=== PATIENT | male | born 1965 | race Hispanic/Latino ===

== ENCOUNTER 2016-11-10 15:26 | Observation (INO) | payer MEDICAID ==
[2016-11-10 15:41] VITALS: BMI 33.6
[2016-11-10] MEDS ORDERED: Albuterol-Ipratrop 3 mg / 0.5 (3 ml) UD IH STA ×2 (15:41→16:48)
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
[2016-11-10 15:52] LABS: URINE BILIRUBIN SMALL (NEGATIVE); URINE BLOOD LARGE (NEGATIVE); URINE GLUCOSE (UA) NEGATIVE (NEGATIVE); URINE KETONE TRACE mg/dL (NEGATIVE); URINE LEUKOCYTE ESTERASE NEGATIVE Leu/uL (NEGATIVE); URINE PROTEIN 100 mg/dL (<30 mg/dL)
[2016-11-10 15:57] LABS: URINE APPEARANCE SL CLOUDY (CLEAR); URINE COLOR LIGHT RED (YELLOW)
[2016-11-10 16:02] LABS: URINE BACTERIA MOD (NEG); URINE EPITHELIAL CELLS 0 - 2 /hpf (0-5); URINE RBC 20 - 25 /hpf (0-2)
[2016-11-10 16:03] LABS: URINE AMORPHOUS SEDIMENT FEW
--- NOTE | 2016-11-10 16:09 | RAD ---
HISTORY: Shortness of breath COMPARISON: 11/04/2016. FINDINGS: LUNGS: The lungs are clear. PLEURA: No significant pleural effusion identified, no pneumothorax apparent. There is chronic left pleural thickening. CARDIOVASCULAR: Normal. OSSEOUS STRUCTURES: No significant abnormalities. VISUALIZED UPPER ABDOMEN: Normal. OTHER FINDINGS: None. IMPRESSION: No active pulmonary disease.
[2016-11-10 16:10] LABS: ADD MANUAL DIFF? NO
[2016-11-10 16:17] LABS: BASO # 0.04 K/mm3 (0.0-2.0); BASO % 0.7 % (0.0-3.0); EOS % 0.3 % (1.5-5.0); GRAN # 3.35 (1.4-6.5); HEMATOCRIT 40.8 % (42.0-52.0); LYMPH # 2.1 (1.2-3.4); LYMPH % 34.3 % (22.0-35.0); MEAN CORPUSCULAR HEMOGLOBIN 34.4 pg (25.0-35.0); MEAN CORPUSCULAR HGB CONC 34.1 g/dl (31.0-37.0); MEAN PLATELET VOLUME 10.4 fl (7.0-11.0); MONO # 0.6 (0.1-0.6); MONO % 9.7 % (1.0-6.0); PLATELET COUNT 61 10^3/uL (120.0-450.0); WHITE BLOOD COUNT 6.1 10^3/ul (4.5-11.0)
[2016-11-10 16:30] LABS: ALKALINE PHOSPHATASE 120 U/L (38-133); ALT/SGPT 140 U/L (7-56); AST/SGOT 120 U/L (15-59); BILIRUBIN,TOTAL 1.7 mg/dL (0.2-1.3); BLOOD UREA NITROGEN 21 mg/dL (7-21); CALCIUM 9.3 mg/dL (8.4-10.5); CARBON DIOXIDE 25 mmol/L (21-33); CHLORIDE 104 mmol/L (98-107); GFR AFRICAN-AMERICAN > 60; GLUCOSE,RANDOM 93 mg/dL (70-110); POTASSIUM 4.4 mmol/L (3.6-5.0); SODIUM 136 mmol/L (132-148); TOTAL PROTEIN 7.2 g/dL (5.8-8.3)
[2016-11-10 16:32] LABS: D DIMER 0.36 mg/L FEU (0-0.50); INR 1.11 (0.93-1.08); PARTIAL THROMBOPLASTIN TIME 28.2 Seconds (23.7-30.8)
[2016-11-10 16:44] LABS: TROPONIN I < 0.01 ng/mL
[2016-11-10] MEDS ORDERED: cefTRIAXone 1 gm 1 GM/100 ML BAG IVPB STA (16:48)
[2016-11-10] MEDS ORDERED: Morphine 2 mg/ml ISec IVP PRN (21:41)
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
[2016-11-10 23:42] VITALS: RESP 22
--- NOTE | 2016-11-11 01:01 | CARD ---
APPROVED REPORT EKG Measurement Heart [id number] <Conclusion> Normal sinus rhythm Normal ECG
[2016-11-11 06:04] VITALS: TEMP 98.6; O2SAT 98
[2016-11-11 06:48] LABS: ADD MANUAL DIFF? NO
[2016-11-11 07:16] LABS: ALKALINE PHOSPHATASE 107 U/L (38-133); ALT/SGPT 121 U/L (7-56); AST/SGOT 83 U/L (15-59); BLOOD UREA NITROGEN 19 mg/dL (7-21); CALCIUM 9.1 mg/dL (8.4-10.5); CARBON DIOXIDE 23 mmol/L (21-33); CHLORIDE 105 mmol/L (98-107); GFR AFRICAN-AMERICAN > 60; GLUCOSE,RANDOM 142 mg/dL (70-110); POTASSIUM 4.4 mmol/L (3.6-5.0); SODIUM 135 mmol/L (132-148); TOTAL PROTEIN 6.6 g/dL (5.8-8.3)
[2016-11-11 07:18] LABS: BASO # 0.01 K/mm3 (0.0-2.0); BASO % 0.2 % (0.0-3.0); GRAN # 3.05 (1.4-6.5); GRAN % 75.5 % (50.0-68.0); HEMATOCRIT 37.8 % (42.0-52.0); LYMPH # 0.9 (1.2-3.4); LYMPH % 22.8 % (22.0-35.0); MEAN CELL VOLUME 99.7 fL (80.0-105.0); MEAN CORPUSCULAR HEMOGLOBIN 33.8 pg (25.0-35.0); MEAN CORPUSCULAR HGB CONC 33.9 g/dl (31.0-37.0); MEAN PLATELET VOLUME 10.6 fl (7.0-11.0); MONO # 0.1 (0.1-0.6); MONO % 1.5 % (1.0-6.0); PLATELET COUNT 57 10^3/uL (120.0-450.0); RED CELL DISTRIBUTION WIDTH 12.9 % (11.5-14.5)
[2016-11-11 07:24] LABS: TROPONIN I < 0.01 ng/mL
--- NOTE | 2016-11-11 07:44 | CON ---
DATE: 11/11/2016 REASON FOR CONSULTATION: Chronic obstructive pulmonary disease. REFERRING PHYSICIAN: Dr. Viktor Lundy The patient is a 51-year-old male with past medical history significant for chronic obstructive pulmonary disease, recurrent bronchitis, extensive smoking history, chronic alcohol abuse, chronic hepatitis C, diabetes mellitus, who presents with a 1-week history of increasing shortness of breath at rest, dyspnea on exertion, cough, and sputum production. The patient does state to chest "tightness" over the past few days. However, he denies chest pain, coughing up of blood or chest pain -- aggravated with deep respirations. There is no history of temperatures, chills or infectious exposure. There is no history of night sweats, weight loss or appetite change prior to the above events. No history of leg or calf pains. No history of syncope or diaphoresis. No history of recent travel or trauma. REVIEW OF SYSTEMS: No history of nausea, vomiting or diarrhea. No acute urinary symptoms. No new neurologic or musculoskeletal complaints. Rest is negative. ALLERGIES: No known allergies. SOCIAL HISTORY: Positive for extensive tobacco usage. Positive for chronic alcohol abuse. Positive for previous cocaine usage. The patient's drug screen was also positive for cannabinoids in the urine. FAMILY HISTORY: No inheritable diseases. HOME MEDICATIONS: Include promethazine, cough syrup, Levaquin and Augmentin. PHYSICAL EXAMINATION: GENERAL: The patient is very comfortable at rest. He is not short of breath. Prior to me waking him up, he was sleeping. VITAL SIGNS: Temperature is 98.6, pulse on the monitor is 71, respirations 18, blood pressure 128/62. Oxygen saturation on nasal cannula is 98%-100%. HEENT: Normocephalic, atraumatic. No JVD. CARDIOVASCULAR: Positive S1, S2. No S3. LUNGS: Minimal rhonchi bilaterally. No wheezing. EXTREMITIES: No clubbing, cyanosis, or edema. Calves are nontender to palpation. GASTROINTESTINAL: Abdomen is soft, nontender, nondistended. Bowel sounds are positive. SKIN: No acute rash. NEUROLOGIC: Limited at the present time. PERTINENT LABORATORY DATA: Chest x-ray was done and reviewed. There is no active pulmonary disease noted. CBC: White count 6.1, hemoglobin 13.9, hematocrit 40.8, platelets of 61,000. D-dimer was done and is negative -- 0.36. Complete metabolic profile: Total bilirubin 1.7, AST 120, ALT 140. Rest of the metabolic profile is within normal limits. IMPRESSION: 1. Acute bronchitis. 2. Chronic obstructive pulmonary disease. 3. Mild anemia. 4. Diabetes mellitus. 5. Chronic alcohol abuse. 6. Chronic hepatitis C. PLAN: The patient presents to [facility] ([facility] with a 1-week history of worsening pulmonary symptoms. I did review the chest x-ray as above. It shows no acute pulmonary disease. On physical exam, only minimal bronchospasm is noted. In addition, there is no significant alveolar-arterial gradient. Oxygen saturation on nasal cannula is 98%-100%. The patient states he feels much better this morning -- compared to the past few days. He is certainly clinically improved. I did discuss the above with Dr. Lundy this morning at length. The patient is for probable discharge(with home medications) later today. Thank you very much for this pulmonary consultation. Musa Soliman MD cc: [id number] TT: 11/11/2016 07:43:39 Confirmation # [id number] Dictation # [id number] en MTDD
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
--- NOTE | 2016-11-11 08:53 | DS ---
He is comfortable, resting in bed. He feels well. He wants to go home. He is feeling better. I sa w him with the bar hostess who said he can go home. He is comfortable. No chest pain or shortness of breath anymore. PHYSICAL EXAMINATION: VITAL SIGNS: 98.6 temp, 62 pulse, 128/62 blood pressure, 22 respiratory rate, 98% O2 sat on room air . HEENT: Head is atraumatic, normocephalic. HEART: Regular rate. LUNGS: Decreased breath sounds but clear to auscultation. ABDOMEN: Soft. EXTREMITIES: No edema. MEDICATIONS: He is going to go home on Symbicort, aspirin, Levaquin, metoprolol, prednisone for 9 da ys. LABORATORY DATA: Labs were good. His liver enzymes were elevated. He will go for an outpatient ult rasound and outpatient lab tests in a week. I am going to see him in a week at home. He will behave ; no smoking, no drinking, no drugs, and I will recheck him in 1 week. I changed him to an observati on status. He was here for chest pain and shortness of breath which improved. Viktor Lundy DO cc: [id number] TT: 11/11/2016 08:53:04 oh
[2016-11-11 09:07] VITALS: BP 108/67; PULSE 60
[2016-11-11] MEDS ORDERED: levoFLOXacin 500 mg in D5W 500 MG/100 ML BAG IVPB SCH (10:00)
== END 2016-11-11 11:10 | disposition home or self-care (01) ==
LOC: ED 15:26 → INTOOBSV 17:10 → ERH 17:10 → 2RNO 21:07
PROVIDERS: ADMIT Family Medicine; ATTEND Family Medicine
DX: J44.0 Chronic obstructive pulmonary disease with (acute) lower respiratory infection (principal); J20.9 Acute bronchitis, unspecified; N39.0 Urinary tract infection, site not specified; B18.2 Chronic viral hepatitis C; D64.9 Anemia, unspecified; E11.9 Type 2 diabetes mellitus without complications; F10.10 Alcohol abuse, uncomplicated; M54.5 Low back pain; G89.29 Other chronic pain; F12.90 Cannabis use, unspecified, uncomplicated; Z87.891 Personal history of nicotine dependence; Y90.0 Blood alcohol level of less than 20 mg/100 ml
CPT/HCPCS: 36415; 71010; 80053; 80320; 80324; 80345; 80346; 80349; 80353; 80358; 80361; 81001; 82550; 83615; 83880; 83992; 84484; 85025; 85378; 85610; 85730; 87040; 87086; 93005; 96365; 96375; 99285; G0378; J0696; J2930

== ENCOUNTER 2017-01-07 19:01 | Inpatient (IN) | payer MEDICAID ==
[2017-01-07] MEDS ORDERED: Albuterol-Ipratrop 3 mg / 0.5 (3 ml) UD IH STA (19:31)
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
[2017-01-07 19:51] LABS: BASO # 0.06 K/mm3 (0.0-2.0); BASO % 1.1 % (0.0-3.0); EOS % 0.5 % (1.5-5.0); GRAN # 2.66 (1.4-6.5); GRAN % 47.7 % (50.0-68.0); HEMOGLOBIN 12.5 gm/dL (14.0-18.0); LYMPH # 2.3 (1.2-3.4); LYMPH % 41.4 % (22.0-35.0); MEAN CELL VOLUME 96.5 fL (80.0-105.0); MEAN CORPUSCULAR HGB CONC 35.2 g/dl (31.0-37.0); MEAN PLATELET VOLUME 10.2 fl (7.0-11.0); MONO # 0.5 (0.1-0.6); MONO % 9.3 % (1.0-6.0); PLATELET COUNT 61 10^3/uL (120.0-450.0); RBC 3.68 10^6/uL (3.5-6.1); RED CELL DISTRIBUTION WIDTH 12.5 % (11.5-14.5); WHITE BLOOD COUNT 5.6 10^3/ul (4.5-11.0)
[2017-01-07 19:59] LABS: ALBUMIN 3.2 g/dL (3.0-4.8); ALT/SGPT 112 U/L (7-56); AST/SGOT 84 U/L (15-59); BLOOD UREA NITROGEN 8 mg/dL (7-21); CALCIUM 8.2 mg/dL (8.4-10.5); GFR AFRICAN-AMERICAN > 60; GFR NON-AFRICAN AMERICAN > 60
[2017-01-07 20:13] LABS: TROPONIN I < 0.01 ng/mL
[2017-01-07] MEDS ORDERED: Iohexol 350 MG/100 ML VIAL ONE (22:21)
[2017-01-08 02:55] VITALS: BMI 27.9
[2017-01-08] MEDS: cefTRIAXone 1 gm 1 GM/100 ML BAG IVPB SCH (10:12)
[2017-01-08] MEDS: Sodium Chloride 0.9% 1,000 ML IV SCH (10:13)
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
[2017-01-08] MEDS: Insulin Reg-HIGH-Coverage SC SCH ×3 (11:39→21:53)
--- NOTE | 2017-01-08 11:43 | RAD ---
HISTORY: cp COMPARISON: Single frontal chest dated 11/10/2016. FINDINGS: LUNGS: Prominent density seen at the expected location of the aortic arch/suprahilar region which it has been shown to represent a left perihilar/mediastinal mass by CT also performed 12/29/2016. Please see separate report. PLEURA: No significant pleural effusion identified, no pneumothorax apparent. CARDIOVASCULAR: Normal. OSSEOUS STRUCTURES: No significant abnormalities. VISUALIZED UPPER ABDOMEN: Normal. OTHER FINDINGS: None. IMPRESSION: Prominent density seen at the left suprahilar/aortic arch region stone as a mass on separate CT chest also performed 12/29/2016. Remainder the examination appears stable.
[2017-01-08] MEDS: Albuterol-Ipratrop 3 mg / 0.5 (3 ml) UD IH SCH ×2 (13:41→19:24)
--- NOTE | 2017-01-08 13:57 | CARD ---
APPROVED REPORT EKG Measurement Heart [id number] <Conclusion> Normal sinus rhythm Normal ECG
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
[2017-01-09] MEDS: Albuterol-Ipratrop 3 mg / 0.5 (3 ml) UD IH SCH ×5 (00:42→20:03)
[2017-01-09] MEDS ORDERED: Pantoprazole 40mg/100ml IVPB 40 MG/100 ML BAG IVPB SCH (06:00)
[2017-01-09] MEDS: Sodium Chloride 0.9% 1,000 ML IV SCH (07:00)
[2017-01-09] MEDS ORDERED: Albuterol-Ipratrop 3 mg / 0.5 (3 ml) UD IH PRN (07:01)
[2017-01-09 07:04] LABS: HEMOGLOBIN 11.7 gm/dL (14.0-18.0); MEAN CELL VOLUME 97.2 fL (80.0-105.0); MEAN CORPUSCULAR HEMOGLOBIN 33.2 pg (25.0-35.0); MEAN CORPUSCULAR HGB CONC 34.2 g/dl (31.0-37.0); MEAN PLATELET VOLUME 10.6 fl (7.0-11.0); RBC 3.52 10^6/uL (3.5-6.1); RED CELL DISTRIBUTION WIDTH 12.8 % (11.5-14.5); WHITE BLOOD COUNT 3.9 10^3/ul (4.5-11.0)
[2017-01-09 07:14] LABS: ALB/GLOB RATIO 0.9 (1.1-1.8); ALBUMIN 2.7 g/dL (3.0-4.8); ALT/SGPT 103 U/L (7-56); AST/SGOT 94 U/L (15-59); BLOOD UREA NITROGEN 10 mg/dL (7-21); CALCIUM 8.2 mg/dL (8.4-10.5); GFR AFRICAN-AMERICAN > 60; GFR NON-AFRICAN AMERICAN > 60
[2017-01-09] MEDS: Budesonide 0.5 mg/2 ml Inhal Susp UD IH SCH ×2 (07:55→20:03)
[2017-01-09] MEDS: Insulin Reg-HIGH-Coverage SC SCH ×4 (07:58→21:41)
--- NOTE | 2017-01-09 08:28 | PN ---
SUBJECTIVE: The patient appears comfortable this morning. He is not short of breath at rest. PHYSICAL EXAMINATION VITAL SIGNS: Temperature 98.4, pulse 70, respirations 18/20, blood pressure 107/57. Oxygen saturation on nasal cannula is 96%. HEENT: Normocephalic, atraumatic. NECK: No JVD. CARDIOVASCULAR: Positive S1 and S2. No S3. LUNGS: Decreased breath sounds at the bases. minimal rhonchi. Minimal wheezing. EXTREMITIES: No clubbing, cyanosis or edema. Calves are nontender to palpation. GASTROINTESTINAL: Abdomen is soft, nontender and nondistended. Bowel sounds are positive. SKIN: No acute rash. NEUROLOGIC: Limited at the present time. IMPRESSION: 1. Left perihilar mass,pulmonary nodules-rule out malignancy. 2. Chronic obstructive pulmonary disease. 3. Mild acute bronchitis. 4. Mild anemia. PLAN: The patient appears comfortable this morning. He is not short of breath at rest. He states he is feeling better overall. On physical exam, there is mild bronchospasm noted. I will continue with the DuoNebs and add low-dose oral steroids this morning. There is no significant alveolar arterial gradient. I did discuss the case with the patient and nurse at length. Apparently, the patient was scheduled to have a CAT scan-guided lung biopsy at [facility]-and then he signed out against medical advice. Dr. Gofdrey Villanueva (interventional radiology) has been called on the case for a CAT scan-guided lung biopsy at our institution. The patient is agreeable to this procedure. The patient does feel better-compared to the initial hospital status. He is clinically improved. I did discuss the above with Dr. Lundy earlier this morning. Musa Soliman MD MTDLily
--- NOTE | 2017-01-09 08:59 | CON ---
DATE: 01/08/2017 HISTORY OF PRESENT ILLNESS: The patient is a 51-year-old male who presents with chest discomfort. His chest symptoms are constant both at rest in the supine position as well as during exertion. He also suffers from chronic shortness of breath secondary to COPD. The patient just stopped smoking recently. In addition, the patient suffers from hepatitis C in which he has not undergone drug therapy. He suffers from chronic alcohol abuse as well as diabetes mellitus. No previous cardiac history is noted. SOCIAL HISTORY: He is an active smoker just recently stopped. REVIEW OF SYSTEMS: A 14-point review of systems was reviewed. His shortness of breath and his constant chest pain are his predominant symptoms. PHYSICAL EXAMINATION: VITAL SIGNS: Blood pressure varies from 100-124 systolic, heart rate in the 70s. NECK: Negative JVD. LUNGS: Without rales. HEART: S1, S2. EXTREMITIES: Without edema. EKG shows no acute changes. LABORATORY DATA: Hemoglobin is 12. Troponin is negative x1. LFTs are elevated. IMPRESSION: 1. Chest pain. 2. Likely due to large lung mass. 3. No evidence for acute coronary syndrome. 4. Chronic obstructive pulmonary disease. 5. Diabetes mellitus. 6. Hepatitis C. 7. Alcohol abuse. PLAN: Given these findings, there is no evidence for acute coronary syndrome. Awaiting pulmonary evaluation for diagnosis and treatment of his of his lung mass. Godfrey Fisher MD cc: DATE: HISTORY OF PRESENT ILLNESS: The patient is a 51-year-old male who presents with chest discomfort. His chest symptoms are constant both at rest in the supine position as well as during exertion. He also suffers from chronic shortness of breath secondary to COPD. The patient just stopped smoking recently. In addition, the patient suffers from hepatitis C, in which he has not undergone drug therapy. He suffers from chronic alcohol abuse as well as diabetes mellitus. No previous cardiac history is noted. SOCIAL HISTORY: He is an active smoker, just recently stopped. REVIEW OF SYSTEMS: A 14 point review of systems was reviewed. His shortness of breath and his constant chest pain are his predominant symptoms. PHYSICAL EXAMINATION: VITAL SIGNS: Blood pressure varies from 100-124 systolic, heart rate in the 70s. NECK: Negative JVD. LUNGS: Without rales. HEART: S1, S2. EXTREMITIES: Without edema. EKG shows no acute changes. LABORATORY DATA: Hemoglobin is 12. Troponin is negative x1. LFTs are elevated. IMPRESSION: 1. Chest pain. 2. Likely due to large lung mass. 3. No evidence for acute coronary syndrome. 4. Chronic obstructive pulmonary disease. 5. Diabetes mellitus. 6. Hepatitis C. 7. Alcohol abuse. PLAN: Given these findings, there is no evidence for acute coronary syndrome. Awaiting pulmonary evaluation for diagnosis and treatment of his lung mass. Godfrey Fisher MD cc:
[2017-01-09] MEDS: cefTRIAXone 1 gm 1 GM/100 ML BAG IVPB SCH (09:32)
[2017-01-09] MEDS ORDERED: Midazolam 2 MG/2 ML VIAL ONE ×2 (09:33→16:32)
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
--- NOTE | 2017-01-09 10:18 | PN ---
DATE: SUBJECTIVE: I saw Trung this morning, resting in bed. He is still short of breath, not feeling that well. He has a lung mass which we need to get a biopsy of it. I called in Dr. Godfrey Villanueva. I made him n.p.o. hopefully they could do it this morning. He had chest pain, we have cardiology on board. He is short of breath, we got pulmonary on board. He is still short of breath despite being on albuterol. Insulin coverage. He is on prednisone, Protonix, Rocephin, IV fluids and Tylenol. PHYSICAL EXAMINATION: VITAL SIGNS: 98.4 temperature, 74 pulse, 107/57 blood pressure, 20 respiratory rate, 96% O2 saturations on 2 L nasal canula. HEENT: Atraumatic and normocephalic. Throat is clear and moist. NECK: Supple. HEART: Regular rate. LUNGS: Decreased breath sounds bilaterally, but clear. ABDOMEN: Soft. EXTREMITIES: No edema. He has been a smoker for a very long time. LABORATORY DATA: He has a 3.9 white count, 11.7 hemoglobin, 34.2 hematocrit with 54 platelets. He has 0.53 D-dimer. CAT scan was ordered. Sodium 127, 4.2 potassium, BUN is 8, creatinine is 0.7, and last blood sugar was 123. Troponin is less than 0.01 x3. AST is 84, ALT is 112. We are waiting for this morning's chemistry to come back. He does have a consult pulmonary, cardiology and interventional radiologist, Dr. Godfrey Villanueva, also oncology. He has had a CAT scan of the chest which showed 10 cm left perihilar mass of mediastinal lymphadenopathy encasing the main left pulmonary artery as well as the left upper lobe main bronchus. No definite pulmonary embolus seen. Multiple satellite nodules are identified, mild mediastinal lymphadenopathy. We will hopefully get the biopsy today. We will get oncology and Dr. Leahy check his labs. Continue with aggressive treatment and care. Viktor Lundy DO JERAMIE
[2017-01-09 10:20] LABS: INR 1.21 (0.93-1.08); PROTHROMBIN TIME 13.1 Seconds (9.9-11.8)
--- NOTE | 2017-01-09 13:03 | PN ---
CARDIOLOGY FOLLOWUP NOTE DATA OF FOLLOWUP: 01/09/2017 SUBJECTIVE: The patient is asymptomatic. PHYSICAL EXAMINATION VITAL SIGNS: Blood pressure is 107/57 and heart rate is in the 70s. NECK: Negative JVD. LUNGS: Without rales. HEART: Reveals S1 and S2. Extremities: Without edema. LABORATORY DATA: Hemoglobin is 11.7. Chemistries; troponins are negative x2. IMPRESSION: 1. Atypical chest pain. 2. No evidence for acute coronary syndrome. 3. Chronic obstructive pulmonary disease. 4. Lung mass. 5. Diabetes mellitus. PLAN: Given these findings, waiting pulmonary decision on what to do with the lung mass. At the present time, there was no further cardiac intervention indicated at this time. We will obtain an echocardiogram for LV function in case more invasive pulmonary procedures are necessary. Otherwise the patient needs to stop smoking and undergo a strict cardiac risk reduction program. Godfrey Fisher MD
--- NOTE | 2017-01-09 19:36 | CT ---
PROCEDURE: CT guided left lung biopsy. HISTORY: Large left upper lobe and mediastinal lung mass. Evaluate for malignancy. PHYSICIAN(S): Godfrey Villanueva MD. TECHNIQUE: The relative risks and indications of the procedure were explained to the patient and consent obtained. The patient was placed supine on the CT scanner and preliminary images through the lungs obtained. Conscious sedation and monitoring were provided throughout the procedure by a nurse. There is a 4.2 x 10.7 cm noncalcified mass in the left upper lobe medially involving the mediastinum and left hilum.. A left anterior approach was selected and the area prepped and draped in the usual sterile fashion. 1% Xylocaine was used to anesthetize the skin and soft tissues. A 19 gauge guiding needle was advanced into the 4.2 x 10.7 cm left lung mass. Its position was confirmed with CT. Using coaxial technique, multiple core biopsies were obtained. The postprocedure images show no evidence of large pneumothorax or significant hemorrhage.. IMPRESSION: 1. CT-guided left lung biopsy as described above.
[2017-01-09] MEDS: Sodium Chloride 0.45% 1,000 ML IV SCH (19:45)
[2017-01-10] MEDS: Albuterol-Ipratrop 3 mg / 0.5 (3 ml) UD IH SCH ×2 (01:20→07:16)
[2017-01-10] MEDS: Sodium Chloride 0.45% 1,000 ML IV SCH (05:32)
[2017-01-10 06:52] VITALS: PULSE 68; TEMP 97.9; O2SAT 97
[2017-01-10] MEDS: Budesonide 0.5 mg/2 ml Inhal Susp UD IH SCH (07:16)
[2017-01-10 07:26] LABS: HEMOGLOBIN 11.4 gm/dL (14.0-18.0); MEAN CORPUSCULAR HEMOGLOBIN 33.2 pg (25.0-35.0); MEAN CORPUSCULAR HGB CONC 33.9 g/dl (31.0-37.0); MEAN PLATELET VOLUME 9.9 fl (7.0-11.0); RBC 3.43 10^6/uL (3.5-6.1); RED CELL DISTRIBUTION WIDTH 12.7 % (11.5-14.5); WHITE BLOOD COUNT 4.4 10^3/ul (4.5-11.0)
[2017-01-10 08:02] LABS: ALBUMIN 2.9 g/dL (3.0-4.8); ALT/SGPT 100 U/L (7-56); AST/SGOT 81 U/L (15-59); BLOOD UREA NITROGEN 14 mg/dL (7-21); CALCIUM 8.3 mg/dL (8.4-10.5); GFR AFRICAN-AMERICAN > 60; GFR NON-AFRICAN AMERICAN > 60
[2017-01-10] MEDS: Insulin Reg-HIGH-Coverage SC SCH (08:06)
[2017-01-10 08:22] VITALS: BP 128/78; RESP 20
--- NOTE | 2017-01-10 09:05 | RAD ---
HISTORY: lt lung bx COMPARISON: 01/07/2017 FINDINGS: LUNGS: Mass in the region of the aortic arch in the left upper lobe. PLEURA: No significant pleural effusion identified, no pneumothorax apparent. CARDIOVASCULAR: Normal. OSSEOUS STRUCTURES: No significant abnormalities. VISUALIZED UPPER ABDOMEN: Normal. OTHER FINDINGS: None. IMPRESSION: No evidence of pneumothorax
[2017-01-10] MEDS: cefTRIAXone 1 gm 1 GM/100 ML BAG IVPB SCH (09:33)
--- NOTE | 2017-01-10 10:01 | CARD ---
APPROVED REPORT EXAM: Two-dimensional and M-mode echocardiogram with Doppler and color Doppler. INDICATION Dyspnea 2D DIMENSIONS Left Atrium (2D)4.4 (1.6-4.0cm)IVSd0.9 (0.7-1.1cm) LVDd4.6 (3.9-5.9cm)PWd0.9 (0.7-1.1cm) LVDs3.2 (2.5-4.0cm)FS (%) 29.8 % LVEF (%)57.0 (>50%) M-Mode DIMENSIONS Aortic Root3.10 (2.2-3.7cm)Aortic Cusp Exc.1.90 (1.5-2.0cm) Aortic Valve AoV Peak Ltsofsik458.0cm/Kerry Peak GR.9mmHg Mitral Valve MV E Nquxazrs27.3cm/sMV A Dsfkjaka61.0cm/sE/A ratio1.2 TDI Lateral E' Peak V14.40cm/sMedial E' Peak V10.90cm/sE/Lateral E'6.5 E/Medial E'8.7 Pulmonary Valve PV Peak Bveqmvpg76.9cm/sPV Peak Grad.3mmHg Tricuspid Valve TR Peak Wvzhdtor318au/sRAP THOLOTOF89ohNeGD Peak Gr.28mmHg DBUO11dxPa LEFT VENTRICLE The left ventricle is normal size. There is normal left ventricular wall thickness. The left ventricular function is normal. The left ventricular ejection fraction is within the normal range. There is normal LV segmental wall motion. The left ventricular diastolic function is normal. RIGHT VENTRICLE The right ventricle is normal size. There is normal right ventricular wall thickness. The right ventricular systolic function is normal. ATRIA The left atrium is borderline dilated. The right atrium size is normal. AORTIC VALVE The aortic valve is not well visualized. No aortic regurgitation is present. MITRAL VALVE The mitral valve is normal in structure. There is no mitral valve regurgitation noted. TRICUSPID VALVE There is mild tricuspid regurgitation. There is mild pulmonary hypertension. GREAT VESSELS The aortic root is normal in size. PERICARDIAL EFFUSION There is no pericardial effusion. <Conclusion> The left ventricle is normal size. There is normal left ventricular wall thickness. The left ventricular function is normal. The left ventricular ejection fraction is within the normal range. There is normal LV segmental wall motion. The left ventricular diastolic function is normal. There is mild tricuspid regurgitation. There is mild pulmonary hypertension.
--- NOTE | 2017-01-10 11:00 | PN ---
DATE: 01/10/2017 SUBJECTIVE: The patient appears very comfortable this morning. He is not short of breath at rest. PHYSICAL EXAMINATION: VITAL SIGNS: Temperature is 97.9, pulse is 68, respirations 16/18, last blood pressure recorded 109/68. Oxygen saturation on room air is 97%. HEENT: Normocephalic, atraumatic. NECK: No JVD. CARDIOVASCULAR: Positive S1 and S2. No S3. LUNGS: Clear this morning. EXTREMITIES: No clubbing, cyanosis or edema. Calves are nontender to palpation. GASTROINTESTINAL: Abdomen is soft, nontender, nondistended. Bowel sounds are positive. SKIN: No acute rash. NEUROLOGIC: Limited at the present time. IMPRESSION: 1. Left perihilar mass, pulmonary nodules--rule out malignancy. 2. Chronic obstructive pulmonary disease. 3. Mild acute bronchitis. 4. Mild anemia. PLAN: The patient appears very comfortable this morning. He is not short of breath at rest. He does state to felling much better overall. I will continue the current nebulizer treatments and oral steroids for now. The patient is status post CAT scan-guided lung biopsy. Results are pending. I did discuss the case with Dr. Valenzuela(pathology) at length yesterday. Clinical status of the patient is certainly improved, compared to the initial presentation. However, the future status/prognosis for this patient remains very guarded. All are aware. I will discuss the above with Dr. Lundy this morning. Musa Soliman MD MTDD
--- NOTE | 2017-01-10 15:29 | DS ---
HISTORY OF PRESENT ILLNESS: I discussed at length with Trung and also Dr. 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 He had his biopsy of the lung yesterday. He is breathing well, feeling well, no complaints, no bleeding. Dr. Soliman wants him on his Advair 250/50 one puff twice a day, prednisone 30 mg for 3 days, 20 mg for 3 days, 10 mg for 3 days and stop. Also, gave him some Duoneb at home. He is comfortable. PHYSICAL EXAMINATION: VITAL SIGNS: Temperature 97.9, pulse 68, blood pressure 109/98, respiratory rate 22, 97% O2 sat on room air. I am concerned about his blood pressure. I will follow him on the outpatient team in the office on Monday. His blood pressure is high, we will start him on time his blood pressure has really been high. He is under lot of stress here. HEENT: Head is atraumatic and normocephalic. HEART: Regular rate. LUNGS: Decreased breath sounds, but clear. ABDOMEN: Soft. EXTREMITIES: No edema. He has multiple problems. He has with lung mass, which was biopsied. He is very short of breath. He had chest pain. Now his blood pressure is a little bit borderline. I will make sure that we check before he goes home and I will add Norvasc 2.5 mg daily, if he does not get better. He understand. He will see me in the office on Monday. Thank you very much. We will follow up on the outpatient with pulmonary and follow up with the biopsy of the lung. Viktor Lundy DO MTDD
== END 2017-01-10 11:46 | disposition home or self-care (01) | DRG 413 ==
LOC: ED 19:01 → ERH 21:00 → 2RSO 01-08 02:16 → OBSVTOIN 01-08 09:36 → 5RNO 01-09 12:44
PROVIDERS: ADMIT Family Medicine; ATTEND Family Medicine
PROC: 0BBG3ZX Excision of Left Upper Lung Lobe, Percutaneous Approach, Diagnostic (ICD-10-PCS; principal; 2017-01-09 09:00)
DX: C7A.8 Other malignant neuroendocrine tumors (principal); J44.0 Chronic obstructive pulmonary disease with (acute) lower respiratory infection; E22.2 Syndrome of inappropriate secretion of antidiuretic hormone; I10 Essential (primary) hypertension; D64.9 Anemia, unspecified; E11.9 Type 2 diabetes mellitus without complications; B18.2 Chronic viral hepatitis C; J20.9 Acute bronchitis, unspecified; F17.210 Nicotine dependence, cigarettes, uncomplicated; I25.10 Atherosclerotic heart disease of native coronary artery without angina pectoris; F10.10 Alcohol abuse, uncomplicated; F12.90 Cannabis use, unspecified, uncomplicated; Z79.51 Long term (current) use of inhaled steroids; Z83.3 Family history of diabetes mellitus; Z82.49 Family history of ischemic heart disease and other diseases of the circulatory system

== ENCOUNTER 2017-05-13 16:57 | Inpatient (IN) | payer MEDICAID ==
[2017-05-13] MEDS ORDERED: Ipratropium 0.02% Inhal Soln (0.5 mg/2.5 ml) UD IH STA (17:24)
[2017-05-13] MEDS ORDERED: Sodium Chloride 0.9% 1,000 ML IV STA (18:22)
[2017-05-13] MEDS ORDERED: Cefepime 1gm in NS 100ml 1 GM/100 ML BAG IVPB ONE (18:24)
[2017-05-13 18:44] LABS: BASO # 0.01 K/mm3 (0.0-2.0); BASO % 0.3 % (0.0-3.0); EOS % 0.9 % (1.5-5.0); GRAN # 2.11 (1.4-6.5); GRAN % 60.4 % (50.0-68.0); HEMATOCRIT 32.7 % (42.0-52.0); LYMPH # 0.9 (1.2-3.4); LYMPH % 26.4 % (22.0-35.0); MEAN CORPUSCULAR HGB CONC 32.1 g/dl (31.0-37.0); MEAN PLATELET VOLUME 11.3 fl (7.0-11.0); MONO # 0.4 (0.1-0.6); RED CELL DISTRIBUTION WIDTH 15.2 % (11.5-14.5); WHITE BLOOD COUNT 3.5 10^3/ul (4.5-11.0)
[2017-05-13 18:53] LABS: VENOUS BLOOD GAS BASE EXCESS 4.2 mmol/L (0.0-2.0); VENOUS BLOOD PH 7.36 (7.32-7.43)
[2017-05-13 18:54] LABS: INR 1.22 (0.93-1.08); PARTIAL THROMBOPLASTIN TIME 32.7 Seconds (25.1-36.5)
[2017-05-13] MEDS: Albuterol-Ipratrop 3 mg / 0.5 (3 ml) UD IH SCH ×3 (19:00→19:10)
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
[2017-05-13 19:15] LABS: ALB/GLOB RATIO 0.9 (1.1-1.8); ALKALINE PHOSPHATASE 133 U/L (38-126); ALT/SGPT 65 U/L (7-56); AST/SGOT 93 U/L (17-59); BILIRUBIN,TOTAL 0.8 mg/dL (0.2-1.3); BLOOD UREA NITROGEN 10 mg/dL (7-21); CALCIUM 8.7 mg/dL (8.4-10.5); CARBON DIOXIDE 29 mmol/L (21-33); CHLORIDE 105 mmol/L (98-107); GFR AFRICAN-AMERICAN > 60; GLUCOSE,RANDOM 123 mg/dL (70-110); POTASSIUM 4.4 mmol/L (3.6-5.0); SODIUM 139 mmol/L (132-148); TOTAL PROTEIN 6.6 g/dL (5.8-8.3)
[2017-05-13 19:22] LABS: TROPONIN I < 0.01 ng/mL
[2017-05-13 19:29] LABS: URINE APPEARANCE CLEAR (CLEAR); URINE BILIRUBIN NEGATIVE (NEGATIVE); URINE BLOOD SMALL (NEGATIVE); URINE COLOR YELLOW (YELLOW); URINE GLUCOSE (UA) NEGATIVE (NEGATIVE); URINE KETONE TRACE mg/dL (NEGATIVE); URINE LEUKOCYTE ESTERASE NEGATIVE Leu/uL (NEGATIVE); URINE PROTEIN NEGATIVE mg/dL (<30 mg/dL); URINE UROBILINOGEN 0.2 E.U./dL (<1 E.U./dL)
[2017-05-13 19:34] LABS: URINE BACTERIA MOD (NEG); URINE EPITHELIAL CELLS 0 - 2 /hpf (0-5)
[2017-05-13 19:36] LABS: URINE AMORPHOUS SEDIMENT FEW
[2017-05-13 23:48] VITALS: BMI 26.6
--- NOTE | 2017-05-14 09:38 | RAD ---
HISTORY: CHEST PAIN , history of small cell lung cancer COMPARISON: Chest x-ray performed 01/09/17. PET CT performed 02/01/17 TECHNIQUE: Chest PA and lateral FINDINGS: LUNGS: Ill-defined patchy opacities within the left upper lobe. Necrotic mass at the left lung apex cannot be excluded. Patchy opacity at the left hilar region may reflect pneumonia. Please note that chest x-ray has limited sensitivity for the detection of pulmonary masses. PLEURA: No significant pleural effusion identified. No definite pneumothorax . CARDIOVASCULAR: Cardiomegaly. OSSEOUS STRUCTURES: Degenerative changes. VISUALIZED UPPER ABDOMEN: Unremarkable. OTHER FINDINGS: None. IMPRESSION: Ill-defined patchy opacities within the left upper lobe. Necrotic mass at the left lung apex cannot be excluded. Patchy opacity at the left hilar region may reflect pneumonia. If indicated, recommend CT chest with IV contrast for further evaluation. Study marked for PA review.
[2017-05-14] MEDS ORDERED: Arformoterol 15 mcg/2 ml Inh Sol IH SCH (10:00)
[2017-05-14] MEDS: Azithromycin 500 MG in Sodium Chloride 0.9% 250 ML IVPB SCH (10:35)
[2017-05-14] MEDS: cefTRIAXone 1 gm in D5W 100ml IVPB SCH (10:35)
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
[2017-05-14] MEDS: MethylPREDNISolone 40 mg Vial IV SCH ×3 (14:00→21:21)
[2017-05-14] MEDS: Albuterol-Ipratrop 3 mg / 0.5 (3 ml) UD IH SCH ×2 (14:04→20:47)
[2017-05-14] MEDS: Budesonide 0.5 mg/2 ml Inhal Susp UD IH SCH ×2 (14:04→20:44)
--- NOTE | 2017-05-14 16:10 | CARD ---
APPROVED REPORT EKG Measurement Heart [id number] <Conclusion> Normal sinus rhythm Normal ECG
[2017-05-14] MEDS ORDERED: Budesonide 0.5 mg/2 ml Inhal Susp UD IH SCH (20:00)
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
[2017-05-15] MEDS: MethylPREDNISolone 40 mg Vial IV SCH (05:20)
[2017-05-15 06:11] LABS: ARTERIAL BLOOD GAS HCO3 26.6 mmol/L (21-28); ARTERIAL BLOOD GAS O2 CAPACITY 12.7 mL/dl (16-24); ARTERIAL BLOOD GAS O2 CONTENT 12.7 ML/dl (15-23); ARTERIAL BLOOD GAS PH 7.42 (7.35-7.45); ARTERIAL BLOOD HGB O2 SAT 96.2 % (95.0-98.0); CARBOXYHEMOGLOBIN 2.8 % (0.5-1.5); HHB 0.3 % (0-5); METHEMOGLOBIN 0.8 % (0.0-3.0)
[2017-05-15 06:24] LABS: HEMATOCRIT 33.2 % (42.0-52.0); MEAN CELL VOLUME 114.1 fl (80.0-105.0); MEAN CORPUSCULAR HEMOGLOBIN 35.7 pg (25.0-35.0); MEAN CORPUSCULAR HGB CONC 31.3 g/dl (31.0-37.0); MEAN PLATELET VOLUME 10.6 fl (7.0-11.0); WHITE BLOOD COUNT 7.6 10^3/ul (4.5-11.0)
[2017-05-15 06:56] LABS: ALB/GLOB RATIO 0.9 (1.1-1.8); ALKALINE PHOSPHATASE 110 U/L (38-126); ALT/SGPT 43 U/L (7-56); AST/SGOT 45 U/L (17-59); BILIRUBIN,TOTAL 0.6 mg/dL (0.2-1.3); BLOOD UREA NITROGEN 14 mg/dL (7-21); CALCIUM 8.7 mg/dL (8.4-10.5); CARBON DIOXIDE 26 mmol/L (21-33); CHLORIDE 109 mmol/L (98-107); GFR AFRICAN-AMERICAN > 60; GLUCOSE,RANDOM 164 mg/dL (70-110); POTASSIUM 4.3 mmol/L (3.6-5.0); SODIUM 141 mmol/L (132-148); TOTAL PROTEIN 5.9 g/dL (5.8-8.3)
[2017-05-15] MEDS: Albuterol-Ipratrop 3 mg / 0.5 (3 ml) UD IH SCH ×3 (07:44→19:30)
[2017-05-15] MEDS: Budesonide 0.5 mg/2 ml Inhal Susp UD IH SCH ×2 (07:44→19:31)
--- NOTE | 2017-05-15 08:09 | PN ---
DATE: 05/15/2017 PULMONARY PROGRESS NOTE SUBJECTIVE: The patient appears comfortable this morning. He is not short of breath at rest. OBJECTIVE: VITAL SIGNS: Temperature is 98.3, pulse is 74, respirations are 18/20, blood pressure is 117/74, and oxygen saturation on nasal cannula is 98%. HEENT: Normocephalic, atraumatic. NECK: No JVD. CARDIOVASCULAR: Positive S1 and S2. No S3 gallop. LUNGS: Decreased breath sounds at the bases. Minimal rhonchi. Minimal wheezing. EXTREMITIES: No clubbing, cyanosis or edema. Calves are nontender to palpation. GASTROINTESTINAL: Abdomen is soft, nontender, and nondistended. Bowel sounds are positive. SKIN: No acute rash. NEUROLOGIC: Limited at the present time. IMPRESSION: 1. Recurrent bronchitis. 2. Chronic obstructive pulmonary disease. 3. 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 4. Chronic anemia. PLAN: The patient appears comfortable this morning. He is not short of breath at rest. He does state to feeling better overall. On physical exam, mild bronchospasm is noted. In addition, there is no significant alveolar-arterial gradient. Oxygen saturation on nasal cannula is 98%. I will continue the current nebulizer treatments, and decrease the intravenous steroids this morning. The patient remains on antibiotic therapy. There are no temperatures noted. There is no leukocytosis. I will also order a procalcitonin level - to help better define the patient's clinical condition. The patient's clinical status has certainly improved - compared to the initial presentation. However, given his history of advanced lung cancer, his future status/prognosis remains very guarded. I did discuss the above with Dr. Lundy. Musa Soliman MD [facility]
[2017-05-15] MEDS: MethylPREDNISolone 40 mg Vial IVP SCH ×2 (09:07→21:14)
[2017-05-15] MEDS: cefTRIAXone 1 gm in D5W 100ml IVPB SCH (09:08)
--- NOTE | 2017-05-15 09:41 | CON ---
DATE: 05/14/2017 PULMONARY CONSULTATION HISTORY OF PRESENT ILLNESS: Mr. Seo is a 51-year-old gentleman with a history of alcoholism and cigarette smoking. The patient had metastatic lung cancer and being followed by Dr. Pinedo in [place]. He came to the Emergency Room yesterday with complaints of shortness of breath and inability to breathe. He has a history of 6 weeks of radiotherapy and chemotherapy. The patient has no further history about his illness other than his expectoration, shortness of breath and 30-pound weight loss. I am unable to contact the patient's doctor in [place] this Monday morning. There is no answer. Perhaps the wrong number? Perhaps no service? This will need to be a preliminary evaluation as the patient knows nothing significant about his history. Cell type? Stage? Chemotherapeutic agents? Radiation dose? PAST MEDICAL HISTORY: Past history as described above for whatever is available. Type 2 diabetes, hepatitis C, questionable side effect from chemo?, anxiety disorder. ALLERGIES: NONE. FAMILY HISTORY: HTN, CAD HOME MEDICATION: Albuterol and Advair. SOCIAL HISTORY: The patient is a past smoker. 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 He has no travel history. There were no pets at home. REVIEW OF SYSTEMS: Dypsnea, minimal cough. No chest pains, hemoptysis or pleruisy. No abdominal pains, no vomiting, no urinary frequency, no memory loss , no rashes. All other systems negative. PHYSICAL EXAMINATION: VITAL SIGNS: Stable, afebrile, heart rate 90, respiratory rate 20, blood pressure 122/75, pulse ox 98%. HEENT: Normocephalic, atraumatic. Pupils PERRLA. EOMs full. Mouth moist. NECK: Supple. No JVD. RESPIRATORY: Chest, scattered wheezes throughout both lung hadley. No rales appreciated. Respiratory distress. Not using accessory muscles. CARDIOVASCULAR: Regular rhythm. S1, S2 without murmur, gallop or rub. ABDOMEN: Soft. Bowel sounds normoactive without mass, guarding or rebound. EXTREMITIES: Reveal no clubbing, cyanosis or edema. NEUROLOGIC: No focal findings, but mental status is normal. SKIN: Warm and dry. PSYCHIATRIC: Alert, oriented, but a past history of psychiatric illness. LABORATORY DATA: Laboratory studies available, white count of 3500, hemoglobin 10, hematocrit 22. Sodium 139, potassium 4.4, chloride 105, CO2 of 29, BUN 10, creatinine 0.6, sugar 123. No further studies are noted except for the chest x-ray, which shows scarring and multiple areas of abnormality in several areas of the chest. The patient will require a CAT scan for better identification, probably will need old films for our review. IMPRESSION: 1. Acute bronchitis/pneumonitis. 2. Lung cancer. 3. Questionable metastasis. 4. Chronic obstructive pulmonary disease. 5. Further treatment required for this chronic obstructive pulmonary disease and shortness of breath. 6. Acute bronchospasm. 7. Abnormal chest x-ray. PLAN: Vigorous bronchodilators, corticosteroids, antibiotics, etc. Follow up CT of the chest. Suggest oncologic evaluation here while the patient is [facility]. There is no connection with this patient to [facility] that I do not understand why the patient who is followed at [facility] where all his physicians are located would come to [facility] for an acute exacerbation of an illness that his doctors know more about in his home hospital, but we will surely take care of him to the best of our abilities. Hopefully, in the morning, we will be able to get through to the patient's doctor for further information. I would discuss this case at length with Dr. Soliman. He is covering the hospital tomorrow for our group and we will make sure that things improve. Close observation is essential. Leandro Alcala MD [facility]
--- NOTE | 2017-05-15 09:54 | PN ---
DATE: SUBJECTIVE: I saw Trung resting comfortably in bed. He is a little bit better than the day before. I think the steroids are making a big difference on the IV antibiotics. He is a little bit less short of breath. Many questions for me today for the outpatient when he goes home with things he needs before he goes home, he has a list. I discussed them with him. He will call my office. We will get that arranged, to get all these things that he needs at home. Less cough, more yellow, mucus coming out, improving. He does not feel sick. PHYSICAL EXAMINATION: VITAL SIGNS: He has 98.3 temperature, 74 pulse, 117/74 blood pressure, 20 respiratory rate, 98% O2 sat on 2 liters nasal cannula. HEENT: Head is atraumatic and normocephalic. Throat is moist. NECK: Supple. HEART: Regular rate. LUNGS: Decreased breath sounds. Congestion bilaterally, less than the day before, decreased breath sounds at his baseline. MEDICATIONS: He is currently on azithromycin, Brovana, DuoNeb, Pulmicort, Rocephin, and Solu-Medrol, which is dropped to 40 q. 12 h. by the juice standardizer. LABORATORY DATA: He has a 141 sodium, potassium 4.3, BUN 40, creatinine 0.6, GFR is greater than 60, sugar is 164, calcium is 8.7, total bilirubin is 0.6, AST is 45, ALT is 43, alkaline phosphatase is 110, total protein is 5.9. BNP went up to 617, globulin is 3.2. White count 7.6, hemoglobin 10.4, hematocrit 33.2, platelets are 84. He is being seen by Pulmonary. I called in his Hematology/Oncology, I talked him today about the changes in the CAT scan of his chest. It shows soft tissue mass within the left mediastinal measurement 1.6 to 5.7 cm, decreased in extent prior to the CT on 01/05/2017. Subcentimeter mediastinal adenopathy and stranding, patchy nodular opacities in the left upper lobe, could be pneumonia versus malignancy. 12 mm with pleural thickening, left lung apex. Additional patchy nodular opacities along the level of the lingula. Minimal patchy ground-glass opacities in the right medial upper lung, ground-glass airspace opacities involving the superior left lobe, suspicious for pneumonia. PLAN: Continue with aggressive treatment and care. Discussed with Pulmonary, hopefully Oncology will come in for further plans for his lung cancer. He is here for shortness of breath, COPD, pneumonia, lung cancer. Viktor Lundy DO [facility]
[2017-05-15] MEDS: Azithromycin 500 MG in Sodium Chloride 0.9% 250 ML IVPB SCH (10:33)
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
[2017-05-16] MEDS: Albuterol-Ipratrop 3 mg / 0.5 (3 ml) UD IH SCH ×4 (01:20→20:15)
[2017-05-16 06:30] LABS: RETIC% 3.22 % (0.5-1.5)
[2017-05-16 06:34] LABS: HEMATOCRIT 33.6 % (42.0-52.0); MEAN CELL VOLUME 113.9 fl (80.0-105.0); MEAN CORPUSCULAR HEMOGLOBIN 35.9 pg (25.0-35.0); MEAN CORPUSCULAR HGB CONC 31.5 g/dl (31.0-37.0); MEAN PLATELET VOLUME 10.7 fl (7.0-11.0); RED CELL DISTRIBUTION WIDTH 15.3 % (11.5-14.5); WHITE BLOOD COUNT 7.6 10^3/ul (4.5-11.0)
[2017-05-16 07:10] LABS: ALB/GLOB RATIO 0.8 (1.1-1.8); ALKALINE PHOSPHATASE 124 U/L (38-126); ALT/SGPT 64 U/L (7-56); AST/SGOT 59 U/L (17-59); BILIRUBIN,TOTAL 0.3 mg/dL (0.2-1.3); BLOOD UREA NITROGEN 18 mg/dL (7-21); CALCIUM 8.5 mg/dL (8.4-10.5); CARBON DIOXIDE 29 mmol/L (21-33); CHLORIDE 109 mmol/L (98-107); GFR AFRICAN-AMERICAN > 60; GLUCOSE,RANDOM 134 mg/dL (70-110); POTASSIUM 4.1 mmol/L (3.6-5.0); SODIUM 140 mmol/L (132-148)
--- NOTE | 2017-05-16 08:01 | PN ---
DATE: 05/16/2017 SUBJECTIVE: The patient appears comfortable this morning. He is not short of breath at rest. PHYSICAL EXAMINATION: VITAL SIGNS: Temperature is 97.6, pulse is 62, respirations are 18, and blood pressure is 120/84. Oxygen saturation on nasal cannula is 97%. HEENT: Normocephalic and atraumatic. NECK: No JVD. CARDIOVASCULAR: Positive S1 and S2. No S3, gallop. LUNGS: Better breath sounds at the bases. Much less rhonchi. No wheezing this morning. EXTREMITIES: No clubbing, cyanosis or edema. Calves are nontender to palpation. GASTROINTESTINAL: Abdomen is soft, nontender and nondistended. Bowel sounds are positive. SKIN: No acute rash. NEUROLOGIC: Exam is limited at the present time. IMPRESSION 1. Recurrent bronchitis. 2. Chronic obstructive pulmonary disease. 3. Advanced small cell cancer of the lung. 4. Chronic anemia. PLAN: The patient appears comfortable this morning. He is not short of breath at rest. He does state to feeling much better overall. On physical exam, his bronchospasm continues to slowly resolve. In addition, there is no significant alveolar-arterial gradient. I will continue the current nebulizer treatments and decrease the intravenous steroids this morning. I did review the laboratory data from yesterday. The procalcitonin is negative. Thus, we can probably taper down the antibiotic course at this point in time. Input by Oncology is also noted. Clinical status of the patient is definitely improved - compared to given the initial presentation. However, again, his future status/prognosis does remain very guarded. I will discuss the above with Dr. Lundy. Musa Soliman MD [facility]
[2017-05-16] MEDS: Budesonide 0.5 mg/2 ml Inhal Susp UD IH SCH ×2 (08:27→20:15)
[2017-05-16] MEDS: MethylPREDNISolone 40 mg Vial IVP SCH ×2 (09:11→21:28)
[2017-05-16] MEDS: cefTRIAXone 1 gm in D5W 100ml IVPB SCH (09:11)
[2017-05-16] MEDS: Azithromycin 500 MG in Sodium Chloride 0.9% 250 ML IVPB SCH (10:59)
--- NOTE | 2017-05-16 11:56 | PN ---
DATE: SUBJECTIVE: I saw Trung Seo resting comfortably in bed. He is breathing better. He is comfortable. He saw the oncologist, Dr. Valentine. He is currently on azithromycin, Brovana, DuoNebs, Pulmicort, Rocephin, and Solu-Medrol, which is down to 30 IV q.12h. I discussed that with Pulmonary that we can get him out tomorrow pulmonary sorto. PHYSICAL EXAMINATION: VITAL SIGNS: He has a 97.6 temp, 62 pulse, 120/84 blood pressure, 18 respiratory rate, and 97% O2 sat on room air. GENERAL: He is comfortable. Breathing better, eating better, gets out of bed to chair and walks a little bit better. Even though he feels short of breath with walking, he is doing better. They are going to walk him on physical therapy and see if his oxygen saturation drops while he is walking. He is asking for oxygen at home. I do not know if we can get that. We will find out. But overall, he is improving. HEENT: Head is atraumatic and normocephalic. Throat is moist. NECK: Supple. HEART: Regular rate. LUNGS: Decreased breath sounds bilaterally, poor inspiration, a little congestion, but better. ABDOMEN: Soft. EXTREMITIES: No edema. LABORATORY DATA: He has 7.6 white count, 10.6 hemoglobin, 32.6 hematocrit, 85 platelets. INR is 1.22. He has a 140 sodium, potassium 4.1, BUN is 18, creatinine is 0.6, GFR is greater than 60, sugar is 134, calcium is 8.5, total bilirubin is 0.3. AST is 69, ALT is 64, alkaline phosphatase 124, total protein 6, albumin is 2.7, globulin is 3.2. Urine is moderate. Micro, no growth. ASSESSMENT AND PLAN: He was seen by Dr. Valentine yesterday the oncologist/contracting engineer for his lung cancer. He has small cell lung carcinoma. He will get a final chemotherapy when he leaves the hospital by Hematology/Oncology. We will decrease the Solu-Medrol to 30 q.12h. We will discharge him tomorrow. See if his oxygen saturation requires him to have O2. I discussed that with the nurse and we will continue aggressive treatment and care on Trung Seo. Viktor Lundy DO [facility] # [id number]
[2017-05-16 13:28] LABS: FOLATE 9.4 ng/mL
[2017-05-16 20:36] VITALS: RESP 20
[2017-05-17] MEDS: Albuterol-Ipratrop 3 mg / 0.5 (3 ml) UD IH SCH ×2 (03:00→08:11)
[2017-05-17 06:37] LABS: HEMATOCRIT 34.5 % (42.0-52.0); MEAN CELL VOLUME 113.1 fl (80.0-105.0); MEAN CORPUSCULAR HEMOGLOBIN 35.7 pg (25.0-35.0); MEAN CORPUSCULAR HGB CONC 31.6 g/dl (31.0-37.0); RED CELL DISTRIBUTION WIDTH 14.8 % (11.5-14.5); WHITE BLOOD COUNT 5.5 10^3/ul (4.5-11.0)
[2017-05-17 06:54] LABS: ALB/GLOB RATIO 0.9 (1.1-1.8); ALKALINE PHOSPHATASE 113 U/L (38-126); ALT/SGPT 78 U/L (7-56); AST/SGOT 78 U/L (17-59); BILIRUBIN,TOTAL 0.5 mg/dL (0.2-1.3); BLOOD UREA NITROGEN 14 mg/dL (7-21); CALCIUM 8.5 mg/dL (8.4-10.5); CARBON DIOXIDE 25 mmol/L (21-33); CHLORIDE 107 mmol/L (98-107); GFR AFRICAN-AMERICAN > 60; GLUCOSE,RANDOM 248 mg/dL (70-110); POTASSIUM 4.1 mmol/L (3.6-5.0); SODIUM 138 mmol/L (132-148); TOTAL PROTEIN 5.7 g/dL (5.8-8.3)
[2017-05-17 07:26] VITALS: TEMP 98.3
[2017-05-17 07:32] VITALS: BP 105/70; PULSE 60; O2SAT 98
[2017-05-17] MEDS: Budesonide 0.5 mg/2 ml Inhal Susp UD IH SCH (08:11)
--- NOTE | 2017-05-17 08:40 | PN ---
DATE: 05/17/2017 PULMONARY NOTE SUBJECTIVE: The patient appears very comfortable this morning. He is not short of breath at rest. PHYSICAL EXAMINATION: VITAL SIGNS: Temperature is 98.3, pulse 60, respirations 18/20, blood pressure 105/70. Oxygen saturation on room air is 98%. HEENT: Normocephalic, atraumatic. NECK: No JVD. CARDIOVASCULAR: Positive S1, S2. No S3 gallop. LUNGS: Very minimal/less rhonchi. No wheezing. EXTREMITIES: No clubbing, cyanosis or edema. Calves are nontender to palpation. GI: Abdomen is soft, nontender and nondistended. Bowel sounds are positive. SKIN: No acute rash. NEUROLOGIC: Exam limited at the present time. IMPRESSION: 1. Recurrent bronchitis. 2. Chronic obstructive pulmonary disease. 3. Advanced small cell cancer of the lung. 4. Chronic anemia. PLAN: The patient appears very comfortable this morning. He is not short of breath at rest. He does state to feeling much, much better overall. He is asking to go home. On physical exam, his bronchospasm continues to resolve. In addition, the oxygen saturation on room air is now 98%. Clinical status of the patient is significantly improved - compared to the initial presentation. The patient is for probable discharge later today. He will be discharged home on a steroid taper and antibiotic therapy. Again, in spite of his significant clinical improvement, his overall status/prognosis remains very guarded. I did discuss the above with the attending physician at length. Musa Soliman MD MTDD
--- NOTE | 2017-05-18 03:53 | DS ---
HOSPITAL COURSE: Mr. Nino was in bed this morning. He is doing much better. He is breathing much better. He is getting weaned off the Solu-Medrol. I discussed with the family preservation worker, Dr. Soliman at length. He will be out to be discharged today. He is improved from his pneumonia and COPD. He still has a lung cancer, and he needs one more chemo. He will get that in the outpatient with Dr. Valentine, his oncologist. PHYSICAL EXAMINATION: VITAL SIGNS: He has 98.2 temperature, 70 pulse, 113/74 blood pressure, 20 respiratory rate, and 96% O2 saturation. HEENT: His head is atraumatic and normocephalic. HEART: Regular rate. LUNGS: Decreased breath sounds, but clear of congestion. No shortness of breath. ABDOMEN: Soft, nontender. Positive bowel sounds. EXTREMITIES: Have no edema. MEDICATIONS: He was on Brovana, DuoNeb, Pulmicort, Rocephin, Solu-Medrol, and Zithromax. He is going to go home on Brovana, DuoNeb, Pulmicort, doxycycline, prednisone 10 mg tablets 4 for 3 days, 3 for 3 days, 2 for 3 days, 1 for 3 days and stop. He will be followed up with Dr. Valentine and myself, Dr. Lundy. LABORATORY DATA: He had a 5.5 white count, 10.9 hemoglobin, 34.5 hematocrit with 78 platelets. He has 138 sodium, potassium 4.1, BUN is 14, creatinine 0.6. GFR is greater than 60, sugar is 134 and 248 steroids. AST is 78, ALT is 78, alk phos 113, total protein is 5.7. ASSESSMENT AND PLAN: He will be seen in the office in the next 5 days, also oncologist. He will be discharged today. He improved. He is breathing better. He is able to walk fairly well. We will be treating with aggressive treatment and care on Trung Seo, who has got left lung cancer, chronic obstructive pulmonary disease, pneumonia. Viktor Lundy DO [facility]
== END 2017-05-17 10:32 | disposition home or self-care (01) | DRG 89 ==
LOC: ED 16:57 → ERH 20:17 → 3RNO 23:26
PROVIDERS: ADMIT Family Medicine; ATTEND Family Medicine
DX: J18.9 Pneumonia, unspecified organism (principal); J44.1 Chronic obstructive pulmonary disease with (acute) exacerbation; D69.6 Thrombocytopenia, unspecified; C34.92 Malignant neoplasm of unspecified part of left bronchus or lung; J44.0 Chronic obstructive pulmonary disease with (acute) lower respiratory infection; B19.20 Unspecified viral hepatitis C without hepatic coma; D64.9 Anemia, unspecified; Z87.891 Personal history of nicotine dependence

== ENCOUNTER 2017-07-19 08:11 | Emergency (ER) | payer MEDICAID ==
[2017-07-19 08:24] VITALS: RESP 18; BMI 26.4
[2017-07-19 08:54] VITALS: BP 126/87; PULSE 79; TEMP 98.2; O2SAT 98
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
--- NOTE | 2017-07-19 09:53 | RAD ---
HISTORY: sob COMPARISON: 05/13/2017 FINDINGS: LUNGS: There is volume loss in the left lung. There is an increased infiltrate in the left upper lobe. PLEURA: No significant pleural effusion identified, no pneumothorax apparent. CARDIOVASCULAR: Normal. OSSEOUS STRUCTURES: No significant abnormalities. VISUALIZED UPPER ABDOMEN: Normal. OTHER FINDINGS: None. IMPRESSION: There is volume loss in the left lung. There is an increased infiltrate in the left upper lobe.
--- NOTE | 2017-07-19 16:00 | CARD ---
APPROVED REPORT EKG Measurement Heart [id number] <Conclusion> Sinus rhythm with premature supraventricular complexes Otherwise normal ECG
== END 2017-07-19 09:44 | disposition home or self-care (01) ==
LOC: ED 08:11
DX: F41.9 Anxiety disorder, unspecified (principal); R91.8 Other nonspecific abnormal finding of lung field; I10 Essential (primary) hypertension; Z87.891 Personal history of nicotine dependence

== ENCOUNTER 2017-09-20 12:38 | Inpatient (IN) | payer MEDICAID ==
[2017-09-20 12:48] VITALS: BMI 27.2
[2017-09-20] MEDS ORDERED: Cefepime IV 2 gm in NS 2 GM/100 ML BAG IVPB STA (13:32)
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
[2017-09-20] MEDS: Albuterol-Ipratrop 3 mg / 0.5 (3 ml) UD IH SCH ×3 (13:36→14:06)
--- NOTE | 2017-09-20 13:38 | RAD ---
HISTORY: sob COMPARISON: 07/19/2017 FINDINGS: LUNGS: There is chronic volume loss in the left lung. There is pleural thickening and parenchymal scarring. The right lung is clear PLEURA: No significant pleural effusion identified, no pneumothorax apparent. CARDIOVASCULAR: Normal. OSSEOUS STRUCTURES: No significant abnormalities. VISUALIZED UPPER ABDOMEN: Normal. OTHER FINDINGS: None. IMPRESSION: There is chronic volume loss in the left lung. There is pleural thickening and parenchymal scarring. The right lung is clear
[2017-09-20 13:50] LABS: VENOUS BLOOD GAS BASE EXCESS 11.5 mmol/L (0.0-2.0); VENOUS BLOOD GAS PO2 32 mm/Hg (30-55); VENOUS BLOOD PH 7.39 (7.32-7.43)
[2017-09-20 13:51] LABS: BASO # 0.01 K/mm3 (0.0-2.0); BASO % 0.1 % (0.0-3.0); GRAN # 6.62 (1.4-6.5); GRAN % 94.3 % (50.0-68.0); HEMOGLOBIN 13.8 g/dL (14.0-18.0); LYMPH # 0.3 (1.2-3.4); MEAN CELL VOLUME 100.2 fl (80.0-105.0); MEAN CORPUSCULAR HEMOGLOBIN 33.9 pg (25.0-35.0); MEAN CORPUSCULAR HGB CONC 33.8 g/dl (31.0-37.0); MEAN PLATELET VOLUME 10.3 fl (7.0-11.0); MONO # 0.1 (0.1-0.6); MONO % 1.6 % (1.0-6.0); PLATELET COUNT 47 10^3/uL (120.0-450.0); RBC 4.07 10^6/uL (3.5-6.1); RED CELL DISTRIBUTION WIDTH 14.6 % (11.5-14.5)
[2017-09-20 14:02] LABS: ALB/GLOB RATIO 1.1 (1.1-1.8); ALT/SGPT 160 U/L (7-56); AST/SGOT 71 U/L (17-59); BLOOD UREA NITROGEN 33 mg/dL (7-21); CALCIUM 9.5 mg/dL (8.4-10.5); GFR AFRICAN-AMERICAN > 60; GFR NON-AFRICAN AMERICAN > 60
[2017-09-20 14:07] LABS: INR 0.95 (0.93-1.08); PARTIAL THROMBOPLASTIN TIME 26.2 Seconds (25.1-36.5); PROTHROMBIN TIME 10.8 SECONDS (9.4-12.5)
[2017-09-20 14:12] LABS: B-TYPE NATRIURETIC PEPTIDE 1390 pg/mL (0-450); TROPONIN I < 0.01 ng/mL
[2017-09-20 14:33] LABS: BAND 5 % (0-2); LYMPHOCYTE 6 % (22.0-35.0); MONOCYTE 1 % (1.0-6.0); NEUTROPHIL 88 % (50.0-70.0)
--- NOTE | 2017-09-20 14:35 | CARD ---
APPROVED REPORT EKG Measurement Heart [id number] <Conclusion> RSR PWNL Baseline artifact present
[2017-09-20 16:10] LABS: URINE BILIRUBIN NEGATIVE (NEGATIVE); URINE BLOOD NEGATIVE (NEGATIVE); URINE GLUCOSE (UA) NEGATIVE (NEGATIVE); URINE LEUKOCYTE ESTERASE NEGATIVE Leu/uL (NEGATIVE); URINE PROTEIN TRACE mg/dL (<30 mg/dL)
[2017-09-20 16:15] LABS: URINE APPEARANCE CLEAR (CLEAR); URINE COLOR YELLOW (YELLOW)
[2017-09-20 16:26] LABS: URINE RBC NEGATIVE /hpf (0-2)
[2017-09-20 16:27] LABS: URINE BACTERIA MOD (NEG)
[2017-09-20] MEDS ORDERED: MethylPREDNISolone 40 mg Vial IVP SCH (19:15)
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
[2017-09-20] MEDS: Arformoterol 15 mcg/2 ml Inh Sol IH SCH (21:00)
[2017-09-20] MEDS: Budesonide 0.5 mg/2 ml Inhal Susp UD IH SCH (21:00)
[2017-09-20] MEDS ORDERED: Cefepime 1gm in NS 100ml 1 GM/100 ML BAG IVPB SCH (22:00)
[2017-09-20] MEDS ORDERED: Pneumococcal 23-Valent Vaccine IM ONE (22:18)
[2017-09-21] MEDS: Albuterol-Ipratrop 3 mg / 0.5 (3 ml) UD IH SCH ×4 (01:22→20:28)
[2017-09-21] MEDS ORDERED: MethylPREDNISolone 40 mg Vial IVP SCH (06:00)
[2017-09-21 06:40] LABS: HEMOGLOBIN 11.9 g/dL (14.0-18.0); MEAN CELL VOLUME 98.6 fl (80.0-105.0); MEAN CORPUSCULAR HEMOGLOBIN 33.1 pg (25.0-35.0); MEAN CORPUSCULAR HGB CONC 33.5 g/dl (31.0-37.0); MEAN PLATELET VOLUME 10.8 fl (7.0-11.0); RBC 3.6 10^6/uL (3.5-6.1); RED CELL DISTRIBUTION WIDTH 14.7 % (11.5-14.5); WHITE BLOOD COUNT 3.7 10^3/ul (4.5-11.0)
[2017-09-21 07:00] LABS: ALBUMIN 2.5 g/dL (3.0-4.8); ALT/SGPT 119 U/L (7-56); AST/SGOT 50 U/L (17-59); BLOOD UREA NITROGEN 29 mg/dL (7-21); CALCIUM 8.7 mg/dL (8.4-10.5); GFR AFRICAN-AMERICAN > 60; GFR NON-AFRICAN AMERICAN > 60
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
[2017-09-21] MEDS: Arformoterol 15 mcg/2 ml Inh Sol IH SCH ×2 (07:55→20:28)
[2017-09-21] MEDS: Budesonide 0.5 mg/2 ml Inhal Susp UD IH SCH ×2 (07:56→20:28)
[2017-09-21] MEDS: Pantoprazole 40 mg EC Tab PO SCH (08:09)
[2017-09-21] MEDS: Benzocaine/Menthol (Cepacol) Lozenge MT PRN (08:10)
--- NOTE | 2017-09-21 08:39 | CON ---
DATE: 09/21/2017 PULMONARY CONSULTATION REFERRING PHYSICIAN: Viktor Lundy DO. REASON FOR CONSULTATION: Shortness of breath. HISTORY OF PRESENT ILLNESS: The patient is a 52-year-old male, with past medical history significant for advanced lung cancer (with brain metastases), advanced chronic obstructive pulmonary disease, previous alcohol abuse, chronic hepatitis C, diabetes mellitus, who presents to [facility] with increasing shortness of breath at rest, dyspnea on exertion, cough, and yellowish sputum production for the past 3 days. The patient does state to feeling some chest "tightness" when he coughs. However, there is no history of chest pain, coughing up of blood, or chest pain-made worse with deep respirations. There is no history of temperatures, chills or infectious exposure. There is no history of night sweats. The patient has lost some weight with decreased appetite over the past year. No history of calf pains. No history of syncope or diaphoresis. No history of recent travel or trauma. REVIEW OF SYSTEMS: No history of nausea, vomiting or diarrhea. No acute urinary symptoms. No new musculoskeletal complaints. Rest of the review of systems is negative. ALLERGIES: NO KNOWN ALLERGIES. SOCIAL HISTORY: Positive for extensive tobacco usage, also positive for alcohol abuse. FAMILY HISTORY: No inheritable diseases. HOME MEDICATIONS: Include Librium, Ambien, omeprazole, Advair, Pulmicort, Brovana, Xanax and DuoNebs. PHYSICAL EXAMINATION: GENERAL: Patient appears comfortable at rest. He is not short of breath. VITAL SIGNS: Temperature is 98.5, pulse is 73, respirations 18/20, blood pressure 109/78. Oxygen saturation on nasal cannula is 95%-96%. HEENT: Normocephalic, atraumatic. NECK: No JVD. CARDIOVASCULAR: Positive S1, S2. No S3 gallop. LUNGS: Decreased breath sounds at the bases. Mild rhonchi and mild wheezing bilaterally. EXTREMITIES: Positive for edema. No cyanosis or clubbing. Calves are nontender to palpation. GI: Abdomen is soft, nontender, nondistended. Bowel sounds are positive. SKIN: No acute rash. NEUROLOGIC: Exam limited at the present time. PERTINENT LABORATORY DATA: Chest x-ray was done and reviewed. There is no significant change from the previous film. CBC: White count 3.7, hemoglobin 11.9, hematocrit 35.5, platelets of 42,000. Complete metabolic profile: BUN 29, creatinine 0.7, glucose 208, ALT 119, total protein 5.0, albumin 2.5. Rest of the metabolic profiles within normal limits. IMPRESSION: 1. Acute bronchitis. 2. Advanced chronic obstructive pulmonary disease. 3. Advanced lung cancer with brain metastasis. 4. Chronic anemia. 5. Thrombocytopenia. PLAN: The patient presents to [facility] with a 3-day history of worsening pulmonary symptoms. I did discuss the case with the night nurse at length. I have also discussed the case with the patient at length and reviewed the chart at length. I have also reviewed the chest x-ray. The chest x-ray is not significantly changed from the previous film. On physical exam, there is mild bronchospasm appreciated. In addition, there is no significant alveolar-arterial gradient. I will continue with the current nebulizer treatments and decrease the intravenous steroids this morning. The patient is currently on intravenous cefepime. There is no history of temperatures. There is no leukocytosis. I will change the antibiotics to Levaquin-for border coverage. Cardiology and Oncology evaluations have been ordered. The patient does feel better this morning and is clinically improved. However, his overall status/prognosis remains very poor. I will discuss the above with Dr. Lundy this morning. Thank you very much for this pulmonary consultation. Musa Soliman MD [facility]
[2017-09-21] MEDS ORDERED: Non Formulary Medication (Omeprazole [Omeprazole] 1 CAP) PO SCH (10:00)
[2017-09-21] MEDS ORDERED: Arformoterol 15 mcg/2 ml Inh Sol IH SCH (10:00)
[2017-09-21] MEDS ORDERED: Fluticasone-Salmeterol 250-50mcg Diskus IH SCH (10:00)
[2017-09-21] MEDS: levoFLOXacin 500 MG TAB PO SCH (10:46)
[2017-09-21] MEDS: MethylPREDNISolone 40 mg Vial IVP SCH ×2 (10:47→22:16)
--- NOTE | 2017-09-21 11:05 | PN ---
DATE: SUBJECTIVE: I saw him resting comfortably in bed. He slept fairly well yesterday. He is breathing better. He is just having very bad sore throat. I added Cepacol also, he is still very swollen. I increased the Lasix 20 to Lasix 40. He is on Ambien, Brovana, Cepacol lozenges, DuoNebs, Lasix increased to 40 mg IV, Levaquin p.o., Librium is 25 t.i.d., Protonix, Pulmicort, Solu-Medrol is down to 40 IV every 12 hours and Xanax. OBJECTIVE Vital signs: He has a 98.5 temperature, 73 pulse, 109/78 blood pressure, 20 respiratory rate, 95% O2 saturation on 3 liters of nasal cannula. He is very short of breath when he came. He had chemotherapy and radiation therapy, I think what is that made him sick. He has 133 sodium, potassium 4.3, BUN 29, creatinine 0.7. GFR is greater than 60. Sugar is 208. I put him on insulin coverage, 8.7 calcium steroids, total bili is 1, AST is 50, ALT is 119, alkaline phosphatase 103, total protein is 5. His white count is 3.7, hemoglobin is 11.9, hematocrit 35.5, platelets were 47 yesterday, now it is down to 42. I called in Hematology/Oncology, GI for his elevated liver enzymes, Cardio for chest tightness and elevated BNP and Pulmonary for his lung cancer. We will continue with aggressive treatment and care. Check his labs tomorrow. I asked him if he could get out of bed to chair, do not lie in bed, although he is very weak and tired and I have asked him to at least try and sit out of bed for a little while before his meals, he understood, and I will continue with aggressive treatment and I will discuss this with the other consults and he has got history of lung CA with metastases to the brain and now, he is very short of breath. Viktor Lundy DO [facility]
--- NOTE | 2017-09-21 11:34 | CON ---
DATE: 09/21/2017 CARDIOLOGY CONSULTATION HISTORY: The patient is a 52-year-old male with severe COPD as well as documented lung CA with metastasis to the brain. The patient has had radiation of left lung as well as has been receiving chemotherapy. After chemotherapeutic dose, the patient became short of breath. He denies smoking now. No previous cardiac history. His echocardiogram performed last year revealed an ejection fraction of 57% with mild pulmonary hypertension. His chest pain was pleuritic in nature and was associated with deep inspiration and work of breathing. REVIEW OF SYSTEMS: A 14-point review of systems is reviewed in detail. Other than his dyspnea, his chest pain is now resolved. Negative edema in THE lower extremities. No previous myocardial infarction. PHYSICAL EXAMINATION: NECK: Negative JVD. LUNGS: Bilateral rhonchi. HEART: Reveals S1, S2. EXTREMITIES: Without edema. VITAL SIGNS: Blood pressure 109/78, the heart rates in the 70s. LABORATORY DATA: EKG shows normal sinus rhythm with no acute changes. BUN and creatinine are unremarkable. Troponin is negative x1. ProBNP is 1390. The hemoglobin is 11.9 with a platelet count of 42,000. IMPRESSION: 1. Exacerbation of chronic obstructive pulmonary disease. 2. Lung cancer. 3. Metastases to the brain. 4. Thrombocytopenia. 5. Good left ventricular function. 6. Anemia. PLAN: Given these findings, the patient's dyspnea is primarily due to his COPD and history of lung CA. No evidence for CHF. The mildly elevated ProBNP is likely due to right heart strain from his pulmonary hypertension. Given these findings, treatment needs to be directed at his COPD. We will need to monitor his thrombocytopenia carefully. Godfrey Fisher MD
[2017-09-21 12:31] LABS: HEPATITIS B SURFACE AG Negative (NEGATIVE)
[2017-09-21] MEDS: Insulin Reg-MEDIUM-Coverage SC SCH ×3 (12:37→22:17)
[2017-09-21 12:39] LABS: HEPATITIS B CORE AB NEGATIVE (NEGATIVE)
[2017-09-21 13:40] LABS: HEPATITIS A IGM NEGATIVE (NEGATIVE)
[2017-09-21 14:24] LABS: HEPATITIS C ANTIBODY REACTIVE (NEGATIVE)
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
[2017-09-22] MEDS: Albuterol-Ipratrop 3 mg / 0.5 (3 ml) UD IH SCH ×2 (01:16→08:15)
[2017-09-22] MEDS ORDERED: diltiaZEM IVPB 100mg in NS 100 ML IV PRN (04:28)
--- NOTE | 2017-09-22 05:32 | CP.PCM.PN ---
Subjective - Date & Time of Evaluation Date of Evaluation: 09/22/17 Time of Evaluation: 05:30 - Subjective Subjective: draft atrial fibrillation with rate upto 170/min, mostly in 140's for about 20 minutes, broke without any intervention before cardizem can be given he has no c/o no knowledge of history of atrial fibrillation, or any cardiac arrhythmia. if recurs,will treat with cardizem, will order cmp, mag, phos, trop for this am. Objective - Vital Signs/Intake and Output Vital Signs (last 24 hours): Temp Pulse Resp BP Pulse Ox 98.6 F 83 19 137/70 93 L 09/22/17 00:01 09/22/17 02:00 09/22/17 00:01 09/22/17 00:01 09/22/17 00:01 Intake and Output: 09/21/17 09/22/17 18:59 06:59 Intake Total 420 200 Output Total 1120 900 Balance -700 -700 - Medications Medications: Current Medications Albuterol/Ipratropium (Duoneb 3 Mg/0.5 Mg (3 Ml) Ud) 3 ml IH Q6 [facility] Last Admin: 09/21/17 20:28 Dose: 3 ml Alprazolam (Xanax) 1 mg PO TID [facility] PRN Reason: Protocol Last Admin: 09/21/17 18:39 Dose: 1 mg Arformoterol Tartrate (Brovana) 15 mcg IH [id number] [facility] Last Admin: 09/21/17 20:28 Dose: 15 mcg Benzocaine/Menthol (Cepacol Sore Throat) 1 marlene MT Q2H PRN PRN Reason: Sore Throat Last Admin: 09/21/17 08:10 Dose: 1 marlene Budesonide (Pulmicort Respules) 0.5 mg IH [id number] [facility] Last Admin: 09/21/17 20:28 Dose: 0.5 mg Chlordiazepoxide (Librium) 25 mg PO TID [facility] PRN Reason: Protocol Last Admin: 09/21/17 18:39 Dose: 25 mg Furosemide (Lasix) 40 mg IVP DAILY [facility] Last Admin: 09/21/17 10:45 Dose: 40 mg diltiaZEM IVPB 100mg in NS (Cardizem 100mg In Ns) 100 mls @ 5 mls/hr IV .Q20H PRN; Protocol; 5 MG/HR PRN Reason: TITRATE PER MD ORDER Insulin Human Regular (Humulin R Med) 0 units SC ACHS [facility] PRN Reason: Protocol Last Admin: 09/21/17 22:17 Dose: Not Given Levofloxacin (Levaquin) 500 mg PO DAILY [facility] PRN Reason: Protocol Last Admin: 09/21/17 10:46 Dose: 500 mg Methylprednisolone (Solu-Medrol) 40 mg IVP Q12 [facility] Last Admin: 09/21/17 22:16 Dose: 40 mg Pantoprazole Sodium (Protonix Ec Tab) 40 mg PO ACB [facility] Last Admin: 09/21/17 08:09 Dose: 40 mg Zolpidem Tartrate (Ambien) 10 mg PO HS [facility] PRN Reason: Protocol Last Admin: 09/21/17 22:16 Dose: 10 mg - Labs Labs: 09/21/17 05:30 09/21/17 05:30 PT 10.8 SECONDS (9.4-12.5) 09/20/17 13:23 INR 0.95 (0.93-1.08) 09/20/17 13:23 APTT 26.2 Seconds (25.1-36.5) 09/20/17 13:23
[2017-09-22 06:27] LABS: HEMOGLOBIN 11.6 g/dL (14.0-18.0); MEAN CELL VOLUME 100.3 fl (80.0-105.0); MEAN PLATELET VOLUME 9.8 fl (7.0-11.0); RBC 3.51 10^6/uL (3.5-6.1); RED CELL DISTRIBUTION WIDTH 14.6 % (11.5-14.5); WHITE BLOOD COUNT 3.3 10^3/ul (4.5-11.0)
[2017-09-22 06:57] LABS: ALBUMIN 2.5 g/dL (3.0-4.8); ALT/SGPT 109 U/L (7-56); AST/SGOT 48 U/L (17-59); BLOOD UREA NITROGEN 31 mg/dL (7-21); CALCIUM 8.5 mg/dL (8.4-10.5); GFR AFRICAN-AMERICAN > 60; GFR NON-AFRICAN AMERICAN > 60
--- NOTE | 2017-09-22 07:33 | PN ---
DATE: 09/22/2017 PULMONARY NOTE SUBJECTIVE: The patient appears comfortable this morning. He is not short of breath at rest. He does appear very weak. OBJECTIVE: VITALS: Temperature is 98.6, pulse 77, respirations 18/20, blood pressure 110/71. Oxygen saturation on nasal cannula is 97%. HEENT: Normocephalic, atraumatic. No JVD. CARDIOVASCULAR: Positive S1, S2. No S3 gallop. LUNGS: Decreased breath sounds at the bases. Less rhonchi. Still with mild wheezing bilaterally. EXTREMITIES: Positive for edema. No cyanosis, no clubbing. Calves are nontender to palpation. GI: Abdomen is soft, nontender, nondistended. Bowel sounds are positive. SKIN: No acute rash. NEUROLOGIC: Limited at the present time. IMPRESSION: 1. Acute bronchitis. 2. Advanced chronic obstructive pulmonary disease. 3. Advanced lung cancer with brain metastasis. 4. Chronic anemia. 5. Thrombocytopenia. PLAN: The patient appears comfortable this morning. He is not short of breath at rest. He does appear very weak. On physical exam, there is slightly less bronchospasm noted. In addition, the alveolar-arterial gradient is also less. I will continue the current nebulizer treatments and intravenous steroids (decreased yesterday) for now. The patient also remains on oral Levaquin. There are no temperatures noted. There is no leukocytosis. Repeat a.m. labs are pending. Inputs from Cardiology and Oncology are noted. The clinical status of the patient does appear improved - compared to yesterday. However, unfortunately, the overall status/prognosis for this patient remains poor. I will discuss the above with Dr. Lundy. Musa Soliman MD [facility]
[2017-09-22 07:38] LABS: TROPONIN I < 0.01 ng/mL
[2017-09-22] MEDS: Pantoprazole 40 mg EC Tab PO SCH (07:55)
[2017-09-22] MEDS: Insulin Reg-MEDIUM-Coverage SC SCH ×4 (07:56→22:15)
[2017-09-22] MEDS: Budesonide 0.5 mg/2 ml Inhal Susp UD IH SCH ×2 (08:15→19:35)
[2017-09-22] MEDS: Arformoterol 15 mcg/2 ml Inh Sol IH SCH ×2 (08:15→19:35)
[2017-09-22] MEDS: levoFLOXacin 500 MG TAB PO SCH (09:55)
[2017-09-22] MEDS: MethylPREDNISolone 40 mg Vial IVP SCH ×2 (09:57→22:14)
[2017-09-22] MEDS: Benzocaine/Menthol (Cepacol) Lozenge MT PRN (10:06)
--- NOTE | 2017-09-22 10:54 | PN ---
DATE: 09/22/2017 CARDIOLOGY FOLLOWUP SUBJECTIVE: The patient is resting comfortably in bed. There was a transient episode of SVT, not atrial fibrillation noted on telemetry. PHYSICAL EXAMINATION: VITAL SIGNS: Blood pressure is 110/71, heart rates in the 70s. LUNGS: Positive rhonchi. HEART: Reveals S1, S2. EXTREMITIES: Without edema. LABORATORY DATA: Hemoglobin is 11.6, platelets of 38,000. Chemistries: BUN and creatinine are 31 and 0.7. IMPRESSION: 1. Chronic obstructive pulmonary disease. 2. Lung cancer. 3. Transient nonsustained supraventricular tachycardia. 4. Anemia. 5. Thrombocytopenia. PLAN: Given these findings, the patient's SVT is likely due to his bronchodilators. The patient is stable from a cardiac perspective. We will discontinue telemetry today. Godfrey Fisher MD
--- NOTE | 2017-09-22 13:19 | PN ---
DATE: SUBJECTIVE: I saw him resting comfortably in bed this morning. He slept a little bit better last night, and is still is in his bed. He walked a little bit yesterday. It is still not great yet, still has a little bit of shortness of breath. Less swollen, he tells me with the IV Lasix, and he is still not great. He is on many meds. He is on Ambien, Brovana, Cepacol, DuoNeb's, Granix by Oncology/Hematology, insulin coverage, Lasix IV, Levaquin, Librium, Protonix, Pulmicort, Solu-Medrol 40 every 12 hours and Xanax. PHYSICAL EXAMINATION: VITAL SIGNS: He has a 98.6 temperature, 77 pulse, the pulse was as high as 160 last night, and I understand that he went into [facility] doctor came to visit him, he had a 110/71 blood pressure, 20 respiratory rate, 97% O2 sat on oxygen. His vitals are improving. HEENT: His head is atraumatic, normocephalic. HEART: Regular rate. LUNGS: Decreased breath sounds, but clear. ABDOMEN: Soft. EXTREMITIES: No edema. LABORATORY DATA: He has a 135 sodium, potassium 4.3, BUN 31, creatinine 0.7, GFR is greater than 60. Blood sugar was 244, then it was 199, from the steroids. Calcium is 8.5, magnesium 2.1. Total bilirubin is 0.7, AST is 48, ALT is 109, alkaline phosphatase is 137. Troponin I is less than 0.01. White count is 3.3, it is dropping, I added Granix; hemoglobin went to 11.6, hematocrit 35.2, platelets of 38. ASSESSMENT AND PLAN: He is being seen by Pulmonary, Cardiology, Oncology/Hematology, and GI for the elevated liver enzymes. He has stage IV small cell lung cancer with metastases to the brain; hepatitis C, thrombocytopenia, elevated liver function tests and blood sugars, urinary tract infection. We will continue with aggressive treatment and care. I will discuss this with the other consults, and hopefully, we can still wean him off the Solu-Medrol, and possibly get him out in the next day or two. Hoping that his pulse stays well. Viktor Lundy DO [facility]
[2017-09-22] MEDS: Phenol Topical 1.4% Throat Spray (180 ml) MT PRN (17:21)
--- NOTE | 2017-09-22 21:52 | CP.PCM.PN ---
Subjective - Date & Time of Evaluation Date of Evaluation: 09/22/17 Time of Evaluation: 18:30 - Subjective Subjective: Feeling better. Objective - Vital Signs/Intake and Output Vital Signs (last 24 hours): Temp Pulse Resp BP Pulse Ox 98.6 F 75 18 100/76 97 09/22/17 17:16 09/22/17 17:16 09/22/17 17:16 09/22/17 17:16 09/22/17 06:00 - Medications Medications: Current Medications Alprazolam (Xanax) 1 mg PO TID [facility] PRN Reason: Protocol Last Admin: 09/22/17 17:21 Dose: 1 mg Arformoterol Tartrate (Brovana) 15 mcg IH [id number] [facility] Last Admin: 09/22/17 19:35 Dose: 15 mcg Budesonide (Pulmicort Respules) 0.5 mg IH [id number] [facility] Last Admin: 09/22/17 19:35 Dose: 0.5 mg Chlordiazepoxide (Librium) 25 mg PO TID [facility] PRN Reason: Protocol Last Admin: 09/22/17 17:20 Dose: 25 mg Furosemide (Lasix) 40 mg IVP DAILY [facility] Last Admin: 09/22/17 09:57 Dose: 40 mg Insulin Human Regular (Humulin R Med) 0 units SC ACHS [facility] PRN Reason: Protocol Last Admin: 09/22/17 17:19 Dose: 1 units Levofloxacin (Levaquin) 500 mg PO DAILY [facility] PRN Reason: Protocol Last Admin: 09/22/17 09:55 Dose: 500 mg Methylprednisolone (Solu-Medrol) 40 mg IVP Q12 [facility] Last Admin: 09/22/17 09:57 Dose: 40 mg Pantoprazole Sodium (Protonix Ec Tab) 40 mg PO ACB [facility] Last Admin: 09/22/17 07:55 Dose: 40 mg Phenol/Menthol (Phenaseptic 1.4% Throat [place]) 0 ml MT Q4 PRN PRN Reason: Sore Throat Last Admin: 09/22/17 17:21 Dose: 2 spr Zolpidem Tartrate (Ambien) 10 mg PO HS [facility] PRN Reason: Protocol Last Admin: 09/21/17 22:16 Dose: 10 mg - Labs Labs: 09/22/17 05:30 09/22/17 05:30 PT 10.8 SECONDS (9.4-12.5) 09/20/17 13:23 INR 0.95 (0.93-1.08) 09/20/17 13:23 APTT 26.2 Seconds (25.1-36.5) 09/20/17 13:23 - Head Exam Head Exam: ATRAUMATIC - Eye Exam Eye Exam: Normal appearance - ENT Exam ENT Exam: Mucous Membranes Dry - Respiratory Exam Respiratory Exam: Decreased Breath Sounds - Cardiovascular Exam Cardiovascular Exam: +S1, +S2 - GI/Abdominal Exam GI & Abdominal Exam: Normal Bowel Sounds - Extremities Exam Extremities Exam: Pedal Edema Assessment and Plan (1) Pancytopenia Assessment & Plan: secondary to chemotherapy baseline low platelets from hep c s/p Granix today for low WBC, redose today Status: Acute (2) Small cell lung cancer Assessment & Plan: stage IV recurrent disease s/p whole brain radiotherapy for brain mets outpatient chemotherapy. Status: Acute
[2017-09-23 07:12] LABS: GRAN # 1.71 (1.4-6.5); GRAN % 78.8 % (50.0-68.0); HEMOGLOBIN 12.1 g/dL (14.0-18.0); LYMPH # 0.2 (1.2-3.4); LYMPH % 9.2 % (22.0-35.0); MEAN CELL VOLUME 100.6 fl (80.0-105.0); MEAN CORPUSCULAR HEMOGLOBIN 33.4 pg (25.0-35.0); MEAN CORPUSCULAR HGB CONC 33.2 g/dl (31.0-37.0); MEAN PLATELET VOLUME 10.5 fl (7.0-11.0); MONO # 0.3 (0.1-0.6); RBC 3.62 10^6/uL (3.5-6.1); RED CELL DISTRIBUTION WIDTH 14.1 % (11.5-14.5)
[2017-09-23] MEDS: Budesonide 0.5 mg/2 ml Inhal Susp UD IH SCH ×2 (07:21→22:31)
[2017-09-23] MEDS: Arformoterol 15 mcg/2 ml Inh Sol IH SCH ×2 (07:21→22:30)
[2017-09-23 07:38] LABS: WHITE BLOOD COUNT 2.2 10^3/ul (4.5-11.0)
[2017-09-23 07:41] LABS: ALB/GLOB RATIO 0.9 (1.1-1.8); ALBUMIN 2.6 g/dL (3.0-4.8); ALT/SGPT 111 U/L (7-56); AST/SGOT 58 U/L (17-59); BLOOD UREA NITROGEN 25 mg/dL (7-21); CALCIUM 8.5 mg/dL (8.4-10.5); GFR AFRICAN-AMERICAN > 60; GFR NON-AFRICAN AMERICAN > 60
[2017-09-23] MEDS: Insulin Reg-MEDIUM-Coverage SC SCH ×4 (08:08→21:02)
[2017-09-23] MEDS: Pantoprazole 40 mg EC Tab PO SCH (08:08)
[2017-09-23] MEDS: MethylPREDNISolone 40 mg Vial IVP SCH ×2 (09:09→21:06)
[2017-09-23] MEDS: levoFLOXacin 500 MG TAB PO SCH (09:09)
--- NOTE | 2017-09-23 13:57 | PN ---
DATE: SUBJECTIVE: I saw him sitting up in bed, eating his breakfast. He is feeling much better. He tells me he is breathing better. His throat is not as bad. He is on Ambien, Brovana, Lasix, Levaquin, Librium, throat spray, Protonix, Pulmicort, Solu-Medrol 40 IV every 12 and Xanax. PHYSICAL EXAMINATION: VITAL SIGNS: 98.8 temp, 81 pulse, 121/87 blood pressure, 19 respiratory rate, 92% O2 sat on 2 L nasal cannula. HEENT: His head is atraumatic, normocephalic. The throat is clear. Less red. HEART: Regular rate. LUNGS: Decreased breath sounds, but clear. Less congestion. ABDOMEN: Soft. EXTREMITIES: No edema. MEDICATIONS: He is currently on Ambien, Brovana, insulin, Lasix 40 IV, Levaquin, Librium, throat spray, Protonix, Pulmicort, Solu-Medrol 40 IV every 12 and Xanax. LABORATORY DATA: He has a 2.2 white count, 12.1 hemoglobin, 36.4 hematocrit with 37 platelets. He has a 135 sodium, potassium 4.4, BUN 25, creatinine 0.6, GFR is greater than 60, sugar is 232 from the steroids, calcium is 8.5, total bili is 0.8, AST is 58, ALT is 111, alk phos 179, total protein is 5.4. Urine was moderate. ASSESSMENT AND PLAN: He is on antibiotics for urinary tract infection. Hepatitis C is reactive. He does have hepatitis C. He is being seen by Hematology/Oncology, cardiology, Pulmonology. Pulmonology wants him on the high-dose steroids. He has chronic obstructive pulmonary disease, lung cancer with brain metastasis, transient supraventricular tachycardia, anemia and thrombocytopenia. Dr. Valentine, groover and turner and watch him closely. Check his labs tomorrow. Trung Seo is slowly improving with the symptoms. Viktor Lundy DO [facility]
[2017-09-23] MEDS: Phenol Topical 1.4% Throat Spray (180 ml) MT PRN (15:05)
--- NOTE | 2017-09-24 03:09 | CP.PCM.PN ---
Subjective - Date & Time of Evaluation Date of Evaluation: 09/23/17 Time of Evaluation: 18:15 - Subjective Subjective: Feeling better. Objective - Vital Signs/Intake and Output Vital Signs (last 24 hours): Temp Pulse Resp BP Pulse Ox 98.8 F 81 19 132/85 93 L 09/23/17 00:01 09/23/17 00:01 09/23/17 00:01 09/23/17 09:09 09/23/17 00:01 Intake and Output: 09/23/17 09/24/17 18:59 06:59 Intake Total 840 Output Total 675 Balance 165 - Medications Medications: Current Medications Alprazolam (Xanax) 1 mg PO TID [facility] PRN Reason: Protocol Last Admin: 09/23/17 18:13 Dose: 1 mg Arformoterol Tartrate (Brovana) 15 mcg IH [id number] [facility] Last Admin: 09/23/17 22:30 Dose: 15 mcg Budesonide (Pulmicort Respules) 0.5 mg IH [id number] [facility] Last Admin: 09/23/17 22:31 Dose: 0.5 mg Chlordiazepoxide (Librium) 25 mg PO TID [facility] PRN Reason: Protocol Last Admin: 09/23/17 18:13 Dose: 25 mg Furosemide (Lasix) 40 mg IVP DAILY [facility] Last Admin: 09/23/17 09:09 Dose: 40 mg Insulin Human Regular (Humulin R Med) 0 units SC ACHS [facility] PRN Reason: Protocol Last Admin: 09/23/17 21:02 Dose: Not Given Levofloxacin (Levaquin) 500 mg PO DAILY [facility] PRN Reason: Protocol Last Admin: 09/23/17 09:09 Dose: 500 mg Methylprednisolone (Solu-Medrol) 40 mg IVP Q12 [facility] Last Admin: 09/23/17 21:06 Dose: 40 mg Pantoprazole Sodium (Protonix Ec Tab) 40 mg PO ACB [facility] Last Admin: 09/23/17 08:08 Dose: 40 mg Phenol/Menthol (Phenaseptic 1.4% Throat [place]) 0 ml MT Q4 PRN PRN Reason: Sore Throat Last Admin: 09/23/17 15:05 Dose: 3 spr Zolpidem Tartrate (Ambien) 10 mg PO HS [facility] PRN Reason: Protocol Last Admin: 09/23/17 21:06 Dose: 10 mg - Labs Labs: 09/23/17 06:15 09/23/17 06:15 PT 10.8 SECONDS (9.4-12.5) 09/20/17 13:23 INR 0.95 (0.93-1.08) 09/20/17 13:23 APTT 26.2 Seconds (25.1-36.5) 09/20/17 13:23 - Head Exam Head Exam: ATRAUMATIC - Eye Exam Eye Exam: Normal appearance - ENT Exam ENT Exam: Mucous Membranes Dry - Respiratory Exam Respiratory Exam: NORMAL BREATHING PATTERN - Cardiovascular Exam Cardiovascular Exam: +S1, +S2 - GI/Abdominal Exam GI & Abdominal Exam: Normal Bowel Sounds - Extremities Exam Extremities Exam: Pedal Edema Assessment and Plan (1) Pancytopenia Assessment & Plan: secondary to chemotherapy on Granix growth factor support for low WBC chronic thrombocytopenia from hep C Status: Acute (2) Small cell lung cancer Assessment & Plan: stage IV outpatient chemotherapy Status: Acute
[2017-09-24 07:07] LABS: HEMOGLOBIN 12.9 g/dL (14.0-18.0); MEAN CELL VOLUME 100.8 fl (80.0-105.0); MEAN CORPUSCULAR HEMOGLOBIN 33.4 pg (25.0-35.0); MEAN CORPUSCULAR HGB CONC 33.2 g/dl (31.0-37.0); MEAN PLATELET VOLUME 11.4 fl (7.0-11.0); RBC 3.86 10^6/uL (3.5-6.1)
[2017-09-24 07:22] LABS: PLATELET COUNT 26 10^3/uL (120.0-450.0); WHITE BLOOD COUNT 2.7 10^3/ul (4.5-11.0)
[2017-09-24 07:23] LABS: ALB/GLOB RATIO 1.1 (1.1-1.8); ALBUMIN 2.8 g/dL (3.0-4.8); ALT/SGPT 126 U/L (7-56); AST/SGOT 56 U/L (17-59); BLOOD UREA NITROGEN 32 mg/dL (7-21); CALCIUM 8.7 mg/dL (8.4-10.5); GFR AFRICAN-AMERICAN > 60; GFR NON-AFRICAN AMERICAN > 60
[2017-09-24 07:53] LABS: PLATELET ESTIMATE LOW (NORMAL)
[2017-09-24] MEDS: Pantoprazole 40 mg EC Tab PO SCH (08:10)
[2017-09-24] MEDS: Insulin Reg-MEDIUM-Coverage SC SCH ×4 (08:10→21:34)
[2017-09-24] MEDS: Arformoterol 15 mcg/2 ml Inh Sol IH SCH ×2 (08:21→22:00)
[2017-09-24] MEDS: Budesonide 0.5 mg/2 ml Inhal Susp UD IH SCH ×2 (08:21→22:00)
[2017-09-24] MEDS: MethylPREDNISolone 40 mg Vial IVP SCH (10:13)
[2017-09-24] MEDS: levoFLOXacin 500 MG TAB PO SCH (10:13)
--- NOTE | 2017-09-24 15:08 | PN ---
DATE: SUBJECTIVE: I saw him resting comfortably in bed. He is feeling better. He is breathing well. Not short of breath. He is walking a little bit in the room and he is eating okay. PHYSICAL EXAMINATION: VITAL SIGNS: 98.8 temp, 81 pulse, 120/68 blood pressure, 93% O2 sat on nasal cannula. HEENT: His head is atraumatic, normocephalic. HEART: Regular rate. LUNGS: Decreased breath sounds bilaterally. ABDOMEN: Soft. EXTREMITIES: No edema. MEDICATIONS: He is currently on Ambien, Brovana, insulin coverage, Lasix IV, Levaquin, Librium, throat spray, Protonix, Pulmicort. I decreased the Solu-Medrol to 30 mg b.i.d. from 40, Xanax. LABORATORY DATA: He has a 2.7 white count, he did get 2.2 to 2.7. His hemoglobin is up to 12.9, hematocrit 38.9, platelets are down to 26. He has a 136 sodium, potassium 4.4, BUN 32, creatinine 0.7, GFR is greater than 60, sugar is 275, calcium is 8.7, total bili is 0.9, AST is 56, ALT is 126, alk phos 183, total protein is 5.3. ASSESSMENT AND PLAN: He is being seen by Oncology, Hematology and Cardiology. Waiting for Pulmonary. I decreased the Solu-Medrol to 30 b.i.d. I am hoping if he does well, we could discharge him tomorrow. He has got lung cancer, metastatic brain cancer, on chemotherapy and radiation. He has chronic obstructive pulmonary disease, transient nonsustained supraventricular tachycardia, anemia, thrombocytopenia. Hopefully, we could discharge him tomorrow if everything is okay. Viktor Lundy DO cc: MTDD
[2017-09-24 21:53] VITALS: BP 124/94; PULSE 70; RESP 22; TEMP 97.9; O2SAT 97
[2017-09-24] MEDS ORDERED: MethylPREDNISolone 40 mg Vial IVP SCH (22:00)
[2017-09-25 06:50] LABS: HEMOGLOBIN 13.6 g/dL (14.0-18.0); MEAN CELL VOLUME 99.8 fl (80.0-105.0); MEAN CORPUSCULAR HEMOGLOBIN 33.7 pg (25.0-35.0); MEAN CORPUSCULAR HGB CONC 33.8 g/dl (31.0-37.0); RBC 4.03 10^6/uL (3.5-6.1); RED CELL DISTRIBUTION WIDTH 13.9 % (11.5-14.5); WHITE BLOOD COUNT 5.7 10^3/ul (4.5-11.0)
[2017-09-25 07:24] LABS: ALB/GLOB RATIO 1.1 (1.1-1.8); ALBUMIN 2.8 g/dL (3.0-4.8); ALT/SGPT 134 U/L (7-56); AST/SGOT 58 U/L (17-59); BLOOD UREA NITROGEN 30 mg/dL (7-21); CALCIUM 8.8 mg/dL (8.4-10.5); GFR AFRICAN-AMERICAN > 60; GFR NON-AFRICAN AMERICAN > 60
[2017-09-25] MEDS: Budesonide 0.5 mg/2 ml Inhal Susp UD IH SCH (07:32)
[2017-09-25] MEDS: Arformoterol 15 mcg/2 ml Inh Sol IH SCH (07:32)
[2017-09-25 07:39] LABS: PLATELET COUNT 20 10^3/uL (120.0-450.0)
--- NOTE | 2017-09-25 09:33 | PN ---
DATE: 09/23/2017 PULMONARY PROGRESS NOTE SUBJECTIVE: The patient was seen and examined at the bedside. He is not in acute distress. His breathing is comfortable. He is very weak. PHYSICAL EXAMINATION: VITAL SIGNS: His temperature is 98, pulse is 74, respirations 20, blood pressure is 110/70, oxygen saturation on nasal cannula is 97%. HEENT: Examination of head, ear, nose and throat is within normal limits. NECK: Supple. There is no jugular vein distentions. CHEST: Symmetrical. HEART: S1 and S2. No S3. Regular. LUNGS: Diminished breath sounds at both bases. Few rhonchi and few expiratory wheezes. EXTREMITIES: Positive for edema. No cyanosis. No clubbing. GI: Soft, nontender. No organomegaly. SKIN: No acute skin rash. NEUROLOGIC: No focal deficits. ASSESSMENT: 1. Acute bronchitis, improving. 2. Bronchospasm, resolving. 3. Advanced chronic obstructive pulmonary disease. 4. Advanced lung cancer with brain metastasis. 5. Chronic anemia. 6. Thrombocytopenia. PLAN: The patient is more comfortable. He has less rhonchi and less wheezes. He has acute bronchitis, is resolving. He is status post radiation therapy to the brain. He is very fatigued and thrombocytopenic. I would continue with oral Levaquin as well as steroids and nebulizer treatment as prescribed. We will follow closely. Arnaud Rowell MD
[2017-09-25] MEDS: Insulin Reg-MEDIUM-Coverage SC SCH (09:41)
[2017-09-25] MEDS: Pantoprazole 40 mg EC Tab PO SCH (09:42)
[2017-09-25] MEDS: levoFLOXacin 500 MG TAB PO SCH (09:43)
--- NOTE | 2017-09-25 10:09 | PN ---
DATE: PULMONARY NOTE SUBJECTIVE: The patient appears very comfortable this morning. He is not short of breath at rest. PHYSICAL EXAMINATION: VITAL SIGNS: (Last noted in the computer): Temperature is 97.9, pulse is 70, respirations this morning 18, last blood pressure recorded 124/94. Oxygen saturation on nasal cannula is 97%. HEENT: Normocephalic, atraumatic. No JVD. CARDIOVASCULAR: Positive S1 and S2. No S3 gallop. LUNGS: Improved breath sounds at the bases. Very minimal/less rhonchi. No wheezing. EXTREMITIES: Positive for edema. No cyanosis, no clubbing. Calves are nontender to palpation. GASTROINTESTINAL: Abdomen is soft, nontender and nondistended. Bowel sounds are positive. SKIN: No acute rash. NEUROLOGIC: Exam limited at the present time. IMPRESSION: 1. Acute bronchitis. 2. Advanced chronic obstructive pulmonary disease. 3. Advanced lung cancer with brain metastasis. 4. Chronic anemia. 5. Thrombocytopenia. PLAN: The patient appears very comfortable this morning. He is not short of breath at rest. He is much less weak. He is also much less dyspneic on exertion. He does state to feeling much, much better overall. He did state that he ambulated around the floor yesterday without any problems. On physical exam, his bronchospasm is significantly less. In addition, the oxygen saturation on nasal cannula is 97%. I will continue the current nebulizer treatments and change to oral steroids this morning. The patient also remains on oral antibiotic therapy. The clinical status of this patient is significantly improved overall. However, unfortunately, his future status/prognosis does remain poor. I will discuss the above with Dr. Lundy. Musa Soliman MD [facility]
--- NOTE | 2017-09-26 07:11 | DS ---
HISTORY OF PRESENT ILLNESS: He did well the past 24 to 48 hours. He is now on p.o. prednisone. I spoke to Pulmonology and they said he is good enough to go home. So, he is going to go home on Ambien; Brovana; Lasix; Levaquin 500 daily for 5 more days; Librium; prednisone 40 mg for 2 days, 30 mg for 2 days, 20 mg for 2 days, 10 mg for 2 days and stop; Protonix, Pulmicort and Xanax. I will add the Levaquin and the prednisone to him. I am also going to continue a little bit of Lasix 20 mg daily. PHYSICAL EXAMINATION: VITAL SIGNS: 97.9 temperature, 70 pulse, 124/94 blood pressure, 22 respiratory rate and 94% O2 sat on 2 liters nasal cannula. HEENT: His head is atraumatic, normocephalic. GENERAL: He is alert. He is eating. Breathing better. No complaints this morning and throat is better. HEART: Regular rate. LUNGS: Decreased breath sounds, but clear. No wheezes, rhonchi or rales. ABDOMEN: Soft. EXTREMITIES: No edema. LABORATORY DATA: He has a 5.7 white count, 13.6 hemoglobin, 40.2 hematocrit with 20 platelets. 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 He was given Granix help with the platelets. 134 sodium, potassium is 4.4, BUN is 30, creatinine is 0.7. GFR is greater than 60. Sugar is 273 from the steroids, calcium is 8.8, total bili is 0.8. AST is 58, ALT is 134, alk phos is 136, total protein is 5.3. He was seen by Hematology, Cardiology, Pulmonology while he was here and he could follow up the treatment on the outpatient. He is feeling better. He had pancytopenia secondary to chemotherapy. He was on Granix, stage 4 cancer of the lungs to the brain, congestive heart failure and chronic obstructive pulmonary disease. I will see him in the office this week. Viktor Lundy DO [facility]
== END 2017-09-25 10:46 | disposition home or self-care (01) | DRG 541 ==
LOC: ED 12:38 → ERH 14:41 → 2RNO 19:01 → 5RNO 09-23 04:04 → ERH 09-23 04:14 → 5RNO 09-23 04:50
PROVIDERS: ADMIT Family Medicine; ATTEND Family Medicine
PROC: 3E0F7GC Introduction of Other Therapeutic Substance into Respiratory Tract, Via Natural or Artificial Opening (ICD-10-PCS; principal; 2017-09-21)
DX: J44.1 Chronic obstructive pulmonary disease with (acute) exacerbation (principal); D61.810 Antineoplastic chemotherapy induced pancytopenia; C34.92 Malignant neoplasm of unspecified part of left bronchus or lung; C79.31 Secondary malignant neoplasm of brain; N39.0 Urinary tract infection, site not specified; B18.2 Chronic viral hepatitis C; J20.9 Acute bronchitis, unspecified; T45.1X5A Adverse effect of antineoplastic and immunosuppressive drugs, initial encounter; F41.9 Anxiety disorder, unspecified; F32.9 Major depressive disorder, single episode, unspecified; E11.9 Type 2 diabetes mellitus without complications; I27.20 Pulmonary hypertension, unspecified; I47.1 Supraventricular tachycardia; J44.0 Chronic obstructive pulmonary disease with (acute) lower respiratory infection; F10.10 Alcohol abuse, uncomplicated; F12.90 Cannabis use, unspecified, uncomplicated; Z87.891 Personal history of nicotine dependence; Z91.5 Personal history of self-harm

== ENCOUNTER 2017-10-18 10:18 | Emergency (ER) | payer MEDICAID ==
[2017-10-18 10:20] VITALS: BMI 25.1
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
[2017-10-18 11:18] LABS: EOS % 0.3 % (1.5-5.0); GRAN # 3.17 (1.4-6.5); LYMPH # 0.7 (1.2-3.4); LYMPH % 18.7 % (22.0-35.0); MEAN CELL VOLUME 99.4 fl (80.0-105.0); MEAN CORPUSCULAR HEMOGLOBIN 33.4 pg (25.0-35.0); MEAN CORPUSCULAR HGB CONC 33.6 g/dl (31.0-37.0); MEAN PLATELET VOLUME 11.3 fl (7.0-11.0); RBC 3.29 10^6/uL (3.5-6.1); RED CELL DISTRIBUTION WIDTH 15.1 % (11.5-14.5)
[2017-10-18 11:24] LABS: PLATELET COUNT 25 10^3/uL (120.0-450.0)
--- NOTE | 2017-10-18 11:31 | RAD ---
HISTORY: dyspnea COMPARISON: 09/20/2017 single-view chest. 05/14/2017 CT thorax FINDINGS: LUNGS: Able findings left nemesio thorax including consolidative changes left upper lobe. AllNo active pulmonary disease. PLEURA: No significant pleural effusion identified, no pneumothorax apparent. CARDIOVASCULAR: Normal. OSSEOUS STRUCTURES: No significant abnormalities. VISUALIZED UPPER ABDOMEN: Normal. OTHER FINDINGS: None. IMPRESSION: Stable infiltrates/volume loss left nemesio thorax -left lung. No new/ suspicious findings are identified.
[2017-10-18 11:33] LABS: ALB/GLOB RATIO 1.1 (1.1-1.8); ALBUMIN 2.8 g/dL (3.0-4.8); ALT/SGPT 247 U/L (7-56); AST/SGOT 119 U/L (17-59); BLOOD UREA NITROGEN 26 mg/dL (7-21); CALCIUM 8.5 mg/dL (8.4-10.5); GFR AFRICAN-AMERICAN > 60; GFR NON-AFRICAN AMERICAN > 60
[2017-10-18 11:40] LABS: TROPONIN I < 0.01 ng/mL
[2017-10-18] MEDS: Albuterol-Ipratrop 3 mg / 0.5 (3 ml) UD IH SCH ×3 (11:59→12:33)
[2017-10-18 12:11] LABS: PLATELET ESTIMATE LOW (NORMAL)
[2017-10-18 13:26] VITALS: BP 116/99; PULSE 105; RESP 17; TEMP 98.7
[2017-10-18 13:29] VITALS: O2SAT 96
--- NOTE | 2017-10-18 15:34 | CARD ---
APPROVED REPORT EKG Measurement Heart [id number] <Conclusion> Normal sinus rhythm Normal ECG
== END 2017-10-18 13:29 | disposition home or self-care (01) ==
LOC: ED 10:18
DX: R06.02 Shortness of breath (principal); Z85.118 Personal history of other malignant neoplasm of bronchus and lung; Z87.891 Personal history of nicotine dependence
CPT/HCPCS: 71045; 80053; 82550; 84484; 85025; 93005; 96374; 96375; 99283; J1940; J2930

== ENCOUNTER 2017-10-24 18:42 | Inpatient (IN) | payer MEDICAID ==
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
[2017-10-24 20:23] LABS: VENOUS BLOOD GAS BASE EXCESS 6.9 mmol/L (0.0-2.0); VENOUS BLOOD GAS PO2 38 mm/Hg (30-55); VENOUS BLOOD PH 7.37 (7.32-7.43)
[2017-10-24 20:41] LABS: GRAN # 0.4 (1.4-6.5); GRAN % 21.6 % (50.0-68.0); HEMOGLOBIN 11.4 g/dL (14.0-18.0); LYMPH # 1.1 (1.2-3.4); LYMPH % 58.9 % (22.0-35.0); MEAN CELL VOLUME 99.7 fl (80.0-105.0); MEAN CORPUSCULAR HEMOGLOBIN 33.7 pg (25.0-35.0); MEAN CORPUSCULAR HGB CONC 33.8 g/dl (31.0-37.0); MEAN PLATELET VOLUME 8.9 fl (7.0-11.0); MONO # 0.4 (0.1-0.6); MONO % 19.5 % (1.0-6.0); RBC 3.38 10^6/uL (3.5-6.1); RED CELL DISTRIBUTION WIDTH 16.5 % (11.5-14.5)
[2017-10-24 20:45] LABS: WHITE BLOOD COUNT 1.9 10^3/ul (4.5-11.0)
[2017-10-24 20:53] LABS: INR 1.02 (0.93-1.08); PARTIAL THROMBOPLASTIN TIME 25.3 Seconds (25.1-36.5); PROTHROMBIN TIME 11.6 SECONDS (9.4-12.5)
[2017-10-24 20:54] LABS: B-TYPE NATRIURETIC PEPTIDE 328 pg/mL (0-450); TROPONIN I < 0.01 ng/mL
[2017-10-24 20:55] LABS: ALB/GLOB RATIO 1.1 (1.1-1.8); ALBUMIN 3.1 g/dL (3.0-4.8); ALT/SGPT 176 U/L (7-56); AST/SGOT 102 U/L (17-59); BLOOD UREA NITROGEN 15 mg/dL (7-21); CALCIUM 8.6 mg/dL (8.4-10.5); GFR AFRICAN-AMERICAN > 60; GFR NON-AFRICAN AMERICAN > 60
[2017-10-24] MEDS ORDERED: Morphine 4 mg/ml ISec IVP STA (21:04)
[2017-10-24] MEDS ORDERED: Magnesium Sulfate 1 gm in D5W 1 GM/100 ML BAG IVPB ONE (21:04)
[2017-10-24] MEDS ORDERED: Sodium Chloride 0.9% 1,000 ML IV SCH (21:15)
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
[2017-10-24 22:50] LABS: PH,URINE 6.5 (4.7-8.0); URINE BILIRUBIN NEGATIVE (NEGATIVE); URINE BLOOD NEGATIVE (NEGATIVE); URINE GLUCOSE (UA) NEGATIVE (NEGATIVE); URINE LEUKOCYTE ESTERASE NEGATIVE Leu/uL (NEGATIVE); URINE PROTEIN NEGATIVE mg/dL (<30 mg/dL)
--- NOTE | 2017-10-24 22:51 | CT ---
EXAM: CT Lumbar Spine Without Intravenous Contrast EXAM DATE/TIME: 10/24/2017 7:47 PM CLINICAL HISTORY: 52 years old, male; Pain; Low back pain; Additional info: 52yom, with lung ca with lumbar back pain TECHNIQUE: Axial computed tomography images of the lumbar spine without intravenous contrast. All CT scans at this facility use one or more dose reduction techniques, viz.: automated exposure control; ma/kV adjustment per patient size (including targeted exams where dose is matched to indication; i.e. head); or iterative reconstruction technique. Coronal and sagittal reformatted images were created and reviewed. COMPARISON: Prior images are not available for review. FINDINGS: Vertebrae: T11, T12 and 5 lumbar vertebral bodies are normal in height. Posterior elements are intact at all levels. Degenerative endplate changes are greatest in L3-L4, L4-L5 and L5-S1. There is retrolisthesis of L3 on her period there is disc bulging L3-L4. There is mild disc bulging L4-L5. There is severe disc space narrowing L5-S1 with vacuum phenomenon and mild disc bulging. Facet joints align anatomically. There is degenerative facet disease greatest at lower levels. Visualized portions of sacroiliac joints are symmetric. There is minimal irregularity to the architecture of the left ilium. Discs/spinal canal/neural foramina: See above. Soft tissues: Psoas and paraspinous muscles are symmetric. There are vascular calcifications IMPRESSION: Degenerative change, no fracture No definite lytic or blastic lesions in the lumbar spine.
[2017-10-24 22:52] LABS: URINE APPEARANCE CLEAR (CLEAR); URINE COLOR YELLOW (YELLOW)
[2017-10-25] MEDS ORDERED: Budesonide 0.5 mg/2 ml Inhal Susp UD IH SCH (08:00)
[2017-10-25] MEDS ORDERED: Morphine 2 mg/ml ISec IVP PRN (08:01)
[2017-10-25] MEDS ORDERED: Sodium Chloride 0.9% 1,000 ML IV SCH (08:14)
[2017-10-25] MEDS: Albuterol-Ipratrop 3 mg / 0.5 (3 ml) UD IH SCH ×3 (08:36→19:42)
[2017-10-25] MEDS: Arformoterol 15 mcg/2 ml Inh Sol IH SCH ×2 (09:00→19:42)
[2017-10-25 09:20] LABS: ALBUMIN 2.4 g/dL (3.0-4.8); ALT/SGPT 135 U/L (7-56); AST/SGOT 78 U/L (17-59); BLOOD UREA NITROGEN 11 mg/dL (7-21); CALCIUM 7.7 mg/dL (8.4-10.5); GFR AFRICAN-AMERICAN > 60; GFR NON-AFRICAN AMERICAN > 60
--- NOTE | 2017-10-25 09:22 | PN ---
DATE: 10/25/2017 SUBJECTIVE: I saw him in the emergency room yesterday last night and now here in the morning. He is still short of breath a little bit. The legs, he can move a little bit more. The morphine is helping the pain. I called an orthopedist for his low back and leg pain and I called Pulmonary for his worsening lung cancer plus the oncologist. I think he had chemo and that is why he got worse last week. He is a little bit better though this morning, I made him an inpatient. I am rechecking his white count, it came down to 1.9 white count. He is on isolation right now. PHYSICAL EXAMINATION: VITAL SIGNS: He has 98.6 temp, 94 pulse, 118/72 blood pressure, 20 respiratory rate, 99% O2 sat on nasal cannula 2 L. GENERAL: He is definitely concerned, worried. HEENT: His head is atraumatic, normocephalic. Throat is moist. NECK: Supple. HEART: Regular rate. LUNGS: Decreased breath sounds bilaterally, but fairly clear. ABDOMEN: Soft. EXTREMITIES: No edema. He can move them better than yesterday. MEDICATIONS: He is currently on Brovana, DuoNebs, morphine, Protonix, Pulmicort, IV fluids, Xanax. He is going to be put on Solu-Medrol. I discussed that with Pulmonary. He is on 30 IV every 12 hours. He does not need antibiotics at this time or see if we can get him through the post-chemotherapy pain, lethargy and shortness of breath and weakness and get physical therapy involved, Orthopedics, see what the oncologist has to say and we will slowly wean him off the Solu-Medrol. Check his labs. Watch his white count. He is in isolation right now. Viktor Lundy DO
--- NOTE | 2017-10-25 09:47 | CON ---
DATE: 10/25/2017 PULMONARY CONSULTATION REASON FOR CONSULTATION Lung cancer. The patient is a 52-year-old male, with past medical history significant for advanced lung cancer (with brain metastases), status post recent chemotherapy, advanced chronic obstructive pulmonary disease, chronic hepatitis C, diabetes mellitus, who presents to [facility] with main complaints of increasing back pain and bilateral lower leg pain for the past five days. The pain got to the point where the patient was no longer walking well at home. He was thus admitted for additional evaluation. The patient is not short of breath at rest. He does have chronic mild dyspnea on exertion. He also has a chronic occasional cough with occasional sputum production - unchanged. There is no history of chest pain, coughing up of blood, or chest pain - made worse with deep respirations. There is no history of temperatures, chills or infectious exposure. There is no history of night sweats. The patient has lost weight with decreased appetite over the past year. No history of calf pains. No history of syncope or diaphoresis. No history of recent travel or trauma. REVIEW OF SYSTEMS: No history of nausea, vomiting or diarrhea. No acute urinary symptoms. Rest of the review of systems is negative. ALLERGIES: NO KNOWN ALLERGIES. SOCIAL HISTORY: Positive for extensive tobacco usage. Also, positive for previous alcohol abuse. FAMILY HISTORY: No inheritable diseases. HOME MEDICATIONS: Include Xanax, Librium, Ambien, omeprazole, Lasix, Advair, Pulmicort, Brovana and DuoNebs. PHYSICAL EXAMINATION: GENERAL: The patient appears comfortable this morning. He is not short of breath at rest. VITAL SIGNS: Temperature is 98.6, pulse 94, respirations 18/20, blood pressure 118/72. Oxygen saturation on nasal cannula is 99%. HEENT: Normocephalic, atraumatic. No JVD. CARDIOVASCULAR: Positive S1, S2. No S3 gallop. LUNGS: Decreased breath sounds at the bases. Mild bilateral rhonchi. No wheezing. EXTREMITIES: Positive for edema. No cyanosis, no clubbing. Calves are nontender to palpation. GASTROINTESTINAL: Abdomen is soft, nontender and nondistended. Bowel sounds are positive. SKIN: No acute rash. NEUROLOGIC: Exam limited at the present time. PERTINENT LABORATORY DATA: CT scan of the chest was done yesterday and reviewed. The trachea and main bronchi are patent. There is distortion of the left hilum with elevation of the left main bronchus due to mass effect. There are multiple left upper lobe pulmonary nodules suspicious for malignancy. There is an overall decrease in the size of the left upper lobe mass. However, there is an increase in the size of the left lower lobe mass. There is left hilar adenopathy with infiltrative changes in the mediastinum. The right lung is hyperinflated with minimal scarring at the right lung base. CBC: White count 1.9, hemoglobin 11.4, hematocrit 33.7, platelets of 33,000. Complete metabolic profile: Glucose 122, magnesium 1.6, bilirubin 1.8, AST 102, ALT 176, alkaline phosphatase 197. Rest of the metabolic profile is within normal limits. IMPRESSION: 1. Increasing back pain. 2. Advanced lung cancer with brain metastasis. 3. Advanced chronic obstructive pulmonary disease. 4. Pancytopenia. 5. Diabetes mellitus. PLAN: The patient presents to [facility] with a five-day history of worsening lower back pain and bilateral lower leg pain. As above, it got to the point where the patient was no longer ambulating well at home. He was thus admitted for additional evaluation. I did review the CT scan of the chest - noted above. While it does appear that the left upper lobe mass has decreased somewhat in size, there is an enlarging left lower lobe mass now present. There is also extensive hilar and mediastinal involvement. On physical exam, there is mild bronchospasm noted. However, there is no significant alveolar-arterial gradient. Oxygen saturation on nasal cannula is 99%. I will continue with the current nebulizer treatments, inhaled steroids, and add low dose IV steroids. I have also reviewed the laboratory data. Pancytopenia is noted. Oncology evaluation with Dr. Valentine has been ordered. Physical therapy evaluation has also been ordered. The patient does feel better this morning. However, unfortunately, his future status/prognosis remains very poor. All are aware. I did discuss the above with Dr. Lundy. Thank you very much for this pulmonary consultation. Musa Soliman MD JERAMIE
[2017-10-25] MEDS ORDERED: Fluticasone-Salmeterol 250-50mcg Diskus IH SCH (10:00)
--- NOTE | 2017-10-25 11:08 | RAD ---
PROCEDURE: Right Ankle Radiographs. HISTORY: pain COMPARISON: None FINDINGS: BONES: No evidence acute displaced fracture nor dislocation. The osseous structures appear intact. No cortical destructive changes are identified JOINTS: Ankle mortise maintained. Talar dome intact. Tiny osteophytes seen arising from the inferior tip medial malleolus SOFT TISSUES: Soft tissues appear unremarkable. OTHER FINDINGS: None. IMPRESSION: No evidence of acute displaced fracture nor dislocation. Tiny osteophytes seen arising from the inferior tip of the medial malleolus.
--- NOTE | 2017-10-25 11:10 | RAD ---
PROCEDURE: Left Ankle Radiographs. HISTORY: painrt . lt COMPARISON: None FINDINGS: BONES: No evidence of acute displaced fracture nor dislocation. Osseous structures appear intact. No obvious cortical destructive changes. JOINTS: Normal. No osteoarthritis. Ankle mortise maintained. Talar dome intact none very tiny osteophyte seen arising from the inferomedial tip of the medial malleolus SOFT TISSUES: Normal. OTHER FINDINGS: None. IMPRESSION: No evidence acute displaced fracture nor dislocation. Very tiny osteophyte seen arising from the inferomedial tip medial malleolus
--- NOTE | 2017-10-25 11:11 | RAD ---
PROCEDURE: Radiographs of the pelvis. HISTORY: pain COMPARISON: None. FINDINGS: BONES: Pelvic Bones: Unremarkable. Hips: Grossly unremarkable. JOINTS: Sacroiliac Joints: Unremarkable. Pubic Symphysis: Unremarkable. OTHER FINDINGS: None. IMPRESSION: Unremarkable radiographs of the pelvis.
--- NOTE | 2017-10-25 11:14 | RAD ---
PROCEDURE: Bilateral Knee Radiographs. HISTORY: pain COMPARISON: None. FINDINGS: BONES: Right Knee: Normal. No fracture. Left Knee: Normal. No fracture. JOINTS: Right Knee: Hypertrophic degenerative changes are seen in the proximal fibula these could be the result of a previous fracture Left knee: Normal. No osteoarthritis. SOFT TISSUES: Right Knee: Normal. Left Knee: Normal. JOINT EFFUSION: Right Knee: None. Left Knee: None. OTHER FINDINGS: None. IMPRESSION: Right knee. Hypertrophic degenerative changes are seen in the proximal fibula these could be the result of a previous fracture
--- NOTE | 2017-10-25 11:17 | CON ---
DATE: 10/25/2017 ORTHOPEDIC CONSULT The patient has past history of recently having lung cancer stage IV with pain in his lower extremities, mainly the ankles, knees and somewhat the hips. Back x-ray showed just osteoarthritis, no evidence of metastasis or fracture. We are going to just x-ray his ankles, knees and hips to make sure there is no impending fracture. If everything is negative, we will get him up out of bed and in therapy. He has no effusions of the knees and he does not need a cortisone shot, but I have to check to see if he has any metastatic lesions to the knees, ankles or pelvis. I will follow along with you and order therapy if everything shows no metastatic lesions. Patric Grove DO
[2017-10-25] MEDS: Pantoprazole 40 mg EC Tab PO SCH (12:03)
[2017-10-25] MEDS: MethylPREDNISolone 40 mg Vial IVP SCH ×2 (12:03→21:22)
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
--- NOTE | 2017-10-25 21:59 | CARD ---
APPROVED REPORT EKG Measurement Heart [id number] <Conclusion> Normal sinus rhythm Septal infarct, age undetermined Abnormal ECG
[2017-10-26] MEDS: Albuterol-Ipratrop 3 mg / 0.5 (3 ml) UD IH SCH ×4 (01:09→19:42)
[2017-10-26 07:06] LABS: MEAN CORPUSCULAR HGB CONC 32.1 g/dl (31.0-37.0); MEAN PLATELET VOLUME 10.6 fl (7.0-11.0); RBC 3.03 10^6/uL (3.5-6.1); RED CELL DISTRIBUTION WIDTH 16.7 % (11.5-14.5)
--- NOTE | 2017-10-26 07:27 | PN ---
DATE: 10/26/2017 PULMONARY NOTE SUBJECTIVE: The patient appears comfortable this morning. He is not short of breath at rest. OBJECTIVE: VITAL SIGNS (last noted in the computer): Temperature is 98.2, pulse is 92, respirations 18, blood pressure 99/62. Oxygen saturation on nasal cannula is 96%-99%. HEENT: Normocephalic, atraumatic. No JVD. CARDIOVASCULAR: Positive S1, S2. No S3 gallop. LUNGS: Decreased breath sounds at the bases. Much less rhonchi. No wheezing. EXTREMITIES: Positive for edema. No cyanosis, no clubbing. Calves are nontender to palpation. GASTROINTESTINAL: Abdomen is soft, nontender and nondistended. Bowel sounds are positive. SKIN: No acute rash. NEUROLOGIC: Exam limited at the present time. IMPRESSION: 1. Increasing back pain. 2. Advanced lung cancer with brain metastasis. 3. Advanced chronic obstructive pulmonary disease. 4. Pancytopenia. 5. Diabetes mellitus. PLAN: The patient appears comfortable this morning. He is not short of breath at rest. He has less back pain. He does state to feeling much better overall. I did discuss the case with the night nurse at length. The night nurse stated that the patient had a good night. On physical exam, his bronchospasm is less. In addition, the alveolar-arterial gradient is also less. I will continue with the current nebulizer treatments and decrease the intravenous steroids this morning. Oncology evaluation with Dr. Valentine is also noted. The clinical status of the patient is certainly improved - compared to the initial presentation. However, again, unfortunately, the future status/prognosis for this patient does remain poor. All are aware. I will discuss the above with Dr. Lundy this morning. Musa Soliman MD JERAMIE
[2017-10-26 07:51] LABS: ALB/GLOB RATIO 1.1 (1.1-1.8); ALBUMIN 2.7 g/dL (3.0-4.8); ALT/SGPT 127 U/L (7-56); AST/SGOT 47 U/L (17-59); BLOOD UREA NITROGEN 15 mg/dL (7-21); CALCIUM 8.5 mg/dL (8.4-10.5); GFR AFRICAN-AMERICAN > 60; GFR NON-AFRICAN AMERICAN > 60
[2017-10-26] MEDS: Arformoterol 15 mcg/2 ml Inh Sol IH SCH ×2 (08:00→19:42)
[2017-10-26] MEDS: Insulin Reg-LOW-Coverage SC SCH ×4 (09:15→22:21)
[2017-10-26] MEDS: Pantoprazole 40 mg EC Tab PO SCH (09:16)
[2017-10-26] MEDS: MethylPREDNISolone 40 mg Vial IVP SCH ×2 (09:20→21:32)
[2017-10-26] MEDS ORDERED: Sodium Chloride 0.9% 1,000 ML IV SCH (11:02)
[2017-10-26] MEDS ORDERED: Insulin Reg-LOW-Coverage SC SCH (11:30)
--- NOTE | 2017-10-26 14:13 | CT ---
PROCEDURE: CT HEAD WITHOUT CONTRAST. HISTORY: dizziness additional history learned is that the patient has had a prior MRI of the brain 08/18/2017 that exam the patient was shown to have bilateral brain metastases that exam is compared with the current CT exam as well as a prior CT exam from 02/01/2017. COMPARISON: As above TECHNIQUE: Axial computed tomography images were obtained through the head/brain without intravenous contrast. Radiation dose: Total exam DLP = mGy-cm. This CT exam was performed using one or more of the following dose reduction techniques: Automated exposure control, adjustment of the mA and/or kV according to patient size, and/or use of iterative reconstruction technique. FINDINGS: HEMORRHAGE: . The high aright frontal convexity/cortical T2 hyperintensity on the August 2017 MR exam corresponds to a 6 to 7 mm hyper density on the CT exam that is not appreciated as such on the earlier CT head exam of 02/01/2017. The appearance is consistent with a hyperdense sub cm metastatic lesion here or a small hemorrhagic focus in an area of prior metastases. Close follow-up is advised. These findings were directly discussed with the nurse taking care the patient Lu Phillips on [address] [place] [address] 10/26/2017 at approximate 2 o BRAIN: As above the prior the cerebral atrophy changes are renoted. Previously a cyst much more pathology was suggested on the prior MR exam which is less apparent on this exam. VENTRICLES: Unremarkable. No hydrocephalus. CALVARIUM: Unremarkable. PARANASAL SINUSES: Is small air-fluid level in the right maxillary sinus is noted. MASTOID AIR CELLS: Unremarkable as visualized. No inflammatory changes. OTHER FINDINGS: None. IMPRESSION: Compared to 02/01/2017 study, there is a sub cm hyperdensity in the right frontal cortex region -previously the MRI brain exam of 08/18/2017 at did show some hyper intensity here and the patient was interpreted as having multiple brain metastases. An interval hyperdense metastases and/or interval small hemorrhagic focus in a metastatic lesion is the compare oval CT exam of 02/01/2017 is compatible with this. Continued follow-up is recommended consider follow-up CT head imaging within 24 hours to reassess. No gross mass effect or other gross significant appearing extra-axial collections are now appreciated. Close follow-up is advised. These findings were directly discussed with the nurse taking care the patient Lu Phillips on [address] [place] [address] 10/26/2017 at approximate 2 o
--- NOTE | 2017-10-26 14:37 | PN ---
DATE: 10/26/2017 SUBJECTIVE: I saw him resting comfortably in bed. The pain in his legs are much better. He moves his legs in the bed better. He is on IV Solu-Medrol. I am hoping that Physical Therapy can get him up and walk him today, get him out of bed to chair. I am hoping that he could improve enough to possibly get him home. He was seen by the oncologist. He had an ankle x-ray, which showed no evidence of acute displaced fracture dislocation. He has pancytopenia and small cell lung cancer with metastasis to the brain and lymph nodes and he is getting outpatient salvage chemotherapy. Hopefully, by tomorrow, he can be improved enough so that we could discharge him, hopefully will improve, get him out of bed to see if he is walking. MEDICATIONS: He is currently on Brovana, DuoNeb, insulin, morphine, Protonix, Pulmicort, IV fluid, Solu-Medrol at 20 IV every 12 and Xanax, it was decreased. LABORATORY DATA: He has a 142 sodium, potassium 4.9, BUN 15, creatinine 0.6, GFR is greater than 60, sugar is 281, calcium is 8.5, total bilirubin is 1, AST is 47, ALT is 127, alkaline phosphatase 155, total protein is 5.3. White count is 5, it is much better isolation. Hemoglobin 10, hematocrit 31.2, platelets of 41, also better. We will continue with aggressive treatment and care. We will try and discharge him tomorrow if we can. Hopefully, he could walk today. Viktor Lundy DO MTDLily
--- NOTE | 2017-10-26 23:30 | CP.PCM.PN ---
Subjective - Date & Time of Evaluation Date of Evaluation: 10/26/17 Time of Evaluation: 13:00 - Subjective Subjective: Feeling better, less lower extremity pain. Objective - Vital Signs/Intake and Output Vital Signs (last 24 hours): Temp Pulse Resp BP Pulse Ox 97.9 F 68 16 121/85 98 10/26/17 17:31 18 17:31 10/26/17 17:31 10/26/17 17:31 10/26/17 17:31 - Medications Medications: Current Medications Albuterol/Ipratropium (Duoneb 3 Mg/0.5 Mg (3 Ml) Ud) 3 ml IH [id number] [facility] Last Admin: 10/26/17 19:42 Dose: 3 ml Alprazolam (Xanax) 0.5 mg PO TID [facility] PRN Reason: Protocol Last Admin: 10/26/17 17:26 Dose: 0.5 mg Arformoterol Tartrate (Brovana) 15 mcg IH 0800,2000 [facility] Last Admin: 10/26/17 19:42 Dose: 15 mcg Budesonide (Pulmicort Respules) 1 mg IH [id number] [facility] Sodium Chloride (Sodium Chloride 0.9%) 1,000 mls @ 80 mls/hr IV .[id number] [facility] Insulin Human Regular (Humulin R Low) 0 units SC ACHS [facility] PRN Reason: Protocol Last Admin: 10/26/17 22:21 Dose: Not Given Methylprednisolone (Solu-Medrol) 20 mg IVP Q12 [facility] Last Admin: 10/26/17 21:32 Dose: 20 mg Morphine Sulfate (Morphine) 2 mg IVP Q4H PRN PRN Reason: Pain, moderate (4-7) Pantoprazole Sodium (Protonix Ec Tab) 40 mg PO DAILY [facility] Last Admin: 10/26/17 09:16 Dose: 40 mg - Labs Labs: 10/26/17 07:00 10/26/17 06:00 PT 11.6 SECONDS (9.4-12.5) 10/24/17 19:50 INR 1.02 (0.93-1.08) 10/24/17 19:50 APTT 25.3 Seconds (25.1-36.5) 10/24/17 19:50 - Head Exam Head Exam: ATRAUMATIC - Eye Exam Eye Exam: Normal appearance - ENT Exam ENT Exam: Mucous Membranes Dry - Respiratory Exam Respiratory Exam: Decreased Breath Sounds - Cardiovascular Exam Cardiovascular Exam: +S1, +S2 - GI/Abdominal Exam GI & Abdominal Exam: Normal Bowel Sounds - Extremities Exam Extremities Exam: Pedal Edema Assessment and Plan (1) Pancytopenia Assessment & Plan: counts improving no longer neutropenic s/p GCSF Status: Acute (2) Small cell lung cancer Assessment & Plan: stage IV outpatient treatment Status: Acute
[2017-10-27] MEDS: Albuterol-Ipratrop 3 mg / 0.5 (3 ml) UD IH SCH ×3 (02:42→13:55)
[2017-10-27 06:48] LABS: HEMOGLOBIN 9.8 g/dL (14.0-18.0); MEAN CELL VOLUME 103.5 fl (80.0-105.0); MEAN CORPUSCULAR HGB CONC 32.9 g/dl (31.0-37.0); MEAN PLATELET VOLUME 10.8 fl (7.0-11.0); RBC 2.88 10^6/uL (3.5-6.1); WHITE BLOOD COUNT 4.8 10^3/ul (4.5-11.0)
[2017-10-27] MEDS: Arformoterol 15 mcg/2 ml Inh Sol IH SCH (07:12)
[2017-10-27 07:41] LABS: ALB/GLOB RATIO 1.1 (1.1-1.8); ALBUMIN 2.7 g/dL (3.0-4.8); ALT/SGPT 109 U/L (7-56); AST/SGOT 39 U/L (17-59); BLOOD UREA NITROGEN 15 mg/dL (7-21); CALCIUM 8.6 mg/dL (8.4-10.5); GFR AFRICAN-AMERICAN > 60; GFR NON-AFRICAN AMERICAN > 60
--- NOTE | 2017-10-27 08:06 | PN ---
DATE: 10/27/2017 PULMONARY NOTE SUBJECTIVE: The patient appears very comfortable this morning. He is not short of breath at rest. OBJECTIVE: VITAL SIGNS (last noted in the computer): Temperature is 97.9, pulse 68, respirations 16, blood pressure 121/85. Oxygen saturation on nasal cannula is 98%. HEENT: Normocephalic, atraumatic. No JVD. CARDIOVASCULAR: Positive S1, S2. No S3 gallop. LUNGS: Improved breath sounds at the bases. Very minimal/less rhonchi. No wheezing. EXTREMITIES: Positive for mild edema. No cyanosis or clubbing. Calves are nontender to palpation. GASTROINTESTINAL: Abdomen is soft, nontender and nondistended. Bowel sounds are positive. SKIN: No acute rash. NEUROLOGIC: Exam limited at the present time. IMPRESSION: 1. Increasing back pain - resolving. 2. Advanced lung cancer with brain metastasis. 3. Advanced chronic obstructive pulmonary disease. 4. Pancytopenia. 5. Diabetes mellitus. PLAN: The patient appears very comfortable this morning. He is not short of breath at rest. He has much less back pain. He does state to feeling much, much better overall. On physical exam, his bronchospasm continues to resolve. In addition, the alveolar arterial gradient also continues to resolve. I will continue with the current nebulizer treatments and change to oral steroids this morning. Input by Oncology (Dr. Valentine) is also noted. The clinical status of the patient is certainly improved - compared to the initial presentation. However, again, unfortunately, his future status/prognosis does remain poor. All are aware. I will discuss the above with Dr. Lundy. Musa Soliman MD JERAMIE
[2017-10-27] MEDS: Insulin Reg-LOW-Coverage SC SCH ×3 (09:06→18:21)
[2017-10-27] MEDS: Pantoprazole 40 mg EC Tab PO SCH (09:15)
[2017-10-27 09:52] VITALS: BP 94/67; PULSE 65; RESP 18; TEMP 98.1; O2SAT 99
--- NOTE | 2017-10-27 14:49 | DS ---
HISTORY OF PRESENT ILLNESS: He is hoping to go to [facility] for physical therapy before he went home. He had a very less time here; he came in after chemotherapy, not feeling well about the pain in the legs, could not walk, could not stand, also breathing poorly. He is on Brovana, DuoNebs, insulin, morphine, prednisone, Protonix, Pulmicort, IV fluid and Xanax. He is now finally doing better. He has severe lung cancer with brain metastasis. He is kind of weak and was walking very poorly, could not even stand up, now he is a little bit better. The recommendation is to go to [facility] for subacute rehab and he is agreeing to go; he wants to go. PHYSICAL EXAMINATION: VITAL SIGNS: He has 97.9 temperature, 68 pulse, 121/85 blood pressure, 16 respiratory rate and 98% O2 sat on 3 L nasal cannula. HEENT: His head is atraumatic, normocephalic. HEART: Regular rate. LUNGS: Clear to auscultation. ABDOMEN: Soft, nontender. EXTREMITIES: No edema. LABORATORY DATA: He has 4.8 white count and better; when he came in was 1.9; 29.8 hematocrit, and his platelets are now up to 49. INR is 1.02. He has 141 sodium, potassium 4.8, BUN 16, creatinine 0.6, GFR is greater than 60. Sugars have all been under 200s; his last one was 265. Calcium is 8.6, total bilirubin is 0.5. AST is 39, ALT is 109, alkaline phosphatase 1.2, total protein is 5.1. ASSESSMENT AND PLAN: I am so hoping he can go to subacute rehab at [facility], I think it is a good place for him. He was seen by Oncology, Pulmonology and hope he goes to subacute rehab. Viktor Lundy DO
== END 2017-10-27 20:29 | DRG 82 ==
LOC: ED 18:42 → ERH 23:19 → 2RSO 10-25 01:34 → OBSVTOIN 10-25 08:01 → 3RNO 10-26 23:16
PROVIDERS: ADMIT Family Medicine; ATTEND Family Medicine
DX: C34.90 Malignant neoplasm of unspecified part of unspecified bronchus or lung (principal); C79.31 Secondary malignant neoplasm of brain; J44.9 Chronic obstructive pulmonary disease, unspecified; I50.9 Heart failure, unspecified; K74.60 Unspecified cirrhosis of liver; D61.818 Other pancytopenia; B18.2 Chronic viral hepatitis C; C79.51 Secondary malignant neoplasm of bone; C77.9 Secondary and unspecified malignant neoplasm of lymph node, unspecified; F14.90 Cocaine use, unspecified, uncomplicated; F12.90 Cannabis use, unspecified, uncomplicated; E11.9 Type 2 diabetes mellitus without complications; M47.9 Spondylosis, unspecified; M79.662 Pain in left lower leg; M79.661 Pain in right lower leg; F41.9 Anxiety disorder, unspecified; F32.9 Major depressive disorder, single episode, unspecified; R53.1 Weakness; Z79.4 Long term (current) use of insulin; Z87.891 Personal history of nicotine dependence; Z87.01 Personal history of pneumonia (recurrent)

== ENCOUNTER 2017-11-14 22:38 | Observation (INO) | payer MEDICAID ==
[2017-11-14] MEDS ORDERED: Promethazine/Cod 6.25mg-10mg/5ml Syr UD PO STA (23:08)
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
[2017-11-14] MEDS: Albuterol-Ipratrop 3 mg / 0.5 (3 ml) UD IH SCH ×2 (23:15→23:33)
[2017-11-14 23:56] LABS: BASO # 0.01 K/mm3 (0.0-2.0); BASO % 0.1 % (0.0-3.0); EOS # 0.1 (0.0-0.7); EOS % 0.8 % (1.5-5.0); GRAN # 7.09 (1.4-6.5); GRAN % 78.8 % (50.0-68.0); HEMOGLOBIN 12.9 g/dL (14.0-18.0); LYMPH # 0.9 (1.2-3.4); LYMPH % 9.4 % (22.0-35.0); MEAN CELL VOLUME 103.6 fl (80.0-105.0); MEAN CORPUSCULAR HEMOGLOBIN 33.3 pg (25.0-35.0); MEAN CORPUSCULAR HGB CONC 32.2 g/dl (31.0-37.0); MEAN PLATELET VOLUME 11.6 fl (7.0-11.0); MONO % 10.9 % (1.0-6.0); RBC 3.87 10^6/uL (3.5-6.1); RED CELL DISTRIBUTION WIDTH 16.4 % (11.5-14.5)
[2017-11-14 23:59] LABS: INR 1.24 (0.93-1.08); PARTIAL THROMBOPLASTIN TIME 24.4 Seconds (25.1-36.5); PROTHROMBIN TIME 14.2 SECONDS (9.4-12.5)
[2017-11-15 00:01] LABS: ALBUMIN 3.1 g/dL (3.0-4.8); ALT/SGPT 83 U/L (7-56); AST/SGOT 69 U/L (17-59); BLOOD UREA NITROGEN 23 mg/dL (7-21); CALCIUM 8.7 mg/dL (8.4-10.5); GFR AFRICAN-AMERICAN > 60; GFR NON-AFRICAN AMERICAN > 60
[2017-11-15 00:10] LABS: B-TYPE NATRIURETIC PEPTIDE 368 pg/mL (0-450); TROPONIN I < 0.01 ng/mL
[2017-11-15] MEDS ORDERED: Piperacillin/Tazobact 3.375 gm 100 ML IVPB STA (03:33)
[2017-11-15] MEDS ORDERED: Vancomycin 1gm in NS 250ml 1 GM/250 ML BAG IVPB STA (03:33)
[2017-11-15] MEDS ORDERED: Albuterol-Ipratrop 3 mg / 0.5 (3 ml) UD IH PRN (04:05)
--- NOTE | 2017-11-15 08:51 | RAD ---
HISTORY: sob COMPARISON: Portable chest 10/18/2017. FINDINGS: LUNGS: Patient rotated toward the right somewhat. Chronic fibrotic changes are identify at the superior and mid left lung zones resulting in volume loss of the left lung once again. Underlying infiltrate not felt to be present with the right lung clear. PLEURA: No significant pleural effusion identified, no pneumothorax apparent. CARDIOVASCULAR: Normal. OSSEOUS STRUCTURES: No significant abnormalities. VISUALIZED UPPER ABDOMEN: Normal. OTHER FINDINGS: None. IMPRESSION: No acute infiltrate felt to present bilaterally. Chronic fibrotic changes and volume loss left lung again evident.
[2017-11-15] MEDS: Piperacillin/Tazobact 2.25gm 2.25 GM/100 ML BAG IVPB SCH ×2 (09:41→16:05)
[2017-11-15] MEDS: MethylPREDNISolone 40 mg Vial IVP SCH ×3 (09:47→23:53)
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
[2017-11-15] MEDS: Insulin Reg-MEDIUM-Coverage SC SCH ×3 (12:15→21:43)
--- NOTE | 2017-11-15 12:57 | CARD ---
APPROVED REPORT EKG Measurement Heart [id number] VT 122P80 [id number] <Conclusion> Normal sinus rhythm STTW changes c/w ischemia
[2017-11-15] MEDS: Albuterol-Ipratrop 3 mg / 0.5 (3 ml) UD IH SCH ×3 (13:15→21:08)
[2017-11-15] MEDS: Arformoterol 15 mcg/2 ml Inh Sol IH SCH ×2 (13:15→21:07)
[2017-11-16] MEDS: Albuterol-Ipratrop 3 mg / 0.5 (3 ml) UD IH SCH ×7 (00:34→23:51)
[2017-11-16 06:51] LABS: MEAN CELL VOLUME 102.5 fl (80.0-105.0); MEAN CORPUSCULAR HEMOGLOBIN 32.3 pg (25.0-35.0); MEAN CORPUSCULAR HGB CONC 31.5 g/dl (31.0-37.0); MEAN PLATELET VOLUME 11.9 fl (7.0-11.0); RBC 3.22 10^6/uL (3.5-6.1); RED CELL DISTRIBUTION WIDTH 15.5 % (11.5-14.5); WHITE BLOOD COUNT 7.9 10^3/ul (4.5-11.0)
[2017-11-16 07:09] LABS: BLOOD UREA NITROGEN 20 mg/dL (7-21); GFR AFRICAN-AMERICAN > 60; GFR NON-AFRICAN AMERICAN > 60
[2017-11-16 07:10] LABS: ALB/GLOB RATIO 0.9 (1.1-1.8); ALBUMIN 2.5 g/dL (3.0-4.8); ALT/SGPT 68 U/L (7-56); AST/SGOT 32 U/L (17-59); CALCIUM 8.4 mg/dL (8.4-10.5)
[2017-11-16 07:14] LABS: HEMOGLOBIN 10.4 g/dL (14.0-18.0)
[2017-11-16] MEDS: Arformoterol 15 mcg/2 ml Inh Sol IH SCH ×2 (07:41→20:44)
[2017-11-16] MEDS: MethylPREDNISolone 40 mg Vial IVP SCH ×3 (08:40→17:03)
[2017-11-16] MEDS: Insulin Reg-MEDIUM-Coverage SC SCH ×4 (08:41→22:09)
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
--- NOTE | 2017-11-16 13:33 | PN ---
DATE: 11/16/2017 SUBJECTIVE: I saw Trung resting comfortably in bed. He is doing a bit better, not 100%. He does not feel ready yet. still a little bit of short of breath. PHYSICAL EXAMINATION: VITAL SIGNS: He has 97.8 temperature, 99 pulse, 107/66 blood pressure, 20 respiratory rate, 97% O2 sat on room air. HEENT: Head is atraumatic, normocephalic. HEART: Regular rate. LUNGS: Decreased breath sounds bilaterally. No wheezes, rhonchi, or rales. ABDOMEN: Soft. EXTREMITIES: No edema. MEDICATIONS: He is currently on Brovana, DuoNeb [id number], Glucophage, insulin, Protonix, Solu-Medrol, Tylenol, and Xanax. We will decrease his Solu-Medrol to 20. LABORATORY DATA: He has 141 sodium, potassium 3.9, BUN 20, creatinine 0.7, GFR is greater than 60, sugar is 283. Calcium is 8.4. Total bilirubin is 0.6, AST is 32, ALT is 68, alkaline phosphatase 102, total protein is 5.3. White count 7.9, hemoglobin 10.4, hematocrit 33, platelets 256. There is a consult for Dr. Valentine who is his oncologist. I will decrease his Solu-Medrol to 20 today. The plan is to discharge him tomorrow, but he will stay on observation level of care. He has acute exacerbation of COPD, lung cancer, and shortness of breath. He will be discharged tomorrow physical therapy to walk him and the plan is home with services. Viktor Lundy DO MTDLily
[2017-11-16] MEDS ORDERED: Promethazine DM 6.25 mg-15 mg/5 ml Syrup PO PRN (18:01)
[2017-11-16] MEDS ORDERED: Benzocaine/Menthol (Cepacol) Lozenge MT STA (21:35)
[2017-11-17] MEDS: MethylPREDNISolone 40 mg Vial IVP SCH (01:00)
[2017-11-17] MEDS: Albuterol-Ipratrop 3 mg / 0.5 (3 ml) UD IH SCH ×3 (04:53→10:57)
[2017-11-17 07:03] LABS: HEMOGLOBIN 10.6 g/dL (14.0-18.0); MEAN CELL VOLUME 103.4 fl (80.0-105.0); MEAN CORPUSCULAR HEMOGLOBIN 32.5 pg (25.0-35.0); MEAN CORPUSCULAR HGB CONC 31.5 g/dl (31.0-37.0); MEAN PLATELET VOLUME 10.4 fl (7.0-11.0); RBC 3.26 10^6/uL (3.5-6.1); RED CELL DISTRIBUTION WIDTH 15.3 % (11.5-14.5); WHITE BLOOD COUNT 14.5 10^3/ul (4.5-11.0)
[2017-11-17] MEDS: Arformoterol 15 mcg/2 ml Inh Sol IH SCH (07:28)
[2017-11-17] MEDS ORDERED: Pantoprazole 40 mg EC Tab PO SCH (07:30)
[2017-11-17 07:42] LABS: ALBUMIN 2.7 g/dL (3.0-4.8); ALT/SGPT 77 U/L (7-56); AST/SGOT 52 U/L (17-59); BLOOD UREA NITROGEN 22 mg/dL (7-21); CALCIUM 8.9 mg/dL (8.4-10.5); GFR AFRICAN-AMERICAN > 60; GFR NON-AFRICAN AMERICAN > 60
[2017-11-17 07:50] VITALS: BP 90/59; PULSE 91; RESP 18; TEMP 97.4; O2SAT 96
[2017-11-17] MEDS: Insulin Reg-MEDIUM-Coverage SC SCH (08:29)
--- NOTE | 2017-11-17 12:17 | CP.PCM.PN ---
Subjective - Date & Time of Evaluation Date of Evaluation: 11/16/17 Time of Evaluation: 20:00 - Subjective Subjective: Feeling much better, breathing improved. Objective - Vital Signs/Intake and Output Vital Signs (last 24 hours): Temp Pulse Resp BP Pulse Ox 97.4 F L 91 H 18 90/59 L 96 11/17/17 06:00 11/17/17 06:00 11/17/17 06:00 11/17/17 06:00 11/17/17 06:00 Intake and Output: 11/17/17 11/17/17 06:59 18:59 Intake Total 960 Balance 960 - Medications Medications: Current Medications Acetaminophen (Tylenol 325mg Tab) 650 mg PO Q4H PRN PRN Reason: Pain, Mild (1-3) Albuterol/Ipratropium (Duoneb 3 Mg/0.5 Mg (3 Ml) Ud) 3 ml IH Q4H PRN PRN Reason: Shortness of Breath Albuterol/Ipratropium (Duoneb 3 Mg/0.5 Mg (3 Ml) Ud) 3 ml IH [id number] [facility] Last Admin: 11/17/17 10:57 Dose: 3 ml Alprazolam (Xanax) 0.5 mg PO TID [facility] PRN Reason: Protocol Last Admin: 11/17/17 10:39 Dose: 0.5 mg Arformoterol Tartrate (Brovana) 15 mcg IH 799,1999 [facility] Last Admin: 11/17/17 07:28 Dose: 15 mcg Chlordiazepoxide (Librium) 25 mg PO Q8H [facility] PRN Reason: Protocol Last Admin: 11/17/17 10:38 Dose: 25 mg Insulin Human Regular (Humulin R Med) 0 units SC ACHS [facility] PRN Reason: Protocol Last Admin: 11/17/17 08:29 Dose: 5 units Metformin HCl (Glucophage) 500 mg PO BID [facility] Last Admin: 11/17/17 10:39 Dose: 500 mg Methylprednisolone (Solu-Medrol) 20 mg IVP Q8H [facility] Last Admin: 11/17/17 01:00 Dose: 20 mg Pantoprazole Sodium (Protonix Ec Tab) 40 mg PO ACB [facility] Last Admin: 11/17/17 08:37 Dose: 40 mg Promethazine HCl/Dextromethorphan (Phenergan Dm Syrup) 5 ml PO Q8H PRN PRN Reason: Cough Stop: 11/30/17 18:02 Last Admin: 11/16/17 18:21 Dose: 5 ml - Labs Labs: 11/17/17 06:15 11/17/17 06:15 PT 14.2 SECONDS (9.4-12.5) H 11/14/17 23:35 INR 1.24 (0.93-1.08) H 11/14/17 23:35 APTT 24.4 Seconds (25.1-36.5) L 11/14/17 23:35 - Head Exam Head Exam: ATRAUMATIC - Eye Exam Eye Exam: Normal appearance - ENT Exam ENT Exam: Mucous Membranes Dry - Respiratory Exam Respiratory Exam: Decreased Breath Sounds - Cardiovascular Exam Cardiovascular Exam: +S1, +S2 - GI/Abdominal Exam GI & Abdominal Exam: Normal Bowel Sounds - Extremities Exam Extremities Exam: Pedal Edema Assessment and Plan (1) Small cell lung cancer Assessment & Plan: stage IV brain metastasis s/p whole brain radiotherapy given improving clinical status, will hold off on CT chest outpatient treatment Status: Acute (2) Thrombocytopenia Assessment & Plan: liver disease, hepatitis C, and chemotherapy effect Status: Acute (3) Anemia Assessment & Plan: chronic disease and malignancy Status: Acute
--- NOTE | 2017-11-17 16:10 | DS ---
HISTORY OF PRESENT ILLNESS: He is being discharged home today. He is going to go home on Brovana, Cepacol, DuoNebs, Glucophage, Librium, Phenergan, Protonix, prednisone, Tylenol, Xanax, tramadol and Levaquin. He is going to have the pharmacy call me, when he gets home his medications. He was here for acute shortness of breath, COPD on top of lung cancer picture. I will see him in the office next week. PHYSICAL EXAMINATION: VITAL SIGNS: He has a 97.9 temp, 116 pulse, 102/70 blood pressure, 20 respiratory rate, 95% O2 sat on room air and pulse dropped to 88. HEENT: His head is atraumatic, normocephalic. HEART: Regular rate. LUNGS: Decreased breath sounds, but clear. ABDOMEN: Soft. EXTREMITIES: No edema. LABORATORY DATA: He has a 14.5 white count, he is on steroids; 10.6 hemoglobin; 33.7 hematocrit with 53 platelets. He has a 141 sodium, potassium 3.9, BUN 0.7, GFR is greater than 60, sugar is 256. He is on lots of steroids. Calcium is 8.4, total bili is 0.6, AST is 32, ALT is 68, alk phos 102. ASSESSMENT AND PLAN: He is going to follow up with Dr. Lundy and Dr. Valentine, the oncologist, so he can continue with his chemotherapy on the outpatient. He was a former smoker. He has got stage IV lung cancer with brain metastasis, status post chemotherapy and radiation of the brain as per Oncology. He will be discharged today. Viktor Lundy DO MTDD
== END 2017-11-17 12:43 | disposition home or self-care (01) ==
LOC: ED 22:38 → ERH 11-15 03:34 → 5RNO 11-15 05:57
PROVIDERS: ADMIT Family Medicine; ATTEND Family Medicine
DX: J44.1 Chronic obstructive pulmonary disease with (acute) exacerbation (principal); C34.90 Malignant neoplasm of unspecified part of unspecified bronchus or lung; C79.31 Secondary malignant neoplasm of brain; B19.20 Unspecified viral hepatitis C without hepatic coma; D64.9 Anemia, unspecified; D69.6 Thrombocytopenia, unspecified; K74.60 Unspecified cirrhosis of liver; T45.1X5A Adverse effect of antineoplastic and immunosuppressive drugs, initial encounter; Z86.73 Personal history of transient ischemic attack (TIA), and cerebral infarction without residual deficits; Z87.01 Personal history of pneumonia (recurrent); Z87.891 Personal history of nicotine dependence; Z91.5 Personal history of self-harm; Z92.3 Personal history of irradiation; Z83.3 Family history of diabetes mellitus; Z82.49 Family history of ischemic heart disease and other diseases of the circulatory system; M51.36 Other intervertebral disc degeneration, lumbar region; R29.6 Repeated falls; F19.10 Other psychoactive substance abuse, uncomplicated; R40.2412 Glasgow coma scale score 13-15, at arrival to emergency department
CPT/HCPCS: 36415; 71045; 80053; 82550; 82948; 83615; 83735; 83880; 84484; 85025; 85027; 85610; 85730; 87040; 93005; 94640; 96374; 97161; 97530; 99285; C9113; G0378; G8978; G8979; J2543; J2920; J2930

== ENCOUNTER 2017-11-21 17:09 | Inpatient (IN) | payer MEDICAID ==
[2017-11-21] MEDS: Albuterol-Ipratrop 3 mg / 0.5 (3 ml) UD IH SCH ×4 (18:17→20:15)
[2017-11-21 18:24] LABS: VENOUS BLOOD GAS BASE EXCESS 2.6 mmol/L (0.0-2.0); VENOUS BLOOD GAS PO2 105 mm/Hg (30-55); VENOUS BLOOD PH 7.43 (7.32-7.43)
[2017-11-21 18:25] LABS: BASO # 0.01 K/mm3 (0.0-2.0); BASO % 0.1 % (0.0-3.0); EOS # 0.1 (0.0-0.7); EOS % 0.7 % (1.5-5.0); GRAN # 10.62 (1.4-6.5); GRAN % 92.9 % (50.0-68.0); HEMOGLOBIN 12.1 g/dL (14.0-18.0); LYMPH # 0.4 (1.2-3.4); LYMPH % 3.1 % (22.0-35.0); MEAN CELL VOLUME 101.9 fl (80.0-105.0); MEAN CORPUSCULAR HEMOGLOBIN 32.3 pg (25.0-35.0); MEAN CORPUSCULAR HGB CONC 31.7 g/dl (31.0-37.0); MONO # 0.4 (0.1-0.6); MONO % 3.2 % (1.0-6.0); PLATELET COUNT 62 10^3/uL (120.0-450.0); RBC 3.75 10^6/uL (3.5-6.1); RED CELL DISTRIBUTION WIDTH 15.7 % (11.5-14.5); WHITE BLOOD COUNT 11.4 10^3/ul (4.5-11.0)
[2017-11-21 18:37] LABS: ALT/SGPT 96 U/L (7-56); AST/SGOT 67 U/L (17-59); BLOOD UREA NITROGEN 19 mg/dL (7-21); CALCIUM 8.5 mg/dL (8.4-10.5); GFR AFRICAN-AMERICAN > 60; GFR NON-AFRICAN AMERICAN > 60
[2017-11-21] MEDS ORDERED: cefTRIAXone 2 GM IN NS 2 GM/100 ML BAG IVPB STA (18:42)
[2017-11-21] MEDS ORDERED: Azithromycin 500MG/NS 250ml 500 MG/250 ML BAG IVPB STA (18:42)
[2017-11-21 18:46] LABS: B-TYPE NATRIURETIC PEPTIDE 466 pg/mL (0-450); TROPONIN I < 0.01 ng/mL
[2017-11-21 18:47] LABS: LYMPHOCYTE 5 % (22.0-35.0); MONOCYTE 5 % (1.0-6.0); NEUTROPHIL 90 % (50.0-70.0)
[2017-11-21] MEDS ORDERED: Magnesium Sulfate 2 gm/50 ml 2 GM/50 ML BAG IVPB ONE (18:47)
[2017-11-21 18:48] LABS: ANISOCYTOSIS 1+; PLATELET ESTIMATE LOW (NORMAL); SCHISTOCYTES SLIGHT
[2017-11-21] MEDS ORDERED: Magnesium 2 gm/50 ml NS 2 GM/50 ML BAG IVPB ONE (18:55)
[2017-11-21] MEDS ORDERED: Heparin25000 units/250ml 1/2NS 25,000 UNITS/250 ML BAG IV PRN (19:39)
[2017-11-21] MEDS: Sodium Chloride 0.45% 1,000 ML IV SCH (20:11)
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
[2017-11-21] MEDS: MethylPREDNISolone 40 mg Vial IVP SCH (20:15)
[2017-11-21] MEDS ORDERED: Iohexol 350 MG/100 ML VIAL ONE (20:21)
--- NOTE | 2017-11-21 20:26 | CARD ---
APPROVED REPORT EKG Measurement Heart [id number] AL [id number] <Conclusion> Sinus tachycardia Possible Left atrial enlargement Septal infarct, age undetermined Abnormal ECG
--- NOTE | 2017-11-21 21:41 | US ---
HISTORY: Leg pain and swelling. Evaluate for DVT PHYSICIAN(S): Godfrey Villanueva MD. TECHNIQUE: Duplex sonography and color-flow Doppler with graded compression were used to evaluate the deep venous systems of both lower extremities. FINDINGS: There is adherent non occlusive thrombus in the right CFV. The right FV and poplliteal vein is normal and compressible There is occlusive thrombus in the left common femoral vein. The left femoral vein and popliteal vein is normal and compressible. IMPRESSION: Bilateral isolated common femoral vein as described above.
[2017-11-21] MEDS: Insulin Reg-MEDIUM-Coverage SC SCH (22:30)
--- NOTE | 2017-11-21 22:42 | CT ---
EXAM: CT Head Without Intravenous Contrast EXAM DATE/TIME: 11/21/2017 7:38 PM CLINICAL HISTORY: The patient age is 52 years old and is male; Signs and symptoms; Dizziness; Additional info: R/O bleed Facility exam id and description: Ct heads head w/o contrast TECHNIQUE: Axial computed tomography images of the head/brain without intravenous contrast. All CT scans at this facility use one or more dose reduction techniques, viz.: automated exposure control; ma/kV adjustment per patient size (including targeted exams where dose is matched to indication; i.e. head); or iterative reconstruction technique. Coronal and sagittal reformatted images were created and reviewed. COMPARISON: CT - HEAD W/O CONTRAST 2017-10-26 13:35 FINDINGS: Brain: There are periventricular foci of hypodensity, suggestive of small vessel ischemic disease in a patient this age. Demyelination is within the differential. The previously described hyperdense lesion within the right frontal cortical/subcortical region has decreased in size on the current study and is now punctate in size. This is visualized on series 2 image 12. The acuity of the white matter disease is indeterminate. The white-walker differentiation is preserved demonstrating no acute territorial type infarct. No acute intracranial hemorrhage is seen. Midline shift: There is no midline shift. Ventricles: There is mild to moderate prominence of the ventricles and sulci, compatible with atrophy. Bones/joints: The calvarium demonstrates no evidence for a depressed fracture. Soft tissues: No acute abnormality. Sinuses: Unremarkable as visualized. No acute sinusitis. Mastoid air cells: No mastoid effusion. IMPRESSION: 1. No acute intracranial hemorrhage or acute territorial type infarct. 2. There are periventricular foci of hypodensity, suggestive of small vessel ischemic disease in a patient this age. Demyelination is within the differential. 3. The previously described hyperdense lesion within the right frontal cortical/subcortical region has decreased in size on the current study and is now punctate in size. This is visualized on series 2 image 12. 4. Mild to moderate atrophy. 5. If further evaluation is clinically indicated, an MRI of the brain with/without contrast is recommended.
[2017-11-21] MEDS ORDERED: Insulin Regular 1 UNITS/0.01 ML ML ONE (22:56)
--- NOTE | 2017-11-21 22:57 | CT ---
EXAM: CT Angiography Chest With Intravenous Contrast EXAM DATE/TIME: 11/21/2017 7:39 PM CLINICAL HISTORY: The patient age is 52 years old and is male; Condition or disease; Other: +dvt; Additional info: Dvt postive, R/O pe Facility exam id and description: [facility] protocol TECHNIQUE: Axial computed tomographic angiography images of the chest with intravenous contrast using pulmonary embolism protocol. All CT scans at this facility use one or more dose reduction techniques, viz.: automated exposure control; ma/kV adjustment per patient size (including targeted exams where dose is matched to indication; i.e. head); or iterative reconstruction technique. MIP reconstructed images were created and reviewed. Coronal and sagittal reformatted images were created and reviewed. CONTRAST: 100 mL of OMNI 350 administered intravenously. COMPARISON: CT - ANGIO CHEST PE PROTOCOL 2017-01-07 22:25 FINDINGS: Pulmonary arteries: There is decreased mass effect on the left main pulmonary artery. There is decreased pulmonary arterial vascularity within the left upper lobe of the lung, but this is a chronic finding compared to the prior study. The main pulmonary trunk, right/left main pulmonary arteries, and the proximal right lobar branches demonstrate no definite intraluminal filling defect to suggest pulmonary embolism. Artifact significantly limits evaluation of the peripheral pulmonary arteries within the right lower lobe. Aorta: There is no aneurysm or dissection of the aorta. Lungs: A mass is visualized involving the left upper lobe and superior segment of the left lower lobe. This extends from the pleural surface to the hilum measuring approximately 3.6 x 6.7 x 5.6 cm. This is a progression compared to the prior study and suspicious for malignancy. Multiple nodules are identified in the left upper lobe, and malignancy is suggested. One of these nodules measures 1.8 cm. There is a progression in the number of left upper lobe nodules compared to the prior study. Within the left lower lobe on series 3 image 62, there is a 4 mm nodule, which is new. Left apical bullae are visualized. Patchy nonspecific groundglass density is visualized within the right lung. There is volume loss of the left lung. Pleural space: There is a small left pleural effusion. No pneumothorax. Heart: No cardiomegaly. No significant pericardial effusion. No evidence of RV dysfunction. Mediastinum: There is significantly decreased mass effect within the mediastinum. Adjacent to the aortic arch, there is an area of abnormal density measuring 6.1 x 1.5 cm. Bones/joints: Hypertrophic degenerative changes are noted within the spine. Old fractures are identified of the left fourth and fifth ribs. Lymph nodes: There is decreased mass effect involving the left hilum. Mildly enlarged right hilar lymph node is visualized. A few small subcarinal lymph nodes are identified. Spleen: The spleen measures 14.0 cm in length, consistent with mild splenomegaly. There is hypodense fat infiltration of the liver. Kidneys and ureters: Perinephric stranding is seen bilaterally. IMPRESSION: 1. There is decreased mass effect on the left main pulmonary artery. There is decreased pulmonary arterial vascularity within the left upper lobe of the lung, but this is a chronic finding compared to the prior study. 2. The main pulmonary trunk, right/left main pulmonary arteries, and the proximal right lobar branches demonstrate no definite intraluminal filling defect to suggest pulmonary embolism. Artifact significantly limits evaluation of the peripheral pulmonary arteries within the right lower lobe. 3. A mass is visualized involving the left upper lobe and superior segment of the left lower lobe. This extends from the pleural surface to the hilum measuring approximately 3.6 x 6.7 x 5.6 cm. This is a progression compared to the prior study and suspicious for malignancy. 4. Multiple nodules are identified in the left upper lobe, and malignancy is suggested. One of these nodules measures 1.8 cm. There is a progression in the number of left upper lobe nodules compared to the prior study. This can be further evaluated with PET/CT. 5. Within the left lower lobe on series 3 image 62, there is a 4 mm nodule, which is new. 6. There is significantly decreased mass effect within the mediastinum. Adjacent to the aortic arch, there is an area of abnormal density measuring 6.1 x 1.5 cm. 7. Mild splenomegaly. There is hypodense fat infiltration of the liver. 8. There is a small left pleural effusion. 9. Additional findings described above.
[2017-11-21] MEDS: Heparin 25,000units in 1/2NS /250 ML BAG IV PRN (23:30)
[2017-11-22 01:26] LABS: INR 1.49 (0.93-1.08); PROTHROMBIN TIME 17.1 SECONDS (9.4-12.5)
[2017-11-22] MEDS: Albuterol-Ipratrop 3 mg / 0.5 (3 ml) UD IH SCH ×4 (02:50→19:47)
[2017-11-22 03:22] LABS: PARTIAL THROMBOPLASTIN TIME 205.2 Seconds (25.1-36.5)
[2017-11-22 03:26] VITALS: BMI 23.5
[2017-11-22] MEDS: MethylPREDNISolone 40 mg Vial IVP SCH ×3 (04:50→21:59)
[2017-11-22] MEDS ORDERED: Albuterol-Ipratrop 3 mg / 0.5 (3 ml) UD IH PRN (06:49)
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
[2017-11-22 07:12] LABS: HEMOGLOBIN 10.8 g/dL (14.0-18.0); MEAN CELL VOLUME 99.7 fl (80.0-105.0); MEAN CORPUSCULAR HEMOGLOBIN 31.7 pg (25.0-35.0); MEAN CORPUSCULAR HGB CONC 31.8 g/dl (31.0-37.0); MEAN PLATELET VOLUME 10.3 fl (7.0-11.0); RBC 3.41 10^6/uL (3.5-6.1); RED CELL DISTRIBUTION WIDTH 15.2 % (11.5-14.5)
[2017-11-22 07:41] LABS: PLATELET COUNT 49 10^3/uL (120.0-450.0); WHITE BLOOD COUNT 2.5 10^3/ul (4.5-11.0)
[2017-11-22 07:46] LABS: ALBUMIN 2.8 g/dL (3.0-4.8); ALT/SGPT 93 U/L (7-56); AST/SGOT 52 U/L (17-59); BLOOD UREA NITROGEN 20 mg/dL (7-21); GFR AFRICAN-AMERICAN > 60; GFR NON-AFRICAN AMERICAN > 60
[2017-11-22] MEDS: Insulin Reg-MEDIUM-Coverage SC SCH ×4 (08:12→21:51)
[2017-11-22] MEDS: Budesonide 0.5 mg/2 ml Inhal Susp UD IH SCH ×2 (08:16→19:47)
[2017-11-22] MEDS: Pantoprazole 40 mg EC Tab PO SCH (10:01)
--- NOTE | 2017-11-22 10:08 | CON ---
DATE: 11/22/2017 PULMONARY CONSULTATION REASON FOR CONSULTATION: Chronic obstructive pulmonary disease. REFERRING PHYSICIAN: Viktor Lundy DO HISTORY OF PRESENT ILLNESS: History is obtained via extensive discussion with the night nurse. I have also reviewed the chart at length, and discussed the case with the patient at length. The patient is a 52-year-old male, with past medical history significant for extensive/advanced lung cancer (with metastatic disease to the brain), advanced chronic obstructive pulmonary disease, diabetes mellitus, chronic hepatitis C, who presents to [facility] with a 2-day history of worsening shortness of breath at rest, dyspnea on exertion, cough, and minimal sputum production. There is no history of chest pain, coughing up of blood, or chest pain - made worse with deep respirations. There is no history of temperatures, chills or infectious exposure. There is no history of night sweats. There is a history of weight loss with decreased appetite. No history of calf pains. No history of syncope or diaphoresis. No history of recent travel or trauma. REVIEW OF SYSTEMS: No nausea, vomiting or diarrhea. No acute urinary symptoms. Rest of the review of systems is negative. ALLERGIES: NO KNOWN ALLERGIES. SOCIAL HISTORY: Positive for extensive tobacco usage. Positive for previous polysubstance abuse. Positive for former alcohol usage. FAMILY HISTORY: No inheritable diseases. HOME MEDICATIONS: Include Ultram, prednisone, chlordiazepoxide, Protonix, Humulin, Lasix, Decadron, Pulmicort, Brovana, Xanax, DuoNeb. PHYSICAL EXAMINATION GENERAL: The patient is not short of breath at the present time. He is not using accessory muscles for breathing. He does appear very, very weak. VITAL SIGNS: Temperature is 98.2, pulse is 79, respirations 18/20, blood pressure 98/70. Oxygen saturation on nasal cannula is 96%-98%. HEENT: Normocephalic, atraumatic. No JVD. CARDIOVASCULAR: Positive S1, S2. No S3 gallop. LUNGS: Decreased breath sounds at the bases. Mild rhonchi bilaterally. Few wheezes are also appreciated. EXTREMITIES: The right lower extremity appears slightly increased in size compared to the left lower extremity. There is no significant edema in either extremity. The right calf is slightly tender to palpation. The left calf is nontender to palpation. GI: Abdomen is soft, nontender and nondistended. Bowel sounds are positive. SKIN: No acute rash. NEUROLOGIC: Limited at the present time. PERTINENT LABORATORY DATA: CAT scan of the chest was done as an angiogram protocol. There is no pulmonary embolism seen. However, there is an enlarging mass involving the left upper lobe and superior segment of the left lower lobe. This is certainly a progression compared to the previous CAT scans. Multiple lung nodules are also noted in the left lung. One of the nodules in the left lung is new. Extremity ultrasound was also done. There is bilateral isolated common femoral vein deep venous thrombosis. CBC: White count 11.4, hemoglobin 12.1, hematocrit 38.2, platelets of 62,000. IMPRESSION: 1. Recurrent bronchitis. 2. Advanced chronic obstructive pulmonary disease. 3. Advanced lung cancer with brain metastasis. 4. Bilateral deep venous thrombosis. 5. Anemia. PLAN: Again, I did discuss the case with the night nurse at length. I have also reviewed the chart at length, and discussed the case with the patient at length. The patient presents to [facility] with a 2-day history of worsening pulmonary symptoms. I did review the CAT scan - noted above. There is certainly progression of the left-sided mass and disease - compared to previous films. Oncology evaluation with Dr. Valentine has been ordered. On physical exam, the patient is in [id number] bronchospasm. I will continue with the DuoNeb treatments and add inhaled Pulmicort. I will also try decreasing the intravenous steroids this morning. I have also reviewed the emergency room chart at length. There is certainly a question of whether the patient is compliant with his home medications. I did discuss this issue with him. Unfortunately, the future status/prognosis for this patient remains very poor as he continues to slowly deteriorate. I would consider hospice evaluation at this point in time. I will discuss the above with Dr. Lundy in the next few moments. Thank you very much for this pulmonary consultation. Musa Soliman MD [facility]
--- NOTE | 2017-11-22 10:41 | RAD ---
PROCEDURE: CHEST RADIOGRAPH, 1 VIEW HISTORY: short of breath, wet breath sounds COMPARISON: 11/14/2017 chest x-ray FINDINGS: LUNGS: Interval increased [place] and mass with spiculation left hilar/perihilar with increasing volume loss here suggested. Findings compatible with underlying malignancy. PLEURA: No pneumothorax or pleural fluid seen. CARDIOVASCULAR: Normal. OSSEOUS STRUCTURES: Left posterior mid lung zone rib deformity is similar. Partially visualized is extensive mandibular hardware VISUALIZED UPPER ABDOMEN: Normal. OTHER FINDINGS: None. IMPRESSION: Interval increased density masslike with spiculation compatible with progressive malignancy -left hilar perihilar location.
--- NOTE | 2017-11-22 12:09 | PN ---
DATE: 11/22/2017 SUBJECTIVE: I saw him resting comfortably this morning in bed. He slept fairly well. I think he is doing a little bit better than yesterday, but he is still gravely ill with severe stage IV lung cancer with an enlarging mass with brain metastases status post radiation and supposed to be getting chemotherapy. He was much more short of breath yesterday, doing better. He is on DuoNeb, heparin drip. He has bilateral DVTs. He was not doing anything for the time he has been out of the hospital but sitting. He is on insulin coverage, Protonix, Pulmicort, IV fluids, Solu-Medrol. Pulmonary dropped him down. He is on Ultram and Xanax. PHYSICAL EXAMINATION: VITAL SIGNS: He has a 98.2 temperature, 79 pulse, 20 respiratory rate, 96% O2 saturation in 2 liters. HEENT: Head is atraumatic, normocephalic. HEART: Regular rate. LUNGS: Decreased breath sounds bilaterally, fairly clear. ABDOMEN: Soft. EXTREMITIES: No edema. He is in dire straits. LABORATORY DATA: His white count down to 2.5 but was 11.4, his hemoglobin is 10.8, hematocrit 34, platelets of 49. He has a 135 sodium, potassium 4.3, BUN 20, creatinine 0.8, GFR is greater than 60, sugars are 357 and 329, he is on Solu-Medrol. The total bilirubin is 0.6, AST is 52, ALT is 90, alkaline phosphatase 110, total protein is 5.6. Insulin coverage for his blood sugars right now, I will make that tighter, I will make it a tighter coverage on his blood sugars. He has consults with Palliative Care, Pulmonology, Oncology and is here for COPD, rule out pneumonia, stage IV lung disease with brain metastasis, now with bilateral DVTs, on heparin. putting him on Eliquis tomorrow. Get him out of bed to chair and physical therapy. Viktor Lundy DO [facility]
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
[2017-11-22] MEDS: Heparin 25,000units in 1/2NS /250 ML BAG IV PRN (23:23)
[2017-11-22] MEDS: Sodium Chloride 0.45% 1,000 ML IV SCH ×2 (23:37)
[2017-11-23] MEDS: Albuterol-Ipratrop 3 mg / 0.5 (3 ml) UD IH SCH ×4 (01:19→20:57)
[2017-11-23 07:04] LABS: HEMOGLOBIN 10.1 g/dL (14.0-18.0); MEAN CELL VOLUME 97.5 fl (80.0-105.0); MEAN CORPUSCULAR HEMOGLOBIN 32.2 pg (25.0-35.0); MEAN PLATELET VOLUME 11.7 fl (7.0-11.0); RBC 3.14 10^6/uL (3.5-6.1); RED CELL DISTRIBUTION WIDTH 14.7 % (11.5-14.5)
[2017-11-23 07:22] LABS: ALBUMIN 2.8 g/dL (3.0-4.8); ALT/SGPT 85 U/L (7-56); AST/SGOT 49 U/L (17-59); BLOOD UREA NITROGEN 22 mg/dL (7-21); CALCIUM 8.2 mg/dL (8.4-10.5); GFR AFRICAN-AMERICAN > 60; GFR NON-AFRICAN AMERICAN > 60
--- NOTE | 2017-11-23 07:30 | PN ---
DATE: 11/23/2017 PULMONARY NOTE SUBJECTIVE: The patient appears comfortable this morning. He is not short of breath at rest. PHYSICAL EXAMINATION: VITAL SIGNS: Temperature is 97.5, pulse 94, respirations 18/20, blood pressure 107/76. Oxygen saturation on nasal cannula is 97%. HEENT: Normocephalic, atraumatic. No JVD. CARDIOVASCULAR: Positive S1, S2. No S3 gallop. LUNGS: Decreased breath sounds at the bases. Less rhonchi. Less wheezing. EXTREMITIES: The right lower extremity is now decreased in size-and comparable to the left lower extremity. There is no significant edema in either extremity. Both calves are nontender to palpation this morning. GI: Abdomen is soft, nontender, nondistended. Bowel sounds are positive. SKIN: No acute rash. NEUROLOGIC: Limited at the present time. IMPRESSION: 1. Recurrent bronchitis. 2. Advanced chronic obstructive pulmonary disease. 3. Advanced lung cancer with brain metastasis. 4. Bilateral deep venous thrombosis. 5. Anemia. PLAN: The patient appears more comfortable this morning. He is not short of breath at rest. He does state to feeling better overall. I did discuss the case with the night nurse at length. The night nurse stated that the patient had a good night. On physical exam, his bronchospasm is certainly less. In addition, the alveolar-arterial gradient is also less. I will continue the current nebulizer treatments and low-dose intravenous steroids (decreased yesterday) for now. The patient remains on the heparin protocol-for the bilateral deep venous thrombosis. His right leg-- in particular-- does appear improved this morning. Input by Dr. Valentine (Oncology) is also noted. Clinical status of the patient is improved-compared to the initial presentation. However, unfortunately, his future status/prognosis does remain poor. I will discuss the above with Dr. Lundy this morning. Musa Soliman MD [facility]
[2017-11-23] MEDS: Budesonide 0.5 mg/2 ml Inhal Susp UD IH SCH ×2 (07:57→20:58)
--- NOTE | 2017-11-23 09:03 | PN ---
DATE: 11/23/2017 SUBJECTIVE: I had a long discussion with Trung, his son and Oncology and we will plan to go for hospice at home, on [facility] hosp[facility]. He is currently on IV fluids; DuoNebs; heparin, I will change that to Eliquis; magnesium replacement; pantoprazole; Pulmicort; prednisone, Solu-Medrol, I will decrease that too. He will eventually be on prednisone, Ultram, Xanax and Zithromax. He understands the plan to go home on hospice. He will get comfort care and to talk to him today. Majo Higgins, Palliative Care will help arrange for tomorrow's discharge home hospital bed in oxygen. OBJECTIVE: VITAL SIGNS: He has 97.5 temperature, 94 pulse, 107/76 blood pressure, 21 respiratory rate, 97% O2 saturation on nasal cannula. HEENT: Head is atraumatic, normocephalic. HEART: Regular rate. LUNGS: Decreased breath sounds bilaterally. ABDOMEN: Soft. EXTREMITIES: No edema. He has got bilateral DVTs in the lower extremities. He has got anxiety, stage IV lung cancer, brain metastases, COPD, pneumonia. The plan would be discharged home on hospice tomorrow. Viktor Lundy DO [facility]
[2017-11-23] MEDS: Pantoprazole 40 mg EC Tab PO SCH (09:12)
[2017-11-23] MEDS: Insulin Reg-MEDIUM-Coverage SC SCH ×4 (09:12→23:40)
[2017-11-23] MEDS: MethylPREDNISolone 40 mg Vial IVP SCH ×2 (09:13→23:41)
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
--- NOTE | 2017-11-23 18:07 | CP.PCM.PN ---
Subjective - Date & Time of Evaluation Date of Evaluation: 11/23/17 Time of Evaluation: 12:00 - Subjective Subjective: Feeling better Family at bedside. Objective - Vital Signs/Intake and Output Vital Signs (last 24 hours): Temp Pulse Resp BP Pulse Ox 98.4 F 97 H 20 102/75 97 11/23/17 17:42 11/23/17 17:42 11/23/17 17:42 11/23/17 17:42 11/23/17 05:45 Intake and Output: 11/23/17 11/23/17 06:59 18:59 Intake Total 1026 420 Output Total 900 1150 Balance 126 -730 - Medications Medications: Current Medications Albuterol/Ipratropium (Duoneb 3 Mg/0.5 Mg (3 Ml) Ud) 3 ml IH [id number] [facility] Last Admin: 11/23/17 13:56 Dose: 3 ml Albuterol/Ipratropium (Duoneb 3 Mg/0.5 Mg (3 Ml) Ud) 3 ml IH Q2H PRN PRN Reason: Shortness of Breath Last Admin: 11/23/17 00:00 Dose: 3 ml Alprazolam (Xanax) 0.5 mg PO TID [facility] PRN Reason: Protocol Last Admin: 11/23/17 14:58 Dose: 0.5 mg Apixaban (Eliquis) 5 mg PO BID [facility] PRN Reason: Protocol Last Admin: 11/23/17 17:34 Dose: 5 mg Budesonide (Pulmicort Respules) 0.5 mg IH [id number] [facility] Last Admin: 11/23/17 07:57 Dose: 0.5 mg Sodium Chloride (Sodium Chloride 0.45%) 1,000 mls @ 40 mls/hr IV .Q24H [facility] Last Admin: 11/22/17 23:37 Dose: 40 mls/hr Heparin Sodium/Sodium Chloride (Heparin 42247 Units/250ml 1/2 Normal Saline) 25 ,000 units in 250 mls @ 13.41 mls/hr IV .[id number] PRN; Protocol; 18 UNITS/KG/HR PRN Reason: ADJUST RATE PER PROTOCOL Last Admin: 11/22/17 23:23 Dose: 12 units/kg/hr, 8.94 mls/hr Insulin Human Regular (Humulin R Med) 0 units SC ACHS [facility] PRN Reason: Protocol Last Admin: 11/23/17 17:35 Dose: 3 units Methylprednisolone (Solu-Medrol) 30 mg IVP Q12 [facility] Last Admin: 11/23/17 09:13 Dose: 30 mg Pantoprazole Sodium (Protonix Ec Tab) 40 mg PO DAILY [facility] Last Admin: 11/23/17 09:12 Dose: 40 mg Tramadol HCl (Ultram) 50 mg PO Q8H [facility] Last Admin: 11/23/17 17:34 Dose: 50 mg - Labs Labs: 11/23/17 06:30 11/23/17 06:30 PT 17.1 SECONDS (9.4-12.5) H 11/21/17 23:59 INR 1.49 (0.93-1.08) H 11/21/17 23:59 APTT 64.5 Seconds (25.1-36.5) H 11/23/17 06:30 - Head Exam Head Exam: ATRAUMATIC - Eye Exam Eye Exam: Normal appearance - ENT Exam ENT Exam: Mucous Membranes Dry - Respiratory Exam Respiratory Exam: Decreased Breath Sounds - Cardiovascular Exam Cardiovascular Exam: +S1, +S2 - GI/Abdominal Exam GI & Abdominal Exam: Normal Bowel Sounds - Extremities Exam Extremities Exam: Pedal Edema Assessment and Plan (1) Failure to thrive Assessment & Plan: secondary to malignancy pt agreeable to home hospice Status: Acute (2) DVT (deep venous thrombosis) Assessment & Plan: provoked from immobility and malignancy on Eliquis Status: Acute (3) Pancytopenia Assessment & Plan: Hep C and cirrhosis Status: Acute (4) Small cell lung cancer Assessment & Plan: stage IV for home hospice DNR/DNI Status: Acute
[2017-11-23] MEDS: Sodium Chloride 0.45% 1,000 ML IV SCH (23:41)
[2017-11-24] MEDS: Albuterol-Ipratrop 3 mg / 0.5 (3 ml) UD IH SCH ×2 (01:48→07:29)
[2017-11-24] MEDS: Heparin 25,000units in 1/2NS /250 ML BAG IV PRN (04:56)
[2017-11-24] MEDS: Budesonide 0.5 mg/2 ml Inhal Susp UD IH SCH (07:28)
--- NOTE | 2017-11-24 07:32 | PN ---
DATE: 11/24/2017 PULMONARY NOTE SUBJECTIVE: The patient appears comfortable this morning. He is not short of breath at rest. He remains very weak. PHYSICAL EXAMINATION: VITAL SIGNS: The temperature is 97.6, pulse on the monitor is 103, respiratory rate 18-20, blood pressure 98/64. Oxygen saturation on nasal cannula is 100%. HEENT: Normocephalic, atraumatic. No JVD. CARDIOVASCULAR: Positive S1, S2. No S3 gallop. LUNGS: Decreased breath sounds at the bases. Still with mild rhonchi bilaterally. Less wheezing. EXTREMITIES: The right lower extremity continues to decrease in size and is almost the same size as the left lower extremity. There is no significant edema in either extremity. Both calves are nontender to palpation. GASTROINTESTINAL: Abdomen is soft, nontender, and nondistended. Bowel sounds are positive. SKIN: No acute rash. NEUROLOGIC: Limited at the present time. IMPRESSION: 1. Recurrent bronchitis. 2. Advanced chronic obstructive pulmonary disease. 3. Advanced lung cancer with brain metastasis. 4. Bilateral deep venous thrombosis. 5. Anemia. PLAN: The patient appears comfortable this morning. He is not short of breath at rest. He does state to feeling better overall. He remains very weak. On physical exam, his bronchospasm continues to slowly resolve. In addition, the alveolar-arterial gradient also continues to resolve. I will continue with the current nebulizer treatments and low-dose intravenous steroids (decreased yesterday) for now. The patient also remains on the heparin protocol. Eliquis has also been added. His lower extremities - particularly his right lower extremity - appear improved. I did discuss the case with the night nurse at length. I have also reviewed the chart at length. The patient is for probable home hospice transfer. However, the patient did not mention any of this to me this morning. He stated that he wants to stay in the hospital a few more days. I will speak with Dr. Lundy this morning and clarify the situation. Unfortunately, the overall status/prognosis for this patient remains very poor. All are aware. Musa Soliman MD [facility]
[2017-11-24] MEDS: Insulin Reg-MEDIUM-Coverage SC SCH ×3 (07:44→16:53)
[2017-11-24] MEDS ORDERED: Levalbuterol 1.25 MG/3 ML Inhal Soln UD IH PRN (08:31)
[2017-11-24] MEDS: Pantoprazole 40 mg EC Tab PO SCH (09:57)
[2017-11-24 11:52] VITALS: RESP 18
[2017-11-24 15:15] VITALS: O2SAT 98
[2017-11-24 15:23] VITALS: PULSE 66
[2017-11-24 17:50] VITALS: BP 104/63; TEMP 97.8
--- NOTE | 2017-11-24 20:36 | CON ---
DATE: 11/24/2017 CARDIOLOGY CONSULTATION HISTORY OF PRESENT ILLNESS: The patient is a 52-year-old male who is in atrial fibrillation and is now converted back to normal sinus rhythm. PAST MEDICAL HISTORY: Includes advanced lung CA with brain metastasis. He has advanced COPD and has documented bilateral DVTs. He presents with recurrent bronchitis. His heart rate went atrial fibrillation after receiving bronchodilators and is now back to normal sinus rhythm with a change of bronchodilators. PHYSICAL EXAMINATION GENERAL: The patient is sedated and is lethargic but is in no acute distress. VITAL SIGNS: Blood pressure is 98 systolic, heart rate is 100. NECK: Negative JVD. LUNGS: Without rales. HEART: Reveals S1 and S2. EXTREMITIES: Without edema. EKG shows atrial fibrillation. LABORATORY DATA: Hemoglobin is 10.1. Chemistries: BUN and creatinine is 22 and 0.8. Glucose is 261. IMPRESSION: 1. Paroxysmal atrial fibrillation, likely exacerbated by bronchodilators. 2. Chronic obstructive pulmonary disease. 3. Advanced lung cancer. 4. Diabetes mellitus. PLAN: Given these findings, the patient is a DNR home on hospice. We will add low dose of sotalol in the hopes of keeping the patient in normal sinus rhythm. Godfrey Fisher MD
--- NOTE | 2017-11-24 21:29 | CARD ---
APPROVED REPORT EKG Measurement Heart [id number] <Conclusion> Atrial fibrillation with rapid ventricular response Nonspecific ST abnormality, probably digitalis effect Abnormal ECG
--- NOTE | 2017-11-25 06:38 | DS ---
HISTORY OF PRESENT ILLNESS: He is having a rough time. He is going to be going home on hospice with [facility] care. He has got stage IV lung cancer with brain metastasis, status post chemo and radiation. After discussion with Trung, his son, Dr. Valentine the oncologist, we feel that any more of chemotherapy would be more harmful than helpful. He will be going home today on multiple medications after Dr. Fisher sees him. He had a little bit of AFib. I will change the albuterol DuoNeb to Xopenex which I think will help. He is on Eliquis already. He might need some metoprolol. He has Xopenex and Vantin for 5 days, Eliquis, Protonix, Pulmicort inhaler, prednisone 30 mg daily for the time being, we will slowly try and decrease it, tramadol for pain and Xanax for anxiety. He might need some metoprolol if the heart rate does not drop after stopping the DuoNeb. He understands the situation. His son understands the situation. The plan will be to discharge this afternoon on [facility] hospice at home. I will see him on house calls. PHYSICAL EXAMINATION: VITAL SIGNS: A 97.6 temperature, 118 pulse, 98/64 blood pressure, 20 respiratory rate, 100% O2 sat on nasal cannula. HEENT: Head is atraumatic, normocephalic. HEART: Regular rate. LUNGS: Decreased breath sounds, but clear. ABDOMEN: Soft. EXTREMITIES: No edema. He had last labs the other day and he will be going home on hospice. Viktor Lundy DO
== END 2017-11-24 21:16 | disposition hospice, home (50) | DRG 541 ==
LOC: ED 17:09 → ERH 18:44 → 2RSO 11-22 00:12
PROVIDERS: ADMIT Family Medicine; ATTEND Family Medicine
PROC: 3E0F7GC Introduction of Other Therapeutic Substance into Respiratory Tract, Via Natural or Artificial Opening (ICD-10-PCS; principal; 2017-11-22)
DX: J44.1 Chronic obstructive pulmonary disease with (acute) exacerbation (principal); I82.413 Acute embolism and thrombosis of femoral vein, bilateral; B18.2 Chronic viral hepatitis C; C79.31 Secondary malignant neoplasm of brain; K74.60 Unspecified cirrhosis of liver; F14.10 Cocaine abuse, uncomplicated; C34.90 Malignant neoplasm of unspecified part of unspecified bronchus or lung; D61.818 Other pancytopenia; R62.7 Adult failure to thrive; Z51.5 Encounter for palliative care; Z66 Do not resuscitate; I48.0 Paroxysmal atrial fibrillation; F41.9 Anxiety disorder, unspecified; E11.9 Type 2 diabetes mellitus without complications; Z91.19 Patient's noncompliance with other medical treatment and regimen; Z86.73 Personal history of transient ischemic attack (TIA), and cerebral infarction without residual deficits; Z92.3 Personal history of irradiation; Z92.21 Personal history of antineoplastic chemotherapy; Z87.891 Personal history of nicotine dependence

== ENCOUNTER 2017-12-02 06:38 | Inpatient (IN) | payer MEDICAID ==
[2017-12-02 06:41] VITALS: BMI 24.1
[2017-12-02] MEDS ORDERED: Albuterol-Ipratrop 3 mg / 0.5 (3 ml) UD IH STA ×2 (07:13→08:13)
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
[2017-12-02 07:23] LABS: HEMOGLOBIN 11.7 g/dL (14.0-18.0); MEAN CELL VOLUME 97.3 fl (80.0-105.0); MEAN CORPUSCULAR HEMOGLOBIN 31.4 pg (25.0-35.0); MEAN CORPUSCULAR HGB CONC 32.2 g/dl (31.0-37.0); MEAN PLATELET VOLUME 10.6 fl (7.0-11.0); RBC 3.73 10^6/uL (3.5-6.1); RED CELL DISTRIBUTION WIDTH 15.6 % (11.5-14.5); WHITE BLOOD COUNT 7.8 10^3/ul (4.5-11.0)
[2017-12-02 07:31] LABS: ALB/GLOB RATIO 1.1 (1.1-1.8); ALBUMIN 3.4 g/dL (3.0-4.8); ALT/SGPT 130 U/L (7-56); AST/SGOT 97 U/L (17-59); BLOOD UREA NITROGEN 23 mg/dL (7-21); CALCIUM 9.2 mg/dL (8.4-10.5); GFR AFRICAN-AMERICAN > 60; GFR NON-AFRICAN AMERICAN > 60
[2017-12-02 07:41] LABS: TROPONIN I < 0.01 ng/mL
--- NOTE | 2017-12-02 10:24 | RAD ---
HISTORY: SOB COMPARISON: Comparison made with prior chest radiograph and CTA chest 11/21/2017. FINDINGS: LUNGS: Left suprahilar and left upper lobe mass density with apical pleural thickening less well seen on this study as compared to high-resolution CTA chest. Persistent elevation left hemidiaphragm. Right lung is clear. PLEURA: No significant pleural effusion identified, no pneumothorax apparent. CARDIOVASCULAR: Heart appears mildly enlarged OSSEOUS STRUCTURES: No significant abnormalities. VISUALIZED UPPER ABDOMEN: Normal. OTHER FINDINGS: None. IMPRESSION: Left suprahilar and left upper lobe mass density with apical pleural thickening less well seen on this study as compared to high-resolution CTA chest. Persistent elevation left hemidiaphragm. Right lung is clear.
--- NOTE | 2017-12-02 11:50 | CARD ---
APPROVED REPORT EKG Measurement Heart [id number] <Conclusion> Normal sinus rhythm Nonspecific ST abnormality Abnormal ECG
[2017-12-02] MEDS ORDERED: Pneumococcal 23-Valent Vaccine IM ONE (14:55)
[2017-12-02] MEDS: MethylPREDNISolone 40 mg Vial IVP SCH ×2 (15:19→23:48)
[2017-12-02] MEDS: Sodium Chloride 0.45% 1,000 ML IV SCH (15:20)
[2017-12-02] MEDS: Insulin Reg-MEDIUM-Coverage SC SCH ×2 (16:41→23:49)
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
[2017-12-03 06:47] LABS: HEMOGLOBIN 9.1 g/dL (14.0-18.0); MEAN CELL VOLUME 97.9 fl (80.0-105.0); MEAN CORPUSCULAR HEMOGLOBIN 31.2 pg (25.0-35.0); MEAN CORPUSCULAR HGB CONC 31.8 g/dl (31.0-37.0); MEAN PLATELET VOLUME 9.6 fl (7.0-11.0); RBC 2.92 10^6/uL (3.5-6.1); RED CELL DISTRIBUTION WIDTH 15.4 % (11.5-14.5); WHITE BLOOD COUNT 4.1 10^3/ul (4.5-11.0)
[2017-12-03 06:56] LABS: ALB/GLOB RATIO 0.9 (1.1-1.8); ALBUMIN 2.4 g/dL (3.0-4.8); ALT/SGPT 111 U/L (7-56); AST/SGOT 71 U/L (17-59); BLOOD UREA NITROGEN 19 mg/dL (7-21); CALCIUM 8.4 mg/dL (8.4-10.5); GFR AFRICAN-AMERICAN > 60; GFR NON-AFRICAN AMERICAN > 60
[2017-12-03 07:17] VITALS: TEMP 97.4; O2SAT 100
[2017-12-03] MEDS: Albuterol-Ipratrop 3 mg / 0.5 (3 ml) UD IH SCH ×2 (08:13→13:55)
[2017-12-03] MEDS: Insulin Reg-MEDIUM-Coverage SC SCH ×3 (08:31→16:54)
[2017-12-03] MEDS: MethylPREDNISolone 40 mg Vial IVP SCH ×2 (09:42→16:54)
[2017-12-03] MEDS ORDERED: Pantoprazole 40 mg EC Tab PO SCH (10:00)
--- NOTE | 2017-12-03 11:20 | PN ---
DATE: 12/03/2017 SUBJECTIVE: He was very short of breath yesterday when he came in. He is doing a little bit better. Oxygen is helping. He is more alert. He is here on IV fluids, Betapace, DuoNeb [id number], Eliquis, Lasix, Protonix, Solu-Medrol, Ultram, and Xanax. He has a bad case of COPD on top of his stage IV lung cancer and his brain metastasis. He understands that I will decrease his Solu-Medrol today. He does well, we will discharge him home tomorrow, hopefully back on hospice with the son. We tried to reorient him to that fact he is kind of confused secondary to the brain metastasis, but he is comfortable in the hospital. PHYSICAL EXAMINATION: VITAL SIGNS: He has a 97.4 temperature, 56 pulse, 103/72 blood pressure, 18 respiratory rate. He is 100% O2 sat now. HEAD: Atraumatic, normocephalic. HEART: Regular rate. LUNGS: Decreased breath sounds bilaterally, poor inspiration, wheezes and rhonchi, changes with cough, all secondary to his lung cancer. ABDOMEN: Soft. EXTREMITIES: No edema. LABORATORY DATA: He has a 138 sodium, potassium 4.3, BUN 90, creatinine 0.6, GFR is greater than 60, sugar is 233 from the steroids, I will decrease it to 20 every 8 hours, tomorrow probably discharge him on prednisone 40 daily. AST is 71, ALT is 111, alkaline phosphatase 153, total protein is 5. White count is 4.1, hemoglobin 9.1, hematocrit 28.6, platelets are 60,000. ASSESSMENT AND PLAN: My plan is to discharge him home tomorrow as we wean him off multiple steroids and see how well he does with his breathing. Ordered to be out of bed to chair. He is here for acute exacerbation of chronic obstructive pulmonary disease, lung cancer, brain metastasis, anxiety, confusion and hopefully tomorrow we will get discharged him home back to his son's house. Viktor Lundy DO
[2017-12-03 14:38] VITALS: BP 127/90; PULSE 77; RESP 20
[2017-12-03] MEDS: Sodium Chloride 0.45% 1,000 ML IV SCH (16:55)
== END 2017-12-03 18:55 | disposition left against medical advice (07) | DRG 88 ==
LOC: ED 06:38 → ERH 11:11 → 5RSO 12:56
PROVIDERS: ADMIT Family Medicine; ATTEND Family Medicine
DX: J44.1 Chronic obstructive pulmonary disease with (acute) exacerbation (principal); C34.90 Malignant neoplasm of unspecified part of unspecified bronchus or lung; C79.31 Secondary malignant neoplasm of brain; K74.60 Unspecified cirrhosis of liver; E11.9 Type 2 diabetes mellitus without complications; F17.200 Nicotine dependence, unspecified, uncomplicated; F41.9 Anxiety disorder, unspecified; Z79.01 Long term (current) use of anticoagulants; Z86.73 Personal history of transient ischemic attack (TIA), and cerebral infarction without residual deficits

== ENCOUNTER 2017-12-13 21:18 | Observation (INO) | payer MEDICAID ==
[2017-12-13 21:22] VITALS: BMI 23.4
[2017-12-13 21:55] LABS: EOS % 0.2 % (1.5-5.0); GRAN # 4.33 (1.4-6.5); GRAN % 82.9 % (50.0-68.0); LYMPH # 0.5 (1.2-3.4); LYMPH % 9.6 % (22.0-35.0); MEAN CELL VOLUME 96.3 fl (80.0-105.0); MEAN CORPUSCULAR HEMOGLOBIN 31.1 pg (25.0-35.0); MEAN CORPUSCULAR HGB CONC 32.3 g/dl (31.0-37.0); MEAN PLATELET VOLUME 9.4 fl (7.0-11.0); MONO # 0.4 (0.1-0.6); MONO % 7.3 % (1.0-6.0); RBC 3.54 10^6/uL (3.5-6.1); RED CELL DISTRIBUTION WIDTH 16.2 % (11.5-14.5); WHITE BLOOD COUNT 5.2 10^3/ul (4.5-11.0)
[2017-12-13 21:57] LABS: VENOUS BLOOD GAS BASE EXCESS -1.7 mmol/L (0.0-2.0); VENOUS BLOOD GAS PO2 54 mm/Hg (30-55); VENOUS BLOOD PH 7.39 (7.32-7.43)
[2017-12-13 22:04] LABS: INR 1.27 (0.93-1.08); PARTIAL THROMBOPLASTIN TIME 28.3 Seconds (25.1-36.5); PROTHROMBIN TIME 14.5 SECONDS (9.4-12.5)
[2017-12-13 22:07] LABS: ALBUMIN 2.7 g/dL (3.0-4.8); ALT/SGPT 115 U/L (7-56); AST/SGOT 80 U/L (17-59); BLOOD UREA NITROGEN 11 mg/dL (7-21); CALCIUM 8.1 mg/dL (8.4-10.5); GFR AFRICAN-AMERICAN > 60; GFR NON-AFRICAN AMERICAN > 60
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
[2017-12-13 22:16] LABS: B-TYPE NATRIURETIC PEPTIDE 1060 pg/mL (0-450); TROPONIN I < 0.01 ng/mL
[2017-12-14] MEDS ORDERED: Vancomycin 1gm in NS 250ml 1 GM/250 ML BAG IVPB STA (01:38)
[2017-12-14] MEDS ORDERED: Aztreonam 1 Gm in NS 100mL 100 ML IVPB STA (01:39)
[2017-12-14] MEDS ORDERED: Albuterol-Ipratrop 3 mg / 0.5 (3 ml) UD IH PRN ×2 (01:39→06:41)
[2017-12-14] MEDS ORDERED: Sodium Chloride 0.9% 1,000 ML IV STA ×2 (01:39→08:41)
[2017-12-14] MEDS ORDERED: Magnesium Oxide 400 mg Tab UD PO STA (02:23)
[2017-12-14] MEDS ORDERED: Magnesium 2 gm/50 ml NS 2 GM/50 ML BAG IVPB ONE (03:09)
--- NOTE | 2017-12-14 07:26 | RAD ---
HISTORY: sob COMPARISON: Portable chest 12/02/2017. FINDINGS: LUNGS: Right change persists in the left pleural and parenchymal spaces rim with volume loss is stable at the left lung once again. Elevation left hemidiaphragm is again seen resulting. Compensatory expansion of the right lung is stable as well. Limited patchy density is question at the inferior left lung zone. PLEURA: As above. CARDIOVASCULAR: Normal. OSSEOUS STRUCTURES: No significant abnormalities. VISUALIZED UPPER ABDOMEN: Normal. OTHER FINDINGS: None. IMPRESSION: Stable volume loss left lung with fibrosis reiterated primarily at the left apex and mid lung zone. Left hilar mass better seen in prior chest CT 10/24/2017. Limited atelectasis or infiltrate is questioned developing at the left base .
--- NOTE | 2017-12-14 07:45 | CON ---
DATE: 12/14/2017 PULMONARY CONSULTATION REFERRING PHYSICIAN: Viktor Lundy DO REASON FOR CONSULTATION: Chronic obstructive pulmonary disease. HISTORY OF PRESENT ILLNESS: The patient is a chronically ill 52-year-old male, with past medical history significant for advanced/metastatic lung cancer (with brain metastases), advanced chronic obstructive pulmonary disease, on home oxygen; chronic anemia, recent bilateral deep venous thrombosis, who presents to [facility] with a 2-day history of worsening shortness of breath at rest, dyspnea on exertion, cough, and sputum production. The patient denies chest pain, coughing up of blood, or chest pain - made worse with deep respirations. The patient did present with temperatures. No chills or infectious exposure. There is no history of night sweats. There is a history of weight loss with decreased appetite over the past 6 months. No history of calf pains. No history of syncope or diaphoresis. No history of recent travel or trauma. REVIEW OF SYSTEMS: No history of nausea, vomiting or diarrhea. No acute urinary symptoms. No new musculoskeletal complaints. Rest of the review of systems is negative. ALLERGIES: NO KNOWN ALLERGIES. SOCIAL HISTORY: Positive for extensive tobacco usage, also positive for former alcohol usage, also positive for previous polysubstance abuse. FAMILY HISTORY: No inheritable diseases. HOME MEDICATIONS: Listed in the chart: Ambien, Xanax, Ultram. PHYSICAL EXAMINATION GENERAL: The patient is not short of breath at rest. He is not using accessory muscles for breathing. VITAL SIGNS: Temperature is 97.6, pulse 65, respirations 18, blood pressure 102/72. Oxygen saturation on nasal cannula is 99%. T-max over the past 24 hours - 105.4. HEENT: Normocephalic, atraumatic. No JVD. CARDIOVASCULAR: Positive S1, S2. No S3 gallop. LUNGS: Decreased breath sounds at the bases. Minimal rhonchi. Minimal wheezing. EXTREMITIES: Mild edema in both lower extremities is noted. There is no cyanosis or clubbing. Calves are nontender to palpation. GI: Abdomen is soft, nontender and nondistended. Bowel sounds are positive. SKIN: No acute rash. NEUROLOGIC: Limited at the present time. PERTINENT LABORATORY DATA: Chest x-ray was done late last night and reviewed. The chest x-ray done last night is not significantly changed from the film of 12/02/2017. CBC: White count 5.2K, hemoglobin of 11.0, hematocrit 34.1, platelets of 60,000. Complete metabolic profile: Glucose 130, calcium 8.1, magnesium 1.1, AST 80, ALT 115, alkaline phosphatase 146. B-type natriuretic peptide 1060. Total protein 5.3, albumin 2.7. Rest of the metabolic profile is within normal limits. IMPRESSION: 1. Recurrent bronchitis. 2. Advanced chronic obstructive pulmonary disease - on home oxygen. 3. Sepsis syndrome. 4. Advanced metastatic lung cancer with brain metastasis. 5. Chronic anemia. PLAN: The patient presents to [facility] with a 2-day history of worsening pulmonary symptoms. Again, I did review the chest x-ray done late last night(official results pending). The chest x-ray done late last night is not significantly changed from the previous film. In addition to the above, the patient did present with high fevers. I will ask Dr. Long (Infectious Disease) to consult on this case. On physical exam, the patient is in [id number] bronchospasm. However, there is no significant alveolar-arterial gradient. Oxygen saturation on nasal cannula is 99%. I will start the patient on frequent DuoNeb treatments and moderate dose intravenous steroids. The patient does state to feeling much better this morning - compared to yesterday. He is clinically improved for the time being. However, his future status and overall prognosis remains very, very poor. Palliative care consult has been placed. I will discuss the above with Dr. Lundy. Thank you very much for this pulmonary consultation. Musa Soliman MD JERAMIE
[2017-12-14] MEDS: Budesonide 0.5 mg/2 ml Inhal Susp UD IH SCH ×2 (07:52→20:37)
[2017-12-14] MEDS: Albuterol-Ipratrop 3 mg / 0.5 (3 ml) UD IH SCH ×3 (07:52→20:37)
[2017-12-14] MEDS ORDERED: Insulin Reg-LOW-Coverage SC SCH (08:00)
[2017-12-14] MEDS: MethylPREDNISolone 40 mg Vial IVP SCH ×2 (09:41→21:42)
[2017-12-14] MEDS: Insulin Reg-MEDIUM-Coverage SC SCH ×3 (12:31→21:44)
--- NOTE | 2017-12-14 12:54 | CARD ---
APPROVED REPORT EKG Measurement Heart [id number] MD [id number] <Conclusion> Sinus tachycardia NSSTW changes
[2017-12-14] MEDS ORDERED: Aztreonam 1 Gm in NS 100mL 100 ML IVPB SCH (14:00)
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
[2017-12-14] MEDS: Meropenem IV 1 gm in NS 50 ML IVPB SCH ×2 (17:59→21:43)
[2017-12-14] MEDS: Vancomycin 1gm in NS 250ml 1 GM/250 ML BAG IVPB SCH (20:13)
--- NOTE | 2017-12-14 22:21 | CON ---
DATE: 12/14/2017 LOCATION: The patient is seen earlier today in 260. CHIEF COMPLAINT: The patient had initially a temperature of 105 x1 day. 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 Admitted with diagnosis of pneumonia and COPD. Infectious Disease consultation requested because of temperature of 105. REVIEW OF SYSTEMS: Reveals the patient is weak, did have fevers, occasional chills, mild shortness of breath, mild cough. No abdominal pain. No dysuria. 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 PAST SURGICAL HISTORY: Significant for colon resection. ALLERGIES: THE PATIENT HAS NO KNOWN ALLERGIES. MEDICATIONS AT HOME: Reviewed. PHYSICAL EXAMINATION: VITAL SIGNS: On exam, the patient's temperature is 96, it was 105; heart rate of 99; respiratory rate of 20; blood pressure is 93/60. HEENT: Examination of HEENT is unremarkable. NECK: Supple. LUNGS: Have decreased breath sounds. HEART: Normal S1 and S2. ABDOMEN: Soft, nontender. LABORATORY DATA: Laboratory examination reveals a white count of 5.2, hemoglobin of 11, platelets of 60. Coagulation is noted. The chemistries reveals a BUN of 11, creatinine of 0.7. The BNP is 1060. Microbiology is pending. Chest x-ray is negative. Dr. Viktor Lundy's history and physical examination is reviewed. Dr. Soliman's consultation is appreciated. 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 Presenting with a fever, tachycardia. #1 is systemic inflammatory response syndrome and must rule out healthcare associated pneumonia versus gastrointestinal versus genitourinary. We will order blood cultures, urine cultures, urinalysis and sputum cultures, procalcitonin. Start the patient on vancomycin, meropenem. We will make further recommendations upon availability of initial results and also order an human immunodeficiency virus test because of his age of 52. Should have abdominal ultrasound, rule out gastrointestinal pathology. We will follow closely with you. Toby Long MD
[2017-12-15] MEDS: Albuterol-Ipratrop 3 mg / 0.5 (3 ml) UD IH SCH ×4 (01:36→19:24)
[2017-12-15] MEDS: Meropenem IV 1 gm in NS 50 ML IVPB SCH ×3 (05:30→22:06)
[2017-12-15] MEDS: Vancomycin 1gm in NS 250ml 1 GM/250 ML BAG IVPB SCH ×2 (06:14→17:33)
[2017-12-15 06:39] LABS: HEMOGLOBIN 9.3 g/dL (14.0-18.0); MEAN CORPUSCULAR HEMOGLOBIN 30.8 pg (25.0-35.0); MEAN CORPUSCULAR HGB CONC 31.7 g/dl (31.0-37.0); MEAN PLATELET VOLUME 10.4 fl (7.0-11.0); RBC 3.02 10^6/uL (3.5-6.1); WHITE BLOOD COUNT 5.2 10^3/ul (4.5-11.0)
[2017-12-15 07:08] LABS: ALBUMIN 2.5 g/dL (3.0-4.8); ALT/SGPT 85 U/L (7-56); AST/SGOT 37 U/L (17-59); BLOOD UREA NITROGEN 14 mg/dL (7-21); CALCIUM 8.2 mg/dL (8.4-10.5); GFR AFRICAN-AMERICAN > 60; GFR NON-AFRICAN AMERICAN > 60
--- NOTE | 2017-12-15 07:32 | PN ---
DATE: 12/15/2017 PULMONARY NOTE SUBJECTIVE: The patient appears comfortable this morning. He is not short of breath at rest. He does appear very weak. OBJECTIVE: VITAL SIGNS: Temperature is 97.5, pulse 72, respirations 18/20, blood pressure 111/76. Oxygen saturation on nasal cannula is 98-100%. HEENT: Normocephalic, atraumatic. No JVD. CARDIOVASCULAR: Positive S1, S2. No S3 gallop. LUNGS: Decreased breath sounds at the bases. Less rhonchi. No wheezing. EXTREMITIES: Mild edema in both lower extremities is noted. There is no cyanosis or clubbing. Calves are nontender to palpation. GI: Abdomen is soft, nontender and nondistended. Bowel sounds are positive. SKIN: No acute rash. NEUROLOGIC: Exam limited at the present time. IMPRESSION: 1. Recurrent bronchitis. 2. Advanced chronic obstructive pulmonary disease - on home oxygen. 3. Sepsis syndrome. 4. Advanced metastatic lung cancer with brain metastasis. 5. Chronic anemia. PLAN: The patient appears comfortable this morning. He is not short of breath at rest. He does appear very weak. He does state to feeling a little better overall. On physical exam, his bronchospasm is certainly less. In addition, the oxygen saturation on nasal cannula is now 98% to 100%. I will continue with the current nebulizer treatments and decrease the intravenous steroids this morning. The patient also remains on antibiotic therapy as per Infectious Disease. Input by Dr. Long is noted. The temperatures have now fully resolved. Clinical status of the patient is certainly improved - compared to his initial presentation. However, again, unfortunately, the overall status/prognosis for this patient remains very, very poor. All are aware. I will discuss the above with Dr. Lundy. Musa Soliman MD [facility]
[2017-12-15] MEDS: Insulin Reg-MEDIUM-Coverage SC SCH ×4 (08:23→22:00)
[2017-12-15] MEDS: Budesonide 0.5 mg/2 ml Inhal Susp UD IH SCH ×2 (08:42→19:24)
[2017-12-15] MEDS: MethylPREDNISolone 40 mg Vial IVP SCH ×2 (10:26→22:06)
--- NOTE | 2017-12-15 12:01 | US ---
HISTORY: inc LFT COMPARISON: None. TECHNIQUE: Sonographic evaluation of the abdomen. FINDINGS: LIVER: Measures cm. Normal echogenicity of the liver parenchyma. No mass. No intrahepatic bile duct dilatation. GALLBLADDER: Contracted gallbladder. COMMON BILE DUCT: Measures mm. No stones. No dilatation. PANCREAS: No well-visualized. RIGHT KIDNEY: Measures cm. Normal echogenicity. No calculus, mass, or hydronephrosis. LEFT KIDNEY: Measures cm. Normal echogenicity. No calculus, mass, or hydronephrosis. SPLEEN: Normal in size and contour. No mass. AORTA: No aneurysmal dilatation. IVC: Unremarkable. OTHER FINDINGS: None. IMPRESSION: Pancreas not well-visualized. Contracted gallbladder.
--- NOTE | 2017-12-15 15:16 | PN ---
DATE: 12/15/2017 SUBJECTIVE: I saw him resting comfortably in bed this morning. He is coming back from ultrasound of the abdomen, I do not have the results yet. He is being seen by Pulmonary and Infectious Disease. He has end-stage lung disease stage IV with brain metastasis, status post chemo and radiation and has no plan for anymore treatment. He has been out of it mentally, presently is stable; at this time, he is alert. He is eating. He walks a little bit. OBJECTIVE: VITAL SIGNS: He has 97.5 temperature which is improved 105, 72 pulse, 111/76 blood pressure, 20 respiratory rate, 98% O2 sat on nasal cannula 2 liters. HEENT: Head is atraumatic, normocephalic. Throat is dry. NECK: Supple. HEART: Regular rate. LUNGS: Decreased breath sounds bilaterally. ABDOMEN: Soft. EXTREMITIES: No edema. He has HIV, which is nonreactive. White count 5.2, 9.3 hemoglobin, 29.3 hematocrit with 72 platelets. Sodium 141, potassium 4.3, BUN 14, creatinine 0.5. GFR is greater than 60. Sugar is 201, calcium is 8.2, total bili is 0.4, AST is 37, ALT is 85, alkaline phosphatase 127, total protein is 5.1. Procalcitonin is still high at 1.01. We will continue with aggressive treatment and care. Continue with antibiotics as per Infectious Disease. Pulmonary toilet as best as we can by Dr. Soliman, the investigative assistant. Still on Solu-Medrol 30 mg IV every 12 hours, IV antibiotics. Hopefully next day or two, we will have to get him off the steroids IV, change it to p.o. prednisone eventually. Continue with aggressive treatment and care, get him out of bed to chair, follow his meals. Hopefully, he will continue to improve. He has a questionable pneumonia plus lung cancer stage IV with brain metastases. Viktor Lundy DO [facility]
--- NOTE | 2017-12-15 23:39 | PN ---
DATE: 12/15/2017 SUBJECTIVE: The patient is in bed in no acute distress, nontoxic. PHYSICAL EXAMINATION: VITAL SIGNS: On exam temperature is 98, blood pressure is 98/50, respiratory rate of 18. HEENT: Unremarkable. NECK: Supple. LUNGS: Have decreased breath sounds. HEART: Normal S1 and S2. ABDOMEN: Soft, nontender. LABORATORY DATA: Reveal a white count of 5.2, hemoglobin of 9. Platelets are noted to be 72,000. Chemistries noted to BUN of 14, creatinine of 0.5, procalcitonin is 1.01. Serology, HIV is negative. Microbiology reveals the blood cultures, there are no growth. REVIEW OF ORDERS: Reveals the patient to be on meropenem, vancomycin, tramadol, Solu-Medrol. ASSESSMENT AND PLAN: This is a 52-year-old male stage IV lung cancer, central nervous system metastasis status post chemotherapy, chronic obstructive lung disease, cerebrovascular accident, diabetes, low platelets, hepatitis C presenting with tachycardia and presenting with systemic inflammatory response syndrome, was ruled out health-care associated pneumonia versus GI pathology. Cultures are negative as the patient does have elevated procalcitonin and will follow closely with you on day #2 of vancomycin, meropenem and Solu-Medrol. Toby Long MD
[2017-12-16] MEDS: Albuterol-Ipratrop 3 mg / 0.5 (3 ml) UD IH SCH ×4 (01:46→20:06)
[2017-12-16] MEDS: Vancomycin 1gm in NS 250ml 1 GM/250 ML BAG IVPB SCH ×2 (06:09→17:22)
[2017-12-16] MEDS: Meropenem IV 1 gm in NS 50 ML IVPB SCH ×3 (06:09→22:00)
[2017-12-16 07:09] LABS: HEMOGLOBIN 9.3 g/dL (14.0-18.0); MEAN CELL VOLUME 99.7 fl (80.0-105.0); MEAN CORPUSCULAR HEMOGLOBIN 30.8 pg (25.0-35.0); MEAN CORPUSCULAR HGB CONC 30.9 g/dl (31.0-37.0); MEAN PLATELET VOLUME 9.7 fl (7.0-11.0); RBC 3.02 10^6/uL (3.5-6.1); WHITE BLOOD COUNT 7.5 10^3/ul (4.5-11.0)
[2017-12-16 07:33] LABS: ALB/GLOB RATIO 0.9 (1.1-1.8); ALBUMIN 2.4 g/dL (3.0-4.8); ALT/SGPT 100 U/L (7-56); AST/SGOT 68 U/L (17-59); BLOOD UREA NITROGEN 16 mg/dL (7-21); CALCIUM 8.6 mg/dL (8.4-10.5); GFR AFRICAN-AMERICAN > 60; GFR NON-AFRICAN AMERICAN > 60
[2017-12-16] MEDS: Insulin Reg-MEDIUM-Coverage SC SCH ×2 (07:37→11:39)
[2017-12-16] MEDS: Budesonide 0.5 mg/2 ml Inhal Susp UD IH SCH ×2 (07:42→20:06)
--- NOTE | 2017-12-16 08:43 | PN ---
DATE: 12/16/2017 PULMONARY PROGRESS NOTE SUBJECTIVE: The patient was seen and examined at the bedside. He does not appear to be in respiratory distress. He is receiving currently inhalation treatments with DuoNeb and added Budesonide and he is on a low-dose intravenous steroids as well as intravenous antibiotics. PHYSICAL EXAMINATION: VITAL SIGNS: His temperature is 98.4, respirations 20, pulse 72, blood pressure is 112/76, his saturation on nasal cannula is 98%. HEENT: Examination of head, ear, nose and throat is normocephalic and atraumatic. NECK: Supple with no JVDs. CARDIOVASCULAR: Positive S1, S2. No S3. PULMONARY: Diminished breath sounds at both bases. Few rhonchi. Few expiratory wheezes. GASTROINTESTINAL: Soft, nontender. No organomegaly. EXTREMITIES: Mild edema in both lower extremities. No cyanosis. SKIN: No acute skin rashes. NEUROLOGIC: No focal deficits. ASSESSMENT: 1. Exacerbation of chronic obstructive pulmonary disease. 2. Recurrent bronchitis. 3. Oxygen dependency. 4. Sepsis syndrome. 5. Advanced metastatic lung cancer with brain metastasis. PLAN: The patient appears comfortable. He is not wheezing and not short of breath at rest. His oxygen saturation is acceptable on nasal cannula. We will continue with current low-dose intravenous steroids as well as nebulizer treatments. Arnaud Rowell MD
[2017-12-16] MEDS: MethylPREDNISolone 40 mg Vial IVP SCH ×2 (09:07→22:00)
--- NOTE | 2017-12-16 09:49 | PN ---
DATE: 12/16/2017 SUBJECTIVE: The patient is in bed, in no acute distress, is seen early this morning in 260, bed 1. Temperature is down. PHYSICAL EXAMINATION: VITAL SIGNS: On exam, temperature is 97, blood pressure is 100/40, respiratory rate of 20. HEENT: Unremarkable. NECK: Supple. LUNGS: Have decreased breath sounds. HEART: Normal S1 and S2. ABDOMEN: Soft, nontender. LABORATORY DATA: Laboratory examination reveals a white count of 7.5, hemoglobin of 9, platelets of 74. Chemistries reveals a BUN of 16, creatinine of 0.4. LFTs are elevated and HIV is nonreactive. Microbiology, the blood cultures are negative. The patient's procalcitonin is 1.01. Review of orders reveals the patient to be on meropenem, Solu-Medrol, vancomycin. Dr. Viktor Lundy's note is reviewed from yesterday. Dr. Musa Soliman's note is also reviewed from yesterday. ASSESSMENT AND PLAN: A 52-year-old male with stage IV lung cancer, central nervous system metastases, status post chemotherapy, chronic obstructive lung disease, cerebrovascular accident, diabetes, thrombocytopenia, hepatitis C, presenting with systemic inflammatory response syndrome, must rule out healthcare-associated pneumonia. The patient with an elevated procalcitonin, negative cultures. On day #3 of vancomycin, meropenem and we will order a vancomycin trough level. The patient receives vancomycin on 5.30 in the morning and 5.30 at night. We will order a vancomycin trough at 4.30 today, an hour before the 5.30 dose. Overall prognosis quite poor. This patient who is end stage malignancy with metastases should consider hospice setting. Toby Long MD
--- NOTE | 2017-12-16 13:25 | PN ---
DATE: 12/16/2017 SUBJECTIVE: I saw him resting comfortably in bed. He is still short of breath. He is still weak. He can walk a few steps, but he has got not much energy and he is breathing poorly, he tells me. He is on oxygen. He is on Ambien, albuterol round the clock. I think to increase his insulin from medium to high because of his blood sugar is over 400 from the steroids. He is on Lyrica, Merrem IV antibiotics, Pulmicort, IV fluids, Solu-Medrol 30, he is down to 30 IV every 12 from Pulmonary, Tylenol, tramadol for pain, vancomycin IV and Xanax for his anxiety. PHYSICAL EXAMINATION: VITAL SIGNS: He has a 97.7 temperature, 85 pulse, 101/67 blood pressure, 20 respiratory rate, 100% O2 sat on 2 liters nasal cannula. HEENT: Head is atraumatic, normocephalic. Throat is moist. NECK: Supple. HEART: Regular rate. LUNGS: Decreased breath sounds, occasional wheeze and congestion, very poor inspiration and he has got severe stage IV lung cancer and superimposed COPD and pneumonia involved. ABDOMEN: Soft, obese, nontender. EXTREMITIES: No edema. LABORATORY DATA: He has a white count of 7.5, hemoglobin 9.3, hematocrit 30.1, platelets are 74. He has 141 sodium, potassium 4.6, BUN 16, creatinine 0.7, GFR is greater than 60. Blood sugars were 200, now it is 469, calcium is 8.6, total bili is 0.4, AST is 60, ALT is 100, alkaline phosphatase 192, total protein is 5. His HIV was nonreactive. He is being seen by Pulmonary and Infectious Disease. He has got pneumonia, COPD, lung cancer stage IV with mets to the brain. Sometimes, he is in and out of it mentally and he is also having elevated blood sugars. He is on vanco and Merrem as per Infectious Disease. Poor prognosis and the family made him a full code and took him off the hospice and DNR. Viktor Lundy DO [facility] # [id number]
[2017-12-16 14:07] LABS: URINE BILIRUBIN NEGATIVE (NEGATIVE); URINE BLOOD NEGATIVE (NEGATIVE); URINE GLUCOSE (UA) 500 mg/dL (NEGATIVE); URINE LEUKOCYTE ESTERASE NEGATIVE Leu/uL (NEGATIVE); URINE PROTEIN NEGATIVE mg/dL (<30 mg/dL)
[2017-12-16 14:08] LABS: URINE APPEARANCE CLEAR (CLEAR); URINE COLOR DARK YELLOW (YELLOW)
[2017-12-16] MEDS: Insulin Reg-HIGH-Coverage SC SCH (16:59)
[2017-12-17] MEDS: Insulin Reg-HIGH-Coverage SC SCH ×5 (00:21→21:31)
[2017-12-17] MEDS: Meropenem IV 1 gm in NS 50 ML IVPB SCH ×3 (06:03→21:32)
[2017-12-17] MEDS: Vancomycin 1gm in NS 250ml 1 GM/250 ML BAG IVPB SCH ×2 (06:05→18:35)
[2017-12-17 06:39] LABS: HEMOGLOBIN 9.2 g/dL (14.0-18.0); MEAN CELL VOLUME 98.7 fl (80.0-105.0); MEAN CORPUSCULAR HEMOGLOBIN 30.6 pg (25.0-35.0); MEAN PLATELET VOLUME 9.7 fl (7.0-11.0); RBC 3.01 10^6/uL (3.5-6.1); WHITE BLOOD COUNT 5.5 10^3/ul (4.5-11.0)
[2017-12-17 07:12] LABS: ALBUMIN 2.4 g/dL (3.0-4.8); ALT/SGPT 102 U/L (7-56); AST/SGOT 72 U/L (17-59); BLOOD UREA NITROGEN 16 mg/dL (7-21); CALCIUM 8.8 mg/dL (8.4-10.5); GFR AFRICAN-AMERICAN > 60; GFR NON-AFRICAN AMERICAN > 60
[2017-12-17] MEDS: Albuterol-Ipratrop 3 mg / 0.5 (3 ml) UD IH SCH ×3 (08:10→20:12)
[2017-12-17] MEDS: Budesonide 0.5 mg/2 ml Inhal Susp UD IH SCH ×2 (08:11→20:12)
--- NOTE | 2017-12-17 09:32 | PN ---
DATE: 12/17/2017 SUBJECTIVE: I saw him in bed this morning. He is a little bit better, also a little bit confused. He had received some of his medicines this morning, then asked for his medicine when I got there. He is a little bit hungry. He is walking in the room a little bit. He does not need any place to go and Physical Therapy recommended home with services. MEDICATIONS: He is currently on Ambien, albuterol, insulin coverage, Lyrica. He is on Merrem IV; Pulmicort; Solu-Medrol 30, I dropped him down to 20 today; Tylenol; tramadol; vancomycin and Xanax. PHYSICAL EXAMINATION: VITAL SIGNS: He has a 97.8 temp, 60 pulse, 89/59 blood pressure, 106/74 blood pressure, 18 respiratory rate, 95% O2 sat on nasal cannula 2 L. HEENT: His head is atraumatic, normocephalic. HEART: Regular rate. LUNGS: Decreased breath sounds bilaterally. Occasional wheezes or rhonchi, but changes with cough. ABDOMEN: Soft, obese. EXTREMITIES: No edema. LABORATORY DATA: He has a white count of 5.5, hemoglobin of 9.2, hematocrit 29.7, platelets of 65. 143 sodium, potassium 4.9, BUN 16, creatinine 0.4, GFR is greater than 60, sugar is 185, calcium is 8.8, total bili is 0.3, AST is 72, ALT is 102, alk phos is 166, total protein is 5.7. ASSESSMENT AND PLAN: He is being seen by Infectious Disease, Pulmonary. He has stage IV lung cancer with brain metastasis, status post chemotherapy and radiation. He was on hospice He has hepatitis C, cerebrovascular accident, chronic obstructive pulmonary disease, diabetes, thrombocytopenia. He has systemic inflammatory response syndrome and pneumonia. Continue antibiotics as per Infectious Disease. We will check his labs tomorrow. I want him to get out of bed to chair. He will get his Ambien at nighttime to sleep and he will take his Xanax when he gets anxious. Continue with treatment and care. Viktor Lundy DO [facility] # [id number] MTDD
[2017-12-17] MEDS: MethylPREDNISolone 40 mg Vial IVP SCH ×2 (10:40→21:30)
[2017-12-18] MEDS: Albuterol-Ipratrop 3 mg / 0.5 (3 ml) UD IH SCH ×2 (01:35→08:18)
[2017-12-18] MEDS: Meropenem IV 1 gm in NS 50 ML IVPB SCH (05:21)
[2017-12-18] MEDS: Vancomycin 1gm in NS 250ml 1 GM/250 ML BAG IVPB SCH (06:14)
[2017-12-18 06:35] LABS: HEMOGLOBIN 9.5 g/dL (14.0-18.0); MEAN CELL VOLUME 98.1 fl (80.0-105.0); MEAN CORPUSCULAR HEMOGLOBIN 30.8 pg (25.0-35.0); MEAN CORPUSCULAR HGB CONC 31.5 g/dl (31.0-37.0); MEAN PLATELET VOLUME 9.7 fl (7.0-11.0); RBC 3.08 10^6/uL (3.5-6.1); RED CELL DISTRIBUTION WIDTH 15.8 % (11.5-14.5); WHITE BLOOD COUNT 4.4 10^3/ul (4.5-11.0)
--- NOTE | 2017-12-18 06:40 | PN ---
DATE: 12/17/2017 SUBJECTIVE: Patient is in bed, in no acute distress. When seen earlier today, he is comfortable. PHYSICAL EXAMINATION: Vital signs: Temperature is 98, blood pressure is 89/50, respiratory rate of 18, heart rate of 60. HEENT: Unremarkable. NECK: Supple. LUNGS: Have decreased breath sounds. HEART: Normal S1, S2. ABDOMEN: Soft, nontender. LABORATORY EXAMINATION: Reveals a white count of 5.5, hemoglobin of 9, platelets of 65. Chemistries reveal a BUN of 16, creatinine of 0.4. LFTs are noted. Urinalysis is noted and vanco trough yesterday was 12. Serology reveals HIV is negative. Microbiology reveals the blood cultures have no growth at 24 hours. Review of orders reveals the patient to be on meropenem, Solu-Medrol, IV vancomycin. Dr. Viktor Lundy's note is reviewed from this morning. Dr. Arnaud Rowell's progress note is reviewed from yesterday. 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 Currently on day #4 of vancomycin and meropenem with vancomycin trough level of 12. Overall, the patient is much improved with negative blood cultures with 4 to 7 days of antibiotics, today is day #4, would complete anywhere from between 4 to 7 days and we will order repeat procalcitonin to guide us with the duration of days. Overall, prognosis is quite poor for this patient who is end stage. He is to repeat procalcitonin. If it is within normal limits, we will discontinue the antibacterial antibiotics. Toby Long MD
[2017-12-18 06:43] VITALS: BP 113/72; PULSE 64; RESP 20; TEMP 98.1; O2SAT 98
[2017-12-18 07:02] LABS: ALBUMIN 2.4 g/dL (3.0-4.8); ALT/SGPT 127 U/L (7-56); AST/SGOT 84 U/L (17-59); BLOOD UREA NITROGEN 18 mg/dL (7-21); CALCIUM 8.9 mg/dL (8.4-10.5); GFR AFRICAN-AMERICAN > 60; GFR NON-AFRICAN AMERICAN > 60
[2017-12-18] MEDS: Budesonide 0.5 mg/2 ml Inhal Susp UD IH SCH (08:18)
[2017-12-18] MEDS: Insulin Reg-HIGH-Coverage SC SCH (08:32)
--- NOTE | 2017-12-18 08:41 | PN ---
DATE: 12/17/2017 PULMONARY PROGRESS NOTE SUBJECTIVE: The patient was seen and examined at bedside. He is lethargic, he is receiving currently inhalation treatment with DuoNeb and added budesonide and he is on low dose intravenous steroids. PHYSICAL EXAMINATION: VITAL SIGNS: His temperature is 97.8, pulse 60, respirations 20, pulse oximetry is 95 on nasal cannula, blood pressure is 90/60. NECK: Supple with no jugular vein distention. CARDIOVASCULAR: S1, S2. No S3, regular. PULMONARY: Diminished breath sounds bilaterally with a few rhonchi. No wheezing. GI: Soft, nontender. No organomegaly. EXTREMITIES: 1+ pedal edema. SKIN: No acute skin rash. NEUROLOGIC: Limited at present time. LABORATORY DATA: Reviewed. WBC is 5.5, hemoglobin of 9.2. Sodium 142, chloride 108. Liver function tests are elevated. ASSESSMENT: 1. The patient with end-stage chronic obstructive pulmonary disease. 2. Stage IV metastatic lung cancer to brain. 3. Postobstructive pneumonitis. PLAN: We will continue with current administration of antibiotics, aerosol supplemental oxygen; however, his prognosis is poor and Hospice is being evaluated. Arnaud Rowell MD
--- NOTE | 2017-12-18 08:58 | PN ---
DATE: 12/18/2017 SUBJECTIVE: In discussion with the patient this morning, he states that he is being discharged today. The nurse corroborates, but does not know about his disposition as he is bedridden. The discharge order has already been written. The patient remains comfortable. He is awake and alert, better than he has been in quite some time. He is still taking inhalation therapy and remains on corticosteroids. PHYSICAL EXAMINATION: VITAL SIGNS: Stable. He is afebrile. Respiratory rate 16, O2 sat 98%. HEENT: Normocephalic, atraumatic. NECK: Supple. No JVD. No lymphadenopathy. No bruit. CARDIOVASCULAR: Regular rhythm. S1, S2 without gallop. LUNGS: Global decrease in breath sounds. Minimal rhonchi. No wheezes appreciated. ABDOMEN: Soft. Bowel sounds normoactive without mass, guarding, rebound or organomegaly. EXTREMITIES: Reveal trace edema. No cyanosis appreciated. SKIN: No rash or excoriation. NEUROLOGIC: No focality. CLINICAL ASSESSMENT: 1. Status post exacerbation of chronic obstructive pulmonary disease. 2. Recurrent bronchitis. 3. Oxygen dependency. 4. Status post sepsis syndrome. 5. Advanced lung cancer, metastatic with brain metastases. This has been a much long illness for this poor gentleman. He is stable at this time but as per history in the past, he has come back to the hospital on multiple occasions. Correct placement is essential prior to discharge. Hospice care should be considered. We will discuss with Dr. Lundy and nursing staff. Continue vigorous bronchodilators and low-dose corticosteroids orally. We will be available for any further intervention as required. Please feel free to contact us if we can be of any further help with his care. Leandro Alcala MD
--- NOTE | 2017-12-18 10:00 | DS ---
He is resting comfortably in bed. He slept through the night last night. Overall, he is doing well. He is on Ambien; DuoNebs; insulin; Lyrica; Merrem IV; Pulmicort; Solu-Medrol, we will change it to prednisone; Tylenol; Ultram; vancomycin IV and Xanax. He is breathing much better. He had severe COPD. He has got lung cancer stage IV with brain metastases and possible pneumonia. PHYSICAL EXAMINATION: VITAL SIGNS: He has a 98.1 temperature, 64 pulse, 113/72 blood pressure, 20 respiratory rate, 98% O2 sat on room air. HEENT: Head is atraumatic, normocephalic. HEART: Regular rate. LUNGS: Decreased breath sounds bilaterally, but clear. No wheezes, rhonchi or rales. ABDOMEN: Soft. EXTREMITIES: No edema. DATA: He has a 4.4 white count, 9.5 hemoglobin, 30.2 hematocrit with 65 platelets. He has 141 sodium, potassium 4.3, BUN 18, creatinine 0.7. GFR is greater than 60. Sugar is 191, calcium is 8.9, total bili is 0.4, AST is 84, ALT is 127, alkaline phosphatase 166, total protein is 4.8. He is being seen by Infectious Disease. We are hoping that he could be discharged on p.o. medications and prednisone p.o. I will discuss with Infectious Disease what antibiotics to put him on, I will put him on prednisone and hopefully, he will do well on the outpatient. I will see him in the office and he does not want hospice anymore and will be discharged this afternoon. I will discuss this with Infectious Disease and go over his medications with the patient. Viktor Lundy DO
--- NOTE | 2017-12-18 15:24 | CP.PCM.PN ---
Subjective - Date & Time of Evaluation Date of Evaluation: 12/18/17 Time of Evaluation: 09:45 - Subjective Subjective: No fevers, not in distress, cough is improved, no vomiting, no diarrhea, breathing better. Objective - Vital Signs/Intake and Output Vital Signs (last 24 hours): Temp Pulse Resp BP Pulse Ox 98.1 F 64 20 113/72 98 12/18/17 08:42 12/18/17 08:42 12/18/17 08:42 12/18/17 08:42 12/18/17 08:42 Intake and Output: 12/18/17 12/18/17 06:59 18:59 Intake Total 650 350 Output Total 2300 1100 Balance -1650 -750 - Labs Labs: 12/18/17 06:00 12/18/17 06:00 PT 14.5 SECONDS (9.4-12.5) H 12/13/17 21:45 INR 1.27 (0.93-1.08) H 12/13/17 21:45 APTT 28.3 Seconds (25.1-36.5) 12/13/17 21:45 - Constitutional Appears: Non-toxic, Chronically Ill - Head Exam Head Exam: NORMAL INSPECTION - Respiratory Exam Respiratory Exam: Decreased Breath Sounds - Cardiovascular Exam Cardiovascular Exam: +S1, +S2 - GI/Abdominal Exam GI & Abdominal Exam: Soft. absent: Tenderness Assessment and Plan - Assessment and Plan (Free Text) Plan: Assessment systemic inflammatory response syndrome, R/O HCAP R/O acute bronchitis stage 4 lung cancer with [employer] metastases, was on chemotherapy COPD CVA history of thrombocytopenia hepatitis C Plan on Vancomycin and Merrem (day 5) - PCT has now normalized to 0.32 - can switch to PO Doxycycline and PO Vantin for another [address] Lundy overall prognosis is poor
== END 2017-12-18 13:05 | disposition home or self-care (01) ==
LOC: ED 21:18 → ERH 12-14 01:31 → INTOOBSV 12-14 01:31 → ERH 12-14 02:06 → 2RNO 12-14 02:53 → 3RSO 12-16 18:41
PROVIDERS: ADMIT Family Medicine; ATTEND Family Medicine
DX: J44.1 Chronic obstructive pulmonary disease with (acute) exacerbation (principal); C34.90 Malignant neoplasm of unspecified part of unspecified bronchus or lung; C79.31 Secondary malignant neoplasm of brain; D69.6 Thrombocytopenia, unspecified; E11.9 Type 2 diabetes mellitus without complications; D64.9 Anemia, unspecified; B19.20 Unspecified viral hepatitis C without hepatic coma; F41.9 Anxiety disorder, unspecified; F32.9 Major depressive disorder, single episode, unspecified; Z99.81 Dependence on supplemental oxygen; F17.200 Nicotine dependence, unspecified, uncomplicated; Z86.73 Personal history of transient ischemic attack (TIA), and cerebral infarction without residual deficits; Z92.21 Personal history of antineoplastic chemotherapy; Z92.3 Personal history of irradiation; Z91.5 Personal history of self-harm
CPT/HCPCS: 36415; 71045; 76700; 80053; 80202; 81003; 82550; 82803; 82948; 83615; 83735; 83880; 84145; 84484; 85025; 85027; 85610; 85730; 87040; 87389; 93005; 94640; 94760; 96365; 96375; 97116; 97162; 99285; G0378; G8978; G8979; J2185; J2920; J2930; J3475; J7030

== ENCOUNTER 2018-05-21 21:25 | Emergency (ER) | payer MEDICAID ==
[2018-05-21 21:53] VITALS: BMI 27.8
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
[2018-05-22] MEDS ORDERED: Sodium Chloride 0.9% 1,000 ML IV STA (00:40)
[2018-05-22 01:10] VITALS: TEMP 99.1
[2018-05-22 01:16] LABS: GRAN % 89.6 % (50.0-68.0); LYMPH # 0.5 (1.2-3.4); LYMPH % 9.5 % (22.0-35.0); MEAN CELL VOLUME 100.3 fl (80.0-105.0); MEAN CORPUSCULAR HEMOGLOBIN 33.4 pg (25.0-35.0); MEAN CORPUSCULAR HGB CONC 33.3 g/dl (31.0-37.0); MEAN PLATELET VOLUME 9.8 fl (7.0-11.0); MONO # 0.1 (0.1-0.6); MONO % 0.9 % (1.0-6.0); RBC 3.53 10^6/uL (3.5-6.1); RED CELL DISTRIBUTION WIDTH 13.2 % (11.5-14.5); WHITE BLOOD COUNT 5.6 10^3/uL (4.5-11.0)
[2018-05-22 01:24] LABS: ALB/GLOB RATIO 1.2 (1.1-1.8); ALBUMIN 3.6 g/dL (3.0-4.8); ALT/SGPT 89 U/L (7-56); AST/SGOT 63 U/L (17-59); BLOOD UREA NITROGEN 16 mg/dL (7-21); CALCIUM 9.3 mg/dL (8.4-10.5); GFR NON-AFRICAN AMERICAN > 60
[2018-05-22 01:41] LABS: HEMOGLOBIN 11.8 g/dL (14.0-18.0)
[2018-05-22 03:08] LABS: URINE BILIRUBIN NEGATIVE (NEGATIVE); URINE BLOOD NEGATIVE (NEGATIVE); URINE GLUCOSE (UA) NEGATIVE (NEGATIVE); URINE LEUKOCYTE ESTERASE NEGATIVE Leu/uL (NEGATIVE); URINE PROTEIN NEGATIVE mg/dL (<30 mg/dL); URINE UROBILINOGEN 0.2 E.U./dL (<1 E.U./dL)
[2018-05-22 03:12] LABS: URINE APPEARANCE CLEAR (CLEAR); URINE COLOR YELLOW (YELLOW)
[2018-05-22 07:43] VITALS: BP 105/62; PULSE 77; RESP 16; O2SAT 96
--- NOTE | 2018-05-22 08:48 | CT ---
Date of service: 05/21/2018 PROCEDURE: CT HEAD WITHOUT CONTRAST. HISTORY: fall w/ L eye ecchymoses COMPARISON: 11/21/2017 CT head. 05/17/2018 MRI brain TECHNIQUE: Axial computed tomography images were obtained through the head/brain without intravenous contrast. Supplemental Coronal and Sagittal projections created and reviewed. Radiation dose: Total exam DLP = <inf_radiation_dlp> mGy-cm. This CT exam was performed using one or more of the following dose reduction techniques: Automated exposure control, adjustment of the mA and/or kV according to patient size, and/or use of iterative reconstruction technique. FINDINGS: HEMORRHAGE: Vasogenic edema associate with multiple masses in the right hemisphere and cerebellum. These findings were in varying degrees appearance of prior cross-sectional studies of the brain/head. BRAIN: No mass effect or edema. No atrophy or chronic microvascular ischemic changes. VENTRICLES: Unremarkable. No hydrocephalus. CALVARIUM: Unremarkable. PARANASAL SINUSES: Unremarkable as visualized. No significant inflammatory changes. MASTOID AIR CELLS: Unremarkable as visualized. No inflammatory changes. OTHER FINDINGS: None. IMPRESSION: No acute intracranial findings. Vasogenic edema associate with multiples supratentorial and cerebellar masses findings consistent with metastatic disease, better delineated on recent MRI of the head
--- NOTE | 2018-05-22 08:54 | CT ---
Date of service: 05/21/2018 PROCEDURE: CT Cervical Spine without contrast HISTORY: fall COMPARISON: None available. TECHNIQUE: Axial computed tomography images were obtained of the cervical spine without the use of intravenous contrast. Coronal and sagittal reformatted images were created and reviewed. Radiation dose: Total exam DLP = 602.72 mGy-cm. This CT exam was performed using one or more of the following dose reduction techniques: Automated exposure control, adjustment of the mA and/or kV according to patient size, and/or use of iterative reconstruction technique. FINDINGS: VERTEBRAE: No fracture. Normal alignment. No destructive bony lesion. DISCS/SPINAL CANAL/NEURAL FORAMINA: No significant central canal or neural foraminal stenosis. Degenerative changes most severe at C5-6 and C6-7. Osteophyte formation extends into the left neural foramen and right neural foramen at C6-7. Similar less pronounced changes at C5-6. PARASPINAL SOFT TISSUES: Unremarkable. OTHER FINDINGS: Consolidative changes and left pleural effusion incompletely visualized. However, these findings were seen prior chest radiographs including 12/14/2017. IMPRESSION: No acute findings related to/ accounting for the clinical presentation. Cervical spondylotic change lower cervical spine described in greater detail above. Concordant results (preliminary interpretation) provided by [email or web address]. Procedure Completed: 23:00. Preliminary Report: Dictated and Authenticated: 00:17. Final Interpretation: 08:50 May 22, 2018.
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
== END 2018-05-22 08:26 | disposition home or self-care (01) ==
LOC: ED 21:25
DX: F10.129 Alcohol abuse with intoxication, unspecified (principal); Y90.2 Blood alcohol level of 40-59 mg/100 ml; I20.9 Angina pectoris, unspecified; J44.9 Chronic obstructive pulmonary disease, unspecified; Z86.73 Personal history of transient ischemic attack (TIA), and cerebral infarction without residual deficits; Z87.891 Personal history of nicotine dependence
CPT/HCPCS: 70450; 71045; 72125; 80053; 80320; 80329; 81003; 82550; 85025; 96360; 99284; J7030

== ENCOUNTER 2018-05-27 17:29 | Emergency (ER) | payer MEDICAID ==
[2018-05-27 17:30] VITALS: BMI 23.4
[2018-05-27 17:44] VITALS: BP 116/82; PULSE 89; RESP 18; TEMP 98.2; O2SAT 96
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
== END 2018-05-27 19:07 | disposition home or self-care (01) ==
LOC: ED 17:29
DX: F10.129 Alcohol abuse with intoxication, unspecified (principal); E11.9 Type 2 diabetes mellitus without complications; Z87.891 Personal history of nicotine dependence

== ENCOUNTER 2018-06-12 09:02 | Emergency (ER) | payer MEDICAID ==
[2018-06-12 09:04] VITALS: BMI 26.6
[2018-06-12 09:14] VITALS: RESP 18; TEMP 97.6; O2SAT 99
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
[2018-06-12 10:27] LABS: BASO # 0.01 K/mm3 (0.0-2.0); BASO % 0.3 % (0.0-3.0); EOS % 1.4 % (1.5-5.0); GRAN # 1.81 (1.4-6.5); GRAN % 61.6 % (50.0-68.0); HEMOGLOBIN 11.3 g/dL (14.0-18.0); LYMPH # 0.9 (1.2-3.4); LYMPH % 28.9 % (22.0-35.0); MEAN CELL VOLUME 101.2 fl (80.0-105.0); MEAN CORPUSCULAR HEMOGLOBIN 32.8 pg (25.0-35.0); MEAN CORPUSCULAR HGB CONC 32.4 g/dl (31.0-37.0); MEAN PLATELET VOLUME 9.4 fl (7.0-11.0); MONO # 0.2 (0.1-0.6); MONO % 7.8 % (1.0-6.0); RBC 3.45 10^6/uL (3.5-6.1); WHITE BLOOD COUNT 2.9 10^3/uL (4.5-11.0)
[2018-06-12 10:38] LABS: ALB/GLOB RATIO 1.2 (1.1-1.8); ALBUMIN 3.3 g/dL (3.0-4.8); ALT/SGPT 63 U/L (7-56); AST/SGOT 50 U/L (17-59); BLOOD UREA NITROGEN 24 mg/dL (7-21); CALCIUM 8.9 mg/dL (8.4-10.5); GFR NON-AFRICAN AMERICAN > 60
[2018-06-12 10:41] LABS: INR 1.05; PARTIAL THROMBOPLASTIN TIME 30.6 Seconds (25.1-36.5); PROTHROMBIN TIME 12.1 SECONDS (9.4-12.5)
--- NOTE | 2018-06-12 10:41 | CT ---
Date of service: 06/12/2018 PROCEDURE: CT HEAD WITHOUT CONTRAST. HISTORY: trauma, hx brain cancer ?mets COMPARISON: None available. TECHNIQUE: Axial computed tomography images were obtained through the head/brain without intravenous contrast. Radiation dose: Total exam DLP = 917.89 mGy-cm. This CT exam was performed using one or more of the following dose reduction techniques: Automated exposure control, adjustment of the mA and/or kV according to patient size, and/or use of iterative reconstruction technique. FINDINGS: HEMORRHAGE: No intracranial hemorrhage. BRAIN: Stable appearance of diffuse vasogenic edema. Increased size of right temporoparietal region mass now measuring 1.7 cm. Atrophy. Chronic microvascular ischemic changes. VENTRICLES: Prominent. No hydrocephalus. CALVARIUM: Unremarkable. PARANASAL SINUSES: Unremarkable as visualized. No significant inflammatory changes. MASTOID AIR CELLS: Unremarkable as visualized. No inflammatory changes. OTHER FINDINGS: None. IMPRESSION: Increased size of right temporoparietal region mass now measuring 1.7 cm. Stable appearance of diffuse vasogenic edema.
[2018-06-12 10:46] LABS: TROPONIN I < 0.01 ng/mL
--- NOTE | 2018-06-12 10:51 | RAD ---
Date of service: 06/12/2018 HISTORY: dyspnea COMPARISON: Chest radiograph dated 05/22/2018. TECHNIQUE: Chest PA and lateral FINDINGS: LUNGS: Stable appearance of confluent left upper lobe mass. Stable left hemithoracic volume loss with mediastinal shift to the left and tenting of the left hemidiaphragm. PLEURA: No significant pleural effusion identified. No pneumothorax apparent. CARDIOVASCULAR: Aortic atherosclerotic calcifications. Upper left mediastinal silhouette cannot be adequately evaluated. Cardiac silhouette within normal limits. OSSEOUS STRUCTURES: Unchanged. VISUALIZED UPPER ABDOMEN: Normal. OTHER FINDINGS: None. IMPRESSION: Stable appearance of confluent left upper lung mass with volume loss.
[2018-06-12 10:54] VITALS: BP 138/72; PULSE 71
--- NOTE | 2018-06-12 14:21 | CARD ---
APPROVED REPORT Date of service: 06/12/2018 EKG Measurement Heart [id number] <Conclusion> Normal sinus rhythm Normal ECG
== END 2018-06-12 11:21 | disposition left against medical advice (07) ==
LOC: ED 09:02
DX: J18.9 Pneumonia, unspecified organism (principal); D49.6 Neoplasm of unspecified behavior of brain; S09.90XA Unspecified injury of head, initial encounter; W19.XXXA Unspecified fall, initial encounter

== ENCOUNTER 2018-06-15 11:16 | Outpatient (CLI) | payer MEDICAID | END 2018-06-15 11:17 | disposition home or self-care (01) | LOC: RAD 11:16 ==

== ENCOUNTER 2018-07-05 12:15 | Emergency (ER) | payer MEDICAID ==
[2018-07-05 12:18] VITALS: O2SAT 97; BMI 27.2
[2018-07-05] MEDS: Albuterol-Ipratrop 3 mg / 0.5 (3 ml) UD IH SCH ×3 (13:15→13:40)
[2018-07-05 13:56] LABS: BASO # 0.01 K/mm3 (0.0-2.0); BASO % 0.1 % (0.0-3.0); EOS % 0.4 % (1.5-5.0); GRAN # 7.2 (1.4-6.5); LYMPH # 0.9 (1.2-3.4); LYMPH % 10.5 % (22.0-35.0); MEAN CELL VOLUME 103.3 fl (80.0-105.0); MEAN CORPUSCULAR HEMOGLOBIN 33.2 pg (25.0-35.0); MEAN CORPUSCULAR HGB CONC 32.1 g/dl (31.0-37.0); MONO # 0.3 (0.1-0.6); RBC 3.92 10^6/uL (3.5-6.1); RED CELL DISTRIBUTION WIDTH 15.6 % (11.5-14.5); WHITE BLOOD COUNT 8.4 10^3/uL (4.5-11.0)
[2018-07-05 14:12] LABS: ALB/GLOB RATIO 1.1 (1.1-1.8); ALBUMIN 3.1 g/dL (3.0-4.8); ALT/SGPT 156 U/L (7-56); AST/SGOT 51 U/L (17-59); BLOOD UREA NITROGEN 30 mg/dL (7-21); CALCIUM 8.7 mg/dL (8.4-10.5); GFR NON-AFRICAN AMERICAN > 60
[2018-07-05 14:14] LABS: B-TYPE NATRIURETIC PEPTIDE 679 pg/mL (0-450); TROPONIN I < 0.01 ng/mL
--- NOTE | 2018-07-05 15:03 | CT ---
Date of service: 07/05/2018 PROCEDURE: CT Chest with contrast HISTORY: SOB with facial swelling - r/o SVC syndrome COMPARISON: Comparison is made to the previous CT of the chest dated 11/21/2017 and prior PET-CT dated 08/23/2017 TECHNIQUE: Contiguous axial images were obtained through the chest with intravenous contrast enhancement. Sagittal and coronal reconstructions were performed. IV contrast: 150 cc of Omnipaque 350 intravenously. Radiation dose: Total exam DLP = 787.94 mGy-cm. This CT exam was performed using one or more of the following dose reduction techniques: Automated exposure control, adjustment of the mA and/or kV according to patient size, and/or use of iterative reconstruction technique. FINDINGS: LUNGS: Again noted is large consolidation at the left lung which has increased in size compared to the previous CT and PET-CT the left lung is small in size. The main bronchus and trachea are patent. No evidence of acute pathology in the right lung. MEDIASTINUM: Unremarkable thoracic aorta. No aneurysm or dissection. Normal sized heart. Main pulmonary artery is upper normal limit in size measures 3 centimeter. No lymphadenopathy. No significant aortic atherosclerotic calcification or mural plaque present. PLEURA: No pleural fluid. No pneumothorax. BONES: No fracture. No destructive lesion. UPPER ABDOMEN: Grossly unremarkable. OTHER FINDINGS: None. IMPRESSION: No evidence of mass lesion in the right mediastinum or SVC syndrome. Mild interval increased in the size of left lung consolidation since the prior CT. Otherwise no significant interval changes.
--- NOTE | 2018-07-05 15:17 | RAD ---
Date of service: 07/05/2018 HISTORY: SOB COMPARISON: CT 07/05/2018 FINDINGS: LUNGS: There is dense consolidation and volume loss in the left upper lobe. PLEURA: No significant pleural effusion identified, no pneumothorax apparent. CARDIOVASCULAR: No aortic atherosclerotic calcification present. Normal cardiac size. No pulmonary vascular congestion. OSSEOUS STRUCTURES: No significant abnormalities. VISUALIZED UPPER ABDOMEN: Normal. OTHER FINDINGS: None. IMPRESSION: There is dense consolidation and volume loss in the left upper lobe.
--- NOTE | 2018-07-05 15:37 | CT ---
Date of service: 07/05/2018 PROCEDURE: CT NECK WITH CONTRAST HISTORY: facial swelling/redness - r/o SVC syndrome COMPARISON: None available. TECHNIQUE: CT of the neck with intravenous contrast. Coronal and sagittal reformats generated. Intravenous contrast dose: 150 cc of Omni 350 Radiation dose: Total exam DLP = 634.62 mGy-cm. This CT exam was performed using one or more of the following dose reduction techniques: Automated exposure control, adjustment of the mA and/or kV according to patient size, and/or use of iterative reconstruction technique. FINDINGS: NASOPHARYNX: Unremarkable. SUPRAHYOID NECK: Unremarkable oropharynx, oral cavity, parapharyngeal space and retropharyngeal space. INFRAHYOID NECK: Unremarkable larynx, hypopharynx, and supraglottic space. Vocal cords intact. MASS: None. GLANDS: Parotid and submandibular glands unremarkable. Normal size thyroid gland, without nodule. LYMPH NODES: Normal. No lymphadenopathy. CERVICAL SPINE: No fracture or focal lesion. VASCULAR STRUCTURES: Unremarkable. OTHER FINDINGS: There is a 12 mm enhancing lesion in the right temporal lobe with surrounding vasogenic edema. This was evaluated recently on MRI IMPRESSION: Unremarkable contrast enhanced CT of the neck. No evidence of SVC occlusion or stenosis
[2018-07-05 16:00] VITALS: BP 122/80; PULSE 92; RESP 20; TEMP 98.7
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
--- NOTE | 2018-07-06 00:36 | CARD ---
APPROVED REPORT Date of service: 07/05/2018 EKG Measurement Heart [id number] <Conclusion> Normal sinus rhythm Normal ECG
== END 2018-07-05 16:00 | disposition home or self-care (01) ==
LOC: ED 12:15
DX: R91.8 Other nonspecific abnormal finding of lung field (principal); E11.9 Type 2 diabetes mellitus without complications; Z87.891 Personal history of nicotine dependence
CPT/HCPCS: 70491; 71045; 71260; 80053; 82550; 83615; 83735; 83880; 84484; 85025; 87804; 93005; 99283; Q9967

== ENCOUNTER 2018-07-17 16:38 | Emergency (ER) | payer MEDICAID ==
[2018-07-17 16:58] VITALS: PULSE 71; TEMP 98.1
[2018-07-17 17:07] VITALS: BMI 25.7
[2018-07-17] MEDS ORDERED: Albuterol-Ipratrop 3 mg / 0.5 (3 ml) UD IH STA (17:24)
[2018-07-17 17:56] LABS: BASO # 0.02 K/mm3 (0.0-2.0); BASO % 0.3 % (0.0-3.0); EOS % 0.1 % (1.5-5.0); HEMOGLOBIN 14.6 g/dL (14.0-18.0); LYMPH # 0.7 (1.2-3.4); LYMPH % 9.6 % (22.0-35.0); MEAN CELL VOLUME 100.9 fl (80.0-105.0); MEAN CORPUSCULAR HEMOGLOBIN 33.5 pg (25.0-35.0); MEAN CORPUSCULAR HGB CONC 33.2 g/dl (31.0-37.0); MEAN PLATELET VOLUME 10.2 fl (7.0-11.0); MONO # 0.9 (0.1-0.6); MONO % 12.7 % (1.0-6.0); RBC 4.36 10^6/uL (3.5-6.1); RED CELL DISTRIBUTION WIDTH 13.9 % (11.5-14.5); WHITE BLOOD COUNT 6.8 10^3/uL (4.5-11.0)
[2018-07-17 18:04] LABS: INR 1.02; PARTIAL THROMBOPLASTIN TIME 23.3 Seconds (26.9-38.3); PROTHROMBIN TIME 11.3 SECONDS (9.4-12.5)
[2018-07-17 18:05] LABS: D DIMER < 200 ng/mlDDU (0-243)
--- NOTE | 2018-07-17 18:06 | RAD ---
Date of service: 07/17/2018 HISTORY: SOB COMPARISON: 07/05/2018 FINDINGS: LUNGS: The right lung is clear. There is redemonstration of dense consolidation in the left upper lobe. There is low lung volume on the left and linear scarring in the left lower lobe with tenting of the hemidiaphragm. PLEURA: Suspect small effusions. No pneumothorax CARDIOVASCULAR: The heart is normal in size. No aortic atherosclerotic calcifications present. OSSEOUS STRUCTURES: Within normal limits for the patient's age. VISUALIZED UPPER ABDOMEN: Normal. OTHER FINDINGS: None. IMPRESSION: Persistent dense consolidation in the left upper lobe. Underlying mass cannot be excluded. Suspect small effusions.
[2018-07-17 18:07] LABS: VENOUS BLOOD GAS BASE EXCESS 7.4 mmol/L (0.0-2.0); VENOUS BLOOD GAS PO2 34 mm/Hg (30-55); VENOUS BLOOD PH 7.36 (7.32-7.43)
[2018-07-17 18:14] LABS: ALB/GLOB RATIO 1.2 (1.1-1.8); ALBUMIN 3.3 g/dL (3.0-4.8); ALT/SGPT 124 U/L (7-56); AST/SGOT 56 U/L (17-59); BLOOD UREA NITROGEN 34 mg/dL (7-21); CALCIUM 9.2 mg/dL (8.4-10.5); GFR NON-AFRICAN AMERICAN > 60
[2018-07-17 18:26] LABS: B-TYPE NATRIURETIC PEPTIDE 272 pg/mL (0-450); TROPONIN I < 0.01 ng/mL
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
[2018-07-17 19:54] VITALS: BP 128/70; RESP 19; O2SAT 96
--- NOTE | 2018-07-18 09:57 | CARD ---
APPROVED REPORT Date of service: 07/17/2018 EKG Measurement Heart [id number] <Conclusion> Normal sinus rhythm Normal ECG
== END 2018-07-17 19:52 | disposition home or self-care (01) ==
LOC: ED 16:38
DX: R06.02 Shortness of breath (principal); R91.8 Other nonspecific abnormal finding of lung field; E11.9 Type 2 diabetes mellitus without complications; Z87.891 Personal history of nicotine dependence; Z86.73 Personal history of transient ischemic attack (TIA), and cerebral infarction without residual deficits; Z85.118 Personal history of other malignant neoplasm of bronchus and lung
CPT/HCPCS: 71045; 80053; 82550; 82803; 83615; 83735; 83880; 84145; 84484; 85025; 85378; 85610; 85730; 87040; 87804; 93005; 96374; 99281; J2930

== ENCOUNTER 2018-07-25 20:01 | Inpatient (IN) | payer MEDICAID ==
[2018-07-25 20:06] VITALS: BMI 25.2
[2018-07-25] MEDS ORDERED: Albuterol-Ipratrop 3 mg / 0.5 (3 ml) UD ONE (20:14)
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
[2018-07-25 20:40] LABS: BASO # 0.03 K/mm3 (0.0-2.0); BASO % 0.4 % (0.0-3.0); EOS % 0.1 % (1.5-5.0); HEMOGLOBIN 15.7 g/dL (14.0-18.0); LYMPH # 0.6 (1.2-3.4); LYMPH % 7.9 % (22.0-35.0); MEAN CELL VOLUME 98.7 fl (80.0-105.0); MEAN CORPUSCULAR HEMOGLOBIN 33.5 pg (25.0-35.0); MEAN PLATELET VOLUME 10.6 fl (7.0-11.0); MONO # 0.4 (0.1-0.6); MONO % 4.8 % (1.0-6.0); RBC 4.68 10^6/uL (3.5-6.1); RED CELL DISTRIBUTION WIDTH 14.2 % (11.5-14.5); WHITE BLOOD COUNT 7.2 10^3/uL (4.5-11.0)
[2018-07-25 20:44] LABS: PLATELET COUNT 41 10^3/uL (120.0-450.0)
[2018-07-25 20:46] LABS: INR 1.05; PARTIAL THROMBOPLASTIN TIME 28.1 Seconds (26.9-38.3); PROTHROMBIN TIME 11.6 SECONDS (9.4-12.5)
[2018-07-25] MEDS: Albuterol-Ipratrop 3 mg / 0.5 (3 ml) UD IH SCH ×2 (20:48→22:25)
[2018-07-25 20:52] LABS: ALB/GLOB RATIO 1.1 (1.1-1.8); ALBUMIN 3.5 g/dL (3.0-4.8); ALT/SGPT 174 U/L (7-56); AST/SGOT 70 U/L (17-59); BLOOD UREA NITROGEN 22 mg/dL (7-21); CALCIUM 9.3 mg/dL (8.4-10.5); GFR NON-AFRICAN AMERICAN > 60
[2018-07-25 20:58] LABS: B-TYPE NATRIURETIC PEPTIDE 131 pg/mL (0-450)
[2018-07-25 21:17] LABS: TROPONIN I < 0.01 ng/mL
[2018-07-25 21:18] LABS: BAND 1 % (0-2); EOSINOPHIL 1 % (0.0-3.0); LYMPHOCYTE 11 % (22.0-35.0); METAMYELOCYTE 2 %; MONOCYTE 8 % (1.0-6.0); NEUTROPHIL 77 % (50.0-70.0); NUCLEATED RED BLOOD CELL 2 %; PLATELET ESTIMATE LOW (NORMAL)
[2018-07-25] MEDS ORDERED: Piperacillin/Tazobact 3.375 gm 100 ML IVPB STA (21:56)
[2018-07-25] MEDS: MethylPREDNISolone 40 mg Vial IVP SCH (22:05)
[2018-07-25] MEDS: Insulin Reg-MEDIUM-Coverage SC SCH (22:22)
[2018-07-25] MEDS ORDERED: Sodium Chloride 0.9% 1,000 ML IV SCH (23:15)
[2018-07-25] MEDS ORDERED: Enoxaparin 80 mg Syringe SC STA (23:18)
[2018-07-25] MEDS: diltiaZEM IVPB 100mg in NS 100 ML IV SCH (23:39)
[2018-07-26] MEDS ORDERED: Silver Sulfadiazine 1% Cream (25 gm) TP STA (02:22)
--- NOTE | 2018-07-26 02:45 | HP ---
DATE OF EXAM: 07/25/2018 HISTORY OF PRESENT ILLNESS: I know Trung Seo very well for the past few years. He is dealing with lung cancer with brain metastasis, he is getting radiation therapy. He is a 52-year-old man who presents with complete shortness of breath for the past few days. He has been on prednisone at home. He has been getting radiation therapy to his brain. He is a 51-year-old man with past medical history of his angina, COPD, CVA, type 2 diabetes, stage IV lung cancer with brain metastasis, DVT, colon resection, substance abuse, he had shortness of breath, he has had thrombocytopenia in the past. He was getting chemotherapy Monday, Monday and Monday. Cirrhosis and hepatitis C. He has had lower extremity skin discoloration, multiple tattoos clear. He has got musculoskeletal disorders, back pain, he had falls, he had jaw metal plate from trauma. Unstable gait, uses a cane. He had suicide attempt 10 years ago. He has got anxiety and depression, cocaine use not any more, no IV drug use, he quit. He still does marijuana and cocaine though. PAST SURGICAL HISTORY: Unable to obtain surgical history except for what I told you above. Colon resection, tonsillectomy, and metal plate in the jaw. FAMILY HISTORY: Unknown. SOCIAL HISTORY: Former smoker, former drug abuse, IV drug abuse, marijuana, cocaine. ALLERGIES: NO KNOWN DRUG ALLERGIES. MEDICATIONS: On Xanax, Ambien, multiple other medications, he has been on steroids, prednisone on a regular basis. REVIEW OF SYSTEMS: No vision or hearing changes. He is short of breath. No chest pain or palpitations. No abdominal pain, nausea, or vomiting. No problems urinating. No back pain or neck pain at this time. Skin; no rashes. No headache, no dizziness. He is alert but short of breath and anxious. PHYSICAL EXAMINATION: VITAL SIGNS: No vital signs are taken at this time. HEENT: Head is atraumatic and normocephalic. Pupils equal and reactive to light and accommodation. Extraocular muscles are intact. Throat is moist. NECK: Supple. Thyroid midline. No palpable appreciable lymphadenopathy. HEART: Regular rate. Normal S1 and S2. LUNGS: Decreased breath sounds bilaterally, poor inspiration. Just very short of breath with poor air motion. No wheezes, rhonchi or rales heard. ABDOMEN: Soft and nontender. Positive bowel sounds. EXTREMITIES: Lower extremities with no edema. NEUROLOGIC: GCS is 15. Cranial nerves II through XII grossly intact. Alert and oriented x3. SKIN: Warm and dry. LABORATORY DATA: White count 7.2, hemoglobin 15.7, hematocrit 46.2 and platelets 41. INR is 1.05. Sodium 134, potassium 4, BUN 22, creatinine 0.7, GFR greater than 60, sugar is 186, calcium 9.3, magnesium 1.8, total bili is 1.8, AST is 70, ALT is 174, alk phos 135, and lactate dehydrogenase 561. Troponin I is pending. BNP is pending. Total protein 6.8. Chest x-ray is pending. IMPRESSION AND PLAN: Acute shortness of breath, lung cancer, and history of brain metastasis. He will have consults with Pulmonology and Oncology. He will be on Solu-Medrol, Xanax, Ambien, he will have some insulin coverage and Lovenox. We will follow tomorrow. Viktor Lundy DO
[2018-07-26] MEDS ORDERED: Promethazine DM 6.25 mg-15 mg/5 ml Syrup PO PRN (03:52)
[2018-07-26] MEDS: MethylPREDNISolone 40 mg Vial IVP SCH ×3 (06:17→23:31)
[2018-07-26 07:01] LABS: HEMOGLOBIN 12.4 g/dL (14.0-18.0); MEAN CELL VOLUME 99.5 fl (80.0-105.0); MEAN CORPUSCULAR HEMOGLOBIN 33.3 pg (25.0-35.0); MEAN CORPUSCULAR HGB CONC 33.5 g/dl (31.0-37.0); MEAN PLATELET VOLUME 9.3 fl (7.0-11.0); RBC 3.72 10^6/uL (3.5-6.1); WHITE BLOOD COUNT 4.3 10^3/uL (4.5-11.0)
[2018-07-26 07:21] LABS: PLATELET COUNT 36 10^3/uL (120.0-450.0)
[2018-07-26 07:28] LABS: ALBUMIN 2.6 g/dL (3.0-4.8); ALT/SGPT 129 U/L (7-56); AST/SGOT 43 U/L (17-59); BLOOD UREA NITROGEN 23 mg/dL (7-21); CALCIUM 8.2 mg/dL (8.4-10.5); GFR NON-AFRICAN AMERICAN > 60
--- NOTE | 2018-07-26 08:21 | RAD ---
Date of service: 07/25/2018 HISTORY: sob COMPARISON: Portable chest 07/17/2018. FINDINGS: LUNGS: Prominent left apical density reiterated with inferior spiculated changes suspicious for potential underlying mass. Left hemidiaphragm is retracted cephalad once again. This may be inflammatory. Clinically correlate further. Trace likely atelectasis noted right base laterally. PLEURA: No pneumothorax bilaterally. No definite left basilar pleural effusion. Loculated left apical pleural effusion is not excluded with none otherwise suggested at the left chest. Trace right pleural effusion present. CARDIOVASCULAR: No aortic atherosclerotic calcification present. Normal cardiac size. No pulmonary vascular congestion. OSSEOUS STRUCTURES: No significant abnormalities. VISUALIZED UPPER ABDOMEN: Normal. OTHER FINDINGS: None. IMPRESSION: Trace right pleural effusion is question with left apical opacity unchanged including retraction of left hemidiaphragm cephalad. Underlying left apical lesion remains difficult to exclude. Trace atelectasis right base.
[2018-07-26] MEDS: Enoxaparin 40 mg Syringe SC SCH (09:42)
[2018-07-26] MEDS ORDERED: Albuterol-Ipratrop 3 mg / 0.5 (3 ml) UD IH SCH (10:00)
[2018-07-26] MEDS ORDERED: Benzocaine/Menthol (Cepacol) Lozenge MT PRN (10:01)
[2018-07-26] MEDS ORDERED: Insulin Regular 1 UNITS/0.01 ML ML ONE ×2 (10:18→18:14)
[2018-07-26] MEDS: Insulin Reg-MEDIUM-Coverage SC SCH ×3 (10:29→18:13)
--- NOTE | 2018-07-26 12:50 | RAD ---
Date of service: 07/26/2018 PROCEDURE: Radiographs of the Lumbar Spine. HISTORY: pain COMPARISON: No prior. FINDINGS: BONES: Normal alignment. No listhesis. No fracture. DISC SPACES: Mild disc degeneration at L3-4 and L5-S1 OTHER FINDINGS: None. IMPRESSION: Mild disc degeneration at L3-4 and L5-S1
--- NOTE | 2018-07-26 13:07 | PN ---
DATE: 07/26/2018 SUBJECTIVE: I saw him this morning, came in last night. I saw him last night in the emergency room. He is _ prolems, he is very short of breath. He is on DuoNebs IV antibiotics and Solu-Medrol. There is also a rapid AFib on Cardizem drip now. Dr. Fisher is on the case. He is also having low back pain and foot drop right now. I called in Orthopedics and LS spine x-ray to be heavy metastasis to the lower spine. We will find out. He is looking for cough meds, Cepacol lozenges. He has some physical therapy also. He is going to seen by his oncologist, Cardiology, Orthopedics, and Pulmonology. MEDICATIONS: He is on Ambien, Cardizem drip, Cepacol lozenges, DuoNebs, insulin coverage, Januvia, Lovenox, promethazine, Silvadene cream, IV fluids, Solu-Medrol 40, Toradol, Xanax, and Zosyn. OBJECTIVE: VITAL SIGNS: He has a 97.4 temperature, 78 pulse, 107/80 blood pressure, 23 respiratory rate, 98% O2 sat on nasal cannula. HEENT: Head is atraumatic, normocephalic. HEART: Tachycardic. LUNGS: Decreased breath sounds, occasional wheeze and congestion. Poor inspiration. ABDOMEN: Soft. EXTREMITIES: No edema, possible foot drop. I will see what orthopedics wants to do about that, he might need an MRI of his LS-spine. LABORATORY DATA: He has 135 sodium, potassium 4.3, BUN 23, creatinine 0.7, GFR is greater than 60, blood sugar is 467 and 466. He is on Solu-Medrol, I will put on Januvia Calcium is 8.2, total bili is 0.6, AST is 43, ALT is 129, alk phos is 47. Total protein is 5.3. He has a 4.3 white count, 12.4 hemoglobin, 37 hematocrit with a 36 platelets. He is in deep trouble. He has got severe lung cancer to brain metastasis possible bone metastasis, really struggling. He wants to still be a full code at this time. We will see what progresses in the next 24 hours. Viktor Lundy DO [facility] # [id number] JER[place]
--- NOTE | 2018-07-26 13:16 | CON ---
DATE: 07/26/2018 PULMONARY CONSULT NOTE REFERRING PHYSICIAN: Dr. Viktor Lundy. REASON FOR CONSULT: Shortness of breath, cough, COPD and lung cancer. HISTORY OF PRESENT ILLNESS: This is a 52-year-old male with past medical history significant for lung cancer with brain metastasis, receiving radiation therapy to his brain. The patient reports that he came to the emergency room due to increasing shortness of breath over the past couple of days. States he was also trying to go upstairs at his home when he got dizzy and fell while going upstairs. Today, the patient reports that his shortness of breath has improved, but he still has cough with sputum production, sore throat and runny nose. He reports pain to spinal area. PAST MEDICAL HISTORY: Angina, COPD, CVA, type 2 diabetes, stage IV lung cancer with brain metastases, DVT, colon resection, substance abuse, thrombocytopenia, cirrhosis of the liver, hepatitis C, back pain, history of falls, suicide attempt 10 years ago, anxiety, depression and unstable gait. FAMILY HISTORY: No cardiopulmonary disease reported. SOCIAL HISTORY: Former smoker. No EtOH abuse reported. The patient uses marijuana and cocaine. Denies IV drug use. ALLERGIES: NO KNOWN ALLERGIES. MEDICATIONS: DuoNeb 3 mL every 6 hours, Xanax 0.5 mg three times a day, Cepacol throat lozenges every 2 hours p.r.n, Cardizem 100 mg IV 5 mg per hour, Lovenox 40 mg daily, Humulin R sliding scale before meals and at bedtime, Toradol 30 mg every 6 hours p.r.n., Solu-Medrol 40 mg every 8 hours, Phenergan DM 5 mL every 6 hours p.r.n., Januvia 100 mg daily, sodium chloride 0.9% a 1000 mL at 100 mL per hour and Ambien 10 mg at bedtime. REVIEW OF SYSTEMS: The patient reports shortness of breath has improved. He does have cough with sputum production. Reports sore throat, runny nose, and back pain. No headache, chest pain, abdominal pain, nausea, vomiting, diarrhea, leg pain, or leg swelling reported. PHYSICAL EXAMINATION: GENERAL: No acute distress. VITAL SIGNS: Blood pressure 170/80, pulse 78, temperature 98.1, and oxygen saturation 98% on nasal cannula. HEENT: Moist mucous membrane. Mallampati score of 4. NECK: Supple. No JVD. RESPIRATORY: Rhonchi and wheezing bilaterally. CARDIOVASCULAR: S1 and S2. ABDOMEN: Soft and nontender. No distention. No organomegaly. EXTREMITIES: No bilateral lower extremity edema. NEUROLOGIC: Awake, alert, and verbal. Follows commands. LABORATORY DATA: Reviewed. WBC 4.3, RBC 3.72, hemoglobin 12.4, hematocrit 37.0, and platelets 36. PT 11.6, INR 1.05, and aPTT 28.1. Sodium 135, potassium 4.3, chloride 106, carbon dioxide 22, anion gap 11, BUN 23, creatinine 0.7, GFR greater than 60, POC glucose 466, random glucose 467, calcium 8.2, total bilirubin 0.6, AST 43, ALT 129, alkaline phosphatase 147, total protein 5.3, albumin 2.6, globulin 2.7, and albumin-globulin ratio 1.0. Chest x-ray shows trace right pleural effusion questioned with left apical opacity unchanged including retraction of left hemidiaphragm cephalad, underlying left apical lesion remains difficult to exclude, and trace atelectasis right base. Electrocardiogram report pending. IMPRESSION AND PLAN: Stage IV lung cancer with brain metastases, chronic obstructive pulmonary disease, history of cerebrovascular accident, type 2 diabetes mellitus, thrombocytopenia, history of drug use, anxiety, and depression. The patient presenting with upper respiratory infection symptoms, rule out viral syndrome. We will get nasal swab influenza A and B respiratory syncytial virus. We will order procalcitonin level to be done. We will start the patient on doxycycline 100 mg twice a day. We will add Pulmicort and Mucomyst nebulizer treatments. We will add Protonix for gastric prophylaxis. Continue Lovenox for deep venous thrombosis prophylaxis. Continue IV steroids. This patient was seen and examined with Dr. Kramer. Discussed assessment and plan as described above. This patient was seen and examined with Matt Sue, nurse practitioner. Discussed assessment and plan as described above. Thank you for this consult. We will follow with you. KAM MahmoodN Sandro Kramer MD
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
--- NOTE | 2018-07-26 15:21 | CARD ---
APPROVED REPORT Date of service: 07/25/2018 EKG Measurement Heart [id number] <Conclusion> Atrial fibrillation with rapid ventricular response with premature ventricular or aberrantly conducted complexes ST & T wave abnormality, consider inferolateral ischemia or digitalis effect Abnormal ECG
--- NOTE | 2018-07-26 15:23 | CARD ---
APPROVED REPORT Date of service: 07/25/2018 EKG Measurement Heart [id number] <Conclusion> Normal sinus rhythm Normal ECG
[2018-07-26] MEDS ORDERED: Influenza Vaccine 60 mcg/0.5 mL SYR (4YR UP) IM ONE (15:43)
[2018-07-26 15:46] LABS: INFLUENZA A B NEGATIVE FOR FLU A/B (NEGATIVE)
--- NOTE | 2018-07-26 16:08 | CON ---
DATE: 07/26/2018 CARDIOLOGY CONSULTATION HISTORY: The patient is a 52-year-old male who presents with shortness of breath. The patient has severe COPD as well as history of lung cancer, which is stage IV. He is receiving ongoing treatment. PAST MEDICAL HISTORY: The patient's past medical history also includes history of diabetes mellitus, COPD, and thrombocytopenia. In the emergency room, he was found to have a short period of atrial fibrillation, which is now back to normal sinus rhythm. His latest cardiac evaluation was in 2016 where an echocardiogram revealed an ejection fraction of 57% with mild pulmonary hypertension. Currently, the patient is coughing and dyspneic. He denies angina. PHYSICAL EXAMINATION: VITAL SIGNS: Blood pressure is 107/80, heart rates in the 70s. NECK: Negative JVD. LUNGS: Bilateral rhonchi. HEART: Reveals S1, S2. EXTREMITIES: Without edema. LABORATORY DATA: Platelet count is 36,000, hemoglobin is 12.7. Chemistries reveal a troponin that is 0.01. The proBNP was not done. The glucose is 467. IMPRESSION: 1. Chronic obstructive pulmonary disease exacerbation. 2. History of lung cancer. 3. Diabetes mellitus. 4. Transient atrial fibrillation. 5. Thrombocytopenia. Given these findings, we will repeat an echocardiogram to evaluate LV function; however, I do not feel his dyspnea is from CHF. We will obtain a proBNP. Godfrey Fisher MD
[2018-07-26] MEDS: diltiaZEM IVPB 100mg in NS 100 ML IV SCH (18:15)
[2018-07-26] MEDS: Sodium Chloride 0.9% 1,000 ML IV SCH (18:15)
[2018-07-26] MEDS: Promethazine DM 6.25 mg-15 mg/5 ml Syrup PO PRN (21:27)
[2018-07-26] MEDS: Pantoprazole 40 mg EC Tab PO SCH (23:31)
[2018-07-27] MEDS: MethylPREDNISolone 40 mg Vial IVP SCH ×4 (06:30→22:58)
[2018-07-27] MEDS: Sodium Chloride 0.9% 1,000 ML IV SCH ×3 (06:31→22:57)
[2018-07-27 07:04] LABS: HEMOGLOBIN 12.2 g/dL (14.0-18.0); MEAN CELL VOLUME 98.6 fl (80.0-105.0); MEAN CORPUSCULAR HGB CONC 33.4 g/dl (31.0-37.0); RED CELL DISTRIBUTION WIDTH 13.8 % (11.5-14.5); WHITE BLOOD COUNT 9.6 10^3/uL (4.5-11.0)
[2018-07-27 07:21] LABS: PLATELET COUNT 45 10^3/uL (120.0-450.0)
[2018-07-27 07:30] LABS: ALB/GLOB RATIO 1.1 (1.1-1.8); ALBUMIN 2.8 g/dL (3.0-4.8); ALT/SGPT 109 U/L (7-56); AST/SGOT 35 U/L (17-59); BLOOD UREA NITROGEN 27 mg/dL (7-21); CALCIUM 8.6 mg/dL (8.4-10.5); GFR NON-AFRICAN AMERICAN > 60
[2018-07-27] MEDS: Acetylcysteine 20% Inhal Soln (4ml) IH SCH ×2 (08:47→20:28)
[2018-07-27] MEDS: Budesonide 0.5 mg/2 ml Inhal Susp UD IH SCH ×2 (09:49→20:28)
[2018-07-27] MEDS: Insulin Reg-MEDIUM-Coverage SC SCH ×4 (11:32→22:04)
[2018-07-27] MEDS: Enoxaparin 40 mg Syringe SC SCH (11:34)
--- NOTE | 2018-07-27 14:15 | PN ---
DATE: 07/27/2018 SUBJECTIVE: I saw him on the stretcher, getting down, ready to go for a 2-D echo. He is currently in AFib. He has a history of lung cancer with bone metastasis. He has low back pain. He came in with a footdrop. He tells me his foot is a little bit better today. He is on acetylcysteine, Ambien, Brovana, Cardizem drip IV, Cepacol, Doryx, insulin, Januvia, Lovenox,, Protonix, Pulmicort, IV fluids, Solu-Medrol 40 mg IV every 8 hours, Toradol and Xanax. PHYSICAL EXAMINATION: VITAL SIGNS: He has 98 temp, 69 pulse, 115/80 blood pressure, 20 respiratory rate, 97% O2 sat on room air. HEAD: Atraumatic, normocephalic. GENERAL: He is more alert. Cheeks are red. Throat is moist. HEART: Irregular rate. No tachy. LUNGS: Decreased breath sounds bilaterally. Poor inspiration, he has had severe lung cancer. ABDOMEN: Soft, obese, nontender. EXTREMITIES: No edema. Can move his feet better today. LABORATORY DATA: White count 9.6, 12.2 hemoglobin, 36.5 hematocrit with 45 platelets, INR is 1.05. He has 136 sodium, potassium 3.9, BUN 27, creatinine 0.6, GFR is greater than 60, sugar is 266, on steroids. Calcium 8.6, total bili is 0.5, AST is 35, ALT is 109, alk phos 120, total protein is 5.6. Negative flu. 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 Also, he has an orthopedic consult for the footdrop and the low back pain. I felt maybe there was some metastasis. He has mild disk degeneration in L3-L4 and L4-S1. Oncology states pancytopenia, hepatitis C, portal hypertension, he had radiation causing bone marrow suppression, history of deep venous thrombosis. He is on deep venous thrombosis prophylaxis, used to be on Eliquis. Stage IV lung cancer metastasis. We will continue with aggressive treatment and care. Poor prognosis overall. I will decrease his Solu-Medrol to 30. He is on Lovenox. Viktor Lundy DO [facility] # [id number] JERAMIE
[2018-07-27] MEDS: diltiaZEM 180 mg/24 Hours CD Cap PO SCH (14:37)
--- NOTE | 2018-07-27 15:40 | CARD ---
APPROVED REPORT Date of service: 07/27/2018 EXAM: Two-dimensional and M-mode echocardiogram with Doppler and color Doppler. INDICATION Dyspnea 2D DIMENSIONS Left Atrium (2D)3.9 (1.6-4.0cm)IVSd1.6 (0.7-1.1cm) LVDd4.0 (3.9-5.9cm)PWd1.4 (0.7-1.1cm) LVDs2.9 (2.5-4.0cm)FS (%) 26.7 % LVEF (%)52.7 (>50%) M-Mode DIMENSIONS Aortic Root2.20 (2.2-3.7cm)Aortic Cusp Exc.1.40 (1.5-2.0cm) Aortic Valve AoV Peak Ejkufzfg990.0cm/Kerry Peak GR.5mmHg Mitral Valve MV E Bwuynfkt69.8cm/sMV A Lodpsmff18.4cm/sE/A ratio1.2 TDI E/Lateral E'0.0E/Medial E'0.0 Tricuspid Valve TR Peak [id number]/sRAP [id number] Peak Gr.15mmHg [id number] LEFT VENTRICLE The left ventricle is normal size. There is normal left ventricular wall thickness. The left ventricular function is normal. The left ventricular ejection fraction is within the normal range. There is normal LV segmental wall motion. The left ventricular diastolic function is normal. RIGHT VENTRICLE The right ventricle is normal size. There is normal right ventricular wall thickness. The right ventricular systolic function is normal. ATRIA The left atrium size is normal. The right atrium size is normal. AORTIC VALVE The aortic valve is not well visualized. There is trace aortic regurgitation. There is no aortic valvular stenosis. MITRAL VALVE The mitral valve is not well visualized. There is no mitral valve regurgitation noted. There is no mitral valve stenosis. TRICUSPID VALVE There is no tricuspid valve regurgitation noted. PULMONIC VALVE There is no pulmonic valvular regurgitation. GREAT VESSELS The aortic root is normal in size. The IVC is normal in size and collapses >50% with inspiration. PERICARDIAL EFFUSION There is a small pericardial effusion. <Conclusion> The left ventricle is normal size. There is normal left ventricular wall thickness. The left ventricular function is normal. The left ventricular ejection fraction is within the normal range. There is normal LV segmental wall motion. The left ventricular diastolic function is normal.
--- NOTE | 2018-07-27 16:54 | PN ---
DATE: 07/27/2018 PULMONARY PROGRESS NOTE REFERRING PHYSICIAN: Viktor Lundy DO. SUBJECTIVE: The patient is lying in bed, head of bed elevated. Reports feeling better today. No shortness of breath at this time. No coughing reported. No headache, rhinitis, chest pain, abdominal pain, nausea, vomiting, diarrhea, leg pain or leg swelling reported. OBJECTIVE: VITAL SIGNS: Blood pressure 115/80, pulse 69, temperature 98, oxygen saturation 97%. GENERAL: No acute distress. HEENT: Moist mucous membranes. Mallampati score of 4. Crowded airway. NECK: Supple. No JVD. RESPIRATORY: Rhonchi bilaterally. CARDIOPULMONARY: S1 and S2. ABDOMEN: Soft, nontender, no distension, no organomegaly. EXTREMITIES: No bilateral lower extremity edema. NEUROLOGIC: Awake, alert, verbal, follows commands. MEDICATIONS: Reviewed. Mucomyst 4 mL inhalation twice a day, Xanax 0.5 mg three times a day, Brovana 15 mcg every 12 hours, Cepacol lozenges every 2 hours as needed, Pulmicort 0.5 mg inhalation every 12 hours, Cardizem 100 mg every 20 hours, doxycycline 100 mg every 12 hours, Lovenox 40 mg daily, Humulin R sliding scale a.c. and at bedtime, Toradol 30 mg IV push every 6 hours p.r.n., Solu-Medrol 30 mg every 8 hours, Protonix 40 mg at bedtime, Phenergan DM 5 ml every 6 hours p.r.n, Januvia 100 mg daily, sodium chloride 0.9% in 1000 mL at 100 mL per hour, Ambien 10 mg at bedtime. LABORATORY DATA: Reviewed, WBC 9.6, RBC 3.7, hemoglobin 12.2, platelets 45. Sodium 136, potassium 3.9, Coreg 108, carbon dioxide 23, anion gap 8, BUN 27, creatinine 0.6. GFR greater than 60. POC glucose 266, random glucose 257, calcium 8.6, total bilirubin 0.5, AST 35, ALT 109, alkaline phosphatase 120, total protein 5.6, albumin 2.9, globulin 2.7, albumin globulin ratio 1.1. Procalcitonin 0.05. Influenza type A and B negative. RFB negative. Blood cultures preliminary no growth after 24 hours. Lumbar spine x-rays shows mild disk degeneration at L3-4 and L5-S1. Echocardiogram report pending. IMPRESSION AND PLAN: Stage 4 lung cancer with brain metastasis, chronic obstructive pulmonary disease exacerbation, history of cerebrovascular accident, type 2 diabetes mellitus, thrombocytopenia, history of drug use, anxiety, depression, suspected sleep apnea syndrome. Procalcitonin negative, suggesting patient does not have bacterial pneumonia. Continue antibiotic therapy, continue inhaled bronchodilator, gastric prophylaxis, deep venous thrombosis prophylaxis. Agree with decreasing steroids at this time. This patient was seen and examined with Dr. Kramer. Discussed assessment and plan as described above. This patient was seen and examined by Linette Gutierrez, nurse practitioner. Discussed assessment and plan as described above. Thank you for this consult, we will follow with you. Matt Sue APN Sandro Kramer MD JERAMIE
--- NOTE | 2018-07-27 18:46 | CON ---
DATE: 07/27/2018 HISTORY OF PRESENT ILLNESS: The patient was admitted to our hospital on 05/24/2019 for multiple medical issues, requiring pulmonary, cardiac, and Neurology evaluations and he was asked to be seen for weakness of his left foot, what appears to be early footdrop, but he does have ability to do active motion with extremity weak dorsi flexes of his foot probably 4/5 and he is not interested on wearing a brace at this time, which would drop foot but he is eligible for physical therapy to increase strength of his lower extremity as he does have hemiparesis of the left upper extremity and lower extremity. All I can offer him right now is physical therapy to strengthen the muscles as much as possible from his neurologic problems. Eventually, he may want to wear a drop foot brace, . FINAL DIAGNOSES: Left hemiparesis with drop lt foot and upper extremity weakness also. Patric Grove DO [facility]
[2018-07-27] MEDS: Arformoterol 15 mcg/2 ml Inh Sol IH SCH (20:28)
[2018-07-27] MEDS: Pantoprazole 40 mg EC Tab PO SCH (22:58)
[2018-07-28] MEDS: Budesonide 0.5 mg/2 ml Inhal Susp UD IH SCH ×2 (07:09→21:30)
[2018-07-28] MEDS: Arformoterol 15 mcg/2 ml Inh Sol IH SCH ×2 (07:09→21:30)
[2018-07-28] MEDS: Acetylcysteine 20% Inhal Soln (4ml) IH SCH ×2 (07:10→21:30)
[2018-07-28] MEDS: Insulin Reg-MEDIUM-Coverage SC SCH ×2 (07:51→11:38)
[2018-07-28] MEDS ORDERED: Insulin Regular 1 UNITS/0.01 ML ML SC ONE (08:17)
[2018-07-28] MEDS: Sodium Chloride 0.9% 1,000 ML IV SCH ×3 (08:37→18:43)
[2018-07-28 08:39] LABS: HEMOGLOBIN 11.4 g/dL (14.0-18.0); MEAN CELL VOLUME 99.7 fl (80.0-105.0); MEAN CORPUSCULAR HEMOGLOBIN 32.7 pg (25.0-35.0); MEAN CORPUSCULAR HGB CONC 32.8 g/dl (31.0-37.0); MEAN PLATELET VOLUME 10.5 fl (7.0-11.0); RBC 3.49 10^6/uL (3.5-6.1); RED CELL DISTRIBUTION WIDTH 13.9 % (11.5-14.5)
[2018-07-28 08:58] LABS: ALBUMIN 2.6 g/dL (3.0-4.8); ALT/SGPT 95 U/L (7-56); AST/SGOT 38 U/L (17-59); CALCIUM 8.4 mg/dL (8.4-10.5); GFR NON-AFRICAN AMERICAN > 60
[2018-07-28 08:59] LABS: BLOOD UREA NITROGEN 26 mg/dL (7-21)
[2018-07-28] MEDS: Enoxaparin 40 mg Syringe SC SCH (09:22)
[2018-07-28] MEDS: MethylPREDNISolone 40 mg Vial IVP SCH ×4 (09:22→23:10)
[2018-07-28] MEDS: diltiaZEM 180 mg/24 Hours CD Cap PO SCH (09:23)
--- NOTE | 2018-07-28 14:48 | PN ---
DATE: 07/28/2018 SUBJECTIVE: The patient reverted back in atrial fibrillation today with a heart rate of 128 despite being on p.o. Cardizem. PHYSICAL EXAMINATION: VITAL SIGNS: Blood pressure is 120/60 with a heart rate 120. NECK: Negative JVD. LUNGS: Without rales. HEART: S1, S2. EXTREMITIES: Without edema. LABORATORY DATA: BUN and creatinine 26 and 0.7, glucose 348, hemoglobin is 11.1 with a platelet count of 52. The echocardiogram reveals good LV function. IMPRESSION: 1. Lung carcinoma with metastases to the brain. The patient is started on radiation and chemotherapy at [facility]. 2. Chronic obstructive pulmonary disease. 3. Atrial fibrillation. 4. Good left ventricular function. 5. Anemia. PLAN: Given these findings, we will add beta-blockers to his regimen, Lopressor 25 b.i.d. We will not fully anticoagulate the patient at this time given his metastases and recent treatment to the brain. Godfrey Fisher MD
--- NOTE | 2018-07-28 17:18 | PN ---
DATE: 07/28/2018 SUBJECTIVE: I saw him in bed. He is resting comfortably. His blood sugars have been elevated, greater than 400, greater than 500. I have been increasing his insulin. He is on before meals and at bedtime coverage. He is also on Januvia. I added glyburide and I decreased his Solu-Medrol which I am hoping will help also. He is comfortable, breathing better. No chest pain or shortness of breath. He can move his ankles and legs better. Overall improving. PHYSICAL EXAMINATION: VITAL SIGNS: He has 98.2 temperature, 81 pulse, 100/66 blood pressure, 20 respiratory rate, 98% O2 sat. HEAD: Atraumatic, normocephalic. HEART: Regular rate. LUNGS: Decreased breath sounds, but clear. No wheezing or rhonchi now. ABDOMEN: Soft, obese. EXTREMITIES: No edema. Can move his ankles well. No more footdrop that he had earlier. LABORATORY DATA: He has 139 sodium, potassium 4. Blood sugars were 421, 348, and 500, on steroids. BUN is 26, creatinine 0.7, calcium is 8.4. Total bilirubin is 0.3, AST is 38, ALT 95, alkaline phosphatase 157, total protein is 5.1. White count 11.4, hemoglobin 34.8, hematocrit 52, platelets is getting better. ASSESSMENT AND PLAN: He is being seen by Pulmonary, Orthopedics, and Oncology. I put him on glyburide three times a day, adding to Januvia, decrease in the Solu-Medrol. Hopefully, that will make a difference in his blood sugars and I gave him extra insulin today. Discussed with the nurse his multiple issues. He was very short of breath, atrial fibrillation, history of lung cancer, brain metastasis. He is on p.o. Cardizem now. IV fluids. I am going to decrease his IV Solu-Medrol. Viktor Lundy DO
[2018-07-28] MEDS: Insulin Lispro 1 UNITS/0.01 ML SC SCH (17:28)
[2018-07-28] MEDS: Insulin Lispro (humaLOG) LOW Coverage SC SCH ×2 (17:29→22:54)
[2018-07-28] MEDS: Insulin Regular 1 UNITS/0.01 ML ML SC SCH ×2 (17:30→23:10)
[2018-07-28] MEDS: Promethazine DM 6.25 mg-15 mg/5 ml Syrup PO PRN (18:42)
--- NOTE | 2018-07-28 19:24 | PN ---
DATE: 07/28/2018 SUBJECTIVE: He is lying in the bed. Nursing staff at bedside. Night was unremarkable. Still has some cough and shortness breath. No chest pain, nausea, vomiting, or diarrhea. No significant leg swelling. OBJECTIVE: GENERAL: In no acute distress. VITAL SIGNS: Temperature is 98, heart rate 82, respiratory rate is 20, blood pressure 109/77, pulse of 95% on nasal cannula. HEENT: Moist mucous membrane. Crowded airway. Mallampati score is 4. NECK: Supple. No JVD. LUNGS: Scattered rhonchi and few wheezing. HEART: S1 and S2. ABDOMEN: Soft, nontender, no organomegaly. EXTREMITIES: Not much edema. NEUROLOGIC: Awake and follows simple command. MEDICATIONS: He is on Mucomyst inhaled twice a day, Ambien 10 mg at bedtime, Brovana inhaled twice a day, diltiazem 180 mg daily, Cepacol lozenges every 2 hours p.r.n., doxycycline 100 mg twice a day, insulin coverage, Januvia 100 mg daily, Levemir 30 units subcu at bedtime, metoprolol tartrate is 25 mg twice a day, Lovenox 40 mg daily, Glyburide 2.5 mg three times a day, Phenergan DM every 6 hours p.r.n., Protonix 40 mg daily, Pulmicort inhaled twice a day, Solu-Medrol 20 mg every 8 hours, Toradol 30 mg every 6 hours p.r.n., Xanax 0.5 mg three times a day. LABORATORY DATA: Shows hemoglobin 11.4, hematocrit 34.8, WBC 8, platelet count is 52. Sodium 139, potassium 4, chloride 110, bicarbonate 23, BUN 26, creatinine 0.7, glucose of 378, calcium is 8.4, total bili 0.3. AST 38, ALT 95, alk phos is 157, total protein 5.1. Albumin 2.6, globulin 2.6. Microbiology, blood culture, there is no growth. IMPRESSION AND PLAN: Metastatic lung cancer, metastasis to the brain, chronic obstructive lung disease with exacerbation, history of cerebrovascular accident, diabetes, thrombocytopenia, history of drug abuse in the past, anxiety disorder/depression, suspected sleep apnea syndrome. Pulmonary point of view, doing okay. We will continue bronchodilator. Keep head at 45 degrees. Gastric prophylaxis, deep venous thrombosis prophylaxis. We will continue decreased steroids. Thank you and we will follow with you. Sandro Kramer MD
--- NOTE | 2018-07-28 19:30 | CP.PCM.PN ---
Subjective - Date & Time of Evaluation Date of Evaluation: 07/27/18 Time of Evaluation: 19:00 - Subjective Subjective: Has some shortness of breath. Objective - Vital Signs/Intake and Output Vital Signs (last 24 hours): Temp Pulse Resp BP Pulse Ox 97.3 F L 72 20 100/74 95 07/28/18 18:00 07/28/18 18:00 07/28/18 18:00 07/28/18 18:00 07/28/18 12:00 Intake and Output: 07/28/18 07/29/18 18:59 06:59 Intake Total 1700 Output Total 100 Balance 1600 - Medications Medications: Current Medications Acetylcysteine (Acetylcysteine 20%) 4 ml IH BIDRESP [facility] Last Admin: 07/28/18 07:10 Dose: 4 ml Alprazolam (Xanax) 0.5 mg PO TID [facility]; Protocol Last Admin: 07/28/18 18:27 Dose: Not Given Arformoterol Tartrate (Brovana) 15 mcg IH [id number] [facility] Last Admin: 07/28/18 07:09 Dose: 15 mcg Benzocaine/Menthol (Cepacol Sore Throat) 1 marlene MT Q2H PRN PRN Reason: Sore Throat Budesonide (Pulmicort Respules) 0.5 mg IH [id number] [facility] Last Admin: 07/28/18 07:09 Dose: 0.5 mg Diltiazem HCl (Cardizem Cd) 180 mg PO DAILY [facility] Last Admin: 07/28/18 09:23 Dose: 180 mg Doxycycline Hyclate (Doryx) 100 mg PO Q12 [facility]; Protocol Last Admin: 07/28/18 09:34 Dose: 100 mg Enoxaparin Sodium (Lovenox) 40 mg SC DAILY [facility]; Protocol Last Admin: 07/28/18 09:22 Dose: 40 mg Glyburide (Micronase) 2.5 mg PO 0800,1200,1700 [facility] Last Admin: 07/28/18 17:29 Dose: 2.5 mg Sodium Chloride (Sodium Chloride 0.9%) 1,000 mls @ 100 mls/hr IV .Q10H [facility] Last Admin: 07/28/18 18:43 Dose: 100 mls/hr Insulin Detemir (Levemir) 30 unit SC [facility] Insulin Human Lispro (Humalog Low) 0 units SC ACHS [facility]; Protocol Last Admin: 07/28/18 17:29 Dose: 2 units Insulin Human Lispro (Humalog) 14 units SC AC [facility] Last Admin: 07/28/18 17:28 Dose: 14 units Insulin Human Regular (Humulin R) 5 units SC Q8 [facility] Last Admin: 07/28/18 17:30 Dose: Not Given Ketorolac Tromethamine (Toradol) 30 mg IVP Q6H PRN PRN Reason: Pain, moderate (4-7) Methylprednisolone (Solu-Medrol) 20 mg IVP Q8H [facility] Last Admin: 07/28/18 11:43 Dose: Not Given Metoprolol Tartrate (Lopressor) 25 mg PO BID [facility] Last Admin: 07/28/18 17:29 Dose: 25 mg Pantoprazole Sodium (Protonix Ec Tab) 40 mg PO HS [facility] Last Admin: 07/27/18 22:58 Dose: 40 mg Promethazine HCl/Dextromethorphan (Phenergan Dm Syrup) 5 ml PO Q6H PRN PRN Reason: Cough Last Admin: 07/28/18 18:42 Dose: 5 ml Sitagliptin Phosphate (Januvia) 100 mg PO DAILY [facility] Last Admin: 07/28/18 09:28 Dose: 100 mg Zolpidem Tartrate (Ambien) 10 mg PO HS [facility]; Protocol Last Admin: 07/27/18 22:58 Dose: 10 mg - Labs Labs: 07/28/18 08:26 07/28/18 08:26 PT 11.6 SECONDS (9.4-12.5) 07/25/18 20:20 INR 1.05 07/25/18 20:20 APTT 28.1 Seconds (26.9-38.3) 07/25/18 20:20 - Head Exam Head Exam: ATRAUMATIC - Eye Exam Eye Exam: Normal appearance - ENT Exam ENT Exam: Mucous Membranes Dry - Respiratory Exam Respiratory Exam: Decreased Breath Sounds - Cardiovascular Exam Cardiovascular Exam: +S1, +S2 - GI/Abdominal Exam GI & Abdominal Exam: Normal Bowel Sounds Assessment and Plan (1) Pancytopenia Assessment & Plan: hepatitis C likely thrombopoietin dysregulation from liver disease splenic sequestration from portal HTN recent radiation causing bone marrow suppression no current growth factor/transfusion requirement Status: Acute (2) History of DVT (deep vein thrombosis) Assessment & Plan: was on prior Eliquis recent falls and brain metastasis places the patient at a high risk for h emorrhagic complications with therapeutic anticoagulation on DVT prophylaxis Status: Acute (3) Small cell lung cancer Assessment & Plan: stage IV s/p re irradiation for progressive brain metastasis outpatient immunotherapy Status: Acute
--- NOTE | 2018-07-28 19:32 | CP.PCM.PN ---
Subjective - Date & Time of Evaluation Date of Evaluation: 07/28/18 Time of Evaluation: 18:00 - Subjective Subjective: Feeling better, breathing better. Objective - Vital Signs/Intake and Output Vital Signs (last 24 hours): Temp Pulse Resp BP Pulse Ox 97.3 F L 72 20 100/74 95 07/28/18 18:00 07/28/18 18:00 07/28/18 18:00 07/28/18 18:00 07/28/18 12:00 Intake and Output: 07/28/18 07/29/18 18:59 06:59 Intake Total 1700 Output Total 100 Balance 1600 - Medications Medications: Current Medications Acetylcysteine (Acetylcysteine 20%) 4 ml IH BIDRESP [facility] Last Admin: 07/28/18 07:10 Dose: 4 ml Alprazolam (Xanax) 0.5 mg PO TID [facility]; Protocol Last Admin: 07/28/18 18:27 Dose: Not Given Arformoterol Tartrate (Brovana) 15 mcg IH [id number] [facility] Last Admin: 07/28/18 07:09 Dose: 15 mcg Benzocaine/Menthol (Cepacol Sore Throat) 1 marlene MT Q2H PRN PRN Reason: Sore Throat Budesonide (Pulmicort Respules) 0.5 mg IH [id number] [facility] Last Admin: 07/28/18 07:09 Dose: 0.5 mg Diltiazem HCl (Cardizem Cd) 180 mg PO DAILY [facility] Last Admin: 07/28/18 09:23 Dose: 180 mg Doxycycline Hyclate (Doryx) 100 mg PO Q12 [facility]; Protocol Last Admin: 07/28/18 09:34 Dose: 100 mg Enoxaparin Sodium (Lovenox) 40 mg SC DAILY [facility]; Protocol Last Admin: 07/28/18 09:22 Dose: 40 mg Glyburide (Micronase) 2.5 mg PO 0800,1200,1700 [facility] Last Admin: 07/28/18 17:29 Dose: 2.5 mg Sodium Chloride (Sodium Chloride 0.9%) 1,000 mls @ 100 mls/hr IV .Q10H [facility] Last Admin: 07/28/18 18:43 Dose: 100 mls/hr Insulin Detemir (Levemir) 30 unit SC [facility] Insulin Human Lispro (Humalog Low) 0 units SC [facility]; Protocol Last Admin: 07/28/18 17:29 Dose: 2 units Insulin Human Lispro (Humalog) 14 units SC AC [facility] Last Admin: 07/28/18 17:28 Dose: 14 units Insulin Human Regular (Humulin R) 5 units SC Q8 [facility] Last Admin: 07/28/18 17:30 Dose: Not Given Ketorolac Tromethamine (Toradol) 30 mg IVP Q6H PRN PRN Reason: Pain, moderate (4-7) Methylprednisolone (Solu-Medrol) 20 mg IVP Q8H [facility] Last Admin: 07/28/18 11:43 Dose: Not Given Metoprolol Tartrate (Lopressor) 25 mg PO BID [facility] Last Admin: 07/28/18 17:29 Dose: 25 mg Pantoprazole Sodium (Protonix Ec Tab) 40 mg PO HS [facility] Last Admin: 07/27/18 22:58 Dose: 40 mg Promethazine HCl/Dextromethorphan (Phenergan Dm Syrup) 5 ml PO Q6H PRN PRN Reason: Cough Last Admin: 07/28/18 18:42 Dose: 5 ml Sitagliptin Phosphate (Januvia) 100 mg PO DAILY [facility] Last Admin: 07/28/18 09:28 Dose: 100 mg Zolpidem Tartrate (Ambien) 10 mg PO HS [facility]; Protocol Last Admin: 07/27/18 22:58 Dose: 10 mg - Labs Labs: 07/28/18 08:26 07/28/18 08:26 PT 11.6 SECONDS (9.4-12.5) 07/25/18 20:20 INR 1.05 07/25/18 20:20 APTT 28.1 Seconds (26.9-38.3) 07/25/18 20:20 - Head Exam Head Exam: ATRAUMATIC - Eye Exam Eye Exam: Normal appearance - ENT Exam ENT Exam: Mucous Membranes Dry - Respiratory Exam Respiratory Exam: Decreased Breath Sounds - Cardiovascular Exam Cardiovascular Exam: +S1, +S2 - GI/Abdominal Exam GI & Abdominal Exam: Normal Bowel Sounds Assessment and Plan (1) Pancytopenia Assessment & Plan: hepatitis C likely thrombopoietin dysregulation from liver disease splenic sequestration from portal HTN recent radiation causing bone marrow suppression no current growth factor/transfusion requirement Status: Acute (2) History of DVT (deep vein thrombosis) Assessment & Plan: was on prior Eliquis recent falls and brain metastasis places the patient at a high risk for hemorrhagic complications with therapeutic anticoagulation agree with DVT prophylaxis Status: Acute (3) Small cell lung cancer Assessment & Plan: stage IV s/p re irradiation for progressive brain metastasis ? metastasis contributing to lower extremity weakness; for orthopedic evaluation outpatient immunotherapy Status: Acute
[2018-07-28] MEDS ORDERED: Insulin Detemir 100 units/ml Vial (Levemir) SC SCH (22:00)
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
[2018-07-28] MEDS: Pantoprazole 40 mg EC Tab PO SCH (23:11)
[2018-07-29] MEDS: Sodium Chloride 0.9% 1,000 ML IV SCH ×3 (03:00→11:47)
[2018-07-29] MEDS: Insulin Regular 1 UNITS/0.01 ML ML SC SCH (06:08)
[2018-07-29] MEDS: MethylPREDNISolone 40 mg Vial IVP SCH ×3 (06:08→18:40)
[2018-07-29] MEDS: Arformoterol 15 mcg/2 ml Inh Sol IH SCH ×2 (07:33→20:18)
[2018-07-29] MEDS: Budesonide 0.5 mg/2 ml Inhal Susp UD IH SCH ×2 (07:33→20:18)
[2018-07-29 07:34] LABS: HEMOGLOBIN 11.6 g/dL (14.0-18.0); MEAN CORPUSCULAR HEMOGLOBIN 32.6 pg (25.0-35.0); MEAN CORPUSCULAR HGB CONC 32.6 g/dl (31.0-37.0); MEAN PLATELET VOLUME 9.6 fl (7.0-11.0); RBC 3.56 10^6/uL (3.5-6.1); RED CELL DISTRIBUTION WIDTH 13.8 % (11.5-14.5); WHITE BLOOD COUNT 9.1 10^3/uL (4.5-11.0)
[2018-07-29] MEDS: Acetylcysteine 20% Inhal Soln (4ml) IH SCH ×2 (07:34→20:18)
[2018-07-29 07:48] LABS: ALBUMIN 2.7 g/dL (3.0-4.8); ALT/SGPT 94 U/L (7-56); AST/SGOT 47 U/L (17-59); BLOOD UREA NITROGEN 26 mg/dL (7-21); CALCIUM 8.7 mg/dL (8.4-10.5); GFR NON-AFRICAN AMERICAN > 60; HDL CHOLESTEROL 38 mg/dL (29-60)
[2018-07-29 07:54] LABS: LDL CHOLESTEROL 102 mg/dL (0-129)
[2018-07-29] MEDS: Insulin Lispro 1 UNITS/0.01 ML SC SCH ×4 (08:51→16:52)
[2018-07-29] MEDS: Insulin Lispro (humaLOG) LOW Coverage SC SCH ×5 (08:51→21:52)
[2018-07-29] MEDS: Enoxaparin 40 mg Syringe SC SCH (09:00)
[2018-07-29] MEDS: diltiaZEM 180 mg/24 Hours CD Cap PO SCH (09:00)
--- NOTE | 2018-07-29 10:43 | PN ---
DATE: 07/29/2018 SUBJECTIVE: I saw him resting comfortably in bed. He slept very well last night. He is breathing better. He is moving his legs better. His feet issues when he came in are better. His blood sugars have also improved. He is being seen by Hematology/Oncology, Pulmonary Endocrinology, and Cardiology. PHYSICAL EXAMINATION: VITAL SIGNS: He has a 97.9 temperature, 62 pulse, 139/78 blood pressure, 19 respiratory rate, 97% O2 sat on nasal cannula. HEENT: Head is atraumatic, normocephalic, very swollen. HEART: Regular rate. LUNGS: Decreased breath sounds bilaterally. Does have lung cancer with metastasis to the brain. ABDOMEN: Soft, obese, nontender. EXTREMITIES: No edema. LABORATORY DATA: He has a white count is 9.1, hemoglobin 11.6, hematocrit 35.6, platelets of 61, they are getting better. 141 sodium, potassium 3.5, I gave him a K rider. BUN is 26, creatinine 0.6, GFR is greater than 60, sugar is 57, calcium is 8.7, magnesium 1.9, total bili is 0.6. AST is 47, ALT is 94, alk phos 102, total protein is 5.4. TSH was low at 0.18, I will repeat that tomorrow. ASSESSMENT AND PLAN: I will discuss that with Endocrinology. He is not on any Synthroid or levothyroxine at this time. I will repeat the labs tomorrow. If he does well and we are down to just 20 mg of IV Solu-Medrol every 8 hours, I could possibly change him to prednisone tomorrow, my goal is if he does well over the next 24 hours of discharge. The patient came in acutely short of breath with a footdrop which resolved. He had lung cancer with brain mets and atrial fibrillation. Viktor Lundy DO
--- NOTE | 2018-07-29 12:57 | PN ---
DATE: 07/29/2018 SUBJECTIVE: This is a 52-year-old male with acute exacerbation of COPD and supervening pneumonitis, now being followed closely for metabolic management. He is currently still on IV steroid therapy with Solu-Medrol given as 20 mg IV every 8 hours as given. His glucose levels were low normal overnight and glucose values have ranged from 65-172 and 378 at bedtime last night. His TSH is 0.18 which is slightly suppressed indicative of the intercurrent IV steroid therapy as given, which can cause transient TSH suppression thereof. His chemistry showed a BUN of 26, sodium 141, potassium 3.5, chloride 112, CO2 of 27, glucose 57 and creatinine 0.6. So at this time, we will modify once again his basal and bolus insulin regimen and lower the Humalog to 6 units three times a day before meals to start today as ordered. We will also lower the basal insulin with Levemir given as 16 units subcu at bedtime daily to start tonight as ordered. We will obtain serial chemistries and supplement accordingly as needed. We will also continue the oral hypoglycemic therapy with Januvia given as 100 mg daily and Micronase given as 2.5 mg three times a day as ordered. We will obtain serial chemistries and supplement accordingly needed. We will followup. Jes Li MD
--- NOTE | 2018-07-29 14:51 | CP.PCM.PN ---
Subjective - Date & Time of Evaluation Date of Evaluation: 07/29/18 Time of Evaluation: 14:51 - Subjective Subjective: PGY-3 [facility] Doc resident for Dr Lundy CC: Code triana Mr Rayray, 52M with lung ca with brain mets, Hx DVT, colon resection, substance abuse, getting radiation treatment. admitted on 07/25 for dyspnea started solumedrol. Found to have Afib RVR on cardizem NO anticoagulation, prior eliquis but per Dr Valentine, stopped eliquis due to high risk of hemorrhagic complication. Pt wanted to leave the hospital today Confused Gait unstable Code triana - high fall risk. window bed - ativan and geodon x 1 Objective - Vital Signs/Intake and Output Vital Signs (last 24 hours): Temp Pulse Resp BP Pulse Ox 98 F 66 20 104/71 97 07/29/18 12:00 07/29/18 12:00 07/29/18 12:00 07/29/18 12:00 07/29/18 06:00 Intake and Output: 07/29/18 07/29/18 06:59 18:59 Intake Total 120 2200 Output Total 300 Balance -180 2200 - Medications Medications: Current Medications Acetylcysteine (Acetylcysteine 20%) 4 ml IH BIDRESP [facility] Last Admin: 07/29/18 07:34 Dose: 4 ml Alprazolam (Xanax) 0.5 mg PO TID [facility]; Protocol Last Admin: 07/29/18 13:24 Dose: Not Given Arformoterol Tartrate (Brovana) 15 mcg IH [id number] [facility] Last Admin: 07/29/18 07:33 Dose: 15 mcg Benzocaine/Menthol (Cepacol Sore Throat) 1 marlene MT Q2H PRN PRN Reason: Sore Throat Budesonide (Pulmicort Respules) 0.5 mg IH [id number] [facility] Last Admin: 07/29/18 07:33 Dose: 0.5 mg Diltiazem HCl (Cardizem Cd) 180 mg PO DAILY [facility] Last Admin: 07/29/18 09:00 Dose: 180 mg Doxycycline Hyclate (Doryx) 100 mg PO Q12 [facility]; Protocol Last Admin: 07/29/18 09:01 Dose: 100 mg Enoxaparin Sodium (Lovenox) 40 mg SC DAILY [facility]; Protocol Last Admin: 07/29/18 09:00 Dose: 40 mg Glyburide (Micronase) 2.5 mg PO 0800,1200,1700 [facility] Last Admin: 07/29/18 12:43 Dose: 2.5 mg Sodium Chloride (Sodium Chloride 0.9%) 1,000 mls @ 40 mls/hr IV .Q24H [facility] Last Admin: 07/29/18 11:47 Dose: 40 mls/hr Insulin Detemir (Levemir) 16 unit SC [facility] Insulin Human Lispro (Humalog Low) 0 units SC [facility]; Protocol Last Admin: 07/29/18 12:34 Dose: Not Given Insulin Human Lispro (Humalog) 6 units SC [facility] Last Admin: 07/29/18 12:51 Dose: 6 units Ketorolac Tromethamine (Toradol) 30 mg IVP Q6H PRN PRN Reason: Pain, moderate (4-7) Methylprednisolone (Solu-Medrol) 20 mg IVP Q8H [facility] Last Admin: 07/29/18 11:35 Dose: 20 mg Metoprolol Tartrate (Lopressor) 25 mg PO BID [facility] Last Admin: 07/29/18 09:01 Dose: 25 mg Pantoprazole Sodium (Protonix Ec Tab) 40 mg PO [facility] Last Admin: 07/28/18 23:11 Dose: 40 mg Promethazine HCl/Dextromethorphan (Phenergan Dm Syrup) 5 ml PO Q6H PRN PRN Reason: Cough Last Admin: 07/28/18 18:42 Dose: 5 ml Sitagliptin Phosphate (Januvia) 100 mg PO DAILY [facility] Last Admin: 07/29/18 09:01 Dose: 100 mg Zolpidem Tartrate (Ambien) 10 mg PO [facility]; Protocol Last Admin: 07/28/18 23:14 Dose: 10 mg - Labs Labs: 07/29/18 06:50 07/29/18 06:50 PT 11.6 SECONDS (9.4-12.5) 07/25/18 20:20 INR 1.05 07/25/18 20:20 APTT 28.1 Seconds (26.9-38.3) 07/25/18 20:20
--- NOTE | 2018-07-29 18:12 | PN ---
DATE: 07/29/2018 SUBJECTIVE: He is lying in the bed, comfortable. Feels much better. Decreased cough, degree shortness breath. No chest pain. No nausea. No vomiting. No diarrhea. No leg pain, no leg swelling. OBJECTIVE: VITAL SIGNS: Temperature is 98, heart rate 66, respiratory rate is 20, blood pressure 104/71, pulse ox 97% on nasal cannula. HEENT: Moist mucous membrane. Crowded airway. Mallampati score is 4. NECK: Supple. No JVD. LUNGS: Have scattered rhonchi. HEART: S1, S2. ABDOMEN: Soft, nontender, no organomegaly. EXTREMITIES: There is no significant edema. NEUROLOGIC: Awake and alert and follows simple command. MEDICATIONS: He is on Mucomyst 4 mL inhaled twice a day, Ambien 10 mg at bedtime p.r.n., Brovana inhaled twice a day, Cardizem 180 mg daily, Cepacol lozenges every 4 hours p.r.n., doxycycline 100 mg twice a day, Januvia 100 mg daily, Levemir 60 units subcu at bedtime, metoprolol tartrate 25 mg twice a day, Lovenox 40 mg subcu daily, Glyburide 2.5 mg three times a day, Protonix 40 mg daily, Phenergan DM every 6 hours p.r.n., Pulmicort inhaled twice a day, IV fluid normal saline 40 mL/hour, Solu-Medrol 30 mg every 8 hours, Toradol 30 mg every 6 hours p.r.n., Xanax 0.5 mg three times a day p.r.n. basis. LABORATORY DATA: Shows hemoglobin 11.6, hematocrit 35.6, WBC 9.1, platelet count is 61. Sodium 141, potassium 3.5, chloride 112, bicarbonate 27, BUN 26, creatinine 0.6, glucose noontime 172. Hemoglobin A1c 8.7. Calcium 8.7, magnesium 1.9. AST 47, ALT 94, alk phos is 102. Albumin is 2.7. TSH 0.18. Microbiology, blood culture, there is no growth. IMPRESSION AND PLAN: Metastatic lung cancer, metastasis to the brain, chronic obstructive lung disease with exacerbation, history of cerebrovascular accident, diabetes, thrombocytopenia, history of for drug abuse in the past, anxiety disorder, depression, suspected sleep apnea syndrome. Pulmonary point of view, doing okay. Continue taper down Solu-Medrol, inhaled bronchodilator, gastric prophylaxis, deep venous thrombosis prophylaxis. Sleep apnea precaution. Careful with sedation. We will recommend outpatient sleep study and pulmonary function test. Thank you and we will follow with you. Sandro Kramer MD
[2018-07-29] MEDS: Insulin Detemir 100 units/ml Vial (Levemir) SC SCH (21:56)
[2018-07-29] MEDS: Pantoprazole 40 mg EC Tab PO SCH (21:58)
[2018-07-30] MEDS: MethylPREDNISolone 40 mg Vial IVP SCH ×3 (03:18→22:47)
--- NOTE | 2018-07-30 06:17 | CP.PCM.PN ---
Subjective - Date & Time of Evaluation Date of Evaluation: 07/30/18 Time of Evaluation: 06:12 - Subjective Subjective: TBD. Ativan order by resident physician.-1mg iv patient seen confused/agitated. Hx of lung cancer with brain mets. Objective - Vital Signs/Intake and Output Vital Signs (last 24 hours): Temp Pulse Resp BP Pulse Ox 98.2 F 64 19 117/61 98 07/30/18 00:01 07/30/18 00:01 07/30/18 00:01 07/30/18 00:01 07/30/18 00:01 Intake and Output: 07/29/18 07/30/18 18:59 06:59 Intake Total 3400 240 Output Total 950 600 Balance 2450 -360 - Medications Medications: Current Medications Acetylcysteine (Acetylcysteine 20%) 4 ml IH BIDRESP [facility] Last Admin: 07/29/18 20:18 Dose: 4 ml Alprazolam (Xanax) 0.5 mg PO TID [facility]; Protocol Last Admin: 07/29/18 18:27 Dose: 0.5 mg Arformoterol Tartrate (Brovana) 15 mcg IH [id number] [facility] Last Admin: 07/29/18 20:18 Dose: 15 mcg Benzocaine/Menthol (Cepacol Sore Throat) 1 marlene MT Q2H PRN PRN Reason: Sore Throat Budesonide (Pulmicort Respules) 0.5 mg IH [id number] [facility] Last Admin: 07/29/18 20:18 Dose: 0.5 mg Diltiazem HCl (Cardizem Cd) 180 mg PO DAILY [facility] Last Admin: 07/29/18 09:00 Dose: 180 mg Enoxaparin Sodium (Lovenox) 40 mg SC DAILY [facility]; Protocol Last Admin: 07/29/18 09:00 Dose: 40 mg Glyburide (Micronase) 2.5 mg PO 0800,1200,1700 [facility] Last Admin: 07/29/18 18:23 Dose: 2.5 mg Sodium Chloride (Sodium Chloride 0.9%) 1,000 mls @ 40 mls/hr IV .Q24H [facility] Last Admin: 07/29/18 11:47 Dose: 40 mls/hr Insulin Detemir (Levemir) 16 unit SC HS [facility] Last Admin: 07/29/18 21:56 Dose: 16 unit Insulin Human Lispro (Humalog Low) 0 units SC ACHS [facility]; Protocol Last Admin: 07/29/18 21:52 Dose: Not Given Insulin Human Lispro (Humalog) 6 units SC AC [facility] Last Admin: 07/29/18 16:52 Dose: 6 units Ketorolac Tromethamine (Toradol) 30 mg IVP Q6H PRN PRN Reason: Pain, moderate (4-7) Methylprednisolone (Solu-Medrol) 20 mg IVP Q8H [facility] Last Admin: 07/30/18 03:18 Dose: 20 mg Metoprolol Tartrate (Lopressor) 25 mg PO BID [facility] Last Admin: 07/29/18 18:23 Dose: 25 mg Pantoprazole Sodium (Protonix Ec Tab) 40 mg PO HS [facility] Last Admin: 07/29/18 21:58 Dose: 40 mg Promethazine HCl/Dextromethorphan (Phenergan Dm Syrup) 5 ml PO Q6H PRN PRN Reason: Cough Last Admin: 07/28/18 18:42 Dose: 5 ml Sitagliptin Phosphate (Januvia) 100 mg PO DAILY [facility] Last Admin: 07/29/18 09:01 Dose: 100 mg Zolpidem Tartrate (Ambien) 10 mg PO HS [facility]; Protocol Last Admin: 07/29/18 21:57 Dose: 10 mg - Labs Labs: 07/29/18 06:50 07/29/18 06:50 PT 11.6 SECONDS (9.4-12.5) 07/25/18 20:20 INR 1.05 07/25/18 20:20 APTT 28.1 Seconds (26.9-38.3) 07/25/18 20:20
[2018-07-30 06:43] LABS: HEMOGLOBIN 12.4 g/dL (14.0-18.0); MEAN CELL VOLUME 99.2 fl (80.0-105.0); MEAN CORPUSCULAR HEMOGLOBIN 32.8 pg (25.0-35.0); MEAN CORPUSCULAR HGB CONC 33.1 g/dl (31.0-37.0); MEAN PLATELET VOLUME 10.3 fl (7.0-11.0); RBC 3.78 10^6/uL (3.5-6.1); RED CELL DISTRIBUTION WIDTH 13.8 % (11.5-14.5); WHITE BLOOD COUNT 6.7 10^3/uL (4.5-11.0)
[2018-07-30 06:44] LABS: ALBUMIN 2.8 g/dL (3.0-4.8); ALT/SGPT 97 U/L (7-56); AST/SGOT 47 U/L (17-59); BLOOD UREA NITROGEN 22 mg/dL (7-21); CALCIUM 8.9 mg/dL (8.4-10.5); GFR NON-AFRICAN AMERICAN > 60
--- NOTE | 2018-07-30 07:27 | CP.PCM.PN ---
Subjective - Date & Time of Evaluation Date of Evaluation: 07/30/18 Time of Evaluation: 07:10 - Subjective Subjective: Endocrine Service Progress Note for Dr. Guillermo Valiente DO, IM PGY-3 Patient seen and examined at bedside. Yesterday afternoon and again overnight, patient became confused and agitated, requiring Ativan (last dose at 0419 today). Sleeping and unarousable on exam today, likely 2/2 recent ativan. Labs and vitals reviewed, blood glucose range over 24 hrs 57-172. Blood glucoses yesterday AM were low at 57 and 65, since improved with altered insulin regimen. Objective - Vital Signs/Intake and Output Vital Signs (last 24 hours): Temp Pulse Resp BP Pulse Ox 97.7 F 63 19 134/97 H 95 07/30/18 06:00 07/30/18 06:00 07/30/18 06:00 07/30/18 06:00 07/30/18 06:00 Intake and Output: 07/30/18 07/30/18 06:59 18:59 Intake Total 240 Output Total 600 Balance -360 - Medications Medications: Current Medications Acetylcysteine (Acetylcysteine 20%) 4 ml IH BIDRESP [facility] Last Admin: 07/29/18 20:18 Dose: 4 ml Alprazolam (Xanax) 0.5 mg PO TID [facility]; Protocol Last Admin: 07/29/18 18:27 Dose: 0.5 mg Arformoterol Tartrate (Brovana) 15 mcg IH [id number] [facility] Last Admin: 07/29/18 20:18 Dose: 15 mcg Benzocaine/Menthol (Cepacol Sore Throat) 1 marlene MT Q2H PRN PRN Reason: Sore Throat Budesonide (Pulmicort Respules) 0.5 mg IH [id number] [facility] Last Admin: 07/29/18 20:18 Dose: 0.5 mg Diltiazem HCl (Cardizem Cd) 180 mg PO DAILY [facility] Last Admin: 07/29/18 09:00 Dose: 180 mg Enoxaparin Sodium (Lovenox) 40 mg SC DAILY [facility]; Protocol Last Admin: 07/29/18 09:00 Dose: 40 mg Glyburide (Micronase) 2.5 mg PO 0800,1200,1700 [facility] Last Admin: 07/29/18 18:23 Dose: 2.5 mg Sodium Chloride (Sodium Chloride 0.9%) 1,000 mls @ 40 mls/hr IV .Q24H [facility] Last Admin: 07/29/18 11:47 Dose: 40 mls/hr Insulin Detemir (Levemir) 16 unit SC HS [facility] Last Admin: 07/29/18 21:56 Dose: 16 unit Insulin Human Lispro (Humalog Low) 0 units SC ACHS [facility]; Protocol Last Admin: 07/29/18 21:52 Dose: Not Given Insulin Human Lispro (Humalog) 6 units SC AC [facility] Last Admin: 07/29/18 16:52 Dose: 6 units Ketorolac Tromethamine (Toradol) 30 mg IVP Q6H PRN PRN Reason: Pain, moderate (4-7) Methylprednisolone (Solu-Medrol) 20 mg IVP Q8H [facility] Last Admin: 07/30/18 03:18 Dose: 20 mg Metoprolol Tartrate (Lopressor) 25 mg PO BID [facility] Last Admin: 07/29/18 18:23 Dose: 25 mg Pantoprazole Sodium (Protonix Ec Tab) 40 mg PO [facility] Last Admin: 07/29/18 21:58 Dose: 40 mg Promethazine HCl/Dextromethorphan (Phenergan Dm Syrup) 5 ml PO Q6H PRN PRN Reason: Cough Last Admin: 07/28/18 18:42 Dose: 5 ml Sitagliptin Phosphate (Januvia) 100 mg PO DAILY [facility] Last Admin: 07/29/18 09:01 Dose: 100 mg Zolpidem Tartrate (Ambien) 10 mg PO [facility]; Protocol Last Admin: 07/29/18 21:57 Dose: 10 mg - Labs Labs: 07/30/18 06:00 07/30/18 06:00 PT 11.6 SECONDS (9.4-12.5) 07/25/18 20:20 INR 1.05 07/25/18 20:20 APTT 28.1 Seconds (26.9-38.3) 07/25/18 20:20 - Constitutional Appears: Chronically Ill, Other (exam limited 2/2 unarousable pt, unable to follow commands) - Head Exam Head Exam: ATRAUMATIC, NORMOCEPHALIC - Eye Exam Eye Exam: absent: Conjunctival injection, Scleral icterus - ENT Exam ENT Exam: Mucous Membranes Moist - Neck Exam Neck Exam: absent: Thyromegaly - Respiratory Exam Respiratory Exam: Decreased Breath Sounds (moderately decreased breath sounds in all hadley), NORMAL BREATHING PATTERN. absent: Accessory Muscle Use, Rales, Rhonchi, Wheezes, Stridor Additional comments: audibly snoring - Cardiovascular Exam Cardiovascular Exam: Bradycardia, REGULAR RHYTHM, +S1, +S2. absent: Tachycardia, Irregular Rhythm, RRR, +S4 - GI/Abdominal Exam GI & Abdominal Exam: Soft, Normal Bowel Sounds. absent: Distended, Firm, Guarding, Rigid - Extremities Exam Extremities Exam: Normal Capillary Refill, Normal Inspection. 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 Endocrine was consulted for hyperglycemia. Plan: 1) Worsening SOB + productive cough: PNA vs COPD exacerbation 2) Stage IV lung Ca with progressive brain mets 3) Hep C with cirrhosis and persistent thrombocytopenia 4) DVT on AC: held AC due to high risk of intracranial bleed 5) COPD 6) DMII with hyperglycemia: likely 2/2 steroids 7) Prior CVA 8) Anxiety/Depression 9) Confusion/agitation: hospital-associated delirium vs worsening brain mets -Hypoglycemic yesterday AM to 57, insulin regimen adjusted as per PMD and Dr. Li, improved after -24hr blood glucose range 57-172, last was 119 this AM -Current regimen: Levemir 16u HS, Lispro 6u AC and Lispro Low-ISS ACHS If continues to become confused/agitated requiring ativan, likely will be NPO, may need to decrease insulin further, will follow up -TSH remains low but improving, from 0.18 to 0.27 -TSH suppression and elevated blood sugars likely 2/2 IV steroids for COPD, improving with steroids weaning (now down to 20mg IV q8), continue to monitor Will discuss with attending, Dr. Li. Further recommendations as per attending.
[2018-07-30] MEDS: Arformoterol 15 mcg/2 ml Inh Sol IH SCH (07:32)
[2018-07-30] MEDS: Budesonide 0.5 mg/2 ml Inhal Susp UD IH SCH (07:32)
[2018-07-30] MEDS: Acetylcysteine 20% Inhal Soln (4ml) IH SCH (07:32)
[2018-07-30] MEDS: Insulin Lispro (humaLOG) LOW Coverage SC SCH ×3 (08:38→18:07)
[2018-07-30] MEDS: Insulin Lispro 1 UNITS/0.01 ML SC SCH ×3 (08:44→18:12)
[2018-07-30] MEDS: Enoxaparin 40 mg Syringe SC SCH (09:17)
--- NOTE | 2018-07-30 11:22 | PN ---
DATE: 07/30/2018 SUBJECTIVE: I was hoping to discharge him home today, but I am watching him in bed, he feels very confused taking off his clothes. He is unaware where he is at right now. I am going to cancel the discharge right now. I was hoping he was better, I do not see the happy at this time. Again he is quite worried about him at the metastatic cancer to the brain allow him to function correctly. He might need to go home on hospice or call on see if she could help go to home on hospice. Viktor Lundy DO MTDD
[2018-07-30] MEDS: diltiaZEM 180 mg/24 Hours CD Cap PO SCH (11:51)
[2018-07-30] MEDS: Sodium Chloride 0.9% 1,000 ML IV SCH (11:52)
--- NOTE | 2018-07-30 11:52 | PN ---
DATE: 07/30/2018 PULMONARY PROGRESS NOTE REFERRING PHYSICIAN: Viktor Lundy DO SUBJECTIVE: The patient is sitting up in bed. No acute distress. Nursing staff reports that overnight the patient became agitated and was given Ativan. This morning the patient is calm, lying in bed, reports feeling well, still has cough and shortness of breath and states that it has improve. No headache, rhinitis, chest pain, abdominal pain, nausea, vomiting, diarrhea, leg pain or leg swelling reported. OBJECTIVE: GENERAL: No acute distress. VITAL SIGNS: Blood pressure 118/82, pulse 68, temperature 97.7 and oxygen saturation 95% on room air. HEENT: Moist mucous membranes. Crowded airway. Mallampati score of 4. NECK: Supple. No JVD. LUNGS: Scattered rhonchi. CARDIOVASCULAR: S1 and S2. ABDOMEN: Soft and nontender. No distension. No organomegaly. EXTREMITIES: No bilateral lower extremity edema. NEUROLOGIC: Awake, alert and verbal. Follows commands. MEDICATIONS: Reviewed. Mucomyst 4 mL inhalation twice a day, Xanax 0.5 mg 3 times a day, Brovana 15 mcg every 12 hours, Cepacol throat lozenges every 2 hours as p.r.n., Pulmicort 0.5 mg inhalation every 12 hours, Cardizem 180 mg daily, Lovenox 40 mg subcutaneously daily, glyburide 2.5 mg 3 times a day, Levemir 16 units subcutaneously at bedtime, humalog sliding scale, Humalog 6 units in the morning, Toradol 30 mg IV push every 6 hours p.r.n., Solu-Medrol 20 mg every 8 hours, metoprolol tartrate 25 mg twice a day, Protonix 40 mg at bedtime, Phenergan DM 5 mL every 6 hours p.r.n, Januvia 100 mg daily, sodium chloride 0.9% a 1000 mL at 40 mL per hour and Ambien 10 mg at bedtime. LABORATORY DATA: Reviewed. WBC 6.7, RBC 3.78, hemoglobin 12.4, hematocrit 37.5 and platelets 66. Sodium 140, potassium 3.6, chloride 109, carbon dioxide 27, anion gap 7, BUN 22, creatinine 0.6, GFR greater than 60, random glucose 119, calcium 8.9, total bilirubin 0.6, AST 46, ALT 97, alkaline phosphatase 112, total protein 5.6, albumin 2.8, globulin 2.8 and albumin globulin ratio 1.0. TSH 0.27. Blood cultures preliminary no growth after 4 days. IMPRESSION AND PLAN: Metastatic lung cancer with metastases brain, chronic obstructive lung disease exacerbation, history of cerebrovascular accident, diabetes, thrombocytopenia, history of drug abuse in the past, anxiety disorder, suspected sleep apnea syndrome and depression. Pulmonary point of view, we will decrease Solu-Medrol to 20 mg every 12 hours, continue gastric prophylaxis, deep venous thrombosis prophylaxis, continue inhaled bronchodilators, sleep apnea precaution. Recommend the patient gets out of bed to chair. Careful with sedation. We recommend this patient has sleep study and full pulmonary function test has outpatient. This patient was seen and examined with Dr. Kramer. Discussed assessment and plan as described above. This patient was seen and examined by Matt Sue, nurse practitioner. Discussed assessment and plan as described above. Thank you for this consult and we will follow with you. Matt Sue APN Sandro Kramer MD JERAMIE
--- NOTE | 2018-07-30 15:10 | PN ---
DATE: 07/30/2018 ENDO FOLLOWUP NOTE ROOM: 263 SUBJECTIVE: This is a 52-year-old male with recent uncontrolled type 2 insulin-requiring diabetes presenting here with acute exacerbation of COPD with supervening pneumonitis and is now being followed closely for metabolic management. He became quite agitated overnight and was given Ativan parenterally as noted. This morning, he was quite somnolent and lethargic with suboptimal oral intake as noted thereof. He became more responsive by midday today and the glucose values have ranged from 164-172 mg/dL. It was 65 early this morning prior to breakfast as noted. His chemistry showed a BUN of 22, sodium 140, potassium 3.6, chloride 109, CO2 of 27, glucose 119 and creatinine 0.6. His repeat TSH is 0.27 and would expect improvement as his IV steroids are tapered down accordingly. So for now, we will continue the modified basal and bolus insulin regimen with a lower dose of Humalog given as 6 units t.i.d. before meals as ordered. We will continue the basal insulin with Levemir given as 16 units subcu at bedtime daily as given. He is still on Solu-Medrol tapered down to 20 mg IV every 12 hours as given. We will obtain serial chemistries and supplement accordingly as needed. We will follow this. Jes Li MD
--- NOTE | 2018-07-30 15:42 | PN ---
DATE: 07/30/2018 CARDIOLOGY FOLLOWUP SUBJECTIVE: The patient was agitated and confused this morning. PHYSICAL EXAMINATION VITAL SIGNS: Blood pressure 111/82 and heart rates in the 50s. NECK: Negative JVD. LUNGS: Without rales. HEART: Reveal S1 and S2. EXTREMITIES: Without edema. LABORATORY DATA: Hemoglobin is 12.7. Chemistries, BUN and creatinine unremarkable. IMPRESSION: 1. Metastatic lung cancer. 2. Confusion. 3. Chronic obstructive pulmonary disease. 4. Atrial fibrillation. 5. Anemia. Given these findings, the patient is hemodynamically stable. The patient is being worked up for his acute confusion. Godfrey Fisher MD
--- NOTE | 2018-07-30 21:26 | CP.PCM.PN ---
Subjective - Date & Time of Evaluation Date of Evaluation: 07/30/18 Time of Evaluation: 18:00 - Subjective Subjective: Appears comfortable, no complaints. Noted events with waxing and waning mental status. Objective - Vital Signs/Intake and Output Vital Signs (last 24 hours): Temp Pulse Resp BP Pulse Ox 98.2 F 64 19 134/88 95 07/30/18 18:00 07/30/18 18:12 07/30/18 18:00 07/30/18 18:12 07/30/18 06:00 Intake and Output: 07/30/18 07/31/18 18:59 06:59 Intake Total 445 Balance 445 - Medications Medications: Current Medications Acetylcysteine (Acetylcysteine 20%) 4 ml IH BIDRESP [facility] Last Admin: 07/30/18 07:32 Dose: 4 ml Alprazolam (Xanax) 0.5 mg PO TID [facility]; Protocol Last Admin: 07/30/18 18:12 Dose: 0.5 mg Arformoterol Tartrate (Brovana) 15 mcg IH [id number] [facility] Last Admin: 07/30/18 07:32 Dose: 15 mcg Benzocaine/Menthol (Cepacol Sore Throat) 1 marlene MT Q2H PRN PRN Reason: Sore Throat Budesonide (Pulmicort Respules) 0.5 mg IH [id number] [facility] Last Admin: 07/30/18 07:32 Dose: 0.5 mg Diltiazem HCl (Cardizem Cd) 180 mg PO DAILY [facility] Last Admin: 07/30/18 11:51 Dose: Not Given Enoxaparin Sodium (Lovenox) 40 mg SC DAILY [facility]; Protocol Last Admin: 07/30/18 09:17 Dose: 40 mg Glyburide (Micronase) 2.5 mg PO 0800,1200,1700 [facility] Last Admin: 07/30/18 18:12 Dose: 2.5 mg Sodium Chloride (Sodium Chloride 0.9%) 1,000 mls @ 40 mls/hr IV .Q24H [facility] Last Admin: 07/30/18 11:52 Dose: Not Given Insulin Detemir (Levemir) 16 unit SC HS [facility] Last Admin: 07/29/18 21:56 Dose: 16 unit Insulin Human Lispro (Humalog Low) 0 units SC ACHS [facility]; Protocol Last Admin: 07/30/18 18:07 Dose: Not Given Insulin Human Lispro (Humalog) 6 units SC AC [facility] Last Admin: 07/30/18 18:12 Dose: Not Given Ketorolac Tromethamine (Toradol) 30 mg IVP Q6H PRN PRN Reason: Pain, moderate (4-7) Methylprednisolone (Solu-Medrol) 20 mg IVP Q12H [facility] Last Admin: 07/30/18 11:53 Dose: 20 mg Metoprolol Tartrate (Lopressor) 25 mg PO BID [facility] Last Admin: 07/30/18 18:12 Dose: 25 mg Pantoprazole Sodium (Protonix Ec Tab) 40 mg PO HS [facility] Last Admin: 07/29/18 21:58 Dose: 40 mg Promethazine HCl/Dextromethorphan (Phenergan Dm Syrup) 5 ml PO Q6H PRN PRN Reason: Cough Last Admin: 07/28/18 18:42 Dose: 5 ml Sitagliptin Phosphate (Januvia) 100 mg PO DAILY [facility] Last Admin: 07/30/18 09:17 Dose: 100 mg Zolpidem Tartrate (Ambien) 10 mg PO HS [facility]; Protocol Last Admin: 07/29/18 21:57 Dose: 10 mg - Labs Labs: 07/30/18 06:00 07/30/18 06:00 PT 11.6 SECONDS (9.4-12.5) 07/25/18 20:20 INR 1.05 07/25/18 20:20 APTT 28.1 Seconds (26.9-38.3) 07/25/18 20:20 - Head Exam Head Exam: ATRAUMATIC - Eye Exam Eye Exam: Normal appearance - ENT Exam ENT Exam: Mucous Membranes Dry - Respiratory Exam Respiratory Exam: Decreased Breath Sounds - Cardiovascular Exam Cardiovascular Exam: +S1, +S2 - GI/Abdominal Exam GI & Abdominal Exam: Normal Bowel Sounds Assessment and Plan (1) Pancytopenia Assessment & Plan: radiation and liver disease Status: Acute (2) History of DVT (deep vein thrombosis) Assessment & Plan: Eliquis discontinued due to falls Status: Acute (3) Small cell lung cancer Assessment & Plan: stage IV recent salvage brain radiation for progressive brain mets mental status waxes and wanes; agree with hospice Status: Acute
--- NOTE | 2018-07-30 21:55 | DS ---
HISTORY OF PRESENT ILLNESS: The patient is resting comfortably in bed. He tried AMA yesterday. He is doing better overall. He is on Ambien, Ativan, Brovana, Cardizem, Geodon, insulin, Januvia, Levemir, metoprolol, Micronase, promethazine, potassium replacement, Protonix, Pulmicort, prednisone, Solu-Medrol, Toradol, and Xanax. He had a rough goal last night, doing better today. He wants to leave, but he cannot leave. He is to continue with his radiation and chemotherapy. PHYSICAL EXAMINATION: VITAL SIGNS: He has 97.7 temperature, 63 pulse, 134/97 blood pressure, 19 respiratory rate, and 95% O2 saturation on room air. HEENT: Head is atraumatic and normocephalic. HEART: Regular rate. LUNGS: Decreased breath sounds, clearing up. ABDOMEN: Soft. EXTREMITIES: No edema. LABORATORY DATA: He has a sodium 140, potassium 3.6, BUN 22, creatinine 0.6, GFR greater than 60. Sugar is 119, calcium is 8.9, total bili is 0.6, AST is 47, ALT is 97, alk phos 112, and total protein is 5.6. TSH is getting better 0.27. White count 6.7, hemoglobin 12.4, hematocrit 37.5, and platelets 266, getting better. ASSESSMENT AND PLAN: He is being seen by Pulmonary, Endocrinology, and Oncology. He is confused, agitated last night. He was given Ativan. He is back to his baseline this morning. His blood sugar is also up and down. I am going to discharge him to outpatient now. Changes from Solu-Medrol to prednisone. We will continue with his medications in the outpatient. They are going to stop Levemir and continue with p.o. medication, although he has had Solu-Medrol, is going to prednisone on a decreasing fashion. I will see him in the office in 24 hours. He has multiple issues of brain, medications, lung cancer, and substance abuse history. He is getting radiation therapy. We will try to discharge this morning if we can get him home. Follow up in the outpatient. Viktor Lundy, DO MTDLily
[2018-07-30] MEDS: Pantoprazole 40 mg EC Tab PO SCH (22:47)
--- NOTE | 2018-07-31 07:14 | CP.PCM.PN ---
Subjective - Date & Time of Evaluation Date of Evaluation: 07/31/18 Time of Evaluation: 07:10 - Subjective Subjective: Endocrine Service Progress Note for Dr. Guillermo Valiente DO, IM PGY-3 Patient seen and examined at bedside. Some agitation and confusion intermittently yesterday as per nursing, ate a late breakfast and didn't eat dinner, but no acute events reported. Today, awake and alert, oriented to self/location/year, some anxiety but otherwise appears at reported baseline mentation. Complaining of headache and needing to urinate. Reported blood glucose of 100 post-breakfast as per nursing yesterday, blood sugar this AM 210, no other blood sugars within 24 hours noted. Objective - Vital Signs/Intake and Output Vital Signs (last 24 hours): Temp Pulse Resp BP Pulse Ox 97.6 F 61 21 124/84 96 07/31/18 06:00 07/31/18 06:00 07/31/18 06:00 07/31/18 06:00 07/31/18 06:00 Intake and Output: 07/31/18 07/31/18 06:59 18:59 Intake Total 1165 Output Total 300 Balance 865 - Medications Medications: Current Medications Acetylcysteine (Acetylcysteine 20%) 4 ml IH BIDRESP [facility] Last Admin: 07/30/18 07:32 Dose: 4 ml Alprazolam (Xanax) 0.5 mg PO TID [facility]; Protocol Last Admin: 07/30/18 18:12 Dose: 0.5 mg Arformoterol Tartrate (Brovana) 15 mcg IH [id number] [facility] Last Admin: 07/30/18 07:32 Dose: 15 mcg Benzocaine/Menthol (Cepacol Sore Throat) 1 marlene MT Q2H PRN PRN Reason: Sore Throat Budesonide (Pulmicort Respules) 0.5 mg IH [id number] [facility] Last Admin: 07/30/18 07:32 Dose: 0.5 mg Diltiazem HCl (Cardizem Cd) 180 mg PO DAILY [facility] Last Admin: 07/30/18 11:51 Dose: Not Given Enoxaparin Sodium (Lovenox) 40 mg SC DAILY [facility]; Protocol Last Admin: 07/30/18 09:17 Dose: 40 mg Glyburide (Micronase) 2.5 mg PO 0800,1200,1700 [facility] Last Admin: 07/30/18 18:12 Dose: 2.5 mg Sodium Chloride (Sodium Chloride 0.9%) 1,000 mls @ 40 mls/hr IV .Q24H [facility] Last Admin: 07/30/18 11:52 Dose: Not Given Insulin Detemir (Levemir) 16 unit SC HS [facility] Last Admin: 07/29/18 21:56 Dose: 16 unit Insulin Human Lispro (Humalog Low) 0 units SC ACHS [facility]; Protocol Last Admin: 07/30/18 18:07 Dose: Not Given Insulin Human Lispro (Humalog) 6 units SC AC [facility] Last Admin: 07/30/18 18:12 Dose: Not Given Ketorolac Tromethamine (Toradol) 30 mg IVP Q6H PRN PRN Reason: Pain, moderate (4-7) Methylprednisolone (Solu-Medrol) 20 mg IVP Q12H [facility] Last Admin: 07/30/18 22:47 Dose: 20 mg Metoprolol Tartrate (Lopressor) 25 mg PO BID [facility] Last Admin: 07/30/18 18:12 Dose: 25 mg Pantoprazole Sodium (Protonix Ec Tab) 40 mg PO [facility] Last Admin: 07/30/18 22:47 Dose: 40 mg Promethazine HCl/Dextromethorphan (Phenergan Dm Syrup) 5 ml PO Q6H PRN PRN Reason: Cough Last Admin: 07/28/18 18:42 Dose: 5 ml Sitagliptin Phosphate (Januvia) 100 mg PO DAILY [facility] Last Admin: 07/30/18 09:17 Dose: 100 mg Zolpidem Tartrate (Ambien) 10 mg PO [facility]; Protocol Last Admin: 07/30/18 22:47 Dose: 10 mg - Labs Labs: 07/30/18 06:00 07/30/18 06:00 PT 11.6 SECONDS (9.4-12.5) 07/25/18 20:20 INR 1.05 07/25/18 20:20 APTT 28.1 Seconds (26.9-38.3) 07/25/18 20:20 - Additional Findings Additional findings: - Constitutional Appears: Chronically Ill, No acute distress but appears uncomfortable - Head Exam Head Exam: ATRAUMATIC, NORMOCEPHALIC - Eye Exam Eye Exam: absent: Conjunctival injection, Scleral icterus - ENT Exam ENT Exam: Mucous Membranes Moist - Neck Exam Neck Exam: absent: Thyromegaly - Respiratory Exam Respiratory Exam: Moderately decreased breath sounds in all hadley, NORMAL BREATHING PATTERN. absent: Accessory Muscle Use, Rales, Rhonchi, Wheezes, Stridor - Cardiovascular Exam Cardiovascular Exam: RRR, +S1, +S2. absent: Tachycardia/Bradycardia, Irregular Rhythm, +S4 - GI/Abdominal Exam GI & Abdominal Exam: Soft, Normal Bowel Sounds. absent: Distended, Firm, Guarding, Rigid - Extremities Exam Extremities Exam: Normal Capillary Refill, Normal Inspection. 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 Endocrine was consulted for hyperglycemia. Plan: 1) Worsening SOB + productive cough: PNA vs COPD exacerbation 2) Stage IV lung Ca with progressive brain mets 3) Hep C with cirrhosis and persistent thrombocytopenia 4) DVT on AC: held AC due to high risk of intracranial bleed 5) COPD 6) DMII with hyperglycemia: likely 2/2 steroids 7) Prior CVA 8) Anxiety/Depression 9) Confusion/agitation: hospital-associated delirium vs worsening brain mets -glucose 100 after breakfast yesterday as per nursing (not documented), 210 on AM labs today, no fingersticks documented in between Changes fingersticks to Q6H, want to ensure checked even when not eating due to recent hypoglycemic episodes -Current regimen: Levemir 16u HS, Lispro 6u AC and Lispro Low-ISS ACHS, Glyburide 2.5mg TID Did not get any insulin yesterday due to inconsistently eating, but also was not given Levemir as per AUG, monitor today -TSH remains low but improving, from 0.18 to 0.27 -TSH suppression and elevated blood sugars likely 2/2 IV steroids for COPD, improving with steroids weaning (now down to 20mg IV q8), continue to monitor Will discuss with attending, Dr. Li. Further recommendations as per attending.
[2018-07-31 07:22] LABS: HEMOGLOBIN 12.5 g/dL (14.0-18.0); MEAN CORPUSCULAR HEMOGLOBIN 32.5 pg (25.0-35.0); MEAN CORPUSCULAR HGB CONC 32.8 g/dl (31.0-37.0); RBC 3.85 10^6/uL (3.5-6.1); RED CELL DISTRIBUTION WIDTH 13.8 % (11.5-14.5); WHITE BLOOD COUNT 5.6 10^3/uL (4.5-11.0)
[2018-07-31] MEDS: Insulin Lispro (humaLOG) LOW Coverage SC SCH ×4 (07:30→22:30)
[2018-07-31 07:56] LABS: ALB/GLOB RATIO 1.1 (1.1-1.8); ALBUMIN 2.8 g/dL (3.0-4.8); ALT/SGPT 103 U/L (7-56); AST/SGOT 55 U/L (17-59); BLOOD UREA NITROGEN 30 mg/dL (7-21); CALCIUM 8.8 mg/dL (8.4-10.5); GFR NON-AFRICAN AMERICAN > 60
[2018-07-31] MEDS: Acetylcysteine 20% Inhal Soln (4ml) IH SCH ×2 (08:01→21:36)
[2018-07-31] MEDS: Budesonide 0.5 mg/2 ml Inhal Susp UD IH SCH ×2 (08:02→21:36)
[2018-07-31] MEDS: Arformoterol 15 mcg/2 ml Inh Sol IH SCH ×2 (08:02→21:36)
[2018-07-31] MEDS: Insulin Lispro 1 UNITS/0.01 ML SC SCH ×3 (08:05→16:18)
--- NOTE | 2018-07-31 08:55 | DS ---
HISTORY OF PRESENT ILLNESS: He is more alert and comfortable and aware and appropriate. He understands where he is and what is going on. My plan is to discharge him home today. I tried yesterday. I believe his lung cancer and his brain metastasis is going to be of continued problem. I consulted hospice. They did not come to the chart. prescriptions out for him on a tapering dose of prednisone and I am hoping he could follow up in my office this week. PHYSICAL EXAMINATION: VITAL SIGNS: He has 97.6 temperature, 61 pulse, 124/84 blood pressure, 21 respiratory rate, 96% sat on room air. HEENT: Head is atraumatic, normocephalic. Throat is moist. NECK: Supple. HEART: Regular rate. LUNGS: Decreased breath sounds bilaterally, poor inspiration. ABDOMEN: Soft, obese. EXTREMITIES: No edema. LABORATORY DATA: He has a 5.6 white count, 12.5 hemoglobin, 30.1 hematocrit with 71 platelets. He has sodium 139, potassium 3.7, BUN 30, creatinine 0.7, GFR is greater than 60, sugar is 210, calcium 8.8. Total bili is 0.4, AST is 55, ALT is 103, alk phos 123, total protein is 5.4. ASSESSMENT AND PLAN: He is in serious problem. He has severe lung cancer with brain metastasis. He will follow up with the oncologist on the outpatient for possible radiation and possible chemotherapy. I was hoping to get to a hospice situation and I do not think that where he is going and I am sure he will be back in the hospital again unfortunately. We will continue with aggressive treatment and care and will be on tapering dose of prednisone and I am going to see him in the office this week. He might be back in the hospital soon if mentally he does not continue to stay stable. Viktor Lundy DO MTDLily
[2018-07-31] MEDS: Enoxaparin 40 mg Syringe SC SCH (10:43)
[2018-07-31] MEDS: diltiaZEM 180 mg/24 Hours CD Cap PO SCH (10:44)
[2018-07-31] MEDS: MethylPREDNISolone 40 mg Vial IVP SCH ×2 (10:44→23:00)
[2018-07-31] MEDS: Sodium Chloride 0.9% 1,000 ML IV SCH (11:57)
--- NOTE | 2018-07-31 13:10 | PN ---
DATE: 07/31/2018 REFERRING PHYSICIAN: Dr. Lundy. SUBJECTIVE: The patient is sitting up in bed, in no acute distress. No overnight events reported. No headache, rhinitis, chest pain, abdominal pain, nausea, vomiting, diarrhea, leg pain or leg swelling reported. Still has some coughing and shortness of breath that has improved, however. PHYSICAL EXAMINATION: GENERAL: No acute distress. VITAL SIGNS: Blood pressure 124/84, pulse 61, temperature 97.6, oxygen saturation 96%. HEENT: Moist mucous membranes. Crowded airway. Mallampati score of 4. NECK: Supple. No JVD. LUNGS: Scattered rhonchi bilaterally. CARDIOVASCULAR: S1 and S2 audible. ABDOMEN: Soft, nontender. No distention. No organomegaly. EXTREMITIES: No bilateral lower extremity edema. NEUROLOGIC: Awake, alert, verbal, follows commands. MEDICATIONS: Reviewed. Mucomyst 4 mL inhalation twice a day, Xanax 0.5 mg three times a day, Brovana 15 mcg every 12 hours, Cepacol throat lozenges every 2 hours p.r.n., Pulmicort 0.5 mg inhalation every 12 hours, Cardizem 180 mg daily, Lovenox 40 mg subcutaneously daily, glyburide 2.5 mg three times a day, Levemir 16 units subcutaneously at bedtime, Humalog sliding scale a.c. and at bedtime, Humalog 6 units in the morning, Toradol 30 mg IV push every 6 hours p.r.n., Solu-Medrol 20 mg every 12 hours, metoprolol tartrate 25 mg twice a day, Protonix 40 mg at bedtime, Phenergan DM 5 mL every 6 hours p.r.n,, Januvia 100 mg daily, sodium chloride 0.9% 1000 mL at 40 mL per hour, Ambien 10 mg at bedtime. LABORATORY DATA: Reviewed. WBC 5.6, RBC.85, hemoglobin 12.5, hematocrit 38.1, platelets 71. Sodium 139, potassium 3.7, chloride 108, carbon dioxide 28, anion gap 6, BUN 30, creatinine 0.7, GFR greater than 60, random glucose 210, calcium 8.8, total bilirubin 0.4. AST 55, ALT 103, alkaline phosphatase 123. Total protein 5.4, albumin 2.4, globulin 2.6, albumin-globulin ratio 1.1. Blood cultures final, no growth after five days. IMPRESSION AND PLAN: Metastatic lung cancer with metastasis to the brain, chronic obstructive lung disease exacerbation, history of cerebrovascular accident, thrombocytopenia, diabetes, history of drug abuse in the past, suspected sleep apnea syndrome, anxiety disorder, depression. Per nursing staff, the patient can be discharged home today. Recommend the patient go home on tapering dose of prednisone. Continue pulmonary toileting, Oncology followup. Continue bronchodilator, sleep apnea precautions. Head of bed elevated to 45 degrees. Careful with arterial sedation. We recommend this patient have sleep study and full pulmonary function test as outpatient. This patient was seen and examined with Dr. Kramer. Discussed assessment and plan as described above. This patient was seen and examined by Matt Sue, nurse practitioner. Discussed assessment and plan as described above. Thank you for this consult. We will follow. Matt Sue APN Sandro Kramer MD JERAMIE
--- NOTE | 2018-07-31 14:23 | PN ---
DATE: 07/31/2018 ENDOCRINOLOGY FOLLOWUP NOTE LOCATION: Room 263. SUBJECTIVE: This is a 52-year-old male with recent uncontrolled type 2 insulin-requiring diabetes presenting here with marked hyperglycemic accelerations related to the IV steroid therapy as given. His glycemic levels are fluctuating, but improved as noted overnight and the glucose values have ranged from 164 to 172 and 210 mg/dL. LABORATORY DATA: His chemistry showed a BUN of 30, sodium 139, potassium 3.7, chloride 108, CO2 of 28, glucose 210 and creatinine 0.7. His TSH is 0.27 which is improving with less TSH suppression from the tapering IV steroid therapy as given. PLAN: We will continue the modified basal and bolus insulin regimen as given with Levemir given as 16 units subcu at bedtime daily as ordered. We will continue with the Humalog given as 6 units t.i.d. before meals as ordered. We will continue the Januvia given as 100 mg daily and the low dose correction scale using Humalog insulin coverage as ordered. We will follow. Jes Li MD
--- NOTE | 2018-07-31 20:29 | CP.PCM.PN ---
Subjective - Date & Time of Evaluation Date of Evaluation: 07/31/18 Time of Evaluation: 14:00 - Subjective Subjective: Seen eating, feeling better. Girlfriend at bedside Objective - Vital Signs/Intake and Output Vital Signs (last 24 hours): Temp Pulse Resp BP Pulse Ox 97.3 F L 71 18 112/84 96 07/31/18 18:00 07/31/18 18:00 07/31/18 18:00 07/31/18 18:00 07/31/18 06:00 - Medications Medications: Current Medications Acetylcysteine (Acetylcysteine 20%) 4 ml IH BIDRESP [facility] Last Admin: 07/31/18 08:01 Dose: 4 ml Alprazolam (Xanax) 0.5 mg PO TID [facility]; Protocol Last Admin: 07/31/18 17:10 Dose: 0.5 mg Arformoterol Tartrate (Brovana) 15 mcg IH [id number] [facility] Last Admin: 07/31/18 08:02 Dose: 15 mcg Benzocaine/Menthol (Cepacol Sore Throat) 1 marlene MT Q2H PRN PRN Reason: Sore Throat Budesonide (Pulmicort Respules) 0.5 mg IH [id number] [facility] Last Admin: 07/31/18 08:02 Dose: 0.5 mg Diltiazem HCl (Cardizem Cd) 180 mg PO DAILY [facility] Last Admin: 07/31/18 10:44 Dose: 180 mg Enoxaparin Sodium (Lovenox) 40 mg SC DAILY [facility]; Protocol Last Admin: 07/31/18 10:43 Dose: 40 mg Glyburide (Micronase) 2.5 mg PO 0800,1200,1700 [facility] Last Admin: 07/31/18 17:10 Dose: 2.5 mg Sodium Chloride (Sodium Chloride 0.9%) 1,000 mls @ 40 mls/hr IV .Q24H [facility] Last Admin: 07/31/18 11:57 Dose: Not Given Insulin Detemir (Levemir) 16 unit SC HS [facility] Last Admin: 07/29/18 21:56 Dose: 16 unit Insulin Human Lispro (Humalog Low) 0 units SC ACHS [facility]; Protocol Last Admin: 07/31/18 16:19 Dose: Not Given Insulin Human Lispro (Humalog) 6 units SC AC [facility] Last Admin: 07/31/18 16:18 Dose: Not Given Ketorolac Tromethamine (Toradol) 30 mg IVP Q6H PRN PRN Reason: Pain, moderate (4-7) Methylprednisolone (Solu-Medrol) 20 mg IVP Q12H [facility] Last Admin: 07/31/18 10:44 Dose: 20 mg Metoprolol Tartrate (Lopressor) 25 mg PO BID [facility] Last Admin: 07/31/18 17:10 Dose: 25 mg Pantoprazole Sodium (Protonix Ec Tab) 40 mg PO HS [facility] Last Admin: 07/30/18 22:47 Dose: 40 mg Promethazine HCl/Dextromethorphan (Phenergan Dm Syrup) 5 ml PO Q6H PRN PRN Reason: Cough Last Admin: 07/28/18 18:42 Dose: 5 ml Sitagliptin Phosphate (Januvia) 100 mg PO DAILY [facility] Last Admin: 07/31/18 10:44 Dose: 100 mg Zolpidem Tartrate (Ambien) 10 mg PO HS [facility]; Protocol Last Admin: 07/30/18 22:47 Dose: 10 mg - Labs Labs: 07/31/18 07:00 07/31/18 07:00 PT 11.6 SECONDS (9.4-12.5) 07/25/18 20:20 INR 1.05 07/25/18 20:20 APTT 28.1 Seconds (26.9-38.3) 07/25/18 20:20 - Head Exam Head Exam: ATRAUMATIC - Eye Exam Eye Exam: Normal appearance - ENT Exam ENT Exam: Mucous Membranes Dry - Respiratory Exam Respiratory Exam: Decreased Breath Sounds - Cardiovascular Exam Cardiovascular Exam: +S1, +S2 - GI/Abdominal Exam GI & Abdominal Exam: Normal Bowel Sounds Assessment and Plan (1) Pancytopenia Assessment & Plan: liver disease, hep c, recent radiation Status: Acute (2) History of DVT (deep vein thrombosis) Assessment & Plan: not an outpatient anticoagulation candidate given falls Status: Acute (3) Small cell lung cancer Assessment & Plan: stage IV brain metastasis s/p salvage brain radiation rehab vs hospice; girlfriend requesting to take him home outpatient f/u Status: Acute
[2018-07-31] MEDS: Pantoprazole 40 mg EC Tab PO SCH (21:43)
[2018-08-01] MEDS: Insulin Detemir 100 units/ml Vial (Levemir) SC SCH (00:09)
--- NOTE | 2018-08-01 07:01 | CP.PCM.PN ---
Subjective - Date & Time of Evaluation Date of Evaluation: 08/01/18 Time of Evaluation: 06:45 - Subjective Subjective: Endocrine Service Progress Note for Dr. Guillermo Valiente DO, IM PGY-3 Patient seen and examined at bedside. Sleeping, unarousable. No acute events overnight as per nursing and charting, but patient given a dose of Ativan at 0338, so possible more overnight confusion that hasn't been documented yet. Blood sugars for last 24hrs 120-210 as per charting at nurses station (data pending entry to EMR). Did not receive any insulin yesterday due to parameters and skipping meals, as per nursing. Steroids now weaned down to 20mg IV q12. As per charting, patient is pending placement at [facility]. Objective - Vital Signs/Intake and Output Vital Signs (last 24 hours): Temp Pulse Resp BP Pulse Ox 98.0 F 86 22 120/90 96 08/01/18 06:00 08/01/18 06:00 08/01/18 06:00 08/01/18 06:00 08/01/18 06:00 Intake and Output: 07/31/18 08/01/18 18:59 06:59 Intake Total 480 Balance 480 - Medications Medications: Current Medications Acetylcysteine (Acetylcysteine 20%) 4 ml IH BIDRESP [facility] Last Admin: 07/31/18 21:36 Dose: 4 ml Alprazolam (Xanax) 0.5 mg PO TID [facility]; Protocol Last Admin: 07/31/18 17:10 Dose: 0.5 mg Arformoterol Tartrate (Brovana) 15 mcg IH [id number] [facility] Last Admin: 07/31/18 21:36 Dose: 15 mcg Benzocaine/Menthol (Cepacol Sore Throat) 1 marlene MT Q2H PRN PRN Reason: Sore Throat Budesonide (Pulmicort Respules) 0.5 mg IH [id number] [facility] Last Admin: 07/31/18 21:36 Dose: 0.5 mg Diltiazem HCl (Cardizem Cd) 180 mg PO DAILY [facility] Last Admin: 07/31/18 10:44 Dose: 180 mg Enoxaparin Sodium (Lovenox) 40 mg SC DAILY [facility]; Protocol Last Admin: 07/31/18 10:43 Dose: 40 mg Glyburide (Micronase) 2.5 mg PO 0800,1200,1700 [facility] Last Admin: 07/31/18 17:10 Dose: 2.5 mg Sodium Chloride (Sodium Chloride 0.9%) 1,000 mls @ 40 mls/hr IV .Q24H [facility] Last Admin: 07/31/18 11:57 Dose: Not Given Insulin Detemir (Levemir) 16 unit SC [facility] Last Admin: 08/01/18 00:09 Dose: Not Given Insulin Human Lispro (Humalog Low) 0 units SC [facility]; Protocol Last Admin: 07/31/18 22:30 Dose: Not Given Insulin Human Lispro (Humalog) 6 units SC [facility] Last Admin: 07/31/18 16:18 Dose: Not Given Ketorolac Tromethamine (Toradol) 30 mg IVP Q6H PRN PRN Reason: Pain, moderate (4-7) Methylprednisolone (Solu-Medrol) 20 mg IVP Q12H [facility] Last Admin: 07/31/18 23:00 Dose: 20 mg Metoprolol Tartrate (Lopressor) 25 mg PO BID [facility] Last Admin: 07/31/18 17:10 Dose: 25 mg Pantoprazole Sodium (Protonix Ec Tab) 40 mg PO [facility] Last Admin: 07/31/18 21:43 Dose: 40 mg Promethazine HCl/Dextromethorphan (Phenergan Dm Syrup) 5 ml PO Q6H PRN PRN Reason: Cough Last Admin: 07/28/18 18:42 Dose: 5 ml Sitagliptin Phosphate (Januvia) 100 mg PO DAILY [facility] Last Admin: 07/31/18 10:44 Dose: 100 mg Zolpidem Tartrate (Ambien) 10 mg PO [facility]; Protocol Last Admin: 07/31/18 21:43 Dose: 10 mg - Labs Labs: 07/31/18 07:00 07/31/18 07:00 PT 11.6 SECONDS (9.4-12.5) 07/25/18 20:20 INR 1.05 07/25/18 20:20 APTT 28.1 Seconds (26.9-38.3) 07/25/18 20:20 - Additional Findings Additional findings: - Constitutional Appears: Chronically Ill, Sleeping/unarousable (likely 2/2 ativan) - Head Exam Head Exam: ATRAUMATIC, NORMOCEPHALIC - Eye Exam Eye Exam: absent: Conjunctival injection, Scleral icterus - ENT Exam ENT Exam: Mucous Membranes Moist - Neck Exam Neck Exam: absent: Thyromegaly - Respiratory Exam Respiratory Exam: Moderately decreased breath sounds in all hadley, NORMAL BREATHING PATTERN. absent: Accessory Muscle Use, Rales, Rhonchi, Wheezes, Stridor - Cardiovascular Exam Cardiovascular Exam: RRR, +S1, +S2. absent: Tachycardia/Bradycardia, Irregular Rhythm, +S4 - GI/Abdominal Exam GI & Abdominal Exam: Soft, Normal Bowel Sounds. absent: Distended, Firm, Guarding, Rigid - Extremities Exam Extremities Exam: Normal Capillary Refill, Normal Inspection. 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 Endocrine was consulted for hyperglycemia. Pending [facility] placement as per charting. Plan: 1) Worsening SOB + productive cough: PNA vs COPD exacerbation 2) Stage IV lung Ca with progressive brain mets 3) Hep C with cirrhosis and persistent thrombocytopenia 4) DVT on AC: held AC due to high risk of intracranial bleed 5) COPD 6) DMII with hyperglycemia: likely 2/2 steroids 7) Prior CVA 8) Anxiety/Depression 9) Confusion/agitation: hospital-associated delirium vs worsening brain mets -glucose 210 yesterday AM, pending AM check today, 120-169 on fingersticks yesterday Did not receive any insulin due to parameters and pt refusing some meals as per nursing Continue Q6 fingersticks instead of ACHS as patient refusing some meals -Current regimen: Levemir 16u HS, Lispro 6u AC and Lispro Low-ISS ACHS, Glyburide 2.5mg TID Did not get any insulin again yesterday (now x2 days) -TSH remains low but improving, from 0.18 to 0.27 -TSH suppression and elevated blood sugars likely 2/2 IV steroids for COPD, improving with steroids weaning (now down to 20mg IV q12), continue to monitor -Pending [facility] for rehab as per charting Will discuss with attending, Dr. Li. Further recommendations as per attending.
[2018-08-01] MEDS: Arformoterol 15 mcg/2 ml Inh Sol IH SCH ×2 (07:59→20:20)
[2018-08-01] MEDS: Budesonide 0.5 mg/2 ml Inhal Susp UD IH SCH ×2 (07:59→20:20)
[2018-08-01] MEDS: Acetylcysteine 20% Inhal Soln (4ml) IH SCH ×2 (08:00→20:20)
[2018-08-01] MEDS: Insulin Lispro (humaLOG) LOW Coverage SC SCH ×4 (08:53→23:19)
[2018-08-01] MEDS: Insulin Lispro 1 UNITS/0.01 ML SC SCH ×3 (08:58→18:30)
[2018-08-01] MEDS: diltiaZEM 180 mg/24 Hours CD Cap PO SCH (09:07)
[2018-08-01] MEDS: Enoxaparin 40 mg Syringe SC SCH (09:07)
[2018-08-01] MEDS: Sodium Chloride 0.9% 1,000 ML IV SCH (09:08)
--- NOTE | 2018-08-01 12:11 | PN ---
DATE: 08/01/2018 SUBJECTIVE: The last I saw him from the physical therapist was he was okay to go home. Now, I see today that he needs subacute rehab. We are trying to find a subacute rehab for him. I did not know that yesterday, that is why he was not discharged home. I did not get a phone call. PHYSICAL EXAMINATION: VITAL SIGNS: Temperature 98, 86 pulse, 120/90 blood pressure, 22 respiratory rate and 96% O2 sat. HEENT: Head is atraumatic and normocephalic. HEART: Regular rate. LUNGS: Decreased breath sounds. ABDOMEN: Soft and obese. EXTREMITIES: No edema. He is this morning. MEDICATIONS: He is on acetylcysteine, Ambien, Brovana, Cardizem, Cepacol, insulin, Januvia, Levemir, Lopressor, Lovenox, Micronase, Phenergan, Protonix, Pulmicort, IV fluids, Solu-Medrol at 20, Toradol and Xanax. I am going to discontinue the Ambien, that could be why he is a little bit confused in the morning. LABORATORY DATA: No labs for today because we thought he was being discharged yesterday. he was not being discharged, nor that he is going to subacute rehab with the change in the physical therapist's notes. We will track the physical therapy at subacute rehab and we will continue aggressive treatment and care. Trung Seo who has got severe lung cancer with metastatic brain disease. Viktor Lundy DO MTDD
[2018-08-01] MEDS: MethylPREDNISolone 40 mg Vial IVP SCH ×2 (13:17→23:20)
--- NOTE | 2018-08-01 14:44 | PN ---
DATE: 08/01/2018 PULMONARY PROGRESS NOTE REFERRING PHYSICIAN: Dr. Lundy. SUBJECTIVE: The patient is sitting up in bed, in no acute distress. Reports today still has some coughing. The patient is pending discharge to subacute rehab. PHYSICAL EXAMINATION: GENERAL: No acute distress. VITAL SIGNS: Blood pressure 108/78, pulse 71, temperature 98.2 and oxygen saturation 96% on nasal cannula. HEENT: Moist mucous membranes. Crowded airway. Mallampati score of 4. NECK: Supple. No JVD. LUNGS: Scattered rhonchi bilaterally. CARDIOVASCULAR: S1 and S2. ABDOMEN: Soft and nontender. No distention. No organomegaly. EXTREMITIES: No bilateral lower extremity edema. NEUROLOGIC: Awake, alert and verbal. Follows commands. MEDICATIONS: Reviewed. Mucomyst 4 mL inhalation twice a day, Xanax 0.5 mg three times a day, Brovana 15 mcg every 12 hours, Cepacol throat lozenges every 2 hours p.r.n., Pulmicort 0.5 mg inhalation, Cardizem 180 mg daily, Lovenox 40 mg subcutaneously daily, glyburide 2.5 mg three times a day, Levemir 16 units subcutaneously at bedtime, Humalog sliding scale a.c. and at bedtime, Humalog 6 units in the morning, Toradol 30 mg IV push every 6 hours p.r.n., Solu-Medrol 20 mg IV push every 12 hours, metoprolol tartrate 25 mg twice a day, Protonix 40 mg at bedtime, Phenergan 5 mL every 6 hours p.r.n, Januvia 100 mg daily and sodium chloride 0.9% 1000 mL at 40 mL per hour. LABORATORY DATA: Reviewed. No new labs since yesterday. IMPRESSION AND PLAN: Metastatic lung cancer with metastasis to the brain, chronic obstructive lung disease exacerbation, history of cerebrovascular accident, diabetes, thrombocytopenia, history of drug abuse in the past, anxiety disorder, depression, and suspected sleep apnea syndrome. The patient pending discharge to subacute rehab. Continue pulmonary toileting, Oncology followup. Continue inhaled bronchodilators, sleep apnea precautions. Head of bed elevated at 45 degrees. Careful with nocturnal sedation. We recommend this patient have sleep study and full pulmonary function test as outpatient. The patient was seen and examined with Dr. Kramer. Discussed assessment and plan as described above. This patient was seen and examined by Prudence Matt, nurse practitioner. Discussed assessment and plan as described above. Thank you for this consult. We will follow you. Matt Sue APN Sandro Kramer MD
[2018-08-01] MEDS ORDERED: Insulin Detemir 100 units/ml Vial (Levemir) SC SCH (22:00)
--- NOTE | 2018-08-01 22:41 | PN ---
DATE: 08/01/2018 ENDOCRINOLOGY FOLLOWUP NOTE LOCATION: Room 263. This is a 52-year-old male with recent admission for acute pneumonitis and exacerbation of COPD, now being followed closely for metabolic management. His glycemic levels are fluctuating with the variability of his oral intake as noted thereof. His chemistries today showed a BUN of 30, sodium 139, potassium 3.7, chloride 108, CO2 of 28, glucose 210 and creatinine 0.7. His basal and bolus insulin doses have actually been withheld because of the patient's meal intake of any meal strays over the last 24 hours as noted. So at this time, we will modify once again his basal and bolus insulin regimen and lower the Humalog to 4 units t.i.d. before meals to start today as ordered. We will also lower the basal insulin with Levemir to be given as 10 units subcu at bedtime daily to start tonight. He is currently still on the IV Solu-Medrol tapered down to 20 mg IV every 12 hours as ordered. We will obtain serial chemistries and supplement accordingly as needed. We will follow. Jes Li MD
--- NOTE | 2018-08-01 22:50 | CP.PCM.PN ---
<Jose Antonio Maddox L - Last Filed: 08/01/18 22:51> Subjective - Date & Time of Evaluation Date of Evaluation: 08/01/18 Time of Evaluation: 22:48 - Subjective Subjective: Patient noted to be agitated. Patient AAO x2, states he wants to leave the hospital, exhibiting aggressive behavior towards staff. Code triana was called, Ativan 1 mg was given with good response. Jose Antonio Maddox PGY-1 Objective - Vital Signs/Intake and Output Vital Signs (last 24 hours): Temp Pulse Resp BP Pulse Ox 98.6 F 70 18 124/54 L 96 08/01/18 18:00 08/01/18 18:36 08/01/18 18:00 08/01/18 18:36 08/01/18 06:00 Intake and Output: 08/01/18 08/02/18 18:59 06:59 Intake Total 240 Output Total 700 Balance -460 - Medications Medications: Current Medications Acetylcysteine (Acetylcysteine 20%) 4 ml IH BIDRESP [facility] Last Admin: 08/01/18 20:20 Dose: 4 ml Alprazolam (Xanax) 0.5 mg PO TID [facility]; Protocol Last Admin: 08/01/18 18:37 Dose: 0.5 mg Arformoterol Tartrate (Brovana) 15 mcg IH [id number] [facility] Last Admin: 08/01/18 20:20 Dose: 15 mcg Benzocaine/Menthol (Cepacol Sore Throat) 1 marlene MT Q2H PRN PRN Reason: Sore Throat Budesonide (Pulmicort Respules) 0.5 mg IH [id number] [facility] Last Admin: 08/01/18 20:20 Dose: 0.5 mg Diltiazem HCl (Cardizem Cd) 180 mg PO DAILY [facility] Last Admin: 08/01/18 09:07 Dose: 180 mg Enoxaparin Sodium (Lovenox) 40 mg SC DAILY [facility]; Protocol Last Admin: 08/01/18 09:07 Dose: 40 mg Glyburide (Micronase) 2.5 mg PO 0800,1200,1700 [facility] Last Admin: 08/01/18 18:36 Dose: 2.5 mg Sodium Chloride (Sodium Chloride 0.9%) 1,000 mls @ 40 mls/hr IV .Q24H [facility] Last Admin: 08/01/18 09:08 Dose: Not Given Insulin Detemir (Levemir) 10 unit SC HS [facility] Insulin Human Lispro (Humalog Low) 0 units SC ACHS [facility]; Protocol Last Admin: 08/01/18 18:11 Dose: Not Given Insulin Human Lispro (Humalog) 4 units SC AC [facility] Last Admin: 08/01/18 18:30 Dose: Not Given Ketorolac Tromethamine (Toradol) 30 mg IVP Q6H PRN PRN Reason: Pain, moderate (4-7) Methylprednisolone (Solu-Medrol) 20 mg IVP Q12H [facility] Last Admin: 08/01/18 13:17 Dose: 20 mg Metoprolol Tartrate (Lopressor) 25 mg PO BID [facility] Last Admin: 08/01/18 18:36 Dose: 25 mg Pantoprazole Sodium (Protonix Ec Tab) 40 mg PO [facility] Last Admin: 07/31/18 21:43 Dose: 40 mg Promethazine HCl/Dextromethorphan (Phenergan Dm Syrup) 5 ml PO Q6H PRN PRN Reason: Cough Last Admin: 07/28/18 18:42 Dose: 5 ml Sitagliptin Phosphate (Januvia) 100 mg PO DAILY [facility] Last Admin: 08/01/18 09:07 Dose: 100 mg - Labs Labs: 07/31/18 07:00 07/31/18 07:00 PT 11.6 SECONDS (9.4-12.5) 07/25/18 20:20 INR 1.05 07/25/18 20:20 APTT 28.1 Seconds (26.9-38.3) 07/25/18 20:20 <Viktor Lundy - Last Filed: 08/02/18 07:36> Subjective - Subjective Subjective: refuses to leave the hospital Objective - Vital Signs/Intake and Output Vital Signs (last 24 hours): Temp Pulse Resp BP Pulse Ox 98.6 F 70 18 124/54 L 96 08/01/18 18:00 08/01/18 18:36 08/01/18 18:00 08/01/18 18:36 08/01/18 06:00 Intake and Output: 08/02/18 08/02/18 06:59 18:59 Intake Total 240 Output Total 450 Balance -210 - Medications Medications: Current Medications Acetylcysteine (Acetylcysteine 20%) 4 ml IH BIDRESP [facility] Last Admin: 08/01/18 20:20 Dose: 4 ml Alprazolam (Xanax) 0.5 mg PO TID [facility]; Protocol Last Admin: 08/01/18 18:37 Dose: 0.5 mg Arformoterol Tartrate (Brovana) 15 mcg IH [id number] [facility] Last Admin: 08/01/18 20:20 Dose: 15 mcg Benzocaine/Menthol (Cepacol Sore Throat) 1 marlene MT Q2H PRN PRN Reason: Sore Throat Budesonide (Pulmicort Respules) 0.5 mg IH [id number] [facility] Last Admin: 08/01/18 20:20 Dose: 0.5 mg Diltiazem HCl (Cardizem Cd) 180 mg PO DAILY [facility] [place] Last Admin: 08/01/18 09:07 Dose: 180 mg Enoxaparin Sodium (Lovenox) 40 mg SC DAILY [facility]; Protocol Last Admin: 08/01/18 09:07 Dose: 40 mg Glyburide (Micronase) 2.5 mg PO 0800,1200,1700 [facility] Last Admin: 08/01/18 18:36 Dose: 2.5 mg Sodium Chloride (Sodium Chloride 0.9%) 1,000 mls @ 40 mls/hr IV .Q24H [facility] Last Admin: 08/01/18 09:08 Dose: Not Given Insulin Detemir (Levemir) 10 unit SC HS [facility] Last Admin: 08/01/18 23:23 Dose: 10 units Insulin Human Lispro (Humalog Low) 0 units SC ACHS [facility]; Protocol Last Admin: 08/01/18 23:19 Dose: Not Given Insulin Human Lispro (Humalog) 4 units SC AC [facility] Last Admin: 08/01/18 18:30 Dose: Not Given Ketorolac Tromethamine (Toradol) 30 mg IVP Q6H PRN PRN Reason: Pain, moderate (4-7) Methylprednisolone (Solu-Medrol) 20 mg IVP Q12H [facility] Last Admin: 08/01/18 23:20 Dose: 20 mg Metoprolol Tartrate (Lopressor) 25 mg PO BID [facility] Last Admin: 08/01/18 18:36 Dose: 25 mg Pantoprazole Sodium (Protonix Ec Tab) 40 mg PO HS [facility] Last Admin: 08/01/18 23:19 Dose: 40 mg Promethazine HCl/Dextromethorphan (Phenergan Dm Syrup) 5 ml PO Q6H PRN PRN Reason: Cough Last Admin: 07/28/18 18:42 Dose: 5 ml Sitagliptin Phosphate (Januvia) 100 mg PO DAILY [facility] Last Admin: 08/01/18 09:07 Dose: 100 mg - Labs Labs: 07/31/18 07:00 07/31/18 07:00 PT 11.6 SECONDS (9.4-12.5) 07/25/18 20:20 INR 1.05 07/25/18 20:20 APTT 28.1 Seconds (26.9-38.3) 07/25/18 20:20
[2018-08-01] MEDS: Pantoprazole 40 mg EC Tab PO SCH (23:19)
--- NOTE | 2018-08-02 07:15 | CP.PCM.PN ---
Subjective - Date & Time of Evaluation Date of Evaluation: 08/02/18 Time of Evaluation: 07:10 - Subjective Subjective: Endocrine Service Progress Note for Dr. Guillermo Valiente DO, IM PGY-3 Patient seen and examined at bedside. Sleeping, unarousable, s/p Ativan and Geodon overnight due to agitation and confusion, enough that a CODE SANTIAGO had to be called. Was set for discharge to [facility] yesterday, but suddenly refused. As per nursing notes, did not eat dinner. Blood glucose 24 hr range was 125-338, with 195 this AM. Objective - Vital Signs/Intake and Output Vital Signs (last 24 hours): Temp Pulse Resp BP Pulse Ox 98.6 F 70 18 124/54 L 96 08/01/18 18:00 08/01/18 18:36 08/01/18 18:00 08/01/18 18:36 08/01/18 06:00 Intake and Output: 08/02/18 08/02/18 06:59 18:59 Intake Total 240 Output Total 450 Balance -210 - Medications Medications: Current Medications Acetylcysteine (Acetylcysteine 20%) 4 ml IH BIDRESP [facility] Last Admin: 08/01/18 20:20 Dose: 4 ml Alprazolam (Xanax) 0.5 mg PO TID [facility]; Protocol Last Admin: 08/01/18 18:37 Dose: 0.5 mg Arformoterol Tartrate (Brovana) 15 mcg IH [id number] [facility] Last Admin: 08/01/18 20:20 Dose: 15 mcg Benzocaine/Menthol (Cepacol Sore Throat) 1 marlene MT Q2H PRN PRN Reason: Sore Throat Budesonide (Pulmicort Respules) 0.5 mg IH [id number] [facility] Last Admin: 08/01/18 20:20 Dose: 0.5 mg Diltiazem HCl (Cardizem Cd) 180 mg PO DAILY [facility] Last Admin: 08/01/18 09:07 Dose: 180 mg Enoxaparin Sodium (Lovenox) 40 mg SC DAILY [facility]; Protocol Last Admin: 08/01/18 09:07 Dose: 40 mg Glyburide (Micronase) 2.5 mg PO 0800,1200,1700 [facility] Last Admin: 08/01/18 18:36 Dose: 2.5 mg Sodium Chloride (Sodium Chloride 0.9%) 1,000 mls @ 40 mls/hr IV .Q24H [facility] Last Admin: 08/01/18 09:08 Dose: Not Given Insulin Detemir (Levemir) 10 unit SC [facility] Last Admin: 08/01/18 23:23 Dose: 10 units Insulin Human Lispro (Humalog Low) 0 units SC ACHS [facility]; Protocol Last Admin: 08/01/18 23:19 Dose: Not Given Insulin Human Lispro (Humalog) 4 units SC AC [facility] Last Admin: 08/01/18 18:30 Dose: Not Given Ketorolac Tromethamine (Toradol) 30 mg IVP Q6H PRN PRN Reason: Pain, moderate (4-7) Methylprednisolone (Solu-Medrol) 20 mg IVP Q12H [facility] Last Admin: 08/01/18 23:20 Dose: 20 mg Metoprolol Tartrate (Lopressor) 25 mg PO BID [facility] Last Admin: 08/01/18 18:36 Dose: 25 mg Pantoprazole Sodium (Protonix Ec Tab) 40 mg PO [facility] Last Admin: 08/01/18 23:19 Dose: 40 mg Promethazine HCl/Dextromethorphan (Phenergan Dm Syrup) 5 ml PO Q6H PRN PRN Reason: Cough Last Admin: 07/28/18 18:42 Dose: 5 ml Sitagliptin Phosphate (Januvia) 100 mg PO DAILY [facility] Last Admin: 08/01/18 09:07 Dose: 100 mg - Labs Labs: 07/31/18 07:00 07/31/18 07:00 PT 11.6 SECONDS (9.4-12.5) 07/25/18 20:20 INR 1.05 07/25/18 20:20 APTT 28.1 Seconds (26.9-38.3) 07/25/18 20:20 - Additional Findings Additional findings: - Constitutional Appears: Chronically Ill, Sleeping/unarousable (likely 2/2 ativan) - Head Exam Head Exam: ATRAUMATIC, NORMOCEPHALIC - Eye Exam Eye Exam: absent: Conjunctival injection, Scleral icterus - ENT Exam ENT Exam: Mucous Membranes Moist - Neck Exam Neck Exam: absent: Thyromegaly - Respiratory Exam Respiratory Exam: Moderately decreased breath sounds in all had[place], NORMAL BREATHING PATTERN. absent: Accessory Muscle Use, Rales, Rhonchi, Wheezes, Stridor - Cardiovascular Exam Cardiovascular Exam: RRR, +S1, +S2. absent: Tachycardia/Bradycardia, Irregular Rhythm, +S4 - GI/Abdominal Exam GI & Abdominal Exam: Normal Bowel Sounds. absent: Distended - Extremities Exam Extremities Exam: Normal Capillary Refill, Normal Inspection. 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 Endocrine was consulted for hyperglycemia. Plan: 1) Worsening SOB + productive cough: PNA vs COPD exacerbation 2) Stage IV lung Ca with progressive brain mets 3) Hep C with cirrhosis and persistent thrombocytopenia 4) DVT on AC: held AC due to high risk of intracranial bleed 5) COPD 6) DMII with hyperglycemia: likely 2/2 steroids 7) Prior CVA 8) Anxiety/Depression 9) Confusion/agitation: hospital-associated delirium vs worsening brain mets -glucose 198 this AM, 24 hr range 125-338 -Current regimen: Levemir 10u HS, Lispro 4u AC and Lispro Low-ISS ACHS, Glyburide 2.5mg TID -TSH remains low but improving, from 0.18 to 0.27 -TSH suppression and elevated blood sugars likely 2/2 IV steroids for COPD, improving with steroids weaning (now down to 20mg IV q12), continue to monitor -Pending [facility] for rehab as per charting Will discuss with attending, Dr. Li. Further recommendations as per attending.
[2018-08-02] MEDS: Budesonide 0.5 mg/2 ml Inhal Susp UD IH SCH ×2 (07:20→20:00)
[2018-08-02] MEDS: Arformoterol 15 mcg/2 ml Inh Sol IH SCH ×2 (07:20→20:00)
[2018-08-02] MEDS: Acetylcysteine 20% Inhal Soln (4ml) IH SCH ×2 (07:20→20:00)
[2018-08-02] MEDS: Insulin Lispro (humaLOG) LOW Coverage SC SCH ×4 (09:12→21:40)
[2018-08-02] MEDS: Insulin Lispro 1 UNITS/0.01 ML SC SCH ×3 (09:13→18:23)
[2018-08-02] MEDS: Enoxaparin 40 mg Syringe SC SCH (10:05)
[2018-08-02] MEDS: diltiaZEM 180 mg/24 Hours CD Cap PO SCH (10:06)
[2018-08-02] MEDS: Sodium Chloride 0.9% 1,000 ML IV SCH (10:07)
[2018-08-02 12:05] VITALS: RESP 18
[2018-08-02] MEDS ORDERED: Insulin Detemir 100 units/ml Vial (Levemir) SC SCH (12:46)
--- NOTE | 2018-08-02 12:53 | PN ---
DATE: 08/02/2018 PULMONARY PROGRESS NOTE REFERRING PHYSICIAN: Viktor Lundy DO SUBJECTIVE: The patient is lying in bed, awake, alert, verbal. Nursing staff reports that the patient was agitated and confused yesterday, Code Ty had to be called. The patient was given Ativan and Geodon, was set to be discharged to subacute rehab yesterday, but per nursing staff, patient refused this morning. The patient reports not remembering events from yesterday. No headache, rhinitis, cough, chest pain, abdominal pain, nausea, vomiting, diarrhea, leg pain, leg swelling reported. Shortness of breath on occasion, but it has improved. OBJECTIVE: VITAL SIGNS: Blood pressure 103/77, pulse 75, temperature 98, oxygen saturation during visit was 95% on room air. GENERAL: No acute distress. HEENT: Moist mucous membranes. Crowded airway. Mallampati score 4. NECK: Supple. No JVD. LUNGS: Scattered rhonchi bilaterally. CARDIOVASCULAR: S1 and S2. ABDOMEN: Soft, nontender. No distention. No organomegaly. EXTREMITIES: No bilateral lower extremity edema. NEUROLOGIC: Awake, alert, verbal. Follows commands. MEDICATIONS: Reviewed. Mucomyst 4 mL inhalation twice a day, Xanax 0.5 mg three times a day, Brovana 15 mcg every 12 hours, Cepacol lozenges every 2 hours p.r.n., Pulmicort 0.5 mg inhalation every 12 hours, Cardizem 180 mg daily, Lovenox 40 mg daily, glyburide 2.5 mg three times a day, Levemir 10 units subcu at h.s., Humalog sliding scale a.c. and h.s., Humalog 4 units a.c., Toradol 30 mg IV push every 6 hours p.r.n., Lopressor 25 mg twice a day, Protonix 40 mg at bedtime, prednisone 40 mg daily, Phenergan DM 5 mL every 6 hours p.r.n., Januvia 100 mg p.o. daily, sodium chloride 1000 mL at 40 mL/hour. LABORATORY DATA: Reviewed. No new labs since yesterday. IMPRESSION: Metastatic lung cancer with metastasis to the brain, chronic obstructive lung disease with exacerbation, history of cerebrovascular accident, diabetes, thrombocytopenia, history of drug abuse in the past, depression, anxiety disorder, suspected sleep apnea syndrome, continue pulmonary toileting, Oncology followup, sleep apnea precaution, head of bed elevated 45 degrees, careful with nocturnal sedation. Continue current tapering prednisone dosage. RECOMMENDATION: We recommended the patient has sleep study and full pulmonary function test as outpatient. This patient was seen and examined with Dr. Kramer. Discussed assessment and plan as described above. This patient was seen and examined with Matt Sue, nurse practitioner. Discussed assessment and plan as described above. Thank you for this consult. We will follow with you. Matt Sue APN Sandro Kramer MD
--- NOTE | 2018-08-02 18:36 | PN ---
DATE: 08/02/2018 ENDOCRINOLOGY FOLLOWUP NOTE LOCATION: Room 263. SUBJECTIVE: This is a 52-year-old male with recent uncontrolled type 2 insulin-requiring diabetes, now being followed closely for metabolic management. His glycemic levels are fluctuating with the variability of his oral intake as noted thereof. He has been extremely hyper-somnolent overnight preceded by agitation and refusal for actual transfer to the subacute facility last night as noted. LABORATORY DATA: His chemistries today showed a BUN of 30, sodium 139, potassium 3.7, chloride 108, CO2 of 28, glucose 210 and creatinine 0.7. ASSESSMENT AND PLAN: So at this time, we will continue the modified basal and bolus insulin regimen as undertaken with Humalog given as 4 units t.i.d. before meals as ordered. We will continue the basal insulin given as Levemir at 12 units subcutaneous at bedtime daily as given. We will continue also the Januvia given as 100 mg once daily as ordered. We will obtain serial chemistries and supplement accordingly as needed. We will follow. Jes Li MD
[2018-08-02] MEDS: Pantoprazole 40 mg EC Tab PO SCH (21:40)
--- NOTE | 2018-08-02 23:18 | DS ---
HISTORY OF PRESENT ILLNESS: He was supposed to be discharged yesterday and I understand he refused to go, now he is willing to go, not sure what happened. MEDICATIONS: He is on acetylcysteine, Ativan, Brovana, Cardizem, Cepacol, Geodon, insulin, Januvia, Levemir, Lopressor, Lovenox, Micronase, Phenergan DM, Protonix, Pulmicort, and IV fluids. I am going to stop the Solu-Medrol and put him on prednisone. He is on Toradol and Xanax. PHYSICAL EXAMINATION: VITAL SIGNS: He has 98.6 temp, 70 pulse, 124/74 blood pressure, 18 respiratory rate, and he is on 2 L of oxygen. HEENT: Head is atraumatic and normocephalic. HEART: Regular rate. LUNGS: Clear to auscultation with decreased breath sounds. ABDOMEN: Soft. EXTREMITIES: No edema. ASSESSMENT AND PLAN: He will need to be on prednisone 40 mg for 4 days and 30 mg for 4 days, and 20 mg for 4 days, and 10 mg persistently after that and hopefully he did very well at the rehab facility and get better to walk better and I will see him when he is done with that. The patient had multiple issues; shortness of breath, atrial fibrillation, and he has got lung cancer with brain metastasis. When he came in, he had footdrop that improved. Hopefully, he will continue to improve. Viktor Lundy DO
--- NOTE | 2018-08-02 23:57 | CP.PCM.PN ---
Subjective - Date & Time of Evaluation Date of Evaluation: 08/01/18 Time of Evaluation: 19:00 - Subjective Subjective: No complaints Objective - Vital Signs/Intake and Output Vital Signs (last 24 hours): Temp Pulse Resp BP Pulse Ox 98.1 F 75 18 118/80 97 08/02/18 23:16 08/02/18 23:16 08/02/18 23:16 08/02/18 23:16 08/02/18 23:16 Intake and Output: 08/02/18 08/03/18 18:59 06:59 Intake Total 1320 Output Total 650 Balance 670 - Medications Medications: Current Medications Acetylcysteine (Acetylcysteine 20%) 4 ml IH BIDRESP [facility] Last Admin: 08/02/18 20:00 Dose: Not Given Alprazolam (Xanax) 0.5 mg PO TID [facility]; Protocol Last Admin: 08/02/18 18:23 Dose: 0.5 mg Arformoterol Tartrate (Brovana) 15 mcg IH [id number] [facility] Last Admin: 08/02/18 20:00 Dose: Not Given Benzocaine/Menthol (Cepacol Sore Throat) 1 marlene MT Q2H PRN PRN Reason: Sore Throat Budesonide (Pulmicort Respules) 0.5 mg IH [id number] [facility] Last Admin: 08/02/18 20:00 Dose: Not Given Diltiazem HCl (Cardizem Cd) 180 mg PO DAILY [facility] Last Admin: 08/02/18 10:06 Dose: 180 mg Enoxaparin Sodium (Lovenox) 40 mg SC DAILY [facility]; Protocol Last Admin: 08/02/18 10:05 Dose: 40 mg Glyburide (Micronase) 2.5 mg PO 0800,1200,1700 [facility] Last Admin: 08/02/18 18:23 Dose: 2.5 mg Sodium Chloride (Sodium Chloride 0.9%) 1,000 mls @ 40 mls/hr IV .Q24H [facility] Last Admin: 08/02/18 10:07 Dose: Not Given Insulin Detemir (Levemir) 12 unit SC HS [facility] Last Admin: 08/02/18 21:40 Dose: Not Given Insulin Human Lispro (Humalog Low) 0 units SC ACHS [facility]; Protocol Last Admin: 08/02/18 21:40 Dose: Not Given Insulin Human Lispro (Humalog) 4 units SC AC [facility] Last Admin: 08/02/18 18:23 Dose: 4 unit Ketorolac Tromethamine (Toradol) 30 mg IVP Q6H PRN PRN Reason: Pain, moderate (4-7) Metoprolol Tartrate (Lopressor) 25 mg PO BID [facility] Last Admin: 08/02/18 18:24 Dose: 25 mg Pantoprazole Sodium (Protonix Ec Tab) 40 mg PO HS [facility] Last Admin: 08/02/18 21:40 Dose: Not Given Prednisone (Prednisone Tab) 40 mg PO DAILY [facility] Last Admin: 08/02/18 10:06 Dose: 40 mg Promethazine HCl/Dextromethorphan (Phenergan Dm Syrup) 5 ml PO Q6H PRN PRN Reason: Cough Last Admin: 07/28/18 18:42 Dose: 5 ml Sitagliptin Phosphate (Januvia) 100 mg PO DAILY [facility] Last Admin: 08/02/18 10:06 Dose: 100 mg - Labs Labs: 07/31/18 07:00 07/31/18 07:00 PT 11.6 SECONDS (9.4-12.5) 07/25/18 20:20 INR 1.05 07/25/18 20:20 APTT 28.1 Seconds (26.9-38.3) 07/25/18 20:20 - Head Exam Head Exam: ATRAUMATIC - Eye Exam Eye Exam: Normal appearance - ENT Exam ENT Exam: Mucous Membranes Dry - Respiratory Exam Respiratory Exam: NORMAL BREATHING PATTERN - Cardiovascular Exam Cardiovascular Exam: +S1, +S2 - GI/Abdominal Exam GI & Abdominal Exam: Normal Bowel Sounds Assessment and Plan (1) Pancytopenia Assessment & Plan: liver disease, recent radiation Status: Acute (2) History of DVT (deep vein thrombosis) Assessment & Plan: not an anticoagulation candidate due to falls Status: Acute (3) Small cell lung cancer Assessment & Plan: s/p salvage brain radiation outpatient immunotherapy if clinically improved Status: Acute
--- NOTE | 2018-08-03 | CP.PCM.PN ---
Subjective - Date & Time of Evaluation Date of Evaluation: 08/02/18 Time of Evaluation: 15:00 - Subjective Subjective: Reports agreeable to rehab today Objective - Vital Signs/Intake and Output Vital Signs (last 24 hours): Temp Pulse Resp BP Pulse Ox 98.1 F 75 18 118/80 97 08/02/18 23:16 08/02/18 23:16 08/02/18 23:16 08/02/18 23:16 08/02/18 23:16 Intake and Output: 08/02/18 08/03/18 18:59 06:59 Intake Total 1320 Output Total 650 Balance 670 - Medications Medications: Current Medications Acetylcysteine (Acetylcysteine 20%) 4 ml IH BIDRESP [facility] Last Admin: 08/02/18 20:00 Dose: Not Given Alprazolam (Xanax) 0.5 mg PO TID [facility]; Protocol Last Admin: 08/02/18 18:23 Dose: 0.5 mg Arformoterol Tartrate (Brovana) 15 mcg IH [id number] [facility] Last Admin: 08/02/18 20:00 Dose: Not Given Benzocaine/Menthol (Cepacol Sore Throat) 1 marlene MT Q2H PRN PRN Reason: Sore Throat Budesonide (Pulmicort Respules) 0.5 mg IH [id number] [facility] Last Admin: 08/02/18 20:00 Dose: Not Given Diltiazem HCl (Cardizem Cd) 180 mg PO DAILY [facility] Last Admin: 08/02/18 10:06 Dose: 180 mg Enoxaparin Sodium (Lovenox) 40 mg SC DAILY [facility]; Protocol Last Admin: 08/02/18 10:05 Dose: 40 mg Glyburide (Micronase) 2.5 mg PO 0800,1200,1700 [facility] Last Admin: 08/02/18 18:23 Dose: 2.5 mg Sodium Chloride (Sodium Chloride 0.9%) 1,000 mls @ 40 mls/hr IV .Q24H [facility] Last Admin: 08/02/18 10:07 Dose: Not Given Insulin Detemir (Levemir) 12 unit SC HS [facility] Last Admin: 08/02/18 21:40 Dose: Not Given Insulin Human Lispro (Humalog Low) 0 units SC ACHS [facility]; Protocol Last Admin: 08/02/18 21:40 Dose: Not Given Insulin Human Lispro (Humalog) 4 units SC AC [facility] Last Admin: 08/02/18 18:23 Dose: 4 unit Ketorolac Tromethamine (Toradol) 30 mg IVP Q6H PRN PRN Reason: Pain, moderate (4-7) Metoprolol Tartrate (Lopressor) 25 mg PO BID [facility] Last Admin: 08/02/18 18:24 Dose: 25 mg Pantoprazole Sodium (Protonix Ec Tab) 40 mg PO HS [facility] Last Admin: 08/02/18 21:40 Dose: Not Given Prednisone (Prednisone Tab) 40 mg PO DAILY [facility] Last Admin: 08/02/18 10:06 Dose: 40 mg Promethazine HCl/Dextromethorphan (Phenergan Dm Syrup) 5 ml PO Q6H PRN PRN Reason: Cough Last Admin: 07/28/18 18:42 Dose: 5 ml Sitagliptin Phosphate (Januvia) 100 mg PO DAILY [facility] Last Admin: 08/02/18 10:06 Dose: 100 mg - Labs Labs: 07/31/18 07:00 07/31/18 07:00 PT 11.6 SECONDS (9.4-12.5) 07/25/18 20:20 INR 1.05 07/25/18 20:20 APTT 28.1 Seconds (26.9-38.3) 07/25/18 20:20 - Head Exam Head Exam: ATRAUMATIC - Eye Exam Eye Exam: Normal appearance - ENT Exam ENT Exam: Mucous Membranes Dry - Respiratory Exam Respiratory Exam: Decreased Breath Sounds - Cardiovascular Exam Cardiovascular Exam: +S1, +S2 Assessment and Plan (1) Pancytopenia Assessment & Plan: liver disease and recent radiation Status: Acute (2) History of DVT (deep vein thrombosis) Assessment & Plan: not an anticoagulation candidate due to falls Status: Acute (3) Small cell lung cancer Assessment & Plan: stage IV brain mets s/p salvage brain radiotherapy outpatient immunotherapy if clinically improved Status: Acute
[2018-08-03 06:02] VITALS: O2SAT 96
--- NOTE | 2018-08-03 06:39 | CP.PCM.PN ---
Subjective - Date & Time of Evaluation Date of Evaluation: 08/03/18 Time of Evaluation: 07:10 - Subjective Subjective: Endocrine Service Progress Note for Dr. Guillermo Valiente DO, IM PGY-3 Patient seen and examined at bedside. Agitated again yesterday, refused transfer to [facility] again yesterday evening, refused dinner and levemir yesterday and some fingersticks. This AM, not confused, agreeable, following commands. Fingerstick this AM 189. Complaining of headache and bilateral foot/ankle aching. Objective - Vital Signs/Intake and Output Vital Signs (last 24 hours): Temp Pulse Resp BP Pulse Ox 97.8 F 67 18 110/78 96 08/03/18 06:00 08/03/18 06:00 08/03/18 06:00 08/03/18 06:00 08/03/18 06:00 Intake and Output: 08/02/18 08/03/18 18:59 06:59 Intake Total 1560 Output Total 850 Balance 710 - Medications Medications: Current Medications Acetylcysteine (Acetylcysteine 20%) 4 ml IH BIDRESP [facility] Last Admin: 08/02/18 20:00 Dose: Not Given Alprazolam (Xanax) 0.5 mg PO TID [facility]; Protocol Last Admin: 08/02/18 18:23 Dose: 0.5 mg Arformoterol Tartrate (Brovana) 15 mcg IH [id number] [facility] Last Admin: 08/02/18 20:00 Dose: Not Given Benzocaine/Menthol (Cepacol Sore Throat) 1 marlene MT Q2H PRN PRN Reason: Sore Throat Budesonide (Pulmicort Respules) 0.5 mg IH [id number] [facility] Last Admin: 08/02/18 20:00 Dose: Not Given Diltiazem HCl (Cardizem Cd) 180 mg PO DAILY [facility] Last Admin: 08/02/18 10:06 Dose: 180 mg Enoxaparin Sodium (Lovenox) 40 mg SC DAILY [facility]; Protocol Last Admin: 08/02/18 10:05 Dose: 40 mg Glyburide (Micronase) 2.5 mg PO 0800,1200,1700 [facility] Last Admin: 08/02/18 18:23 Dose: 2.5 mg Sodium Chloride (Sodium Chloride 0.9%) 1,000 mls @ 40 mls/hr IV .Q24H [facility] Last Admin: 08/02/18 10:07 Dose: Not Given Insulin Detemir (Levemir) 12 unit SC [facility] Last Admin: 08/02/18 21:40 Dose: Not Given Insulin Human Lispro (Humalog Low) 0 units SC [facility]; Protocol Last Admin: 08/02/18 21:40 Dose: Not Given Insulin Human Lispro (Humalog) 4 units SC AC [facility] Last Admin: 08/02/18 18:23 Dose: 4 unit Ketorolac Tromethamine (Toradol) 30 mg IVP Q6H PRN PRN Reason: Pain, moderate (4-7) Metoprolol Tartrate (Lopressor) 25 mg PO BID [facility] Last Admin: 08/02/18 18:24 Dose: 25 mg Pantoprazole Sodium (Protonix Ec Tab) 40 mg PO [facility] Last Admin: 08/02/18 21:40 Dose: Not Given Prednisone (Prednisone Tab) 40 mg PO DAILY [facility] Last Admin: 08/02/18 10:06 Dose: 40 mg Promethazine HCl/Dextromethorphan (Phenergan Dm Syrup) 5 ml PO Q6H PRN PRN Reason: Cough Last Admin: 07/28/18 18:42 Dose: 5 ml Sitagliptin Phosphate (Januvia) 100 mg PO DAILY [facility] Last Admin: 08/02/18 10:06 Dose: 100 mg - Labs Labs: 07/31/18 07:00 07/31/18 07:00 PT 11.6 SECONDS (9.4-12.5) 07/25/18 20:20 INR 1.05 07/25/18 20:20 APTT 28.1 Seconds (26.9-38.3) 07/25/18 20:20 - Additional Findings Additional findings: - Constitutional Appears: Chronically Ill, No acute distress - Head Exam Head Exam: ATRAUMATIC, NORMOCEPHALIC - Eye Exam Eye Exam: absent: Conjunctival injection, Scleral icterus - ENT Exam ENT Exam: Mucous Membranes Moist - Neck Exam Neck Exam: absent: Thyromegaly - Respiratory Exam Respiratory Exam: Moderately decreased breath sounds in all hadley, NORMAL BREATHING PATTERN, Expiratory ronchi in all hadley. absent: Accessory Muscle Use, Rales, Wheezes, Stridor - Cardiovascular Exam Cardiovascular Exam: RRR, +S1, +S2. absent: Tachycardia/Bradycardia, Irregular Rhythm, +S4 - GI/Abdominal Exam GI & Abdominal Exam: Normal Bowel Sounds. absent: Distended - Extremities Exam Extremities Exam: Normal Capillary Refill, Normal Inspection. 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 Endocrine was consulted for hyperglycemia. Plan: 1) Worsening SOB + productive cough: PNA vs COPD exacerbation 2) Stage IV lung Ca with progressive brain mets 3) Hep C with cirrhosis and persistent thrombocytopenia 4) DVT on AC: held AC due to high risk of intracranial bleed 5) COPD 6) DMII with hyperglycemia: likely 2/2 steroids 7) Prior CVA 8) Anxiety/Depression 9) Confusion/agitation: hospital-associated delirium vs worsening brain mets -glucose 189 this AM, no 24 hr range because refusing some fingersticks, last few in low 200's -Current regimen: Levemir 102 HS, Lispro 4u AC and Lispro Low-ISS ACHS, Glyburide 2.5mg TID Did not get last night's Levemir, refused -TSH remains low but improving, from 0.18 to 0.27 -TSH suppression and elevated blood sugars likely 2/2 IV steroids for COPD, improving with steroids weaning (now down to 20mg IV q12), continue to monitor -Pending [facility] for rehab as per charting Will discuss with attending, Dr. Li. Further recommendations as per attending.
[2018-08-03] MEDS: Acetylcysteine 20% Inhal Soln (4ml) IH SCH (07:20)
[2018-08-03] MEDS: Budesonide 0.5 mg/2 ml Inhal Susp UD IH SCH (07:20)
[2018-08-03] MEDS: Arformoterol 15 mcg/2 ml Inh Sol IH SCH (07:20)
[2018-08-03] MEDS: Insulin Lispro 1 UNITS/0.01 ML SC SCH ×2 (09:37→13:24)
[2018-08-03] MEDS: Enoxaparin 40 mg Syringe SC SCH (09:37)
[2018-08-03] MEDS: diltiaZEM 180 mg/24 Hours CD Cap PO SCH (09:38)
[2018-08-03] MEDS: Insulin Lispro (humaLOG) LOW Coverage SC SCH ×2 (09:38→13:24)
[2018-08-03] MEDS: Sodium Chloride 0.9% 1,000 ML IV SCH (09:42)
--- NOTE | 2018-08-03 10:09 | PN ---
DATE: 08/03/2018 ENDOCRINOLOGY FOLLOWUP NOTE LOCATION: Room 263. SUBJECTIVE: This is a 52-year-old male with recent uncontrolled type 2 insulin-requiring diabetes receiving IV antibiotic management for recent pneumonitis and is now being followed closely for metabolic management. His glycemic levels are fluctuating, but improved as noted overnight. The glucose levels have ranged from 187 to 277 mg/dL. His chemistries showed a BUN of 30, sodium 139, potassium 3.7, chloride 108, CO2 of 28, glucose 210 and creatinine 0.7. With the variability of his oral intake and episodic lapses of hypersomnolence, we will hold off any dose changes to his insulin regimen at this time. We will continue the Humalog given as 4 units t.i.d. before meals as ordered. We will also continue the basal insulin given as Levemir at 12 units subcutaneously at bedtime daily as given. He is also on Micronase given as 2.5 mg t.i.d. and Januvia at 100 mg once daily as ordered. We will obtain serial chemistries and supplement accordingly needed. We will follow. Jes Li MD
--- NOTE | 2018-08-03 12:06 | PN ---
DATE: 08/03/2018 PULMONARY PROGRESS NOTE REFERRING PHYSICIAN: Viktor Lundy DO SUBJECTIVE: The patient is lying in bed, awake alert and verbal. No acute distress. Nursing staff reports the patient was restless last night, gets increased confusion at night. This morning the patient feels calm, lying in bed. No headache, rhinitis, cough, chest pain, abdominal pain, nausea, vomiting, diarrhea, leg pain or leg swelling reported. Has occasional shortness of breath. OBJECTIVE: GENERAL: No acute distress. VITAL SIGNS: Blood pressure 114/80, pulse 70, temperature 97.8, and oxygen saturation 96% on room air. HEENT: Moist mucous membranes. Crowded airway. Mallampati score of 4. NECK: Supple. No JVD. LUNGS: Scattered rhonchi bilaterally. CARDIOVASCULAR: S1 and S2. ABDOMEN: Soft and nontender. No distention. No organomegaly. EXTREMITIES: No bilateral lower extremity edema. NEUROLOGIC: Awake, alert and verbal. Follows commands. MEDICATIONS: Reviewed. Mucomyst 4 mL inhalation twice a day, Xanax 0.5 mg 3 times a day, Brovana 15 mcg every 12 hours, Cepacol throat lozenges every 2 hours p.r.n., Pulmicort 0.5 mg inhalation every 12 hours, Cardizem 180 mg daily, Lovenox 40 mg daily, glyburide 2.5 mg 3 times a day, Levemir 12 units subcutaneously at bedtime., Humalog sliding scale a.c. and at bedtime., Humalog 4 units in the morning, Toradol 30 mg every 6 hours p.r.n., Lopressor 25 mg twice a day, Protonix 40 mg at bedtime, prednisone 40 mg daily, Phenergan DM 5 mL every 6 hours p.r.n., Januvia 100 mg daily and sodium chloride 0.9% 1000 mL at 40 mL per hour. LABORATORY DATA: Reviewed. No new labs. IMPRESSION AND PLAN: Metastatic lung cancer with metastases to the brain, chronic obstructive lung disease with exacerbation, history of cerebrovascular accident, thrombocytopenia, diabetes, history of drug abuse in the past, anxiety disorder, depression, suspected sleep apnea syndrome. Pulmonary point of view, continue pulmonary toileting, Oncology followup, head of bed elevated at 45 degrees, sleep apnea precaution, careful with nocturnal sedation. The patient scheduled for discharged to subacute rehab, continue current tapering prednisone dosage. We recommended the patient has sleep study and full pulmonary function test as outpatient. This patient was seen and examined with Dr. Kramer. Discussed assessment and plan as described above. This patient was seen and examined with Matt Sue, nurse practitioner. Discussed assessment and plan as described above. Thank you for this consult and we will follow with you. Matt Sue APN Sandro Kramer MD MTDLily
[2018-08-03 12:37] VITALS: BP 120/81; PULSE 73; TEMP 99.1
--- NOTE | 2018-08-03 21:43 | DS ---
HISTORY OF PRESENT ILLNESS: This is a third day in a row, we are trying to discharge him. He was little bit confused last night and he is little bit better this morning. He understands he is going to [facility]. PHYSICAL EXAMINATION: VITAL SIGNS: He has 97.8 temperature, 67 pulse, 110/78 blood pressure, 18 respiratory rate, and 96% O2 saturation on room air. GENERAL: He is trying to eat his breakfast, not that hungry, he is taking some bites. HEENT: Head is atraumatic and normocephalic. HEART: Regular rate. LUNGS: Decreased breath sounds. ABDOMEN: Soft. EXTREMITIES: No edema. MEDICATIONS: He is on acetylcysteine, Brovana, Cardizem, Cepacol, insulin, Januvia, Levemir, Lopressor, Lovenox, Micronase, Phenergan, prednisone at 40, then 30, then 20, then stays on 10, Protonix, Pulmicort, IV fluids, Toradol and Xanax as needed. LABORATORY DATA: Last labs on 07/31/2018, he did well. No labs were ordered because we keep on thinking he is being discharged. ASSESSMENT AND PLAN: The TSH should be done at the other facility to follow his thyroid and hopefully he will do well there. Hopefully, I will see him when he done with the therapy. Trung Seo who has multiple issues, rapid atrial fibrillation, lung cancer, and brain metastasis. Viktor Lundy DO MTDLily
== END 2018-08-03 18:26 | disposition home health service (06) | DRG 88 ==
LOC: ED 20:01 → ERH 21:57 → 2RSO 07-27 00:31 → 2RNO 07-29 16:59 → UNDODISIN 08-01 21:42
PROVIDERS: ADMIT Family Medicine; ATTEND Family Medicine
PROC: 3E0F7GC Introduction of Other Therapeutic Substance into Respiratory Tract, Via Natural or Artificial Opening (ICD-10-PCS; principal; 2018-07-27)
DX: J44.1 Chronic obstructive pulmonary disease with (acute) exacerbation (principal); J18.9 Pneumonia, unspecified organism; C34.90 Malignant neoplasm of unspecified part of unspecified bronchus or lung; C79.31 Secondary malignant neoplasm of brain; C79.51 Secondary malignant neoplasm of bone; D61.818 Other pancytopenia; B19.20 Unspecified viral hepatitis C without hepatic coma; E11.65 Type 2 diabetes mellitus with hyperglycemia; E11.42 Type 2 diabetes mellitus with diabetic polyneuropathy; K74.60 Unspecified cirrhosis of liver; J44.0 Chronic obstructive pulmonary disease with (acute) lower respiratory infection; I48.91 Unspecified atrial fibrillation; F32.9 Major depressive disorder, single episode, unspecified; F41.1 Generalized anxiety disorder; I10 Essential (primary) hypertension; K76.6 Portal hypertension; M51.36 Other intervertebral disc degeneration, lumbar region; I27.20 Pulmonary hypertension, unspecified; M21.372 Foot drop, left foot; G81.94 Hemiplegia, unspecified affecting left nondominant side; T38.0X5A Adverse effect of glucocorticoids and synthetic analogues, initial encounter; E78.5 Hyperlipidemia, unspecified; Z86.73 Personal history of transient ischemic attack (TIA), and cerebral infarction without residual deficits; Z91.5 Personal history of self-harm; Z86.718 Personal history of other venous thrombosis and embolism; Z91.81 History of falling

== ENCOUNTER 2018-08-07 01:46 | Observation (INO) | payer MEDICAID ==
[2018-08-07 01:53] VITALS: RESP 18
[2018-08-07 01:56] VITALS: BMI 26.4
[2018-08-07] MEDS ORDERED: Sodium Chloride 0.9% 1,000 ML IV SCH (02:15)
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
[2018-08-07 03:06] LABS: HEMOGLOBIN 14.8 g/dL (14.0-18.0); MEAN CELL VOLUME 96.6 fl (80.0-105.0); MEAN CORPUSCULAR HEMOGLOBIN 33.1 pg (25.0-35.0); MEAN CORPUSCULAR HGB CONC 34.3 g/dl (31.0-37.0); MEAN PLATELET VOLUME 9.8 fl (7.0-11.0); RBC 4.47 10^6/uL (3.5-6.1); RED CELL DISTRIBUTION WIDTH 14.2 % (11.5-14.5); WHITE BLOOD COUNT 12.9 10^3/uL (4.5-11.0)
[2018-08-07 03:21] LABS: ALB/GLOB RATIO 1.1 (1.1-1.8); ALBUMIN 3.2 g/dL (3.0-4.8); ALT/SGPT 143 U/L (7-56); AST/SGOT 57 U/L (17-59); BLOOD UREA NITROGEN 22 mg/dL (7-21); GFR NON-AFRICAN AMERICAN > 60; LIPASE 149 U/L (23-300)
[2018-08-07] MEDS ORDERED: Iodixanol 320 MG/ML 100 ML BOTTLE IV ONE (03:39)
[2018-08-07] MEDS ORDERED: cefTRIAXone 1 gm 1 GM/100 ML BAG IV STA (04:57)
[2018-08-07 06:41] LABS: PH,URINE 6.5 (4.7-8.0); URINE BILIRUBIN NEGATIVE (NEGATIVE); URINE BLOOD LARGE (NEGATIVE); URINE GLUCOSE (UA) NEGATIVE (NEGATIVE); URINE LEUKOCYTE ESTERASE NEGATIVE Leu/uL (NEGATIVE); URINE PROTEIN TRACE mg/dL (<30 mg/dL); URINE UROBILINOGEN 0.2 E.U./dL (<1 E.U./dL)
[2018-08-07 06:42] LABS: URINE COLOR YELLOW (YELLOW)
[2018-08-07 06:43] LABS: URINE APPEARANCE SL CLOUDY (CLEAR)
[2018-08-07 06:53] LABS: URINE EPITHELIAL CELLS 0 - 2 /hpf (0-5); URINE RBC TNTC /hpf (0-2); URINE WBC 0 - 2 /hpf (0-6)
[2018-08-07] MEDS ORDERED: Promethazine DM 6.25 mg-15 mg/5 ml Syrup PO SCH (10:00)
[2018-08-07] MEDS: Sodium Chloride 0.45% 1,000 ML IV SCH (10:18)
[2018-08-07] MEDS: oxyCODONE 5 mg Immediate Release Tab PO SCH ×2 (10:19→18:02)
[2018-08-07] MEDS: Promethazine DM 6.25 mg-15 mg/5 ml Syrup PO SCH (10:19)
--- NOTE | 2018-08-07 11:39 | CARD ---
APPROVED REPORT Date of service: 08/07/2018 EKG Measurement Heart [id number] <Conclusion> Normal sinus rhythm Normal ECG
--- NOTE | 2018-08-07 14:22 | PCM.URO ---
Urology Progress Note - Objective Lab Studies: Reviewed (strain the urine and will discuss further plans) Lab Results Last 24 Hours: Laboratory Results - last 24 hr 08/07/18 08/07/18 08/07/18 02:40 02:40 06:10 WBC 12.9 H D RBC 4.47 Hgb 14.8 D Hct 43.2 MCV 96.6 MCH 33.1 MCHC 34.3 RDW 14.2 Plt Count 60 L MPV 9.8 Sodium 134 Potassium 3.8 Chloride 100 Carbon Dioxide 29 Anion Gap 9 L BUN 22 H Creatinine 0.7 L Est GFR ( Amer) > 60 Est GFR (Non-Af Amer) > 60 Random Glucose 124 H Calcium 9.0 Total Bilirubin 0.8 AST 57 ALT 143 H Alkaline Phosphatase 175 H D Total Protein 6.1 Albumin 3.2 Globulin 2.9 Albumin/Globulin Ratio 1.1 Lipase 149 Urine Color Yellow Urine Appearance Sl cloudy Urine pH 6.5 Ur Specific [place] 1.015 Urine Protein Trace H Urine Glucose (UA) Negative Urine Ketones Trace H Urine Blood Large H Urine Nitrate Negative Urine Bilirubin Negative Urine Urobilinogen 0.2 Ur Leukocyte Esterase Negative Urine RBC Tntc H Urine WBC 0 - 2 Ur Epithelial Cells 0 - 2 Urine Bacteria None Intake & Output: Intake & Output 08/06/18 08/07/18 08/07/18 18:59 06:59 18:59 Weight 190 lb Vital Signs: Vital Signs - 24 hr 08/07/18 08/07/18 08/07/18 01:52 04:00 05:00 Temperature 97.4 F L Pulse Rate 66 72 65 Respiratory 18 18 18 Rate Blood Pressure 125/64 102/74 105/70 O2 Sat by Pulse 97 95 95 Oximetry 08/07/18 08/07/18 08:07 10:05 Temperature Pulse Rate 61 58 L Respiratory 18 18 Rate Blood Pressure 111/83 130/87 O2 Sat by Pulse 99 98 Oximetry
[2018-08-07] MEDS ORDERED: Influenza Vaccine 60 mcg/0.5 mL SYR (4YR UP) IM ONE (15:38)
[2018-08-07] MEDS ORDERED: Pneumococcal 23-Valent Vaccine IM ONE (15:38)
--- NOTE | 2018-08-07 15:45 | CT ---
Date of service: 08/07/2018 PROCEDURE: CT Abdomen and Pelvis with contrast HISTORY: left lower abdominal pain COMPARISON: 06/29/2012. TECHNIQUE: CT scan of the abdomen and pelvis was performed after administration of intravenous contrast. Oral contrast was not administered. Coronal and sagittal reformatted images were obtained. Contrast dose: Radiation dose: Total exam DLP = 474.13 mGy-cm. This CT exam was performed using one or more of the following dose reduction techniques: Automated exposure control, adjustment of the mA and/or kV according to patient size, and/or use of iterative reconstruction technique. FINDINGS: LOWER THORAX: The visualized lungs are clear. Small left pleural effusion LIVER: Normal in size with homogeneous enhancement. No gross lesion or ductal dilatation. GALLBLADDER AND BILE DUCTS: Partially distended. No calcified gallstones. Apparent mild thickening the gallbladder. PANCREAS: Mild fatty atrophy of the pancreas. Normal homogeneous enhancement. No gross lesion or ductal dilatation. SPLEEN: Normal in size and appearance. ADRENALS: No discrete nodule. KIDNEYS AND URETERS: The right kidney is normal in size with homogeneous enhancement. No hydronephrosis. No solid mass. The left kidney is normal in size. There is moderate left hydronephrosis, moderate diffuse dilatation of the left ureteral with very ureteral fat stranding no obstructing stone. There is a tiny high attenuation density in the distal posterior ureteral likely represents layering calcium. VASCULATURE: No aortic aneurysm. There are no aortic atherosclerotic calcifications or mural plaque present. BOWEL: Evaluation of the bowel is limited in th ureteral. E small bowel loops are normal in caliber. Status post partial resection of the right hemicolon. There is scattered left colonic diverticulosis without CT evidence for acute diverticulitis APPENDIX: Surgically absent. PERITONEUM: No free fluid. No free air. LYMPH NODES: No enlarged lymph nodes. BLADDER: Partially decompressed. There is apparent mild circumferential mural thickening in the urinary bladder wall, most conspicuous left anterolateral REPRODUCTIVE: The prostate gland is normal in size. BONES: No acute fracture. There is diffuse bone demineralization and multilevel degenerative changes in the spine. OTHER FINDINGS: There are small bilateral fat containing inguinal hernias, larger on the left . IMPRESSION: 1. Moderate left hydroureteronephrosis and periureteral fat stranding without evidence for obstructing stone most compatible with recent passage of stone. 2. Mild circumferential mural thickening of the bladder wall may represent underlying cystitis. A preliminary report was provided by [email or web address]. The final report is tagged to the PA review folder.
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
--- NOTE | 2018-08-07 17:59 | RAD ---
Date of service: 08/07/2018 HISTORY: stones COMPARISON: None available. FINDINGS: BOWEL: Normal. No obstruction. No free air. BONES: Normal. OTHER FINDINGS: Dilated left collecting system and ureter. Findings suggest ectopic ureterocele. IMPRESSION: Left hydronephrosis, hydroureter associated with ectopic ureterocele.
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
[2018-08-08] MEDS: oxyCODONE 5 mg Immediate Release Tab PO SCH ×4 (02:34→14:59)
[2018-08-08 07:03] LABS: HEMOGLOBIN 13.3 g/dL (14.0-18.0); MEAN CELL VOLUME 99.8 fl (80.0-105.0); MEAN CORPUSCULAR HEMOGLOBIN 32.5 pg (25.0-35.0); MEAN CORPUSCULAR HGB CONC 32.6 g/dl (31.0-37.0); MEAN PLATELET VOLUME 9.9 fl (7.0-11.0); RBC 4.09 10^6/uL (3.5-6.1); RED CELL DISTRIBUTION WIDTH 14.6 % (11.5-14.5); WHITE BLOOD COUNT 9.7 10^3/uL (4.5-11.0)
[2018-08-08 07:20] LABS: ALB/GLOB RATIO 1.1 (1.1-1.8); ALBUMIN 2.9 g/dL (3.0-4.8); ALT/SGPT 111 U/L (7-56); AST/SGOT 57 U/L (17-59); BLOOD UREA NITROGEN 23 mg/dL (7-21); CALCIUM 8.9 mg/dL (8.4-10.5); GFR NON-AFRICAN AMERICAN > 60
[2018-08-08 07:51] VITALS: TEMP 98; O2SAT 96
[2018-08-08] MEDS: Promethazine DM 6.25 mg-15 mg/5 ml Syrup PO SCH (09:09)
[2018-08-08] MEDS: Sodium Chloride 0.45% 1,000 ML IV SCH (09:10)
--- NOTE | 2018-08-08 09:36 | PCM.URO ---
Urology Progress Note - Objective Lab Studies: Reviewed (less pain strain urine) Lab Results Last 24 Hours: Laboratory Results - last 24 hr 08/08/18 08/08/18 08/08/18 00:04 06:20 06:20 WBC 9.7 D RBC 4.09 Hgb 13.3 L Hct 40.8 L MCV 99.8 D MCH 32.5 MCHC 32.6 RDW 14.6 H Plt Count 52 L MPV 9.9 Sodium 135 Potassium 4.7 Chloride 101 Carbon Dioxide 31 Anion Gap 8 L BUN 23 H Creatinine 0.8 Est GFR ( Amer) > 60 Est GFR (Non-Af Amer) > 60 POC Glucose (mg/dL) 111 H Random Glucose 218 H Calcium 8.9 Total Bilirubin 0.8 AST 57 ALT 111 H Alkaline Phosphatase 183 H Total Protein 5.6 L Albumin 2.9 L Globulin 2.7 Albumin/Globulin Ratio 1.1 08/08/18 06:31 WBC RBC Hgb Hct MCV MCH MCHC RDW Plt Count MPV Sodium Potassium Chloride Carbon Dioxide Anion Gap BUN Creatinine Est GFR ( Amer) Est GFR (Non-Af Amer) POC Glucose (mg/dL) 278 H Random Glucose Calcium Total Bilirubin AST ALT Alkaline Phosphatase Total Protein Albumin Globulin Albumin/Globulin Ratio Intake & Output: Intake & Output 08/07/18 08/08/18 08/08/18 18:59 06:59 18:59 Intake Total 480 Output Total 400 Balance 80 Weight 190 lb Intake: Oral 480 Output: Urine 400 Urine, Voided 400 Other: Voiding Method Toilet # Bowel Movements 0 Vital Signs: Vital Signs - 24 hr 08/07/18 08/07/18 08/08/18 10:05 15:03 06:00 Temperature 98 F Pulse Rate 58 L 86 Pulse Rate [ 78 Bilateral Radial] Respiratory 18 18 18 Rate Blood Pressure 130/87 121/86 O2 Sat by Pulse 98 96 Oximetry
[2018-08-08] MEDS ORDERED: cefTRIAXone 1 gm 1 GM/100 ML BAG IVPB SCH (10:00)
[2018-08-08 15:01] VITALS: BP 103/69; PULSE 78
--- NOTE | 2018-08-08 15:08 | CP.PCM.PN ---
Subjective - Date & Time of Evaluation Date of Evaluation: 08/08/18 Time of Evaluation: 12:00 - Subjective Subjective: Left flank pain is better, no fevers, not in distress. Objective - Vital Signs/Intake and Output Vital Signs (last 24 hours): Temp Pulse Resp BP Pulse Ox 97.4 F L 78 18 130/87 98 08/07/18 01:52 08/07/18 15:03 08/07/18 15:03 08/07/18 10:05 08/07/18 10:05 - Medications Medications: Current Medications Alprazolam (Xanax) 0.5 mg PO TID [facility]; Protocol Last Admin: 08/07/18 14:17 Dose: Not Given Clonazepam (Klonopin) 0.5 mg PO BID [facility]; Protocol Last Admin: 08/07/18 10:19 Dose: 0.5 mg Sodium Chloride (Sodium Chloride 0.45%) 1,000 mls @ 40 mls/hr IV .Q24H [facility] Last Admin: 08/07/18 10:18 Dose: 40 mls/hr Ceftriaxone Sodium (Rocephin 1 Gram Ivpb) 1 gm in 100 mls @ 100 mls/hr IVPB DAILY [facility]; Protocol Oxycodone HCl (Oxycodone Immediate Release Tab) 5 mg PO Q6H [facility] Last Admin: 08/07/18 10:19 Dose: 5 mg Prednisone (Prednisone Tab) 20 mg PO DAILY [facility] Promethazine HCl/Dextromethorphan (Phenergan Dm Syrup) 5 ml PO DAILY [facility] Last Admin: 08/07/18 10:19 Dose: 5 ml Zolpidem Tartrate (Ambien) 5 mg PO HS [facility] - Labs Labs: 08/07/18 02:40 08/07/18 02:40 - Constitutional Appears: Chronically Ill - Head Exam Head Exam: NORMAL INSPECTION - Respiratory Exam Respiratory Exam: Decreased Breath Sounds - Cardiovascular Exam Cardiovascular Exam: +S1, +S2 - GI/Abdominal Exam GI & Abdominal Exam: Soft. 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 Lundy
--- NOTE | 2018-08-08 19:38 | DS ---
HISTORY OF PRESENT ILLNESS: He is resting comfortably in bed. He is in no more pain. He is not sure if he urinated out the kidney stone or not, but he does feel much better and he said he can go home. He will be discharged today. He will go home on his regular medications that he takes at home, nothing new from my regard here. I discussed this with the urologist, Dr. Camacho, he said he can go home if the pain is gone. PHYSICAL EXAMINATION: VITAL SIGNS: He has 98 temp, 86 pulse, 121/86 blood pressure, 18 respiratory rate, 96% O2 sat. HEENT: His head is atraumatic, normocephalic. HEART: Regular rate. LUNGS: Decreased breath sounds, but clear. He has lung cancer with brain metastasis. ABDOMEN: Soft, nontender. Positive bowel sounds. No CVA tenderness. The belly is all soft, no pain anymore. He is not bleeding and the urine is clear. EXTREMITIES: No edema. LABORATORY DATA: He had a 9.7 white count, better than 12.9 when he came in; 13.3 hemoglobin; 40.8 hematocrit with a 52 platelets. He has a 135 sodium, potassium 4.7, BUN 22, creatinine 0.8, GFR is greater than 60, sugar is 278, calcium is 8.9, total bili is 0.8. AST is 57, ALT is 111, alk phos is 183, total protein is 5.6. PLAN: He had a visit for Infectious Disease and Urology, and I am happy to say he is doing well enough I could discharge him home. If I need to keep him on antibiotics, I will. I will discuss that with the urologist. If it is okay from Urology standpoint, he could be discharged. I will follow up in the outpatient in 2 days. Viktor Lundy DO
== END 2018-08-08 18:43 | disposition home health service (06) ==
LOC: ED 01:46 → ERH 06:06 → 5RSO 11:00 → 5RNO 23:05
PROVIDERS: ADMIT Family Medicine; ATTEND Family Medicine
DX: N13.2 Hydronephrosis with renal and ureteral calculous obstruction (principal); C79.31 Secondary malignant neoplasm of brain; C34.90 Malignant neoplasm of unspecified part of unspecified bronchus or lung; J44.9 Chronic obstructive pulmonary disease, unspecified; E11.9 Type 2 diabetes mellitus without complications; B19.20 Unspecified viral hepatitis C without hepatic coma; D69.6 Thrombocytopenia, unspecified; K74.60 Unspecified cirrhosis of liver; R32 Unspecified urinary incontinence; Z86.73 Personal history of transient ischemic attack (TIA), and cerebral infarction without residual deficits; Z91.5 Personal history of self-harm; Z87.891 Personal history of nicotine dependence
CPT/HCPCS: 36415; 74022; 74177; 80053; 81001; 82948; 83690; 85027; 87040; 87086; 93005; 96374; 99285; G0378; J0696; J1885; J2405; J7030; Q9967

== ENCOUNTER 2018-08-17 20:32 | Emergency (ER) | payer MEDICAID ==
[2018-08-17 20:33] VITALS: BMI 26.4
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
[2018-08-17] MEDS ORDERED: Albuterol-Ipratrop 3 mg / 0.5 (3 ml) UD IH STA (22:08)
[2018-08-17 22:15] LABS: PH,URINE 6.5 (4.7-8.0); URINE APPEARANCE CLEAR (CLEAR); URINE BILIRUBIN NEGATIVE (NEGATIVE); URINE BLOOD NEGATIVE (NEGATIVE); URINE COLOR YELLOW (YELLOW); URINE GLUCOSE (UA) NEGATIVE (NEGATIVE); URINE LEUKOCYTE ESTERASE NEGATIVE Leu/uL (NEGATIVE); URINE PROTEIN NEGATIVE mg/dL (<30 mg/dL); URINE UROBILINOGEN 0.2 E.U./dL (<1 E.U./dL)
[2018-08-17] MEDS ORDERED: Albuterol-Ipratrop 3 mg / 0.5 (3 ml) UD ONE (22:18)
[2018-08-17 22:32] LABS: BASO # 0.04 K/mm3 (0.0-2.0); BASO % 1.1 % (0.0-3.0); EOS % 1.1 % (1.5-5.0); HEMOGLOBIN 10.9 g/dL (14.0-18.0); LYMPH # 0.7 (1.2-3.4); LYMPH % 19.3 % (22.0-35.0); MEAN CORPUSCULAR HEMOGLOBIN 32.5 pg (25.0-35.0); MEAN CORPUSCULAR HGB CONC 32.5 g/dl (31.0-37.0); MEAN PLATELET VOLUME 9.3 fl (7.0-11.0); MONO # 0.4 (0.1-0.6); MONO % 11.3 % (1.0-6.0); PLATELET COUNT 90 10^3/uL (120.0-450.0); RBC 3.35 10^6/uL (3.5-6.1); RED CELL DISTRIBUTION WIDTH 16.2 % (11.5-14.5); WHITE BLOOD COUNT 3.7 10^3/uL (4.5-11.0)
[2018-08-17 22:40] LABS: INR 1.1; PARTIAL THROMBOPLASTIN TIME 27.8 Seconds (26.9-38.3); PROTHROMBIN TIME 12.2 SECONDS (9.4-12.5)
[2018-08-17 22:52] LABS: ALT/SGPT 73 U/L (7-56); AST/SGOT 67 U/L (17-59); BLOOD UREA NITROGEN 20 mg/dL (7-21); CALCIUM 9.2 mg/dL (8.4-10.5); GFR NON-AFRICAN AMERICAN > 60; LIPASE 59 U/L (23-300)
[2018-08-17 22:56] LABS: BAND 2 % (0-2); EOSINOPHIL 2 % (0.0-3.0); LYMPHOCYTE 17 % (22.0-35.0); METAMYELOCYTE 3 %; MONOCYTE 8 % (1.0-6.0); MYELOCYTE 3 %; NEUTROPHIL 65 % (50.0-70.0); PLATELET ESTIMATE LOW (NORMAL)
[2018-08-18 09:31] VITALS: TEMP 98
--- NOTE | 2018-08-18 09:47 | RAD ---
Date of service: 08/17/2018 HISTORY: abd pain COMPARISON: Portable chest 07/15/2018. FINDINGS: LUNGS: Gross opacification of the upper left hemithorax is not significantly changed. Spiculate changes are again identified at the inferior margins suggestive of malignancy once again. No acute pulmonary disease appreciable bilaterally. PLEURA: No significant pleural effusion identified, no pneumothorax apparent. CARDIOVASCULAR: No aortic atherosclerotic calcification present. Normal cardiac size. No pulmonary vascular congestion. OSSEOUS STRUCTURES: No significant abnormalities. VISUALIZED UPPER ABDOMEN: Normal. OTHER FINDINGS: None. IMPRESSION: Left upper lobe malignancy reiterated. No significant interval change bilaterally. No acute cardiopulmonary disease appreciable at this time.
[2018-08-18 14:07] VITALS: PULSE 86; O2SAT 98
[2018-08-18 16:41] VITALS: BP 123/59; RESP 17
--- NOTE | 2018-08-18 21:23 | CARD ---
APPROVED REPORT Date of service: 08/17/2018 EKG Measurement Heart [id number] 130P49 [id number] <Conclusion> Normal sinus rhythm Normal ECG
== END 2018-08-18 16:42 | disposition home or self-care (01) ==
LOC: ED 20:32
DX: R06.02 Shortness of breath (principal); E11.9 Type 2 diabetes mellitus without complications; J44.9 Chronic obstructive pulmonary disease, unspecified; K74.60 Unspecified cirrhosis of liver; C34.90 Malignant neoplasm of unspecified part of unspecified bronchus or lung; C79.31 Secondary malignant neoplasm of brain; Z86.73 Personal history of transient ischemic attack (TIA), and cerebral infarction without residual deficits; Z87.891 Personal history of nicotine dependence
CPT/HCPCS: 71045; 80053; 81003; 83690; 85025; 85610; 85730; 87086; 87804; 93005; 96374; 99285; J2930

== ENCOUNTER 2018-09-07 22:04 | Observation (INO) | payer MEDICAID ==
[2018-09-07 22:05] VITALS: BMI 26.4
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
[2018-09-07] MEDS ORDERED: Albuterol-Ipratrop 3 mg / 0.5 (3 ml) UD IH STA (23:22)
[2018-09-08 00:22] LABS: ALB/GLOB RATIO 1.1 (1.1-1.8); ALBUMIN 3.1 g/dL (3.0-4.8); ALT/SGPT 107 U/L (7-56); AST/SGOT 111 U/L (17-59); BLOOD UREA NITROGEN 29 mg/dL (7-21); CALCIUM 9.4 mg/dL (8.4-10.5); GFR NON-AFRICAN AMERICAN > 60; HEMOGLOBIN 11.5 g/dL (14.0-18.0); MEAN CELL VOLUME 102.5 fl (80.0-105.0); MEAN CORPUSCULAR HEMOGLOBIN 31.9 pg (25.0-35.0); MEAN CORPUSCULAR HGB CONC 31.2 g/dl (31.0-37.0); MEAN PLATELET VOLUME 9.9 fl (7.0-11.0); RBC 3.6 10^6/uL (3.5-6.1); RED CELL DISTRIBUTION WIDTH 16.1 % (11.5-14.5); WHITE BLOOD COUNT 6.2 10^3/uL (4.5-11.0)
[2018-09-08 00:26] LABS: INR 1.1; PARTIAL THROMBOPLASTIN TIME 27.7 Seconds (26.9-38.3); PROTHROMBIN TIME 12.2 SECONDS (9.4-12.5)
[2018-09-08 00:30] LABS: TROPONIN I < 0.01 ng/mL
[2018-09-08] MEDS ORDERED: Albuterol-Ipratrop 3 mg / 0.5 (3 ml) UD IH STA (02:31)
[2018-09-08] MEDS ORDERED: Albuterol-Ipratrop 3 mg / 0.5 (3 ml) UD IH PRN (02:38)
[2018-09-08] MEDS: Albuterol-Ipratrop 3 mg / 0.5 (3 ml) UD IH SCH ×3 (07:49→19:58)
[2018-09-08] MEDS: MethylPREDNISolone 40 mg Vial IVP SCH ×3 (08:02→22:39)
--- NOTE | 2018-09-08 08:28 | RAD ---
Date of service: 09/08/2018 HISTORY: sob COMPARISON: No prior. TECHNIQUE: 1 view obtained. FINDINGS: LUNGS: There is dense consolidation in the left lung apex. This is unchanged. There is volume loss in the left lung PLEURA: No significant pleural effusion identified, no pneumothorax apparent. CARDIOVASCULAR: No aortic atherosclerotic calcification present. Normal cardiac size. No pulmonary vascular congestion. OSSEOUS STRUCTURES: No significant abnormalities. VISUALIZED UPPER ABDOMEN: Normal. OTHER FINDINGS: None. IMPRESSION: There is dense consolidation in the left lung apex. This is unchanged. There is volume loss in the left lung
[2018-09-08] MEDS: Sodium Chloride 0.45% 1,000 ML IV SCH (08:45)
[2018-09-08] MEDS: oxyCODONE 5 mg Immediate Release Tab PO SCH ×3 (10:25→22:41)
[2018-09-08] MEDS: Insulin Reg-MEDIUM-Coverage SC SCH ×2 (13:24→16:35)
--- NOTE | 2018-09-08 17:48 | CON ---
DATE OF CONSULTATION: 09/08/2018 PULMONARY CONSULTATION REFERRING PHYSICIAN: Dr. Lundy. REASON FOR CONSULTATION: Cough, shortness of breath. HISTORY OF PRESENT ILLNESS: This is a 53-year-old gentleman, known history of chronic obstructive lung disease, history of CVA, diabetes, history of stage IV lung cancer with brain mets, DVT, history of colon resection in the past, substance abuse, brought in because of worsening shortness of breath, cough. No nausea. No vomiting. No diarrhea. No significant leg swelling. PAST MEDICAL HISTORY: As per history of present illness. FAMILY HISTORY: No significant cardiopulmonary disease reported. SOCIAL HISTORY: Former smoker, history of alcohol abuse, also with a history of substance abuse. ALLERGIES: NONE KNOWN. MEDICATIONS: Ambien 5 mg at bedtime, DuoNeb every 4 hours p.r.n., also every 6 hours [id number], insulin coverage, Librium 25 mg every 6 hours p.r.n., oxycodone 5 mg every 6 hours, IV fluid half-normal saline 40 mL/hour, Solu-Medrol 40 mg every 8 hours, Xanax 0.5 mg every 8 hours. REVIEW OF SYSTEMS: No headache. No rhinitis. Does have cough, shortness of breath. No chest pain. No nausea. No vomiting. No diarrhea. No leg pain or leg swelling. PHYSICAL EXAMINATION: GENERAL: Sitting at the side of the bed, in no acute distress. Temp is 98, heart rate is 90, respiratory rate is 20, blood pressure 102/70, pulse ox 97% on 2 liters nasal cannula. HEENT: Moist mucous membranes. Crowded airway. Mallampati score is 4. Short, thick neck. LUNGS: Have a prolonged expiratory phase wheezing HEART: S1 and S2. ABDOMEN: Soft, nontender, no organomegaly. EXTREMITIES: No edema. NEUROLOGIC: Awake and alert, follows simple commands. LABORATORY DATA: Shows hemoglobin 11.5, hematocrit 36.9, WBC is 6.2, platelet is 80. INR 1.10. PTT 28. Sodium 142, potassium 4.3, chloride 108, bicarbonate 28, BUN 29, creatinine 1, glucose is 332, calcium is 9.4, AST 111, ALT 107, alk phos is 92. Troponin less than 0.01. Albumin is 3.1. Chest x-ray done in the ER shows dense consolidation of left upper lung apex. This is unchanged from previous x-rays. There is a volume loss in the left lung though. IMPRESSION AND PLAN: Metastatic lung cancer with metastases to the brain, chronic obstructive lung disease with exacerbation, history of cerebrovascular accident, thrombocytopenia, diabetes, history of substance abuse in the past, anxiety disorder, depression, suspected sleep apnea syndrome. From a pulmonary point of view, he is doing okay. We will continue inhaled bronchodilator, may add doxycycline 100 mg twice a day, gastric prophylaxis. CT to lower extremity. Avoid chemical deep venous thrombosis prophylaxis because of thrombocytopenia, pain management. We will place him on CPAP at 8 cm of 35% oxygen while sleeping. Thank you and we will follow with you. Sandro Kramer MD
--- NOTE | 2018-09-08 18:55 | CARD ---
APPROVED REPORT Date of service: 09/07/2018 EKG Measurement Heart [id number] NM 128P33 [id number] <Conclusion> Normal sinus rhythm Normal ECG
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
[2018-09-09] MEDS: Albuterol-Ipratrop 3 mg / 0.5 (3 ml) UD IH SCH ×4 (02:50→19:45)
[2018-09-09] MEDS: oxyCODONE 5 mg Immediate Release Tab PO SCH ×4 (05:30→21:39)
[2018-09-09] MEDS: MethylPREDNISolone 40 mg Vial IVP SCH ×3 (05:31→21:40)
[2018-09-09 07:31] LABS: HEMOGLOBIN 10.4 g/dL (14.0-18.0); MEAN CELL VOLUME 100.6 fl (80.0-105.0); MEAN CORPUSCULAR HEMOGLOBIN 31.4 pg (25.0-35.0); MEAN CORPUSCULAR HGB CONC 31.2 g/dl (31.0-37.0); MEAN PLATELET VOLUME 10.6 fl (7.0-11.0); RBC 3.31 10^6/uL (3.5-6.1); RED CELL DISTRIBUTION WIDTH 15.6 % (11.5-14.5); WHITE BLOOD COUNT 9.4 10^3/uL (4.5-11.0)
[2018-09-09] MEDS: Insulin Reg-MEDIUM-Coverage SC SCH ×5 (07:53→21:40)
[2018-09-09 08:00] LABS: ALBUMIN 2.9 g/dL (3.0-4.8); ALT/SGPT 105 U/L (7-56); AST/SGOT 67 U/L (17-59); BLOOD UREA NITROGEN 25 mg/dL (7-21); CALCIUM 9.4 mg/dL (8.4-10.5); GFR NON-AFRICAN AMERICAN > 60
[2018-09-09 08:38] VITALS: RESP 18
[2018-09-09] MEDS: Sodium Chloride 0.45% 1,000 ML IV SCH (11:02)
--- NOTE | 2018-09-09 13:00 | PN ---
DATE: 09/09/2018 SUBJECTIVE: He is currently very weak and shaky in bed, he needs his Librium and Xanax. He is breathing a little bit better. He is on IV fluids, Ambien, doxycycline, albuterol, Librium, oxycodone, Prandin. He is on Solu-Medrol 40 mg, I will decrease it to 30 and Xanax. I was hoping to discharge him today. He is very shaky and very weak. PHYSICAL EXAMINATION: VITAL SIGNS: He has a 97.7 temp, 83 pulse, 105/76 blood pressure, 18 respiratory rate, 99% O2 sat on 3 liters. ASSESSMENT AND PLAN: He is failing overall, I discussed hospice with him this morning, he is not interested yet. He would like to go home eventually, he just shaky. He has high chance of fall, I physical therapy as the safe first before I discharge him home. At this time physical therapy has not seen him yet. He is in trouble. He is in observation, I will keep him one more day. I am hoping to get him out. I just think right now he is very unstable, very weak, and he is very shaky with his hands and legs. I will decrease his Solu-Medrol 30 mg. Continue Librium and Xanax, wait for physical therapies opinion. Continue aggressive treatment and care as best we can end-stage lung cancer. He does not want hospice at this time. Viktor Lundy DO MTDD
--- NOTE | 2018-09-09 20:55 | PN ---
DATE: 09/09/2018 PULMONARY PROGRESS NOTE REFERRING PHYSICIAN: Viktor Lundy DO SUBJECTIVE: He is lying in the bed, sleepy, arousable. Night was unremarkable. Short of breath with exertion, has some cough. No nausea. No leg pain, no leg swelling. OBJECTIVE: GENERAL: No acute distress. VITAL SIGNS: Temperature is 98, heart rate 83, respiratory rate is 18, blood pressure 105/76, pulse 98% on 2 L nasal cannula. HEENT: Moist mucous membrane. Crowded airway. Mallampati score is 4. NECK: Supple. No JVD. LUNGS: Have scattered rhonchi and wheezing. HEART: S1 and S2. ABDOMEN: Soft, nontender, no organomegaly. EXTREMITIES: Not much edema. NEUROLOGIC: Sleepy, arousable, follows simple command. MEDICATIONS: He is on Ambien 5 mg h.s. p.r.n. and also getting doxycycline 100 mg twice a day, DuoNeb every 4 hours p.r.n. every 6 hours round the clock, insulin coverage, Librium 25 mg every 6 hours p.r.n., oxycodone immediate release 5 mg every 6 hours, Prandin 2 mg a.c. and also getting fluid half normal saline 40 mL/hour, Solu-Medrol 30 mg every 8 hours, Xanax 0.5 mg three times a day p.r.n. LABORATORY DATA: Shows hemoglobin 10.4, hematocrit 33.3, WBC 9.4, platelet count is 91. INR 1.1, PTT is 28. Sodium 137, potassium 4.4, chloride 105, bicarbonate 26, BUN 25, creatinine 0.7, glucose 181. Calcium 9.4, total bilirubin 0.8. AST 67, ALT 105, alk phos is 100. Albumin is 2.9. IMPRESSION AND PLAN: Metastatic lung cancer with metastasis to the brain, chronic obstructive lung disease with exacerbation, history of cerebrovascular accident, thrombocytopenia, diabetes, history of substance abuse in the past, anxiety disorder, depression, suspected sleep apnea syndrome. Pulmonary point of view, doing okay. Continue intravenous and inhaled bronchodilator, antibiotics, gastric prophylaxis, deep venous thrombosis prophylaxis. Encourage continuous positive airway pressure use. Careful with sedation. Thank you and we will follow with you. Sandro Kramer MD [facility] # [id number]
[2018-09-10] MEDS: Albuterol-Ipratrop 3 mg / 0.5 (3 ml) UD IH SCH ×3 (01:39→13:23)
[2018-09-10] MEDS: MethylPREDNISolone 40 mg Vial IVP SCH (06:27)
[2018-09-10] MEDS: oxyCODONE 5 mg Immediate Release Tab PO SCH (06:27)
[2018-09-10 06:37] LABS: MEAN CELL VOLUME 102.9 fl (80.0-105.0); MEAN CORPUSCULAR HEMOGLOBIN 31.7 pg (25.0-35.0); MEAN CORPUSCULAR HGB CONC 30.9 g/dl (31.0-37.0); MEAN PLATELET VOLUME 9.8 fl (7.0-11.0); RBC 3.15 10^6/uL (3.5-6.1); RED CELL DISTRIBUTION WIDTH 15.7 % (11.5-14.5); WHITE BLOOD COUNT 9.1 10^3/uL (4.5-11.0)
[2018-09-10 07:35] LABS: ALB/GLOB RATIO 1.1 (1.1-1.8); ALT/SGPT 106 U/L (7-56); AST/SGOT 65 U/L (17-59); BLOOD UREA NITROGEN 25 mg/dL (7-21); CALCIUM 9.8 mg/dL (8.4-10.5); GFR NON-AFRICAN AMERICAN > 60
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
[2018-09-10 08:16] VITALS: BP 95/64; PULSE 70; TEMP 97.4; O2SAT 98
--- NOTE | 2018-09-10 14:32 | PN ---
DATE: 09/10/2018 PULMONARY PROGRESS NOTE REFERRING PHYSICIAN: Viktor Lundy DO SUBJECTIVE: The patient is seen lying in bed, in no acute distress. No overnight events reported. Reports wearing CPAP machine last night. States he feels well this morning. No headache, rhinitis, chest pain, abdominal pain, nausea, vomiting, diarrhea, leg pain, or leg swelling. The patient reports shortness of breath and cough is improved. PHYSICAL EXAMINATION: VITAL SIGNS: Blood pressure 95/64, pulse 70, temperature 97.4, oxygen saturation 98% on room air. GENERAL: No acute distress. HEENT: Moist mucous membranes. Mallampati score of 4. Crowded airway. NECK: Supple. No JVD. LUNGS: Few scattered rhonchi. CARDIOVASCULAR: S1 and S2. ABDOMEN: Soft, nontender. No distention. No organomegaly. EXTREMITIES: No bilateral lower extremity edema. NEUROLOGIC: Awake, alert, verbal. Following commands. MEDICATIONS: Reviewed. DuoNeb 3 mL inhalation every 4 hours p.r.n., DuoNeb 3 mL inhalation every 6 hours, Xanax 0.5 mg p.o. three times a day p.r.n., Librium 25 mg p.o. every 6 hours p.r.n., doxycycline 100 mg every 12 hours, Humulin R sliding scale a.c. at bedtime, oxycodone 5 mg every 6 hours, prednisone 40 mg daily, Prandin 10 mg before meals, sodium chloride 0.45% 1000 mL at 40 mL per hour, Ambien 5 mg at bedtime. LABORATORY DATA: Reviewed. WBC 9.1, RBC 3.15, hemoglobin 10, hematocrit 32.4, and platelets 83. Sodium 140, potassium 4.2, chloride 109, carbon dioxide 28, anion gap 8, BUN 25, creatinine 0.6, GFR greater than 60, POC glucose 162, random glucose 177, calcium 9.8. Total bilirubin 0.6, AST 65, ALT 106, alkaline phosphatase 94, total protein 5.6, albumin 3, globulin 2.6, and albumin-globulin ratio of 1.1. IMPRESSION AND PLAN: Metastatic lung cancer with metastasis to the brain, chronic obstructive lung disease with exacerbation, history of cerebrovascular accident, thrombocytopenia, diabetes, history of substance abuse in the past, anxiety disorder, depression, suspected sleep apnea syndrome. Pulmonary point of view, continue inhaled bronchodilators. Agreed with steroid tapering and gastric prophylaxis. Continue sleep apnea precaution, head of bed elevated at 45 degrees. Continue Oncology followup, antibiotic therapy, fall precautions. We will recommend this patient to have pulmonary function test and sleep study as outpatient. Continue sequential compression devices to bilateral lower extremities for deep venous thrombosis. We will not place the patient on chemical prophylaxis due to thrombocytopenia. Fall precaution. This patient was seen and examined with Dr. Kramer. Discussed assessment and plan as described above. This patient was seen and examined with Matt Sue, nurse practitioner. Discussed assessment and plan as described above. Thank you for this consult. We will follow with you. Matt Sue APN Sandro Kramer MD [facility]
--- NOTE | 2018-09-11 02:22 | DS ---
HOSPITAL COURSE: He is here for two days of observation. He is having some bleeding issues from his stage IV lung cancer tube breaking out. He still does not want hospice at this time. He was on Solu-Medrol b.i.d. It came out. It was difficult to put him back in. He wants to go home. I have put him on prednisone 40 mg. I am hoping physical therapy could walk him and he is eventually safe before he leaves. PHYSICAL EXAMINATION: VITAL SIGNS: A 97.4 temperature, 70 pulse, 95/64 blood pressure, 18 respiratory rate, and 98% O2 saturation on 2 liters. HEENT: His head is atraumatic and normocephalic. HEART: Regular rate. LUNGS: Decreased breath sounds bilaterally; almost no air movement. ABDOMEN: Soft. EXTREMITIES: No edema. NEUROLOGIC He is really failing. LABORATORY DATA: He has a 9.1 white count, 10 hemoglobin, 32.4 hematocrit with 83 platelets. He has a 140 sodium, potassium 4.2, BUN 25, creatinine 0.6, GFR is greater than 60, sugar is 173, calcium is 9.8, total bili is 0.6. AST is 65, ALT is 106, alk phos is 94, and total protein is 5.6. ASSESSMENT AND PLAN: He has been seen by Pulmonary, Oncology. He is really fading fast. He does not want hospice at this time; unfortunately, he should be on hospice. I am hoping to get him out today on prednisone 40 mg, steroids daily for three days, and slowly wean down to 20 mg where I thought we will keep him at. 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 He is definitely failing, but he wants to go home. Viktor Lundy DO
== END 2018-09-10 15:38 | disposition home or self-care (01) ==
LOC: ED 22:04 → ERH 09-08 02:35 → 3RNO 09-08 05:13
PROVIDERS: ADMIT Family Medicine; ATTEND Family Medicine
DX: D69.6 Thrombocytopenia, unspecified (principal); D64.9 Anemia, unspecified; Z86.718 Personal history of other venous thrombosis and embolism; J44.1 Chronic obstructive pulmonary disease with (acute) exacerbation; B19.20 Unspecified viral hepatitis C without hepatic coma; C34.90 Malignant neoplasm of unspecified part of unspecified bronchus or lung; C79.31 Secondary malignant neoplasm of brain; K74.60 Unspecified cirrhosis of liver; E11.9 Type 2 diabetes mellitus without complications; R32 Unspecified urinary incontinence; Z86.73 Personal history of transient ischemic attack (TIA), and cerebral infarction without residual deficits; Z87.891 Personal history of nicotine dependence; Z90.49 Acquired absence of other specified parts of digestive tract; Z91.5 Personal history of self-harm; Z92.3 Personal history of irradiation; F19.11 Other psychoactive substance abuse, in remission; L81.8 Other specified disorders of pigmentation; G89.29 Other chronic pain; M54.9 Dorsalgia, unspecified; G47.30 Sleep apnea, unspecified
CPT/HCPCS: 36415; 71045; 80053; 82550; 82948; 83615; 84484; 85027; 85610; 85730; 93005; 94640; 94660; 94760; 96374; 97162; 97530; 99285; G0378; G8978; G8979; J2920; J2930; J7030

== ENCOUNTER 2018-09-12 19:42 | Emergency (ER) | payer MEDICAID ==
[2018-09-12 19:43] VITALS: BMI 26.4
[2018-09-12 19:55] VITALS: RESP 18; O2SAT 97
[2018-09-12] MEDS ORDERED: Albuterol-Ipratrop 3 mg / 0.5 (3 ml) UD IH STA (20:23)
[2018-09-12 20:36] LABS: HEMOGLOBIN 12.5 g/dL (14.0-18.0); MEAN CELL VOLUME 102.6 fl (80.0-105.0); MEAN CORPUSCULAR HEMOGLOBIN 32.3 pg (25.0-35.0); MEAN CORPUSCULAR HGB CONC 31.5 g/dl (31.0-37.0); MEAN PLATELET VOLUME 9.8 fl (7.0-11.0); RBC 3.87 10^6/uL (3.5-6.1); RED CELL DISTRIBUTION WIDTH 15.5 % (11.5-14.5); WHITE BLOOD COUNT 6.4 10^3/uL (4.5-11.0)
[2018-09-12 20:50] LABS: ALB/GLOB RATIO 1.2 (1.1-1.8); ALBUMIN 3.2 g/dL (3.0-4.8); ALT/SGPT 207 U/L (7-56); AST/SGOT 164 U/L (17-59); BLOOD UREA NITROGEN 19 mg/dL (7-21); CALCIUM 9.9 mg/dL (8.4-10.5); GFR NON-AFRICAN AMERICAN > 60
[2018-09-12 20:57] LABS: B-TYPE NATRIURETIC PEPTIDE 727 pg/mL (0-450); TROPONIN I < 0.01 ng/mL
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
[2018-09-12 23:53] VITALS: BP 110/82; PULSE 89; TEMP 98.1
--- NOTE | 2018-09-13 08:18 | RAD ---
Date of service: 09/12/2018 HISTORY: sob COMPARISON: Frontal chest radiograph 09/08/2018. TECHNIQUE: 1 view obtained. FINDINGS: LUNGS: No acute interval change. Gross fibrosis or pulmonary mass and volume loss are reiterated at the left apex elevated left hemidiaphragm minimally. No acute infiltrate bilaterally. PLEURA: No significant pleural effusion identified, no pneumothorax apparent. CARDIOVASCULAR: No aortic atherosclerotic calcification present. Normal cardiac size. No pulmonary vascular congestion. OSSEOUS STRUCTURES: No significant abnormalities. VISUALIZED UPPER ABDOMEN: Normal. OTHER FINDINGS: None. IMPRESSION: No acute cardiopulmonary disease appreciated. Chronic volume loss left hemithorax reiterated due to fibrosis/apical mass.
--- NOTE | 2018-09-13 19:02 | CARD ---
APPROVED REPORT Date of service: 09/12/2018 EKG Measurement Heart [id number] <Conclusion> Normal sinus rhythm Normal ECG
== END 2018-09-12 23:35 | disposition left against medical advice (07) ==
LOC: ED 19:42
DX: J44.1 Chronic obstructive pulmonary disease with (acute) exacerbation (principal); C34.90 Malignant neoplasm of unspecified part of unspecified bronchus or lung; C79.31 Secondary malignant neoplasm of brain; E11.9 Type 2 diabetes mellitus without complications; Z86.73 Personal history of transient ischemic attack (TIA), and cerebral infarction without residual deficits; Z87.891 Personal history of nicotine dependence
CPT/HCPCS: 71045; 80053; 82550; 83615; 83880; 84484; 85027; 93005; 96374; 99285; J2930

== ENCOUNTER 2018-10-01 19:51 | Emergency (ER) | payer MEDICAID | END 2018-10-02 01:00 | disposition home or self-care (01) | LOC: ED 10-02 01:00 ==

== ENCOUNTER 2018-10-20 12:38 | Emergency (ER) | payer MEDICAID ==
[2018-10-20 12:39] VITALS: BMI 26.4
[2018-10-20 12:41] VITALS: TEMP 98.4
[2018-10-20] MEDS ORDERED: Sodium Chloride 0.9% 1,000 ML IV SCH (13:00)
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
[2018-10-20 13:39] LABS: BASO # 0.03 K/mm3 (0.0-2.0); BASO % 0.6 % (0.0-3.0); EOS % 0.8 % (1.5-5.0); HEMOGLOBIN 14.3 g/dL (14.0-18.0); LYMPH # 1.7 (1.2-3.4); LYMPH % 35.7 % (22.0-35.0); MEAN CELL VOLUME 96.3 fl (80.0-105.0); MEAN CORPUSCULAR HEMOGLOBIN 31.4 pg (25.0-35.0); MEAN CORPUSCULAR HGB CONC 32.6 g/dl (31.0-37.0); MEAN PLATELET VOLUME 9.2 fl (7.0-11.0); MONO # 0.5 (0.1-0.6); RBC 4.55 10^6/uL (3.5-6.1); RED CELL DISTRIBUTION WIDTH 15.2 % (11.5-14.5); WHITE BLOOD COUNT 4.8 10^3/uL (4.5-11.0)
[2018-10-20 13:46] LABS: ALB/GLOB RATIO 1.4 (1.1-1.8); ALBUMIN 3.8 g/dL (3.0-4.8); ALT/SGPT 65 U/L (7-56); AST/SGOT 64 U/L (17-59); BLOOD UREA NITROGEN 15 mg/dL (7-21); CALCIUM 9.7 mg/dL (8.4-10.5); GFR NON-AFRICAN AMERICAN > 60
[2018-10-20] MEDS ORDERED: Magnesium Oxide 400 mg Tab UD PO STA (13:51)
--- NOTE | 2018-10-20 14:40 | RAD ---
Date of service: 10/20/2018 HISTORY: weakness COMPARISON: 10/01/2018 FINDINGS: LUNGS: There is hyperinflation of the right lung. There is a persistent opacification in the left upper lobe. There is low lung volume on the left with shift of mediastinum to the left. PLEURA: No pleural effusions or pneumothorax. CARDIOVASCULAR: The heart is normal in size. No aortic atherosclerotic calcifications present. OSSEOUS STRUCTURES: Within normal limits for the patient's age. VISUALIZED UPPER ABDOMEN: Normal. OTHER FINDINGS: There is chronic elevation of the left hemidiaphragm. IMPRESSION: Persistent opacification in the left upper lobe. No change in the appearance of the left lung with low lung volume and shift of mediastinum to the left.
--- NOTE | 2018-10-20 16:15 | CT ---
Date of service: 10/20/2018 PROCEDURE: CT HEAD WITHOUT CONTRAST. HISTORY: brain ca, weakness; ataxia COMPARISON: MRI brain without and with intravenous contrast from 06/15/2018 TECHNIQUE: Axial computed tomography images were obtained through the head/brain without intravenous contrast. Radiation dose: Total exam DLP = 1072.97 mGy-cm. This CT exam was performed using one or more of the following dose reduction techniques: Automated exposure control, adjustment of the mA and/or kV according to patient size, and/or use of iterative reconstruction technique. FINDINGS: HEMORRHAGE: No intracranial hemorrhage. BRAIN: There is redemonstration of symmetric confluent low-attenuation areas in the periventricular white matter extending to the subcortical white matter. There is a stable focal low-attenuation area in the left cerebellar hemisphere. There is no mass effect or abnormal extra-axial fluid collection. There is no territorial infarction. The midline sagittal structures are normal. VENTRICLES: There is mild age advanced global parenchymal volume loss and proportionate enlargement of the ventricles and cortical sulci. CALVARIUM: There is no calvarial fracture or extracranial soft tissue swelling. PARANASAL SINUSES: There is fluid and aerosolized secretions in the sphenoid sinus and a retention cyst/polyp in the left maxillary sinus. There is mild mucosal thickening in the ethmoid air cells. MASTOID AIR CELLS: There are bilateral large mastoid effusions. OTHER FINDINGS: None. IMPRESSION: No acute intracranial abnormality. Little interval change in extensive symmetric confluent periventricular and subcortical white matter changes, the differential considerations include leukoencephalopathy, demyelination and dysmyelination. Stable focal abnormality in the left cerebellar hemisphere likely related to residual edema.
[2018-10-20 23:22] VITALS: BP 127/82; PULSE 87; RESP 18; O2SAT 100
--- NOTE | 2018-10-21 05:39 | CARD ---
APPROVED REPORT Date of service: 10/20/2018 EKG Measurement Heart [id number] <Conclusion> Sinus rhythm with marked sinus arrhythmia with occasional premature ventricular complexes and fusion complexes ST & T wave abnormality, consider anterior ischemia Prolonged QT Abnormal ECG
== END 2018-10-20 23:15 | disposition home or self-care (01) ==
LOC: ED 12:38
DX: R53.1 Weakness (principal); J44.9 Chronic obstructive pulmonary disease, unspecified; E11.9 Type 2 diabetes mellitus without complications; Z86.73 Personal history of transient ischemic attack (TIA), and cerebral infarction without residual deficits; Z85.118 Personal history of other malignant neoplasm of bronchus and lung; C79.31 Secondary malignant neoplasm of brain; Z87.891 Personal history of nicotine dependence
CPT/HCPCS: 70450; 71045; 80053; 83735; 85025; 93005; 99285; J7030

== ENCOUNTER 2018-10-29 15:19 | Observation (INO) | payer MEDICAID ==
[2018-10-29 15:22] VITALS: BMI 26.4
[2018-10-29 15:58] LABS: BASO # 0.02 K/mm3 (0.0-2.0); BASO % 0.4 % (0.0-3.0); EOS % 0.6 % (1.5-5.0); HEMOGLOBIN 14.2 g/dL (14.0-18.0); LYMPH # 1.6 (1.2-3.4); LYMPH % 31.2 % (22.0-35.0); MEAN CELL VOLUME 95.9 fl (80.0-105.0); MEAN CORPUSCULAR HGB CONC 32.3 g/dl (31.0-37.0); MEAN PLATELET VOLUME 8.9 fl (7.0-11.0); MONO # 0.9 (0.1-0.6); MONO % 16.7 % (1.0-6.0); RBC 4.58 10^6/uL (3.5-6.1); RED CELL DISTRIBUTION WIDTH 15.1 % (11.5-14.5); WHITE BLOOD COUNT 5.3 10^3/uL (4.5-11.0)
[2018-10-29 16:14] LABS: ALB/GLOB RATIO 1.2 (1.1-1.8); ALBUMIN 3.5 g/dL (3.0-4.8); ALT/SGPT 47 U/L (7-56); AST/SGOT 70 U/L (17-59); BLOOD UREA NITROGEN 18 mg/dL (7-21); CALCIUM 9.8 mg/dL (8.4-10.5); GFR NON-AFRICAN AMERICAN > 60
[2018-10-29 16:19] LABS: TROPONIN I < 0.01 ng/mL
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
--- NOTE | 2018-10-29 17:26 | CT ---
Date of service: 10/29/2018 PROCEDURE: CT HEAD WITHOUT CONTRAST. HISTORY: seizure COMPARISON: Noncontrast head CT performed 10/20/18, MRI brain without/with performed 06/15/18 TECHNIQUE: Axial computed tomography images were obtained through the head/brain without intravenous contrast. Radiation dose: Total exam DLP = 904.25 mGy-cm. This CT exam was performed using one or more of the following dose reduction techniques: Automated exposure control, adjustment of the mA and/or kV according to patient size, and/or use of iterative reconstruction technique. FINDINGS: Examination limited by motion. HEMORRHAGE: No intracranial hemorrhage. BRAIN: Diffuse atrophy with prominence of the ventricles and sulci noted. Intracranial atherosclerosis. Hypodense region in the right temporal lobe. Re-identified low-attenuation region in the left cerebellum. Severe confluent periventricular and subcortical white matter hypodensities, which are nonspecific, but often seen with chronic microvascular ischemic disease. Previously demonstrated metastatic disease not well assessed by noncontrast head CT; MRI may be considered for further evaluation if indicated. VENTRICLES: No hydrocephalus. CALVARIUM: Unremarkable. PARANASAL SINUSES: Mucosal thickening and/or fluid involving the sphenoid sinuses and ethmoid air cells. MASTOID AIR CELLS: Fluid-filled bilateral mastoid air cells. OTHER FINDINGS: None. IMPRESSION: Examination markedly limited by motion. Hypodense regions involving the right temporal lobe and left cerebellum. Severe confluent white matter changes. Previously demonstrated metastatic disease not well assessed by noncontrast head CT; MRI may be considered for further evaluation if indicated. Fluid-filled bilateral mastoid air cells; correlate clinically for mastoiditis. Mucosal thickening and/or fluid involving the sphenoid sinuses and ethmoid air cells.
--- NOTE | 2018-10-29 18:30 | RAD ---
HISTORY: seizure COMPARISON: Chest x-ray performed 10/20/18 and 10/01/18 TECHNIQUE: Chest, one view. FINDINGS: LUNGS: There is a persistent opacification in the left upper lobe. Mediastinal shift to the left. Low left lung volume. No significant pleural effusion or definite pneumothorax identified. CARDIOVASCULAR: Stable. OSSEOUS STRUCTURES: No acute osseous abnormality identified. VISUALIZED UPPER ABDOMEN: Mild elevation left hemidiaphragm. OTHER FINDINGS: None. IMPRESSION: Persistent left upper lobe opacification with mediastinal shift to the left. Low left lung volume.
[2018-10-30 01:08] VITALS: RESP 20
[2018-10-30 08:46] VITALS: BP 102/72; PULSE 95; TEMP 97.9; O2SAT 94
[2018-10-30] MEDS ORDERED: Dextrose 50% SYRINGE Inj (50 ml) IV PRN (08:52)
[2018-10-30] MEDS ORDERED: MethylPREDNISolone 40 mg Vial IVP ONE (09:00)
[2018-10-30] MEDS ORDERED: Insulin Lispro (humaLOG) LOW Coverage SC ONE (10:02)
[2018-10-30] MEDS ORDERED: Insulin Lispro (humaLOG) LOW Coverage SC SCH (11:30)
--- NOTE | 2018-10-30 11:42 | CARD ---
APPROVED REPORT Date of service: 10/29/2018 EKG Measurement Heart [id number] <Conclusion> Sinus tachycardia Rightward axis Septal infarct, age undetermined Abnormal ECG
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
--- NOTE | 2018-10-30 23:17 | DS ---
HOSPITAL COURSE: I have known Trung for many years. He has lung cancer with stage IV metastasis to the brain. He questionably had a seizure last night, however, there was no postictal and it was witnessed only by the girlfriend. He is here in the hospital, he wants to go home. He is demanding to go home. I kind of do agree with him. I will put him on Keppra and will let him go home. He is currently back to his baseline, which is end-stage, stage III lung disease with brain metastasis and who is dying. He has not eaten well in the past 10 days. I cannot get him on hospice, because he refused hospice and broke hospice 6 to 7 times, so no hospice will take him anymore. We will get him home and will see him on a house-call. We will add Keppra to his list of medications, hopefully this will help. He is on Ensure and he will be going home as his wish. I will change him to observation. He had an apparent breakthrough seizure I think. He has lung cancer stage IV with metastasis to the brain and he is end-stage. Viktor Lundy DO
--- NOTE | 2018-10-31 08:50 | CON ---
DATE: 10/30/2018 HISTORY OF PRESENT ILLNESS: A 53-year-old male, came to hospital with a possible seizure, past medical history of lung cancer, who had a seizure at home earlier. The patient was in the bed and witnessed him having a seizure and brought him to hospital for further evaluation. I was called to evaluate the patient with past medical history as above. PAST MEDICAL HISTORY: End-stage lung cancer with the brain mets. DIAGNOSTIC DATA: A CAT scan shows hypodense lesion involving the right temporal and left cerebellum. The patient had an MRI in 06/2018, which showed multiple enhancing metastatic lesions from the lung cancer. I was called to evaluate the patient. PHYSICAL EXAMINATION: HEENT: Normocephalic and atraumatic. NECK: Supple. NEUROLOGIC: Awake and orientated to self. Cranial nerves II through XII were tested. Pupils reactive. EOM intact. Visual hadley full. No facial asymmetry. Tongue midline. MOTOR: Moves all the extremities equally. Tone normal. Deep tendon reflexes 1+. Plantars are downgoing. Sensory appears intact. Cerebellar gait deferred. IMPRESSION AND PLAN: A 53-year-old with end-stage lung cancer with the brain metastases. He came to emergency room with a possible seizure. Labs are unremarkable. The patient is on Keppra. I think it needs to be increased to 250 mg twice a day. We will follow it up. Tommy Glaser MD
== END 2018-10-30 15:22 | disposition home or self-care (01) ==
LOC: ED 15:19 → ERH 19:31 → INTOOBSV 19:31 → ERH 20:30 → 3RSO 10-30 00:45
PROVIDERS: ADMIT Family Medicine; ATTEND Family Medicine
DX: R56.9 Unspecified convulsions (principal); C34.90 Malignant neoplasm of unspecified part of unspecified bronchus or lung; C79.31 Secondary malignant neoplasm of brain; E11.9 Type 2 diabetes mellitus without complications; J44.9 Chronic obstructive pulmonary disease, unspecified; K74.60 Unspecified cirrhosis of liver; R62.7 Adult failure to thrive; R63.3 Feeding difficulties; Z86.73 Personal history of transient ischemic attack (TIA), and cerebral infarction without residual deficits; Z87.891 Personal history of nicotine dependence
CPT/HCPCS: 70450; 71045; 80053; 80320; 82948; 83735; 84484; 85025; 87040; 93005; 96374; 99285; G0378; J2060; J2405; J2920; J2930

== ENCOUNTER 2018-11-05 07:30 | Emergency (ER) | payer MEDICAID ==
[2018-11-05 07:30] VITALS: BMI 26.4
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
[2018-11-05 07:49] VITALS: TEMP 98
[2018-11-05 08:10] LABS: BASO # 0.03 K/mm3 (0.0-2.0); BASO % 0.5 % (0.0-3.0); EOS % 0.6 % (1.5-5.0); HEMOGLOBIN 13.2 g/dL (14.0-18.0); LYMPH # 1.2 (1.2-3.4); LYMPH % 18.6 % (22.0-35.0); MEAN CELL VOLUME 95.5 fl (80.0-105.0); MEAN CORPUSCULAR HEMOGLOBIN 31.1 pg (25.0-35.0); MEAN CORPUSCULAR HGB CONC 32.6 g/dl (31.0-37.0); MEAN PLATELET VOLUME 9.4 fl (7.0-11.0); MONO # 0.7 (0.1-0.6); MONO % 11.5 % (1.0-6.0); RBC 4.24 10^6/uL (3.5-6.1); RED CELL DISTRIBUTION WIDTH 14.9 % (11.5-14.5); WHITE BLOOD COUNT 6.2 10^3/uL (4.5-11.0)
[2018-11-05 08:25] LABS: ALB/GLOB RATIO 1.1 (1.1-1.8); ALBUMIN 3.1 g/dL (3.0-4.8); ALT/SGPT 142 U/L (7-56); AST/SGOT 164 U/L (17-59); BLOOD UREA NITROGEN 24 mg/dL (7-21); CALCIUM 9.3 mg/dL (8.4-10.5); GFR NON-AFRICAN AMERICAN > 60
[2018-11-05 08:35] LABS: B-TYPE NATRIURETIC PEPTIDE 363 pg/mL (0-450); TROPONIN I < 0.01 ng/mL
[2018-11-05 08:58] VITALS: RESP 18
--- NOTE | 2018-11-05 09:21 | RAD ---
Date of service: 11/05/2018 HISTORY: sob COMPARISON: Chest radiograph dated 10/29/2018. TECHNIQUE: Chest PA and lateral views FINDINGS: LUNGS: Persistent opacification in the left upper lobe with mediastinal shift to the left. Decreased left thoracic volume. PLEURA: No significant pleural effusion identified. No pneumothorax apparent. CARDIOVASCULAR: No aortic atherosclerotic calcification present. Normal cardiac size. No pulmonary vascular congestion. OSSEOUS STRUCTURES: Unchanged. VISUALIZED UPPER ABDOMEN: Normal. OTHER FINDINGS: None. IMPRESSION: Persistent left upper lobe calcification with mediastinal shift to the left. Left thoracic volume, stable. No significant interval change.
[2018-11-05 10:38] VITALS: O2SAT 100
[2018-11-05 11:24] VITALS: BP 114/89; PULSE 89
--- NOTE | 2018-11-06 11:14 | CARD ---
APPROVED REPORT Date of service: 11/05/2018 EKG Measurement Heart [id number] <Conclusion> Normal sinus rhythm Normal ECG
== END 2018-11-05 11:29 | disposition home or self-care (01) ==
LOC: ED 07:30
DX: R06.02 Shortness of breath (principal); J44.9 Chronic obstructive pulmonary disease, unspecified; C34.90 Malignant neoplasm of unspecified part of unspecified bronchus or lung; C79.31 Secondary malignant neoplasm of brain; E11.9 Type 2 diabetes mellitus without complications; Z86.73 Personal history of transient ischemic attack (TIA), and cerebral infarction without residual deficits; Z87.891 Personal history of nicotine dependence